=== PATIENT | male | born 1955 | race African-American/Black ===

== ENCOUNTER 2022-08-29 11:00 | Day surgery (SDC) | payer OTHER ==
--- NOTE | 2022-08-26 10:24 | RAD REPORT ---
EXAM DESCRIPTION: Loida Hernandez And Marixa (2 Views)08/26/2022 10:16 am CLINICAL HISTORY: Preop for cardiac catheterization COMPARISON: January 2022 FINDINGS: The lungs appear clear of acute infiltrate. The heart is normal size IMPRESSION: No acute abnormalities displayed
[2022-08-26 10:40] LABS: Absolute Lymphocytes (CBC) 2.3 K/uL (0.7-4.9); Hematocrit 42.5 % (39.6-49.0); Lymphocytes % 34.7 % (15.3-44.8); MCV 98.6 fL (80-100); MPV 8.7 fL (7.6-11.3); RBC Red Blood Cell Count 4.32 M/uL (4.33-5.43)
[2022-08-26 10:51] LABS: Protime INR 0.98
[2022-08-26 10:53] LABS: SARS-CoV-2 Antigen Rapid Res Negative (Negative)
--- NOTE | 2022-08-26 16:07 | EKG ---
Test Date: 2022-08-26 Test Time: 10:02:28 Director Motion Picture: MADAI MEASUREMENT RESULTS: Intervals: Rate: 66 [place]: 220 QRSD: 70 QT: 374 QTc: 392 [place]: P: 38 [place]: 220 QRS: 2 T: 4 INTERPRETIVE STATEMENTS: Sinus rhythm with 1st degree AV block Possible Left atrial enlargement Borderline ECG Compared to ECG 01/31/2022 09:55:15 No significant changes Electronically Signed On 08-26-22 16:06:52 CDT by Tawanda Connor
[2022-08-29] MEDS ORDERED: LIDOCAINE 1% MPF 30 ML VIAL ONE (11:14)
[2022-08-29] MEDS ORDERED: HEPA 1000U/500MLS 2,000 UNIT/1,000 ML BAG IV ONE (11:14)
[2022-08-29] MEDS ORDERED: NA CHLORIDE 0.9% 500 ML ONE (11:20)
[2022-08-29] MEDS ORDERED: HEPARIN 5000 UNIT/ML 1 ML VIAL ONE (12:01)
[2022-08-29] MEDS ORDERED: FENTANYL CITR 100 MCG/2 ML ONE (12:01)
[2022-08-29] MEDS ORDERED: MIDAZOLAM HCL 2 MG/2 ML INJ ONE (12:01)
[2022-08-29] MEDS ORDERED: VERAPAMIL HCL 10 MG/4 ML VIAL IV ONE (12:01)
[2022-08-29] MEDS ORDERED: CLOPIDOGREL 75 MG TABLET ONE (12:01)
[2022-08-29] MEDS ORDERED: ATROPINE SULF 1 MG/10 ML SYR IV ONE (12:02)
[2022-08-29] MEDS ORDERED: NITROGLYCERIN 100 MCG/ML SYR (for cath lab use only) IV ONE (12:02)
[2022-08-29] MEDS ORDERED: NITROGLYCERIN/D5W 25 MG/250 ML BTL IV ONE (12:02)
[2022-08-29] MEDS ORDERED: TICAGRELOR 90 MG TABLET PO ONE (12:02)
[2022-08-29] MEDS ORDERED: ASPIRIN 325 MG TAB ONE (12:02)
[2022-08-29] MEDS ORDERED: HEPARIN 10,000 UNIT/10 ML VIAL IV ONE (12:02)
[2022-08-29 14:31] VITALS: O2SAT 100
--- NOTE | 2022-08-29 16:33 | OP ---
Date of Procedure: 08/29/2022 Surgeon: CALLIE GUTIERREZ Procedures Performed: 1.Selective coronary angiogram. 2.Left heart catheterization. Indication: Unstable angina. Access: Right radial artery 6-[place] closed with TR band. Complications: None. Bleeding: Less than 10 mL. Anesthesia: Total sedation time was 50 minutes. Description Of Procedure: After risks, benefits, alternatives were explained, the patient agreed to procedure and signed informed consent. The patient was brought into the cardiac catheterization [facility], prepped and draped in the usual sterile fashion. Then, I accessed right radial artery using pediatric micropuncture kit and a 6-[place]ran Slender sheath. Then, I took 5-[place]ran [place] 4.0 catheter into the aortic root, engaged the left main and right coronary artery, took standard views, and then advanced the catheter over the wire into the LV, measured LVEDP, and pullback did not record any grad ient. Then, I removed the catheter and the sheath, and placed TR band with good hemostasis. Findings: 1.Left main; mid to distal left main critical stenosis of 90% to 95%. 2.LAD; ostial 90% to 95% and then proximal to mid diffuse 80% stenosis. Then, the LAD after diagona l 1 branch is beautiful large and has no disease. 3.Left circumflex; may be ostial 60%, but then the rest of the artery is totally normal. 4.RCA; large, dominant, and normal. 5.LVEDP elevated at 60 mmHg. Conclusion: 1.Critical left main and LAD stenosis. 2.Elevated LVEDP. Plan: Transfer for CABG. /FRAN Voice ID: [id number] Report ID: [id number]
[2022-08-29 19:33] VITALS: BP 132/74
== END 2022-08-29 15:10 | disposition home or self-care (01) ==
LOC: CCL 11:00
PROVIDERS: ATTEND Internal Medicine
DX: I25.110 Atherosclerotic heart disease of native coronary artery with unstable angina pectoris (principal); I10 Essential (primary) hypertension; E78.5 Hyperlipidemia, unspecified; Z79.899 Other long term (current) drug therapy; Z20.822 Contact with and (suspected) exposure to COVID-19
CPT/HCPCS: 93005; 85025; 80048; 36415; 85610; 85730; 71046; 93458; 76937; 87811; C1893; Q9966; J1644 ×2; J2250; J3010; J7040

== ENCOUNTER 2023-05-23 09:01 | Emergency (ER) | payer OTHER ==
--- NOTE | 2023-05-23 09:36 | RAD REPORT ---
EXAM DESCRIPTION: CT - Head Brain Wo Cont - 05/23/2023 9:16 am CLINICAL HISTORY: Dizziness;Syncope COMPARISON: No comparisons TECHNIQUE: Noncontrast head CT images were obtained without IV contrast. Multiplanar reformats were generated and reviewed. All CT scans are performed using dose optimization technique as appropriate and may include automated exposure control or mA/KV adjustment according to patient size. FINDINGS: No intracranial hemorrhage, mass, or edema. Midline structures are unremarkable. Normal ventricular caliber for age, with mild diffuse parenchymal volume loss. Magallanes-white matter differentiation is preserved, without evidence of acute infarct. No abnormal extra- axial fluid collections. Mild deep white matter and periventricular hypodensities, nonspecific, but s uggestive of chronic small vessel ischemic changes. Mastoid air cells and visualized portions of the paranasal sinuses are clear. No acute bony findings. IMPRESSION: No evidence of an acute intracranial process.
[2023-05-23 09:41] LABS: Hematocrit 39.5 % (39.6-49.0); Lymphocytes % 40.2 % (15.3-44.8); MCV 98.5 fL (80-100); MPV 9.4 fL (7.6-11.3); RBC Red Blood Cell Count 4.01 M/uL (4.33-5.43)
--- OUTSIDE RECORDS SUMMARY | 2023-05-23 09:42 | XMS REPORT | Continuity of Care Document ---
:1955 Author Organization [facility] t Address [address] [place] [address] Care Team Providers Name Role Phone MYESHA PEÑA Primary Care Physician Unavailable Omega Frye Attending Clinician Unavailable Tawanda Connor Attending Clinician Unavailable [facility], [facility] Sleep Lab Attending Clinician Unavailable Noah Dalton MD Attending Clinician NOAH DALTON Attending Clinician Unavailable NOAH DALTON Attending Clinician Unavailable Doctor Unassigned, [place] Attending Clinician Unavailable Omega Frye Admitting Clinician Unavailable Physician, No Primary or Family Admitting Clinician Unavaila [facility] Payers Payer Name Policy Type Policy Number Effective Date Expiration Date S ource Problems This patient has no known problems. Allergies, Adverse Reactions, Alerts Allergy Allergy Status Severity Reaction(s) Onset Inactive Treating Comm ents Source Name Type Date Date Clinician No Known DA Active U 2021-11 [facility] 0-20 Clear s 00:00: Nixon 00 [facility] No Known DA Active U [facility] Allergie 8-22 Clear s 00:00: Nixon 00 [facility] NO KNOWN Drug Active [facility] ALLERGIE Class ity of S [facility] Social History Social Habit Start Date Stop Date Quantity Comments Source Sex Assigned At 1955-09-271954-09-27 [facility] 00:00:00 00:00:00 Medical Branch Smoking Status Start Date Stop Date Source Tobacco smoking consumption [facility] Medical unknown Branch Medications This patient has no known medications. Procedures Procedure Date / Time Performed Performing Clinician [facility] e [id number] 2022-08-30 00:00:00 CHAAB.01 [facility] [id number] 2022-08-30 00:00:00 CHAAB.01 [facility] [id number] 2022-08-30 00:00:00 CHAAB.01 [facility] [id number] 2022-08-30 00:00:00 CHAAB.01 [facility] [id number] 2022-08-30 00:00:00 CHAAB.01 [facility] [id number] 2022-08-30 00:00:00 CHAAB.01 [facility] [id number] 2022-08-30 00:00:00 CHAAB.01 [facility] [id number] 2022-08-30 00:00:00 CHAAB.01 [facility] [id number] 2022-08-30 00:00:00 CHAAB.01 [facility] [id number] 2022-08-30 00:00:00 CHAAB.01 [facility] [id number] 2022-08-30 00:00:00 CHAAB.01 [facility] SLEEP STUDY DATA 2022-06-11 05:01:00 Doctor Unassigned, No [facility] REPORT Name Medical Branch Encounters Start End Encounter Admission Attending Care Care Encounter Source Date/Time Date/Time Type Type Clinicians Facility Department ID 2022-08-29 2022-09-03 Inpatient UR Uday, RUSTYCL INTE [id number] [facility] 18:35:00 14:12:00 Martin 15 [facility] 2022-07-01 2022-07-01 Outpatient EL RUSTY ConnorCL [facility] [id number] [facility] 14:26:00 14:26:00 Tawanda 75 [facility] 2022-06-11 2022-06-11 Spinneret Person Tech, Adc Sleep Lab [facility] [id number] [facility] 14:00:00 14:15:00 Visit Noah Dalton 350.1.13. 10 ity [facility] [id number] [facility] [id number] [facility] 193 Branch 2022-06-11 2022-06-11 Outpatient R NOAH DALTON [facility] [id number] [facility] 14:00:00 14:00:00 NOAH DALTON ity [facility] 2022-06-11 2022-06-11 Orders Doctor MARY BETH [id number] [place] [address] 00:00:00 00:00:00 Only Unassigned, MEGAN 350.1.13.10 ity of [place] [id number] [place] [address] [id number] [facility] 009 Branch 2022-05-22 2022-05-22 Outpatient FAVIAN Connor [facility] [id number] [facility] 16:43:00 16:43:00 Tawanda 83 [facility] 2022-05-21 2022-05-21 Outpatient Nikolas, FAVIAN [facility] [id number] [facility] 13:54:00 13:54:00 Tawanda 10 [facility] Results Test Description Test Time Test Comments Results Result Comments Source SURGICAL 2022-09-03 13:43:00 Test Item Value Reference Range Interpretation Comme nts SURGICAL RUN DATE: (test 09/03/22 [facility] - LAB SHAHRAM GE 1 RUN TIME: 1343 Specimen Inquiry RUN USER: INTERFACE code = PATIENT: JACKELIN DELACRUZ [id number] LOC: HUGH U #: [id number] AGE/SX: 66/M ROOM: [facility] RE08/29/22REG DR: Omega Frye : 53 BED: 1 DIS: S TATUS: ADM IN TLOC: SPEC #: [id number] RECD: 09/02/22958 STATUS: KYLE REHerbert #: [id number] IVANIA: 08/30/22 DR: Omega Frye MD ENTERED: 09/02/22999 SP TYPE: SURGICAL OTHR DR: No Primary or Family Physician Self Referred Darius Silva MD, Molham MD Mouchli, Anas MDORDERED: 98074, ANATOMIC SPEC COPIES TO: No Primary or Family Physician Self Referred Darius Silva MD [address] [place] [address] Bhavya Fish MD [address] [place] [address] Omega Frye MD [address] [place] [address]. [address] [place] [address] Gurvinder Alonso MD [address] [place] [address] PROCEDURES: 52549 (09/02/22) TISSUES: A. ATRIUM - LEFT ATRIAL APPENDAGE CLINICAL HISTORY SAME CONTINUED ON NEXT P AGE RUN DATE: 09/03/22 [facility] - LAB PA GE 2 RUN TIME: 1343 Specimen Inquiry RUN USER: INTERFACE SPEC #: [id number] PATIENT: JACKELIN VASQUEZ #[id number] (Continued) FINAL DIAGNOSIS Heart, left atrial appendage, submitted: Cardiac muscle with degenerative change, featuresconsistent with atri al appendage. GROSS DESCRIPTION Received in formalin labeled left atrial appendage is a 2.5 x 2 x 1 c m portion of cardiactissue with attached adipose submitted in 1 cassette. Technical component performe d at [facility],[address] [place] [address], [place] [address] Unless gross only, the diagnosis is based upon microscopic examination.Immunohistochemi stry: This test was developed and its performance characteristicsdetermined by this laboratory. It has n ot been approved nor does it need approvalby the [place] FDA. Appropriate positive and negative contro ls are reviewed and judgedto be acceptable. This laboratory is certified under the Clinical Laborator y ImprovementAmendments (CLIA-88) as qualified to perform high complexity clinical laboratory testing. CLINICAL INFORMATION CAD Signed SIGNATURE ON Cabrera Caceres 09/03/22 1343 END OF REPORT BASIC METABOLIC [id number] 05:16:00 Test Item Value Reference Range Interpretation Comments SODIUM (test code = NA) 139 mEq/L 134-147 N POTASSIUM (test code = 4.2 mEq/L 3.4-5.0 N K) CHLORIDE (test code = 108 mEq/L 100-108 N CL) CARBON DIOXIDE (test 22 mEq/l 21-33 N code = CO2) ANION GAP (test code = 14 0-20 N GAP) GLUCOSE (test code = 101 mg/dL 70-110 N GLU) BLOOD UREA NITROGEN 12 mg/dL 7-18 N (test code = BUN) GLOMERULAR FILTRATION 80.8 80-90 N Units of measure = RATE (test code = GFR) ml/mi n/1.73 m2 CREATININE (test code = 1.1 mg/dL 0.6-1.3 N CREAT) CALCIUM (test code = 8.8 mg/dL 8.0-10.5 N CA) [id number] 05:16:00 Test Item Value Reference Range Interpretation Comments MAGNESIUM (test code = MAG) 1.83 mg/dL 1.80-2.40 N CBC W/AUTO [id number] 04:44:00 Test Item Value Reference Range Interpretation Comments WHITE BLOOD CELL (test code = 8.6 x10 3/uL 4.5-11.0 N WBC) RED BLOOD CELL (test code = 3.23 x10 6/uL 4.00-5.60 L RBC) HEMOGLOBIN (test code = HGB) 10.7 g/dL 12.5-16.9 L HEMATOCRIT (test code = HCT) 31.4 % 37.5-50.7 L MEAN CELL VOLUME (test code = 97.2 fL 81.0-99.0 N MCV) MEAN CELL HGB (test code = MCH) 33.1 pg 27.0-33.0 H MEAN CELL HGB CONCETRATION 34.1 g/dL 33.0-37.0 N (test code = MCHC) RED CELL DISTRIBUTION WIDTH CV 12.8 % 11.5-14.5 N (test code = RDW) RED CELL DISTRIBUTION WIDTH SD 45.2 fL 37.0-54.0 N (test code = RDW-SD) PLATELET COUNT (test code = 143 x10 3/uL 150-400 L PLT) MEAN PLATELET VOLUME (test code 10.5 fL 7.0-9.0 H = MPV) NEUTROPHIL % (test code = NT%) 60.5 % 56.0-77.0 N IMMATURE GRANULOCYTE % (test 0.7 % 0.0-2.0 N code = IG%) LYMPHOCYTE % (test code = LY%) 23.3 % 14.0-32.0 N MONOCYTE % (test code = MO%) 14.6 % 4.8-9.0 H EOSINOPHIL % (test code = EO%) 0.8 % 0.3-3.7 N BASOPHIL % (test code = BA%) 0.1 % 0.0-2.0 N NUCLEATED RBC % (test code = 0.0 % 0-0 N NRBC%) NEUTROPHIL # (test code = NT#) 5.20 x10 3/uL 2.0-7.6 N IMMATURE GRANULOCYTE # (test 0.06 x10 3/uL 0.00-0.03 H code = IG#) LYMPHOCYTE # (test code = LY#) 2.01 x10 3/uL 1.0-3.8 N MONOCYTE # (test code = MO#) 1.26 x10 3/uL 0.1-0.8 H EOSINOPHIL # (test code = EO#) 0.07 x10 3/uL 0.0-0.2 N BASOPHIL # (test code = BA#) 0.01 x10 3/uL 0.0-0.2 N NUCLEATED RBC # (test code = 0.00 x10 3/uL 0.0-0.1 N NRBC#) MANUAL DIFF REQUIRED (test code NO = MDIFF) - XR CHEST 1 [id number] 00:00:00 [facility] 1955 Sex: M FAX: Omega Montoya [phone] [place]: St: ADM FAX: Lyssa Peterson [phone] ------- Name: JACKELIN VASQUEZ [facility] : 1955 Age/S: 66/M [address] [place] [address] Blvd Unit #: [id number] Loc: G.3355 [place] [address] Phys: Lizbeth [place] ACCOUNT ASSISTANT Acct: [id number] Dis Date: Status: ADM IN PHONE #: Exam Date: 09/03/2022623 FAX #: [phone] Reason: Cardiac Surgery Post Op EXAMS: CPT CODE:[id number] XR CHEST 1 V 70418 PROCEDURE INFORMATION: Exam: XR Chest Exam date and time: 09/03/2022 5:30 AM Age: 66 years old Clinical indication: Other: Cardiac surgery post op TECHNIQUE: Imaging protocol: Radiologic exam of the chest. Views: 1 view. COMPARISON: CR XR CHEST 1V 09/02/2022 4:48 AM FINDINGS: Lungs: Improved right basilar airspace disease. Stable left basilar airspace disease. Pleural spaces: Small left pleural effusion. No pneumothorax. Heart/Mediastinum: Cardiomediastinal silhouette is stable. Bones/joints: Sternotomy wires no pneumothorax. IMPRESSION: 1. Stable left basilar airspacedisease may be due to atelectasis or infiltrate. 2. Small left pleural effusion. at 0824 Reported and signed by: Emily Hernandez M.D. CC: Omega Frye MD; Lizbeth Peterson NP Technologist: RT Teresa(Gianluca) Trnscrd Date/Time/By: 09/03/2022 (823) : By: [email or web address] Orig Print D/T: S: 09/03/2022 (823) PAGE 1 Signed ReportBASIC METABOLIC PANEL 2022-09-02 02:39:00 Test Item Value Reference Range Interpretation Comments SODIUM (test code = NA) 139 mEq/L 134-147 N POTASSIUM (test code = 3.8 mEq/L 3.4-5.0 N K) CHLORIDE (test code = 107 mEq/L 100-108 N CL) CARBON DIOXIDE (test 25 mEq/l 21-33 N code = CO2) ANION GAP (test code = 11 0-20 N GAP) GLUCOSE (test code = 109 mg/dL 70-110 N GLU) BLOOD UREA NITROGEN 12 mg/dL 7-18 N (test code = BUN) GLOMERULAR FILTRATION 80.8 80-90 N Units of measure = RATE (test code = GFR) ml/mi n/1.73 m2 CREATININE (test code = 1.1 mg/dL 0.6-1.3 N CREAT) CALCIUM (test code = 8.9 mg/dL 8.0-10.5 N CA) COMMENTS: POD #1HEPATIC FUNCTION [id number] 02:39:00 Test Item Value Reference Range Interpretation Comments TOTAL PROTEIN (test code = PROT) 6.5 g/dL 6.4-8.2 N ALBUMIN (test code = ALB) 3.50 g/dL 3.4-5.0 N BILIRUBIN TOTAL (test code = BILT) 1.50 mg/dL 0.0-1.0 H BILIRUBIN DIRECT (test code = 0.60 MG/DL 0.0-0.30 H BILD) BILIRUBIN INDIRECT (test code = 0.90 MG/DL BILIND) SGOT/AST (test code = AST) 50 IUnit/L 15-37 H SGPT/ALT (test code = ALT) 37 IUnit/L 30-65 N ALKALINE PHOSPHATASE TOTAL (test 84 IUnit/L 20-125 N code = ALKP) COMMENTS: POD #[id number] 02:39:00 Test Item Value Reference Range Interpretation Comments MAGNESIUM (test code = MAG) 1.95 mg/dL 1.80-2.40 N COMMENTS: POD #1CBC W/AUTO [id number] 02:23:00 Test Item Value Reference Range Interpretation Comments WHITE BLOOD CELL (test code = 13.1 x10 3/uL 4.5-11.0 H WBC) RED BLOOD CELL (test code = 3.45 x10 6/uL 4.00-5.60 L RBC) HEMOGLOBIN (test code = HGB) 11.5 g/dL 12.5-16.9 L HEMATOCRIT (test code = HCT) 33.9 % 37.5-50.7 L MEAN CELL VOLUME (test code = 98.3 fL 81.0-99.0 N MCV) MEAN CELL HGB (test code = MCH) 33.3 pg 27.0-33.0 H MEAN CELL HGB CONCETRATION 33.9 g/dL 33.0-37.0 N (test code = MCHC) RED CELL DISTRIBUTION WIDTH CV 12.5 % 11.5-14.5 N (test code = RDW) RED CELL DISTRIBUTION WIDTH SD 45.2 fL 37.0-54.0 N (test code = RDW-SD) PLATELET COUNT (test code = 122 x10 3/uL 150-400 L PLT) MEAN PLATELET VOLUME (test code 10.6 fL 7.0-9.0 H = MPV) NEUTROPHIL % (test code = NT%) 65.4 % 56.0-77.0 N IMMATURE GRANULOCYTE % (test 0.8 % 0.0-2.0 N code = IG%) LYMPHOCYTE % (test code = LY%) 18.4 % 14.0-32.0 N MONOCYTE % (test code = MO%) 15.0 % 4.8-9.0 H EOSINOPHIL % (test code = EO%) 0.2 % 0.3-3.7 L BASOPHIL % (test code = BA%) 0.2 % 0.0-2.0 N NUCLEATED RBC % (test code = 0.0 % 0-0 N NRBC%) NEUTROPHIL # (test code = NT#) 8.56 x10 3/uL 2.0-7.6 H IMMATURE GRANULOCYTE # (test 0.10 x10 3/uL 0.00-0.03 H code = IG#) LYMPHOCYTE # (test code = LY#) 2.40 x10 3/uL 1.0-3.8 N MONOCYTE # (test code = MO#) 1.96 x10 3/uL 0.1-0.8 H EOSINOPHIL # (test code = EO#) 0.02 x10 3/uL 0.0-0.2 N BASOPHIL # (test code = BA#) 0.02 x10 3/uL 0.0-0.2 N NUCLEATED RBC # (test code = 0.00 x10 3/uL 0.0-0.1 N NRBC#) MANUAL DIFF REQUIRED (test code NO = MDIFF) - [facility] [id number] 00:00:00 [facility] : 1955 Sex: M Name:JACKELIN VASQUEZ [facility] : 1955 Age/S: 66 / M [address] Unit #: [id number] Loc: [place] [address] Phys: Lizbeth Peterson ACCOUNT ASSISTANT Acct: [id number] Dis Date: Status: ADM IN PHONE #: [phone] Exam Date: 09/02/2022 1248 FAX #: [phone] Reason: R/O DVT FOR DISCHARGE Report Has Been Amended EXAMS: CPT CODE: [id number] DUP VEIN STEPHENIE [address] Addendum - 09/02/2022 VQPNRL1609/02/2022 ADDENDUM: [id number] US/DUPVBIL This is an addendum to the previously dictated report to document communication. Findings were discussed with Lizbeth Peterson at 09/02/2022 2:52 PM CDT. at 1452 Reported and signed by: Chano Aguirre Report PROCEDURE INFORMATION: Exam: US Duplex Lower Extremity Veins, Bilateral Exam date and time: 09/02/2022 11:38 AM Age: 66 years old Clinical indication: Screening exam; S/P cabg; Additional info: R/O dvt for discharge TECHNIQUE: Imaging protocol: Real-time Duplex ultrasound of the bilateral extremities with 2-D quevedo scale, color Doppler flow and spectral waveform analysis with image documentation. Complete exam focused on the bilateral lower extremity veins. COMPARISON: US DUP VEIN STEPHENIE 08/29/2022 8:21 PM FINDINGS: Right deep veins: Thrombus in right posterior tibial vein. The common femoral, femoral, proximal profunda femoral and popliteal veins are patent without thrombus. Right superficial veins: Saphenofemoral junction is patent without thrombus. Left deep veins: Unremarkable. The common femoral, femoral, proximal profunda femoral and popliteal veins are patent without thrombus. Normal Doppler waveforms. Normal compressibility and/or augmentation response. Left superficial veins: Saphenofemoral junction is patent without thrombus. Soft tissues: Unremarkable. IMPRESSION:1. Right lower extremity DVT with thrombus in the right posterior tibial vein. PAGE 1 Signed Report (CONTINUED) Name: JACKELIN VASQUEZ [facility] : 1955 Age/S: 66 / M [address] [place] [address] Unit #: [id number] Loc: [place] [address] Phys: Lizbeth Peterson ACCOUNT ASSISTANT Acct: [id number] Dis Date:Status: ADM IN PHONE #: [phone] Exam Date: 09/02/2022 1248 FAX #: [phone] Reason: R/O DVT FOR DISCHARGE Report Has Been Amended EXAMS: CPT CODE: [id number] DUP VEIN STEPHENIE [address]48[address] (Continued)2. No evidence of deep vein thrombosis in the left lower extremity. at 1450 Reported and signed by: Jesu Schaefer M.D. CC: Omega Frye MD; Lizbeth Peterson NP Technologist: Keerthi Mcdaniel RDMS(AB) Trnscb Date/Time: 09/02/2022 (1449) [email or web address] Orig Print D/T: S: 09/02/2022 (1449) Probe: PAGE 2 Signed Report- XR CHEST 1 [id number] 00:00:00 [facility] : 1955 Sex: M FAX: Omega Montoya [phone] [place]: St: [facility] FAX: Lyssa Peterson [phone] -------- Name: JACKELIN VASQUEZ [facility] : 1955 Age/S: 66/M [address] [place] [address] Unit #: [id number] Loc: [place] [address] Phys: Lizbeth Peterson ACCOUNT ASSISTANT Acct: [id number] Dis Date: Status: ADM IN PHONE #: [phone] Exam Date: 09/02/2022 0600 FAX #: [phone] Reason: Cardiac Surgery Post Op EXAMS: CPT CODE:[id number] XR CHEST 1 V 26903 PROCEDURE INFORMATION: Exam: XR Chest Exam date and time: 09/02/2022 4:48 AM Age: 66 years old Clinical indication: Other: Cardiac surgery post op; () TECHNIQUE: Imaging protocol: Radiologic exam of the chest. Views: 1 view. COMPARISON: CR XR CHEST 1V 09/01/2022 6:04 AM FINDINGS: Lungs: Improved aeration left lower lung. Pleural spaces: No appreciable pleural effusion or pneumothorax. Heart/Mediastinum: Cardiomegaly. Coronary artery bypass. Bones/joints: Sternotomy wires. IMPRESSION: Improved aeration left lower lung may reflect resolving subsegmental atelectasis. at 0910 Reported and signed by: Chano Chun C: Omega Fyre MD; Lizbeth Peterson NP Technologist: RT Paddy(R) Trnscrd Date/Time/By: 09/02/2022 (0910) : By: [email or web address] Orig Print D/T: S: 09/02/2022 (0910) PAGE 1 Signed ReportBASIC METABOLIC PANEL 2022-09-01 01:40:00 Test Item Value Reference Range Interpretation Comments SODIUM (test code = NA) 137 mEq/L 134-147 N POTASSIUM (test code = 4.0 mEq/L 3.4-5.0 N K) CHLORIDE (test code = 106 mEq/L 100-108 CL) CARBON DIOXIDE (test 22 mEq/l 21-33 N code = CO2) ANION GAP (test code = 13 0-20 N GAP) GLUCOSE (test code = 130 mg/dL 70-110 H GLU) BLOOD UREA NITROGEN 15 mg/dL 7-18 (test code = BUN) GLOMERULAR FILTRATION 73.1 80-90 L Units of measure = RATE (test code = GFR) ml/mi n/1.73 m2 CREATININE (test code = 1.2 mg/dL 0.6-1.3 N CREAT) CALCIUM (test code = 8.5 mg/dL 8.0-10.5 N CA) COMMENTS: POD #1HEPATIC FUNCTION [id number] 01:40:00 Test Item Value Reference Range Interpretation Comments TOTAL PROTEIN (test code = PROT) 6.2 g/dL 6.4-8.2 L ALBUMIN (test code = ALB) 3.60 g/dL 3.4-5.0 N BILIRUBIN TOTAL (test code = BILT) 0.90 mg/dL 0.0-1.0 BILIRUBIN DIRECT (test code = 0.30 MG/DL 0.0-0.30 BILD) BILIRUBIN INDIRECT (test code = 0.60 MG/DL BILIND) SGOT/AST (test code = AST) 48 IUnit/L 15-37 H SGPT/ALT (test code = ALT) 34 IUnit/L 30-65 N ALKALINE PHOSPHATASE TOTAL (test 73 IUnit/L 20-125 N code = ALKP) COMMENTS: POD #[id number] 01:40:00 Test Item Value Reference Range Interpretation Comments MAGNESIUM (test code = MAG) 1.78 mg/dL 1.80-2.40 L COMMENTS: POD #1CBC W/AUTO [id number] 01:26:00 Test Item Value Reference Range Interpretation Comments WHITE BLOOD CELL (test code = 12.8 x10 3/uL 4.5-11.0 H WBC) RED BLOOD CELL (test code = 3.40 x10 6/uL 4.00-5.60 L RBC) HEMOGLOBIN (test code = HGB) 11.3 g/dL 12.5-16.9 L HEMATOCRIT (test code = HCT) 33.8 % 37.5-50.7 L MEAN CELL VOLUME (test code = 99.4 fL 81.0-99.0 H MCV) MEAN CELL HGB (test code = MCH) 33.2 pg 27.0-33.0 H MEAN CELL HGB CONCETRATION 33.4 g/dL 33.0-37.0 N (test code = MCHC) RED CELL DISTRIBUTION WIDTH CV 12.8 % 11.5-14.5 N (test code = RDW) RED CELL DISTRIBUTION WIDTH SD 46.2 fL 37.0-54.0 N (test code = RDW-SD) PLATELET COUNT (test code = 118 x10 3/uL 150-400 L PLT) MEAN PLATELET VOLUME (test code 11.0 fL 7.0-9.0 H = MPV) NEUTROPHIL % (test code = NT%) 66.0 % 56.0-77.0 N IMMATURE GRANULOCYTE % (test 0.5 % 0.0-2.0 N code = IG%) LYMPHOCYTE % (test code = LY%) 17.0 % 14.0-32.0 N MONOCYTE % (test code = MO%) 16.3 % 4.8-9.0 H EOSINOPHIL % (test code = EO%) 0.0 % 0.3-3.7 L BASOPHIL % (test code = BA%) 0.2 % 0.0-2.0 N NUCLEATED RBC % (test code = 0.0 % 0-0 N NRBC%) NEUTROPHIL # (test code = NT#) 8.43 x10 3/uL 2.0-7.6 H IMMATURE GRANULOCYTE # (test 0.06 x10 3/uL 0.00-0.03 H code = IG#) LYMPHOCYTE # (test code = LY#) 2.17 x10 3/uL 1.0-3.8 N MONOCYTE # (test code = MO#) 2.08 x10 3/uL 0.1-0.8 H EOSINOPHIL # (test code = EO#) 0.00 x10 3/uL 0.0-0.2 N BASOPHIL # (test code = BA#) 0.02 x10 3/uL 0.0-0.2 N NUCLEATED RBC # (test code = 0.00 x10 3/uL 0.0-0.1 N NRBC#) MANUAL DIFF REQUIRED (test code NO = MDIFF) - XR CHEST 1 [id number] 00:00:00 [facility] : 1955 Sex: M FAX: Omega Montoya [phone] [place]: St: ADM FAX: Lyssa Peterson [phone] ------- Name: JACKELIN VASQUEZ [facility] : 1955 Age/S: 66/M [address] [place] [address] Unit #: [id number] Loc: G.[address] [place] [address] Phys: Lizbeth Peterson ACCOUNT ASSISTANT Acct: [id number] Dis Date: Status: ADM IN PHONE #: [phone] Exam Date: 09/01/2022 0604 FAX #: [phone] Reason: Cardiac Surgery Post Op EXAMS: CPT CODE:[id number] XR CHEST 1 V 01025 PROCEDURE INFORMATION: Exam: XR Chest Exam date and time: 09/01/2022 6:04 AM Age: 66 years old Clinical indication: Pain; Chest pressure; Additional info: Cardiac surgery post op TECHNIQUE: Imaging protocol: Radiologic exam of the chest. Views: 1 view. COMPARISON: CR XR CHEST 1V 08/31/2022 5:50 AM FINDINGS: Tubes, catheters and devices: Removal of the right IJ central line. Lungs: Worsening opacities in the lung bases. The other lung opacities are stable. Pleural spaces: Small left pleural effusion could be present. No definite pneumothorax. Heart/Mediastinum: Stable enlarged heart size. Bones/joints: Stable. Median sternotomy wires. IMPRESSION: 1. Worsening opacitiesin the lung bases. 2. Removal of the right IJ central line. at 0816 Reported and signed by: Sandro Landis M.D. CC: Omega Frye MD; Lizbeth Peterson NP Technologist: RT Israel(Gianluca) Trnscrd Date/Time/By: 09/01/2022 (08) : By: [email or web address] Orig Print D/T: S: 09/01/2022 (815) PAGE 1 Signed ReportGLUCOSE [id number] 21:52:00 Test Item Value Reference Range Interpretation Comments GLUCOSE BEDSIDE (test 97 MG/DL 70-110 N Perfor med by certified code = GLUBED) scrubber operator at [facility] GLUCOSE [id number] 06:58:00 Test Item Value Reference Range Interpretation Comments GLUCOSE BEDSIDE (test 136 MG/DL 70-110 H Perfor med by certified code = GLUBED) scrubber operator at [facility] BASIC METABOLIC [id number] 04:23:00 Test Item Value Reference Range Interpretation Comments SODIUM (test code = NA) 142 mEq/L 134-147 N POTASSIUM (test code = 4.3 mEq/L 3.4-5.0 N K) CHLORIDE (test code = 112 mEq/L 100-108 H CL) CARBON DIOXIDE (test 22 mEq/l 21-33 N code = CO2) ANION GAP (test code = 13 0-20 N GAP) GLUCOSE (test code = 117 mg/dL 70-110 H GLU) BLOOD UREA NITROGEN 11 mg/dL 7-18 N (test code = BUN) GLOMERULAR FILTRATION 80.8 80-90 N Units of measure = RATE (test code = GFR) ml/mi n/1.73 m2 CREATININE (test code = 1.1 mg/dL 0.6-1.3 N CREAT) CALCIUM (test code = 8.4 mg/dL 8.0-10.5 N CA) COMMENTS: POD #1HEPATIC FUNCTION [id number] 04:23:00 Test Item Value Reference Range Interpretation Comments TOTAL PROTEIN (test code = PROT) 5.7 g/dL 6.4-8.2 L ALBUMIN (test code = ALB) 3.40 g/dL 3.4-5.0 N BILIRUBIN TOTAL (test code = BILT) 0.70 mg/dL 0.0-1.0 BILIRUBIN DIRECT (test code = 0.20 MG/DL 0.0-0.30 N BILD) BILIRUBIN INDIRECT (test code = 0.50 MG/DL BILIND) SGOT/AST (test code = AST) 45 IUnit/L 15-37 H SGPT/ALT (test code = ALT) 42 IUnit/L 30-65 N ALKALINE PHOSPHATASE TOTAL (test 73 IUnit/L 20-125 N code = ALKP) COMMENTS: POD #[id number] 04:23:00 Test Item Value Reference Range Interpretation Comments MAGNESIUM (test code = MAG) 2.01 mg/dL 1.80-2.40 N COMMENTS: POD #1LACTIC [id number] 04:06:00 Test Item Value Reference Range Interpretation Comments LACTIC ACID (test code = LACT) 0.9 mmol/L 0.4-1.9 N CBC W/AUTO [id number] 03:56:00 Test Item Value Reference Range Interpretation Comments WHITE BLOOD CELL (test code = 11.8 x10 3/uL 4.5-11.0 H WBC) RED BLOOD CELL (test code = 3.53 x10 6/uL 4.00-5.60 L RBC) HEMOGLOBIN (test code = HGB) 11.7 g/dL 12.5-16.9 L HEMATOCRIT (test code = HCT) 34.3 % 37.5-50.7 L MEAN CELL VOLUME (test code = 97.2 fL 81.0-99.0 N MCV) MEAN CELL HGB (test code = MCH) 33.1 pg 27.0-33.0 H MEAN CELL HGB CONCETRATION 34.1 g/dL 33.0-37.0 N (test code = MCHC) RED CELL DISTRIBUTION WIDTH CV 12.7 % 11.5-14.5 N (test code = RDW) RED CELL DISTRIBUTION WIDTH SD 45.2 fL 37.0-54.0 N (test code = RDW-SD) PLATELET COUNT (test code = 128 x10 3/uL 150-400 L PLT) MEAN PLATELET VOLUME (test code 10.4 fL 7.0-9.0 H = MPV) NEUTROPHIL % (test code = NT%) 76.4 % 56.0-77.0 N IMMATURE GRANULOCYTE % (test 0.5 % 0.0-2.0 N code = IG%) LYMPHOCYTE % (test code = LY%) 9.4 % 14.0-32.0 L MONOCYTE % (test code = MO%) 13.6 % 4.8-9.0 H EOSINOPHIL % (test code = EO%) 0.0 % 0.3-3.7 L BASOPHIL % (test code = BA%) 0.1 % 0.0-2.0 N NUCLEATED RBC % (test code = 0.0 % 0-0 N NRBC%) NEUTROPHIL # (test code = NT#) 9.02 x10 3/uL 2.0-7.6 H IMMATURE GRANULOCYTE # (test 0.06 x10 3/uL 0.00-0.03 H code = IG#) LYMPHOCYTE # (test code = LY#) 1.11 x10 3/uL 1.0-3.8 N MONOCYTE # (test code = MO#) 1.61 x10 3/uL 0.1-0.8 H EOSINOPHIL # (test code = EO#) 0.00 x10 3/uL 0.0-0.2 N BASOPHIL # (test code = BA#) 0.01 x10 3/uL 0.0-0.2 N NUCLEATED RBC # (test code = 0.00 x10 3/uL 0.0-0.1 N NRBC#) MANUAL DIFF REQUIRED (test code NO = MDIFF) POC ARTERIAL BLOOD [id number] 03:46:00 Test Item Value Reference Range Interpretation Comments POC ARTERIAL BLOOD GAS PH (test 7.377 7.35-7.45 N code = POCPHA) POC ARTERIAL BLOOD GAS PCO2 (test 38.3 mmHg 35.0-45 N code = FVPEZV6G) POC TCO2 ARTERIAL (test code = 23.4 POCTCO2) POC ARTERIAL BLOOD GAS PO2 (test 89.2 mmHg 80-100.0 N code = FDGTW3W) POC HCO3 ARTERIAL (test code = 22.3 MMOL/L 22.0-26.0 N BACQGZ0H) POC BASE EXCESS (test code = -2.7 MMOL/L -4.0-4.0 N POCBEA) POC O2 SATURATION (test code = 96.3 % 90-100 N POCO2S) ABG DELIVERY (test code = DEBBIE) Cannula ABG TEMPERATURE (test code = 100.2 F TEMPA) ABG SITE (test code = SITEA) Art Line BASIC METABOLIC [id number] 03:46:00 Test Item Value Reference Range Interpretation Comments SODIUM (test code = NA/ABG) 142 MEQ/L 134-147 N POTASSIUM (test code = K/ABG) 4.2 MEQ/L 3.4-5.0 N CHLORIDE (test code = CL/ABG) 109 MEQ/L 100-108 H CREATININE ABG (test code = 1.2 mg/dL 0.8-1.3 CREAABG) POC IONIZED CALCIUM (test code = 1.28 MMOL/L 1.12-1.32 N POCCA) POC GLUCOSE (test code = POCGLU) 113 MG/DL 70-110 H HEMOGLOBIN [id number] 03:46:00 Test Item Value Reference Range Interpretation Comments HEMOGLOBIN ABG (test code = 12.1 G/DL 12.5-16.9 L HGB/ABG) [id number] 03:46:00 Test Item Value Reference Range Interpretation Comments HEMATOCRIT (test code = HCT/ABG) 36 % 37.5-50.7 L POC LACTIC [id number] 03:46:00 Test Item Value Reference Range Interpretation Comments POC LACTIC ACID (test code = 1.1 mmol/l 0.9-1.7 N POCLAC) GLUCOSE [id number] 02:21:00 Test Item Value Reference Range Interpretation Comments GLUCOSE BEDSIDE (test 124 MG/DL 70-110 H Perfor med by certified code = GLUBED) scrubber operator at [facility] GLUCOSE [id number] 00:10:00 Test Item Value Reference Range Interpretation Comments GLUCOSE BEDSIDE (test 118 MG/DL 70-110 H Perfor med by certified code = GLUBED) scrubber operator at [facility] - XR CHEST 1 [id number] 00:00:00 [facility] 1955 Sex: M FAX: Omega Montoya [phone] [place]: St: ADM FAX: Lyssa Peterson [phone] -------- Name: JACKELIN VASQUEZ [facility] : 1955 Age/S: 66/M [address] [place] [address] Unit #: [id number] Loc: G.[id number] [place] [id number] Phys: Lizbeth [place] 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 Views: 1 view. COMPARISON: CR XR CHEST 1V 08/30/2022 3:14 PM FINDINGS: Tubes, catheters and devices: Mediastinal drain and left chest tube in place. Right IJ CVC in unchanged position. Interval removal of endotracheal tube. Lungs: Low lung volumes. Unchanged left basilar airspace disease. Pleural spaces: Unchanged possible small left pleural effusion. No pneumothorax. Heart/Mediastinum: Unchanged appearance of the cardiomediastinal silhouette. Bones/joints: Median sternotomy changes. IMPRESSION: 1. Unchanged left basilar airspace disease. 2. Unchanged possible small left pleural effusion. Electronically Signed by Chano Allen 08/31/2022 at 0847 Reported and signed by: Roddy Villaseñor M.D. CC: Omega Frye MD; Nella [place] Technologist: YOLANDA Charles) Trnscrd Date/Time/By: 08/31/2022 (0847) : By: [email or web address] Orig Print D/T: S: 08/31/2022 (0857) PAGE 1 Signed ReportGLUCOSE [id number] 22:57:00 Test Item Value Reference Range Interpretation Comments GLUCOSE BEDSIDE (test 96 MG/DL 70-110 N Perfor med by certified code = GLUBED) scrubber operator at [facility] GLUCOSE [id number] 20:04:00 Test Item Value Reference Range Interpretation Comments GLUCOSE BEDSIDE (test 103 MG/DL 70-110 N Perfor med by certified code = GLUBED) scrubber operator at [facility] POC ARTERIAL BLOOD [id number] 18:23:00 Test Item Value Reference Range Interpretation Comments POC ARTERIAL BLOOD GAS PH (test 7.311 7.35-7.45 L code = POCPHA) POC ARTERIAL BLOOD GAS PCO2 (test 44.1 mmHg 35.0-45 N code = XLBRRL0V) POC TCO2 ARTERIAL (test code = 23.6 POCTCO2) POC ARTERIAL BLOOD GAS PO2 (test 135.0 mmHg 80-100.0 H code = VUSTL2J) POC HCO3 ARTERIAL (test code = 22.2 MMOL/L 22.0-26.0 N [id number]) POC BASE EXCESS (test code = -4.0 MMOL/L -4.0-4.0 N POCBEA) POC O2 SATURATION (test code = 98.8 % 90-100 N POCO2S) BASIC METABOLIC [id number] 18:23:00 Test Item Value Reference Range Interpretation Comments SODIUM (test code = NA/ABG) 144 MEQ/L 134-147 N POTASSIUM (test code = K/ABG) 3.9 MEQ/L 3.4-5.0 N CHLORIDE (test code = CL/ABG) 113 MEQ/L 100-108 H CREATININE ABG (test code = 0.9 mg/dL 0.8-1.3 N CREAABG) POC IONIZED CALCIUM (test code = 1.26 MMOL/L 1.12-1.32 N POCCA) POC GLUCOSE (test code = POCGLU) 123 MG/DL 70-110 H HEMOGLOBIN [id number] 18:23:00 Test Item Value Reference Range Interpretation Comments HEMOGLOBIN ABG (test code = 13.1 G/DL 12.5-16.9 N HGB/ABG) [id number] 18:23:00 Test Item Value Reference Range Interpretation Comments HEMATOCRIT (test code = HCT/ABG) 39 % 37.5-50.7 N POC LACTIC [id number] 18:23:00 Test Item Value Reference Range Interpretation Comments POC LACTIC ACID (test code = 1.7 mmol/l 0.9-1.7 N POCLAC) LACTIC ACID [id number] 18:21:00 Test Item Value Reference Range Interpretation Comments LACTIC ACID REPEAT (test code = 1.6 mmol/l 0.4-1.9 N LACTR) POC ARTERIAL BLOOD [id number] 16:56:00 Test Item Value Reference Range Interpretation Comments POC ARTERIAL BLOOD GAS PH (test 7.369 7.35-7.45 N code = POCPHA) POC ARTERIAL BLOOD GAS PCO2 (test 39.2 mmHg 35.0-45 N code = WFMPMX0V) POC TCO2 ARTERIAL (test code = 23.8 POCTCO2) POC ARTERIAL BLOOD GAS PO2 (test 131.5 mmHg 80-100.0 H code = FXYHI7K) POC HCO3 ARTERIAL (test code = 22.6 MMOL/L 22.0-26.0 N DGAPRE7W) POC BASE EXCESS (test code = -2.7 MMOL/L -4.0-4.0 N POCBEA) POC O2 SATURATION (test code = 98.9 % 90-100 N POCO2S) BASIC METABOLIC [id number] 16:56:00 Test Item Value Reference Range Interpretation Comments SODIUM (test code = NA/ABG) 143 MEQ/L 134-147 N POTASSIUM (test code = K/ABG) 4.0 MEQ/L 3.4-5.0 N CHLORIDE (test code = CL/ABG) 110 MEQ/L 100-108 H CREATININE ABG (test code = 1.0 mg/dL 0.8-1.3 N CREAABG) POC IONIZED CALCIUM (test code = 1.25 MMOL/L 1.12-1.32 N POCCA) POC GLUCOSE (test code = POCGLU) 113 MG/DL 70-110 H HEMOGLOBIN [id number] 16:56:00 Test Item Value Reference Range Interpretation Comments HEMOGLOBIN ABG (test code = 11.6 G/DL 12.5-16.9 L HGB/ABG) [id number] 16:56:00 Test Item Value Reference Range Interpretation Comments HEMATOCRIT (test code = HCT/ABG) 34 % 37.5-50.7 L POC LACTIC [id number] 16:56:00 Test Item Value Reference Range Interpretation Comments POC LACTIC ACID (test code = 2.0 mmol/l 0.9-1.7 H POCLAC) THROMBOPLASTIN TIME [id number] 16:11:00 Test Item Value Reference Range Interpretation Comments THROMBOPLASTIN TIME 25.4 Seconds 25.0-39.5 N Therape utic Range: PARTIAL (test code = 50.4 - 88.3 Seconds PTT) Effective 02/23/2019 COMMENTS: On arrivalBASIC METABOLIC [id number] 15:57:00 Test Item Value Reference Range Interpretation Comments SODIUM (test code = NA) 144 mEq/L 134-147 N POTASSIUM (test code = 4.2 mEq/L 3.4-5.0 N K) CHLORIDE (test code = 112 mEq/L 100-108 H CL) CARBON DIOXIDE (test 24 mEq/l 21-33 N code = CO2) ANION GAP (test code = 13 0-20 N GAP) GLUCOSE (test code = 144 mg/dL 70-110 H GLU) BLOOD UREA NITROGEN 12 mg/dL 7-18 N (test code = BUN) GLOMERULAR FILTRATION 80.8 80-90 N Units of measure = RATE (test code = GFR) ml/mi n/1.73 m2 CREATININE (test code = 1.1 mg/dL 0.6-1.3 N CREAT) CALCIUM (test code = 8.8 mg/dL 8.0-10.5 N CA) COMMENTS: On [id number] 15:57:00 Test Item Value Reference Range Interpretation Comments MAGNESIUM (test code = MAG) 1.80 mg/dL 1.80-2.40 N COMMENTS: On arrivalLACTIC [id number] 15:56:00 Test Item Value Reference Range Interpretation Comments LACTIC ACID (test code = LACT) 2.5 mmol/L 0.4-1.9 H POC ARTERIAL BLOOD [id number] 15:49:00 Test Item Value Reference Range Interpretation Comments POC ARTERIAL BLOOD GAS PH (test 7.329 7.35-7.45 L code = POCPHA) POC ARTERIAL BLOOD GAS PCO2 42.8 mmHg 35.0-45 N (test code = BAEOXB9R) POC TCO2 ARTERIAL (test code = 23.9 POCTCO2) POC ARTERIAL BLOOD GAS PO2 (test 81.1 mmHg 80-100.0 N code = AGWVG3U) POC HCO3 ARTERIAL (test code = 22.6 MMOL/L 22.0-26.0 N [id number]) POC BASE EXCESS (test code = -3.4 MMOL/L -4.0-4.0 N POCBEA) POC O2 SATURATION (test code = 95.2 % 90-100 N POCO2S) FIO2 (test code = FIO2A) 50 % PaO2/FiO2 (test code = [id number]) 162.20 mm/Hg ABG DELIVERY (test code = DEBBIE) Adult Vent ABG VENT MODE (test code = AC MODEA) ABG VENT RESP RATE (test code = 18 /MIN RRA) ABG TIDAL VOLUME (test code = 500 ml TVA) ABG PEEP (test code = PEEPA) 5 cmH2O ABG TEMPERATURE (test code = 98 F TEMPA) ABG SITE (test code = SITEA) Art Line MIKE'S TEST (test code = N/A ALLENGregory) BASIC METABOLIC [id number] 15:49:00 Test Item Value Reference Range Interpretation Comments SODIUM (test code = NA/ABG) 143 MEQ/L 134-147 N POTASSIUM (test code = K/ABG) 4.1 MEQ/L 3.4-5.0 N CHLORIDE (test code = CL/ABG) 111 MEQ/L 100-108 H CREATININE ABG (test code = 1.0 mg/dL 0.8-1.3 CREAABG) POC IONIZED CALCIUM (test code = 1.34 MMOL/L 1.12-1.32 H POCCA) POC GLUCOSE (test code = POCGLU) 143 MG/DL 70-110 H HEMOGLOBIN [id number] 15:49:00 Test Item Value Reference Range Interpretation Comments HEMOGLOBIN ABG (test code = 11.3 G/DL 12.5-16.9 L HGB/ABG) [id number] 15:49:00 Test Item Value Reference Range Interpretation Comments HEMATOCRIT (test code = HCT/ABG) 33 % 37.5-50.7 L POC LACTIC [id number] 15:49:00 Test Item Value Reference Range Interpretation Comments POC LACTIC ACID (test code = 2.3 mmol/l 0.9-1.7 H POCLAC) CBC W/AUTO [id number] 15:46:00 Test Item Value Reference Range Interpretation Comments WHITE BLOOD CELL (test code = 14.6 x10 3/uL 4.5-11.0 H WBC) RED BLOOD CELL (test code = 3.59 x10 6/uL 4.00-5.60 L RBC) HEMOGLOBIN (test code = HGB) 11.7 g/dL 12.5-16.9 L HEMATOCRIT (test code = HCT) 34.8 % 37.5-50.7 L MEAN CELL VOLUME (test code = 96.9 fL 81.0-99.0 N MCV) MEAN CELL HGB (test code = 32.6 pg 27.0-33.0 N MCH) MEAN CELL HGB CONCETRATION 33.6 g/dL 33.0-37.0 N (test code = MCHC) RED CELL DISTRIBUTION WIDTH CV 12.5 % 11.5-14.5 N (test code = RDW) RED CELL DISTRIBUTION WIDTH SD 44.7 fL 37.0-54.0 N (test code = RDW-SD) PLATELET COUNT (test code = 124 x10 3/uL 150-400 L PLT) MEAN PLATELET VOLUME (test 10.0 fL 7.0-9.0 H code = MPV) NEUTROPHIL % (test code = NT%) 74.5 % 56.0-77.0 N IMMATURE GRANULOCYTE % (test 0.8 % 0.0-2.0 N code = IG%) LYMPHOCYTE % (test code = LY%) 18.5 % 14.0-32.0 N MONOCYTE % (test code = MO%) 5.8 % 4.8-9.0 N EOSINOPHIL % (test code = EO%) 0.3 % 0.3-3.7 N BASOPHIL % (test code = BA%) 0.1 % 0.0-2.0 N NUCLEATED RBC % (test code = 0.0 % 0-0 N NRBC%) NEUTROPHIL # (test code = NT#) 10.85 x10 3/uL 2.0-7.6 H IMMATURE GRANULOCYTE # (test 0.12 x10 3/uL 0.00-0.03 H code = IG#) LYMPHOCYTE # (test code = LY#) 2.69 x10 3/uL 1.0-3.8 N MONOCYTE # (test code = MO#) 0.84 x10 3/uL 0.1-0.8 H EOSINOPHIL # (test code = EO#) 0.04 x10 3/uL 0.0-0.2 N BASOPHIL # (test code = BA#) 0.01 x10 3/uL 0.0-0.2 N NUCLEATED RBC # (test code = 0.00 x10 3/uL 0.0-0.1 N NRBC#) MANUAL DIFF REQUIRED (test NO code = MDIFF) COMMENTS: On [id number] 14:51:00 Test Item Value Reference Range Interpretation Comments ACT-ISJESSYT (test code 103 SEC 74-137 N Perform ed by certified = ACTI) scrubber operator at [facility] BASIC METABOLIC [id number] 14:50:00 Test Item Value Reference Range Interpretation Comments SODIUM (test code = NA/ABG) 145 MEQ/L 134-147 N POTASSIUM (test code = K/ABG) 3.8 MEQ/L 3.4-5.0 N CHLORIDE (test code = CL/ABG) 109 MEQ/L 100-108 H CREATININE ABG (test code = 0.8 mg/dL 0.8-1.3 N CREAABG) POC IONIZED CALCIUM (test code = 1.38 MMOL/L 1.12-1.32 H POCCA) POC GLUCOSE (test code = POCGLU) 144 MG/DL 70-110 H HEMOGLOBIN [id number] 14:50:00 Test Item Value Reference Range Interpretation Comments HEMOGLOBIN ABG (test code = HGB/ABG) 9.7 G/DL 12.5-16.9 L [id number] 14:50:00 Test Item Value Reference Range Interpretation Comments HEMATOCRIT (test code = HCT/ABG) 28 % 37.5-50.7 L POC LACTIC [id number] 14:50:00 Test Item Value Reference Range Interpretation Comments POC LACTIC ACID (test code = 2.2 mmol/l 0.9-1.7 H POCLAC) POC ARTERIAL BLOOD [id number] 14:50:00 Test Item Value Reference Range Interpretation Comments POC ARTERIAL BLOOD GAS PH (test 7.308 7.35-7.45 L code = POCPHA) POC ARTERIAL BLOOD GAS PCO2 (test 49.3 mmHg 35.0-45 H code = XNRPHV1B) POC TCO2 ARTERIAL (test code = 26.2 POCTCO2) POC ARTERIAL BLOOD GAS PO2 (test 125.6 mmHg 80-100.0 H code = LJWGY5P) POC HCO3 ARTERIAL (test code = 24.7 MMOL/L 22.0-26.0 N OPPBUT2T) POC BASE EXCESS (test code = -1.8 MMOL/L -4.0-4.0 N POCBEA) POC O2 SATURATION (test code = 98.4 % 90-100 N POCO2S) [id number] 14:06:00 Test Item Value Reference Range Interpretation Comments ACT-ISTAT (test code 595 SEC 74-137 H Perform ed by certified = ACTI) scrubber operator at [facility] POC ARTERIAL BLOOD [id number] 13:52:00 Test Item Value Reference Range Interpretation Comments POC ARTERIAL BLOOD GAS PH (test 7.429 7.35-7.45 N code = POCPHA) POC ARTERIAL BLOOD GAS PCO2 (test 37.0 mmHg 35.0-45 N code = OXUMDZ5W) POC TCO2 ARTERIAL (test code = 25.6 POCTCO2) POC ARTERIAL BLOOD GAS PO2 (test 363.2 mmHg 80-100.0 HH code = GHMBJ0T) POC HCO3 ARTERIAL (test code = 24.5 MMOL/L 22.0-26.0 N YNPWQU3V) POC BASE EXCESS (test code = 0.2 MMOL/L -4.0-4.0 N POCBEA) POC O2 SATURATION (test code = 100.0 % 90-100 N POCO2S) BASIC METABOLIC [id number] 13:52:00 Test Item Value Reference Range Interpretation Comments SODIUM (test code = NA/ABG) 144 MEQ/L 134-147 N POTASSIUM (test code = K/ABG) 5.0 MEQ/L 3.4-5.0 N CHLORIDE (test code = CL/ABG) 109 MEQ/L 100-108 H CREATININE ABG (test code = 0.9 mg/dL 0.8-1.3 N CREAABG) POC IONIZED CALCIUM (test code = 1.08 MMOL/L 1.12-1.32 L POCCA) POC GLUCOSE (test code = POCGLU) 93 MG/DL 70-110 N HEMOGLOBIN [id number] 13:52:00 Test Item Value Reference Range Interpretation Comments HEMOGLOBIN ABG (test code = HGB/ABG) 9.8 G/DL 12.5-16.9 L [id number] 13:52:00 Test Item Value Reference Range Interpretation Comments HEMATOCRIT (test code = HCT/ABG) 29 % 37.5-50.7 L POC LACTIC [id number] 13:52:00 Test Item Value Reference Range Interpretation Comments POC LACTIC ACID (test code = 0.9 mmol/l 0.9-1.7 N POCLAC) [id number] 13:46:00 Test Item Value Reference Range Interpretation Comments ACT-ISTAT (test code 642 SEC 74-137 H Perform ed by certified = ACTI) scrubber operator at [facility] POC ARTERIAL BLOOD [id number] 13:27:00 Test Item Value Reference Range Interpretation Comments POC ARTERIAL BLOOD GAS PH (test 7.339 7.35-7.45 L code = POCPHA) POC ARTERIAL BLOOD GAS PCO2 (test 51.5 mmHg 35.0-45 HH code = OUBGXM4I) POC TCO2 ARTERIAL (test code = 29.3 POCTCO2) POC ARTERIAL BLOOD GAS PO2 (test 384.2 mmHg 80-100.0 HH code = COHJI4N) POC HCO3 ARTERIAL (test code = 27.8 MMOL/L 22.0-26.0 H XPTBAB1R) POC BASE EXCESS (test code = 1.4 MMOL/L -4.0-4.0 N POCBEA) POC O2 SATURATION (test code = 99.9 % 90-100 N POCO2S) BASIC METABOLIC [id number] 13:27:00 Test Item Value Reference Range Interpretation Comments SODIUM (test code = NA/ABG) 144 MEQ/L 134-147 N POTASSIUM (test code = K/ABG) 5.2 MEQ/L 3.4-5.0 H CHLORIDE (test code = CL/ABG) 108 MEQ/L 100-108 N CREATININE ABG (test code = 0.8 mg/dL 0.8-1.3 N CREAABG) POC IONIZED CALCIUM (test code = 1.09 MMOL/L 1.12-1.32 L POCCA) POC GLUCOSE (test code = POCGLU) 92 MG/DL 70-110 N HEMOGLOBIN [id number] 13:27:00 Test Item Value Reference Range Interpretation Comments HEMOGLOBIN ABG (test code = HGB/ABG) 9.5 G/DL 12.5-16.9 L [id number] 13:27:00 Test Item Value Reference Range Interpretation Comments HEMATOCRIT (test code = HCT/ABG) 28 % 37.5-50.7 L POC LACTIC [id number] 13:27:00 Test Item Value Reference Range Interpretation Comments POC LACTIC ACID (test code = 0.9 mmol/l 0.9-1.7 N POCLAC) [id number] 12:57:00 Test Item Value Reference Range Interpretation Comments ACT-ISTAT (test code 468 SEC 74-137 H Perform ed by certified = ACTI) scrubber operator at [facility] POC ARTERIAL BLOOD [id number] 12:41:00 Test Item Value Reference Range Interpretation Comments POC ARTERIAL BLOOD GAS PH (test 7.331 7.35-7.45 L code = POCPHA) POC ARTERIAL BLOOD GAS PCO2 (test 44.6 mmHg 35.0-45 N code = HFROJT5Z) POC TCO2 ARTERIAL (test code = 24.9 POCTCO2) POC ARTERIAL BLOOD GAS PO2 (test 434.4 mmHg 80-100.0 HH code = XFYAD3F) POC HCO3 ARTERIAL (test code = 23.6 MMOL/L 22.0-26.0 N PTWCRY2I) POC BASE EXCESS (test code = -2.5 MMOL/L -4.0-4.0 N POCBEA) POC O2 SATURATION (test code = 100.0 % 90-100 N POCO2S) BASIC METABOLIC [id number] 12:41:00 Test Item Value Reference Range Interpretation Comments SODIUM (test code = NA/ABG) 145 MEQ/L 134-147 N POTASSIUM (test code = K/ABG) 3.7 MEQ/L 3.4-5.0 N CHLORIDE (test code = CL/ABG) 110 MEQ/L 100-108 H CREATININE ABG (test code = 1.0 mg/dL 0.8-1.3 N CREAABG) POC IONIZED CALCIUM (test code = 1.18 MMOL/L 1.12-1.32 N POCCA) POC GLUCOSE (test code = POCGLU) 96 MG/DL 70-110 N HEMOGLOBIN [id number] 12:41:00 Test Item Value Reference Range Interpretation Comments HEMOGLOBIN ABG (test code = 13.0 G/DL 12.5-16.9 N HGB/ABG) [id number] 12:41:00 Test Item Value Reference Range Interpretation Comments HEMATOCRIT (test code = HCT/ABG) 38 % 37.5-50.7 N POC LACTIC [id number] 12:41:00 Test Item Value Reference Range Interpretation Comments POC LACTIC ACID (test code = 1.0 mmol/l 0.9-1.7 N POCLAC) [id number] 11:57:00 Test Item Value Reference Range Interpretation Comments ACT-ISTAT (test code 121 SEC 74-137 N Perform ed by certified = ACTI) scrubber operator at [facility] POC ARTERIAL BLOOD [id number] 11:49:00 Test Item Value Reference Range Interpretation Comments POC ARTERIAL BLOOD GAS PH (test 7.426 7.35-7.45 N code = POCPHA) POC ARTERIAL BLOOD GAS PCO2 (test 34.9 mmHg 35.0-45 L code = WSYRCX8J) POC TCO2 ARTERIAL (test code = 24.0 POCTCO2) POC ARTERIAL BLOOD GAS PO2 (test 304.0 mmHg 80-100.0 HH code = LVJUW7Q) POC HCO3 ARTERIAL (test code = 22.9 MMOL/L 22.0-26.0 N RZUDEU3D) POC BASE EXCESS (test code = -0.9 MMOL/L -4.0-4.0 N POCBEA) POC O2 SATURATION (test code = 99.9 % 90-100 N POCO2S) BASIC METABOLIC [id number] 11:49:00 Test Item Value Reference Range Interpretation Comments SODIUM (test code = NA/ABG) 147 MEQ/L 134-147 N POTASSIUM (test code = K/ABG) 3.6 MEQ/L 3.4-5.0 N CHLORIDE (test code = CL/ABG) 111 MEQ/L 100-108 H CREATININE ABG (test code = 0.9 mg/dL 0.8-1.3 N CREAABG) POC IONIZED CALCIUM (test code = 1.20 MMOL/L 1.12-1.32 N POCCA) POC GLUCOSE (test code = POCGLU) 78 MG/DL 70-110 N HEMOGLOBIN [id number] 11:49:00 Test Item Value Reference Range Interpretation Comments HEMOGLOBIN ABG (test code = 14.6 G/DL 12.5-16.9 N HGB/ABG) [id number] 11:49:00 Test Item Value Reference Range Interpretation Comments HEMATOCRIT (test code = HCT/ABG) 43 % 37.5-50.7 N POC LACTIC [id number] 11:49:00 Test Item Value Reference Range Interpretation Comments POC LACTIC ACID (test code = 0.6 mmol/l 0.9-1.7 L POCLAC) B-TYPE NATRIURETIC [id number] 10:39:00 Test Item Value Reference Range Interpretation Comments B-TYPE NATRIURETIC PEPTIDE (test 28.0 PG/ML 0-100 N code = BNP) COMPREHENSIVE METABOLIC [id number] 04:11:00 Test Item Value Reference Range Interpretation Comments SODIUM (test code = NA) 142 mEq/L 134-147 N POTASSIUM (test code = 3.8 mEq/L 3.4-5.0 N K) CHLORIDE (test code = 108 mEq/L 100-108 N CL) CARBON DIOXIDE (test 25 mEq/l 21-33 N code = CO2) ANION GAP (test code = 13 0-20 N GAP) GLUCOSE (test code = 92 mg/dL 70-110 N GLU) BLOOD UREA NITROGEN 13 mg/dL 7-18 N (test code = BUN) GLOMERULAR FILTRATION 90.2 80-90 H Units of measure = RATE (test code = GFR) ml/mi n/1.73 m2 CREATININE (test code = 1.0 mg/dL 0.6-1.3 N CREAT) TOTAL PROTEIN (test 7.0 g/dL 6.4-8.2 N code = PROT) ALBUMIN (test code = 3.90 g/dL 3.4-5.0 N ALB) CALCIUM (test code = 9.1 mg/dL 8.0-10.5 N CA) BILIRUBIN TOTAL (test 0.50 mg/dL 0.0-1.0 N code = BILT) SGOT/AST (test code = 35 IUnit/L 15-37 N AST) SGPT/ALT (test code = 66 IUnit/L 30-65 H ALT) ALKALINE PHOSPHATASE 108 IUnit/L 20-125 N TOTAL (test code = ALKP) LIPID PROFILE (CORONARY RISK)2022-08-30 04:11:00 Test Item Value Reference Range Interpretation Comments TRIGLYCERIDES (test 133 mg/dL 40-150 N code = TRIG) CHOLESTEROL (test 164 mg/dL <200 code = CHOL) CHOLESTEROL/HDL 5.34 RATIO 3.43-4.97 H RISK ASSOCIA SHUN WITH RATIO (test code = CHOL/HDL RATIOS: RISK CHOLHDL) MALE FEMALE1/2 AVERAGE 3.43 3.27AVERAG E 4.97 4.442X AVERAGE 9.55 7.053X AVERAGE 23.39 11.04 NOTE THAT THE REFERENCE VALUE IS RELATEDTO RISK LEVELS RECOMMENDED BY THE NATL.HEART, JANET G, AND BLOOD INST. HDL CHOLESTEROL 30.7 mg/dL 32-72 L (test code = HDL) LIPOPROTEIN LDL 122.3 mg/dL 0-100 H <100 OPTIMAL 100-129 (test code = LDL) NEAR OPTIM AL/ABOVE [id number] HIGH>CA=660 MANUELA Y HIGH*Guidelines provided by the National Choles terol [employer] m Adult Treatment Panel III HGBA1C%2022-08-30 04:11:00 Test Item Value Reference Range Interpretation Comments HGBA1C% (test code = HGBA1C%) 5.6 %A1C 4.8-6.0 N PROTHROMBIN [id number] 03:55:00 Test Item Value Reference Range Interpretation Comments PROTHROMBIN TIME 12.6 SECONDS 9.3-12.9 N PATIENT (test code = PTP) INTERNATIONAL NORMAL 1.1 0.8-1.2 N TARGET INR BY RATIO (test code = INDICATIO N Indication INR) INR1. Prophylax is of venous thrombos is 2.0 - 3.0 (orthoped ic surgery), Proph ylaxis of venous throm bosis (other than hig h-risk surgery), Treat ment of Deep Vein Thrombosis/Pulm onary Embolism, Preve ntion of systemic emb olism - Tissue heart va lves, Acute Myocardia l Infarction (to prevent systemic emboli sm), Valvular heart disease, Atrial Fibrillation, Bileaflet mecha nical valve in aortic position.2. Mec hanical prosthetic valv es (high risk), 2. 5 - 3.5 Presence of Lup us Anticoagulant o r Antiphospholipi d Antibodies, Pre vention of systemic emb olism - Acute Myocardia l Infarction (to prevent recurrent infar ct). THROMBOPLASTIN TIME [id number] 03:55:00 Test Item Value Reference Range Interpretation Comments THROMBOPLASTIN TIME 23.7 Seconds 25.0-39.5 L Therape utic Range: PARTIAL (test code = 50.4 - 88.3 Seconds PTT) Effective 02/23/2019 CBC W/AUTO [id number] 03:44:00 Test Item Value Reference Range Interpretation Comments WHITE BLOOD CELL (test code = 6.6 x10 3/uL 4.5-11.0 N WBC) RED BLOOD CELL (test code = 4.08 x10 6/uL 4.00-5.60 N RBC) HEMOGLOBIN (test code = HGB) 13.7 g/dL 12.5-16.9 N HEMATOCRIT (test code = HCT) 39.3 % 37.5-50.7 N MEAN CELL VOLUME (test code = 96.3 fL 81.0-99.0 N MCV) MEAN CELL HGB (test code = MCH) 33.6 pg 27.0-33.0 H MEAN CELL HGB CONCETRATION 34.9 g/dL 33.0-37.0 N (test code = MCHC) RED CELL DISTRIBUTION WIDTH CV 12.5 % 11.5-14.5 N (test code = RDW) RED CELL DISTRIBUTION WIDTH SD 43.8 fL 37.0-54.0 N (test code = RDW-SD) PLATELET COUNT (test code = 183 x10 3/uL 150-400 N PLT) MEAN PLATELET VOLUME (test code 10.3 fL 7.0-9.0 H = MPV) NEUTROPHIL % (test code = NT%) 54.0 % 56.0-77.0 L IMMATURE GRANULOCYTE % (test 0.3 % 0.0-2.0 N code = IG%) LYMPHOCYTE % (test code = LY%) 33.4 % 14.0-32.0 H MONOCYTE % (test code = MO%) 11.2 % 4.8-9.0 H EOSINOPHIL % (test code = EO%) 0.9 % 0.3-3.7 N BASOPHIL % (test code = BA%) 0.2 % 0.0-2.0 N NUCLEATED RBC % (test code = 0.0 % 0-0 N NRBC%) NEUTROPHIL # (test code = NT#) 3.55 x10 3/uL 2.0-7.6 N IMMATURE GRANULOCYTE # (test 0.02 x10 3/uL 0.00-0.03 N code = IG#) LYMPHOCYTE # (test code = LY#) 2.20 x10 3/uL 1.0-3.8 N MONOCYTE # (test code = MO#) 0.74 x10 3/uL 0.1-0.8 N EOSINOPHIL # (test code = EO#) 0.06 x10 3/uL 0.0-0.2 N BASOPHIL # (test code = BA#) 0.01 x10 3/uL 0.0-0.2 N NUCLEATED RBC # (test code = 0.00 x10 3/uL 0.0-0.1 N NRBC#) MANUAL DIFF REQUIRED (test code NO = MDIFF) - XR CHEST 1 [id number] 00:00:00 [facility] 1955 Sex: M FAX: Omega Montoya [phone] [place]: St: ADM FAX: Lyssa Peterson [phone] -------- Name: JACKELIN VASQUEZ [facility] : 1955 Age/S: 66/M [address] [place] [address] Unit #: [id number] Loc: [address] [id number] Phys: 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 Views: 1 view. COMPARISON: CR XR CHEST 1V 08/30/2022 5:23 AM FINDINGS: Tubes, catheters and devices: The endotracheal tube terminates approximately 2.1 cm from the jose armando. There is a right internal jugular central venous catheter in place. There is a left-sided chest tube and a mediastinal tube in place. Lungs: Opacities in the right perihilar region as well as the patchy opacities in the left lung, which could represent atelectasis. Pleural spaces: There is a possible small left pleural effusion. Heart/Mediastinum: The cardiac silhouette is unchanged. Bones/joints: Status post median sternotomy. IMPRESSION: 1. The endotracheal tube terminates approximately 2.1 cm from the jose armando. 2. There is a possible small left pleural effusion. at 1616 Reported and signed by: Heydi Coronado M.D. CC: Omega Frye MD; Lizbeth Peterson NP Technologist: RT Ventura(Gianluca) Trnscrd Date/Time/By: 08/30/2022 (548) : By: [email or web address] Orig Print D/T:S: 08/30/2022 (4645) PAGE 1 Signed Report- XR CHEST 1 [id number] 00:00:00[facility] : 1955 Sex: M FAX: Omega Montoya [phone] [place]: St: [facility] FAX: Kashif Denton MD [phone] Name: JACKELIN VASQUEZ [facility] : 1955 Age/S: 66/M [address] [place] [address] Unit #: [id number] Loc: [place] [address] Phys: Kashif Denton MD Acct: [id number] Dis Date: Status: ADM IN PHONE #: [phone] Exam Date: 08/30/2022529 FAX #: [phone] Reason: PRE-OP CABG EXAMS: CPT CODE: [id number] XR CHEST 1 [id number] PROCEDURE INFORMATION: Exam: XR Chest Exam date and time: 08/30/2022 5:23 AM Age: 66 years oldClinical indication: Pre-operative exam; Cardiovascular screening and respiratory screening exam; Additional info: Pre-op cabg TECHNIQUE: Imaging protocol: Radiologic exam of the chest. Views: 1 view.COMPARISON: CT CHEST W/O CONTRAST 08/29/2022 8:52 PM FINDINGS: Lungs: See "Pleural spaces" finding. Pleural spaces: No gross active pleural, parenchymal, or mediastinal abnormalities noted. Heart/Mediastinum: See "Pleural spaces" finding. Bones/joints: The visualized bones of the thorax are grossly unr emarkable. IMPRESSION: No acute abnormality in the chest. at 0815 Reported and signed by: Navarro Rasmussen M.D. CC: Omega Frye MD; Kashif Denton MD Technologist: RT Clare(R) Trnscrd Date/Time/By: 08/30/2022 (814) : By: [email or web address] Orig Print D/T: S: 08/30/2022 (814) PAGE 1 Signed ReportUA RFLX MICR CULT IF [id number] 21:31:00 Test Item Value Reference Range Interpretation Comments UA COLOR (test code = COLU) STRAW YEL/STRAW UA APPEARANCE (test code = CLEAR CLEAR APPU) UA GLUCOSE DIPSTICK (test NEGATIVE NEGATIVE code = DGLUU) UA BILIRUBIN DIPSTICK (test NEGATIVE NEGATIVE code = BILU) UA KETONE DIPSTICK (test NEGATIVE NEGATIVE code = KETU) UA SPECIFIC GRAVITY (test 1.009 1.005-1.030 N code = SGU) UA BLOOD DIPSTICK (test NEGATIVE NEGATIVE code = LIZZIE) UA PH DIPSTICK (test code = 7.0 5.0-7.0 N ANNE-MARIE) UA PROTEIN DIPSTICK (test NEGATIVE NEGATIVE code = PROU) UA UROBILINIOGEN DIPSTICK 0.2 mg/dL 0.2-1.0 (test code = URO) UA NITRITE DIPSTICK (test NEGATIVE NEGATIVE code = SHELBI) UA LEUKOCYTE ESTERASE NEGATIVE NEGATIVE DIPSTICK (test code = LEUU) UA WBC (test code = WBCU) 0-3 WBC/HPF 0-3 UA RBC (test code = RBCU) NONE SEEN RBC/HPF 0-3 UA WBC NO REFLEX (test code 0-3 WBC/HPF 0-3 = WBCUCL) UA BACTERIA (test code = NONE SEEN /HPF NONE SEEN BACU) UA SQUAMOUS CELLS (test NONE SEEN /HPF NONE SEEN code = SQU) Indication for culture: RiskForSepsis-no oth srcSpecimen Description: CLEAN CATCH- DUP EXTRACRANIAL [id number] 00:00:00 [facility] : 1955 Sex: M Name:JACKELIN VASQUEZ [facility] : 1955 Age/S: 66 / M [address] [place] [address] Unit #: [id number] Loc: [place] [address] Phys: Lizbeth Peterson ACCOUNT ASSISTANT Acct: [id number] Dis Date: Status: ADM INPHONE #: [phone] Exam Date: 08/29/20222042 FAX #: [phone] Reason: PRE CABG EXAMS: CPT CODE: [id number] DUP EXTRACRANIAL STEPHENIE 94581 PROCEDURE INFORMATION: Exam: US Duplex Bilateral Extracranial Arteries, Carotid Arteries Exam date and time: 08/29/2022 7:59 PM Age: 66 years old Clinical indication: Screening exam; Additional info: Pre cabg TECHNIQUE: Imaging protocol: Real-time Duplex ultrasound scan of the bilateral carotid and vertebral arteries combining quevedo scale, color Doppler and spectral waveform analysis. Bilateral exam. Exam focused on the carotid arteries. COMPARISON: No relevant prior studies available. FINDINGS: Right common carotid artery: Unremarkable. No occlusion or stenosis. Waveforms are normal. Peak systolic flow velocity 103.4 cm/s Right internal carotid artery: Unremarkable. No occlusion or stenosis. Waveforms are normal. Peak systolic flow velocity 88.6 cm/s RightICA/CCA ratio: Within normal limits. 0.9 Right external carotid artery: No stenosis in the origin. Right vertebral artery: Unremarkable. Antegrade flow. Peak systolic flow velocity 61.3 cm/s Left common carotid artery: Unremarkable. No occlusion or stenosis. Waveforms are normal. Peak systolic flow velocity 94.1 cm/s Left internal carotid artery: Unremarkable. No occlusion or stenosis. Waveforms are normal. Peak systolic flow velocity 79.5 cm/s Left ICA/CCA ratio: Within normal limits. 0.8 Left external carotid artery: No stenosis in the origin. Left vertebral artery: Unremarkable. Antegrade flow. Peak systolic flow velocity 32.1 cm/s Grayscale images demonstrate minimal plaque in the dixon of the carotid bulbs bilaterally. IMPRESSION: No carotid arterial stenosis. REFERENCES: SRU CRITERIA. The degree of internal carotid artery stenosis is based on criteria defined by the Society of Radiologists in Ultrasound (SRU). Normal is no stenosis. Mild is less than 50% stenosis. Moderate is 50-69% stenosis. Severe is greater than 69% stenosis to near occlusion. Near occlusion is a markedly narrowed lumen. Total occlusion is no detectable patent lumen. PAGE 1 Signed Report (CONTINUED) Name: JACKELIN VASQUEZ [facility] : 1955 Age/S: 66 / M [address] [place] [address] Bl Unit #: [id number] Loc: [place] [address] Phys: Lizbeth Peterson ACCOUNT ASSISTANT Acct: [id number] Dis Date: Status: ADM IN PHONE #: [phone] Exam Date: 08/29/20222042 FAX #: [phone] Reason: PRE CABG EXAMS: CPT CODE: [id number] DUP EXTRACRANIAL STEPHENIE 96725 (Continued) Electronically Signed by Chano Mejia on08/29/2022 at 2130 Reported and signed by: Nancy Mejia M.D. CC: Gurvinder Alonso MD; Lizbeth Peterson NP Technologist: Renetta Zimmerman RDMS(BR)(AB) Trnscb Date/Time: 08/29/2022 (2129) Breonna Orig Print D/T: S: 08/29/2022 (2129) Probe: PAGE 2 Signed Report- DUP VEIN STEPHENIE 2022-08-29 00:00:00 [facility] : 1955 Sex: M Name:JACKELIN VASQUEZ [facility] : 1955 Age/S: 66 / M [address] [place] [address] Bl Unit #: [id number] Loc: [place] [address] Phys: Lizbeth Peterson ACCOUNT ASSISTANT Acct: [id number] Dis Date: Status: ADM IN PHONE #: [phone] Exam Date: 08/29/20222043 FAX #: [phone] Reason: PRE CABG, VEIN MAPPING EXAMS: CPT CODE: [id number] DUP VEIN SETPHENIE 11566 PROCEDURE INFORMATION: Exam: US Duplex Lower Extremity Veins; Vein mapping Exam date and time: 08/29/2022 8:21 PM Age: 66 years old Clinical indication: Screening exam; Pre-op; Additional info: Pre cabg, vein mapping TECHNIQUE: Imaging protocol: Real-time duplex ultrasound of the Lower Extremities with 2-D quevedo scale, color Doppler flow and spectral waveform analysis with image documentation. Complete exam focused on the bilateral lower extremity veins forvein mapping. COMPARISON: No relevant prior studies available. FINDINGS: No evidence for thrombus seen. Right GSV: THIGH: Prox: 45 mm Mid: 26 mm Distal: 32 mm CALF: Prox: 21 mm Mid: 19 mm Distal: 23 mm Left GSV: THIGH: Prox: 52 mm Mid: 25 mm Distal: 29 mm CALF: Prox: 24 mm Mid: 19 mm Distal: 20 mm IMPRESSION: Lower extremity venous mapping as above. at 2144 Reported and signed by: Robinson Jacobsen M.D. CC: Gurvinder Alonso MD; Lizbeth Petesron NP Technologist: Renetta Zimmerman RDMS(BR)(AB) Trnscb Date/Time: 08/29/2022 (2144) [email or web address] Orig Print D/T: S: 08/29/2022 (2145) Probe: PAGE 1 Signed Report- CT CHEST W/O [id number] 00:00:00 [facility] : 1955 Sex: M Name:JACKELIN VASQUEZ [facility] : 1955 Age/S: 66 / M [address] [place] [address] Unit #: [id number] Loc: [place] [address] Phys: Lizbeth Peterson ACCOUNT ASSISTANT Acct: [id number] Dis Date: Status: ADM IN PHONE #: [phone] Exam Date: 08/29/20222058 FAX #: [phone] Reason: PRE CABG EXAMS: CPT CODE:[id number] CT CHEST W/O CONTRAST 99166 PROCEDURE INFORMATION: Exam: CT Chest Without Contrast; Diagnostic Exam date and time: 08/29/2022 8:52 PM Age: 66 years old Clinical indication: Screening exam; Pre-operative exam; Cardiovascular screening; Additional info: Pre cabg TECHNIQUE: Imaging protocol: Diagnostic computed tomography of the chest without contrast. Radiation optimization: All CT scans at this facility use at least one of these dose optimization techniques: automated exposure control; mA and/or kV adjustment per patient size (includes targeted exams where dose is matched to clinical indication); or iterative reconstruction. COMPARISON: US DUP EXTRACRANIAL STEPHENIE 08/29/2022 7:59 PM FINDINGS: Lungs: Respiratory motion artifact limits lung parenchymal evaluation. No consolidation. No masses.Right middle lobe medial segment shows nonspecific thin wall cysts. Pleural spaces: Unremarkable. Nopneumothorax. No pleural effusion. Heart: Coronary arteries contain atherosclerotic calcifications. No cardiomegaly. No pericardial effusion. Lymph nodes: Unremarkable. No enlarged lymph nodes. Vasculature: Ascending thoracic aorta shows dilation up to 3.7 cm anterior-posterior diameter as measured on sagittal image 70. Bones/joints: Unremarkable. No acute fracture. Soft tissues: Coarse right thyroid calcification may be located within thyroid nodule. If clinically desired, ultrasound may better assess thyroid. Stomach shows small hiatal hernia. A few diverticula arise from the colon. Pericolonic fat planes remain preserved. IMPRESSION: No acute findings. Ascending thoracic aorta dilation. Follow-up exam is recommended. at 2225 Reported and signed by: Robert Gonzalez M.D. PAGE 1 Signed Report (CONTINUED) Name: JACKELIN VASQUEZ [facility] : 1955 Age/S: 66 / M [address] [place] [address] Unit #: [id number] Loc: [place] [address] Phys: Lizbeth Peterson ACCOUNT ASSISTANT Acct: [id number] Dis Date: Status: ADM IN PHONE #: [phone] Exam Date: 08/29/20222058 FAX #: [phone] Reason: PRE CABG EXAMS: CPT CODE: [id number] CT CHEST W/O CONTRAST 70811 (Continued) CC: Gurvinder Alonso MD; Lizbeth Peterson NP Technologist:Erica Gabriel RT(R)(CT) CTDI: DLP: Trnscb Date/Time: 08/29/2022 (2224) [email or web address] Orig Print D/T: S: 08/29/2022 (2224) PAGE 2 Signed Report- CTA HEART W CN [id number] 00:00:00[facility] : 1955 Sex: M Name:JACKELIN VASQUEZ [facility] : 1955 Age/S: 66 / M [address] [place] [address] Unit #: [id number] Loc: [place] [address] Phys: Tawanda Connor MD Acct: [id number] Dis Date: Status: DEP CLI PHONE #: [phone] Exam Date: 07/01/20221509 FAX #: [phone] Reason: EXAMS: CPT CODE: [id number] CTA HEART W CN ART/GRAFTS 49018 PROCEDURE INFORMATION: Exam: CTA Heart and Coronary Arteries Without and With Contrast Exam date and time: 07/01/2022 2:54 PM Age: 66 years old Clinical indication: Other: Chest pain TECHNIQUE: Imaging protocol: Computed tomographic angiography of the heart, coronary arteriesand bypass grafts (when present) without and with contrast including 3D image postprocessing (including evaluation of cardiac structure and morphology, assessment of cardiac function, and evaluation ofvenous structures, if performed). 3D rendering (Not supervised by radiologist): MIP and/or 3D reconstructed images were created by the technologist. Radiation optimization: All CT scans at this facility use at least one of these dose optimization techniques: automated exposure control; mA and/or kV adjustment per patient size (includes targeted exams where dose is matched to clinical indication); oriterative reconstruction. Contrast material: ISOVUE 370; Contrast volume: 100 ml; Contrast route: INTRAVENOUS (IV); Other technique: 3D renderinD reconstructed images were created, reviewed and save d. COMPARISON: No relevant prior studies available. FINDINGS: CALCIUM SCORE: Total calcium score (Agatston method): Total calcium score is 427. Total calcium score range: Severe burden of calcified plaques in the coronary tree. CARDIAC: Left main coronary artery (LMCA): There is mixed plaque in the left main coronary artery, which is a short vessel. Limited evaluation of stenosis severity due to motion and calcium blooming artifact. Left anterior descending artery (LAD): There is mixed plaque throughout the proximal segment with limited evaluation of stenosis severity due to a combination of motion and blooming artifact. Left circumflex artery (LCx): The left circumflex artery is a small, non dominant vessel with no evidence of plaque or stenosis. Right coronary artery (RCA): The right coronary artery is patent with no evidence of plaque or stenosis. Cardiac valves: There is no evidence of calcifications noted in the aortic or mitral valve leaflets. Pericardium: The pericardial contour is prese rved with no effusion, thickening or calcifications. PAGE 1 Signed Report (CONTINUED) Name: JACKELIN VASQUEZ [facility] : 1955 Age/S: 66 / M [address] [place] [address] Blvd Unit #: [id number] Loc: [place] [address] Phys: Tawanda Connor MD Acct: [id number] Dis Date: Status: DEP CLI PHONE #: [phone] Exam Date: 07/01/2022 1510 FAX #: [phone] Reason: EXAMS: CPT CODE: [id number] CTA HEART W CN ART/GRAFTS 34922 (Continued) Lungs: Limited views of the lungs are unremarkable. Mediastinal space: Limited views of the mediastinal space is unremarkable. IMPRESSION: 1. Severe burden of calcifiedplaque throughout the coronary tree, with total calcium score 427. 2. Heavy mixed plaque is present throughout the left main coronary artery and the proximal LAD, with limited evaluation of stenosis severity due to technical factors. Further cardiac testing is recommended. at 0519 Reported and signed by: Rangel Yepez M.D. CC: Tawanda Connor MD Technologist:Michael Grace, RT(R)(CT) CTDI: DLP: Trnscb Date/Time: 07/02/2022 (518) [email or web address] Orig Print D/T: S: 07/02/2022 (518) PAGE 2 Signed Report Notes Date/Time Note Provider Source 2022-09-03 12:52:00-00:00 [id number] [place] [address] PATIENT NAME: JACKELIN VASQUEZ ADMIT DATE: 08/29/22 ACCOUNT NO: [id number] [facility] AGE: 66 REPORT TYPE: eECHOCARDIOGRAM REPORT SEX: M ADMITTING PHYSICIAN:Omega Frye MD ATTENDING PHYSICIAN:Omega Frye MD *[place] [address] Limited Transthoracic Echocardiogram Patient: Jackelin Vasquez Study Date: 09/02/2022 BP: 119 / 79 Location: [facility] URN: [id number] : 1955 Age: 66 Height: 71 in / 180.3 cm Gender: M Weight: 249 .5 lb / 113.4 kg BMI/BSA: 34.9 kg/m 2 / 2.32 m 2 *Ordering Physician: * Lizbeth Peterson *Interpreting Physician: * Bhavya Fish MD *Charter Boat Captain: * Miranda Herring Indications: POST CABG. Study data: Transthoracic echocardiogram, limite d study. Procedure: Transthoracic echocardiography was performed. Im age quality was adequate. Limited 2D and limited spectral Dopple r. Location: Bedside. Patient status: Inpatient. Patient room number: 2201. Study status: Routine. Findings Left ventricle: The cavity size is normal. Wall thickness is normal. Systolic function is normal. The estimated eject ion fraction is 55-60%. Wall motion is normal; there are no regional wal l motion abnormalities. Left atrium: The atrium is normal in size. Pericardium: There is no pericardial effusion. PATIENT NAME: JACKELIN VASQUEZ 15 Measurements Left ventricle Value Ref ANATOLY, LAX 4.3 cm 4.2 - 5.8 ESD, LAX 3.0 cm 2.5 - 4.0 ESD/bsa, LAX 1.3 cm/m 2 1.3 - 2.1 FS, LAX 29 % 25 - 43 ESD/bsa major ax, A4C 3.3 cm/m 2 --------- ANATOLY/bsa minor ax, A4C 3.3 cm/m 2 --------- ANATOLY major ax, A2C 8.4 cm --------- ANATOLY/bsa major ax, A2C 3.6 cm/m 2 --------- PW, ED 1.0 cm 0.6 - 1.0 IVS/PW, ED 1.04 --------- EF 57 % 52 - 72 LVOT Value Ref Diam, S 2.14 cm --------- Area 3.6 cm 2 --------- Ventricular septum Value Ref IVS, ED 1.0 cm 0.6 - 1.0 Right ventricle Value Ref ANATOLY, LAX 2.7 cm --------- Left atrium Value Ref Vol/bsa, ES, 1-p A4C 25 ml/m 2 12 - 37 Vol, ES, 2-p 65 ml --------- Vol/bsa, ES, 2-p 28 ml/m 2 16 - 34 Vol/bsa, ES, A/L 28 ml/m 2 16 - 34 AP dim, ES MM 4.3 cm 3.0 - 4.0 LA/Ao root ratio, MM 1.25 --------- Aortic valve Value Ref Leaflet sep, MM 1.90 cm --------- Mitral valve Value Ref E-septal separation 0.5 cm --------- E-F slope 0.12 m/sec --------- Aortic root Value Ref Root diam, ED MM 3.46 cm --------- Conclusions Summary: Left ventricle: The cavity size is norm al. Wall thickness is normal. Systolic function is normal. The estimat ed ejection fraction is 55-60%. Wall motion is normal; there are no dinorah onal wall motion abnormalities. Prepared and electronically sammie d by PATIENT NAME: JACKELIN VASQUEZ 115 Bhavya Fish MD 09/03/2022 12:52 Electronically Signed by Bhavya Fish MD on 1 at 1252 PATIENT NAME: JACKELIN VASQUEZ 15 2022-09-03 08:27:00-00:00 [facility] ([facility]) Discharge Summary REPORT#:[id number] REPORT STATUS: Signed DATE:09/03/22 TIME: 826 PATIENT: JACKELIN VASQUEZ UNIT #: [id number] ROOM[address] : [birth year] AGE: 66 SEX: M ATTEND: Blaine Frye MD ADM AUTHOR: Lizbeth Peterson * ALL edits or amendments must be made on the Equals[employer]/computer document * General Information Discharge date: 09/03/22 Discharge diagnosis: CAD s/p CABG Hospital course: Very pleasant 66-year-old -[place] male with past medical history of hypertension hyperlipidemia, obstructive sleep apnea who has been experiencing exertional chest discomfort. CTA of the coronaries demonstrated severe coronary artery disease and patient was taken to the [facility] for further evaluation. Coronary angiogram showed se vijay coronary artery disease involving the left main (90%) and patient transferred to our facility fo r surgical revascularization. 08/30 1. Coronary artery bypass graft surgery x3 (left internal mammary artery to left anterior descending, sa phenous vein to diagonal, saphenous vein to marginal ). 2. Amputation of left atrial appendage. 3. Endoscopic vein harvesting (right greater sap henous vein). Patient did well postoperatively with no complic ations. Respiratory status stable on room air, hemodynamically stable, norm al sinus rhythm. He will continue aspirin, Plavix, statin and metoprolol. I explained to the patient that he may discontinue Plavix in 6 months He will taper amiodarone off Continue sternal precautions including no drivin g for 6 weeks I removed sternal dressing, incision wit h edges well approximated, no erythema BLE venous Doppler showed below the knee DVT. Co ntinue dual antiplatelet therapy Patient will be discharged h ome in stable condition. I have arranged for follow -up appointment in the clinic next week Consultants: anesthesiology, cardiology, cardiov ascular surgery, critical/ sap hana developer Med Rec PCP PCP: PCP: No Primary or Family Physician Med Rec Discharge meds: Continue taking these medications: ASPIRIN (ASPIRIN) 81 MG TAB.CHEW 81 MILLIGRAM ORAL DAILY. LEVOCETIRIZINE (XYZAL) 5 MG TAB 5 MILLIGRAM ORAL DAILY. SIMVASTATIN (ZOCOR) 20 MG TAB 20 MILLIGRAM ORAL BEDTIME. TADALAFIL (CIALIS) 5 MG TAB 5 MILLIGRAM ORAL DAILY. FLUTICASONE PROPIONATE (FLONASE 50 MCG/ACT NASAL ) 50 MCG/ACTUATION SPRAY 1 SPRAY NASAL DAILY. Start taking the following new medications: CLOPIDOGREL (PLAVIX) 75 MG TAB 75 MILLIGRAM ORAL DAILY. Qty = 30 Refills = 2 FERROUS SULFATE (FEOSOL) 325 MG (65 MG IRON) TAB 325 MILLIGRAM ORAL DAILY. Qty = 30 No Refills AMIODARONE (PACERONE) 200 MG TAB 200 MILLIGRAM ORAL THREE TIMES A DAY. Qty = 21 No Refills Instructions: please take 200mg every 12h for 1 week then 200 mg daily for another week and stop METOPROLOL TARTRATE (LOPRESSOR) 25 MG TAB 25 MILLIGRAM ORAL EVERY 12 HOURS. Qty = 60 Refills = 1 DOCUSATE SODIUM (COLACE) 100 MG CAP 100 MILLIGRAM ORAL TWICE DAILY. Qty = 60 No Refills CYANOCOBALAMIN (VITAMIN B-12) 500 MCG TAB 500 MICROGRAM ORAL DAILY. Qty = 30 Refills = 1 traMADol (ULTRAM) 50 MG TAB 50 MILLIGRAM ORAL EVERY 6 HOURS NEEDED. as n eeded for ACUTE PAIN Qty = 15 No Refills Objective VS/I O Last Documented: Result Date Time Pulse Ox 95 09/03 1232 FiO2 21 09/03 1232 O2 Delivery Room air 09/03 1232 B/P 132/80 09/03 0803 B/P Mean 0.0 09/03 08 Temp 98.4 09/03 08 Pulse 89 09/03 0803 Resp 15 09/03 08 O2 Flow Rate 1 08/31 0808 24 hour I O ending at 0700: 09/03 0700 10/24 1900 Intake Total 550 640 Output Total 300 1585 Balance 250 -945 Intake, Oral 550 640 Number Voids 1 Output, Urine 300 1585 Patient 250 lb Weight Weight Standing scale Measurement Method PATIENT WEIGHT: Weight (lb): 250 Weight (oz): 7.12 Weight (kg): 113.600 General appearance: alert, oriented Head/Eyes: atraumatic, normocephalic Neck: non-tender Cardiovascular: regular rate rhythm, normal hear t sounds Respiratory: clear to auscultation, aerating wel l, symmetric expansion GI: soft, non-tender Extremities: moves all Neuro/CRANE OPERATOR: alert, oriented X 3, normal speech, n o motor deficits Psychiatry: normal affect, normal mood Results Findings/Data: Laboratory Tests: 09/03 0420 Chemistry Sodium (134 - 147 mEq/L) 139 Potassium (3.4 - 5.0 mEq/L) 4.2 Chloride (100 - 108 mEq/L) 108 Carbon Dioxide (21 - 33 mEq/l) 22 Anion Gap (0 - 20) 14 BUN (7 - 18 mg/dL) 12 Creatinine (0.6 - 1.3 mg/dL) 1.1 Glomerular Filtr Rate (80 - 90) 80.8 Glucose (70 - 110 mg/dL) 101 Calcium (8.0 - 10.5 mg/dL) 8.8 Magnesium (1.80 - 2.40 mg/dL) 1.83 Hematology WBC (4.5 - 11.0 x10 3/uL) 8.6 RBC (4.00 - 5.60 x10 6/uL) 3.23 L Hgb (12.5 - 16.9 g/dL) 10.7 L Hct (37.5 - 50.7 %) 31.4 L MCV (81.0 - 99.0 fL) 97.2 MCH (27.0 - 33.0 pg) 33.1 H MCHC (33.0 - 37.0 g/dL) 34.1 RDW (11.5 - 14.5 %) 12.8 Plt Count (150 - 400 x10 3/uL) 143 L MPV (7.0 - 9.0 fL) 10.5 H Neut % (Auto) (56.0 - 77.0 %) 60.5 Lymph % (Auto) (14.0 - 32.0 %) 23.3 Long % (Auto) (4.8 - 9.0 %) 14.6 H Eos % (Auto) (0.3 - 3.7 %) 0.8 Baso % (Auto) (0.0 - 2.0 %) 0.1 Neut # (Auto) (2.0 - 7.6 x10 3/uL) 5.20 Lymph # (Auto) (1.0 - 3.8 x10 3/uL) 2.01 Long # (Auto) (0.1 - 0.8 x10 3/uL) 1.26 H Eos # (Auto) (0.0 - 0.2 x10 3/uL) 0.07 Baso # (Auto) (0.0 - 0.2 x10 3/uL) 0.01 Abs Immat Gran (auto) (0.00 - 0.03 x10 3/uL) 0. 06 H Add Manual Diff NO Immature Gran % (0.0 - 2.0 %) 0.7 Nucleated RBC % (0 - 0 %) 0.0 Nucleated RBCs # (Man) (0.0 - 0.1 x10 3/uL) 0.0 0 Radiology data: Recent Impressions: RADIOLOGY - XR CHEST 1 V 09/03 624 Report Impression - Status: SIGNED Entered: 09/03/2022823 IMPRESSION: 1. Stable left basilar airspace disease may be d ue to atelectasis or infiltrate. 2. Small left pleural effusion. Impression By: [email or web address] - Emily nava M.D. Discharge Instructions PCP PCP: PCP: No Primary or Family Physician )( Discharge to: Home/Self Care Discharge Instructions Additional Discharge Routines: Attending Follow- Up, Manager Visual Follow-Up )( Diet: Cardiac )( Weight monitoring: Daily Follow-up Appointments Attending Physician: Attending Physician: Omega Frye MD Attending physician follow up timeframe: In 1-2 weeks Appt. date: 09/11/22 Appt. time: 1430 Consulting provider 1: Provider 1: Tawanda Connor MD Specialty: CardiologyInterventional Consult follow up timeframe: In 1-2 weeks at 1958 RPT #:[id number] END OF REPORT 2022-09-02 10:58:00-00:00 [facility] ([facility] Cardiology Progress Note REPORT#:[id number] REPORT STATUS: Signed DATE:09/02/22 TIME: 1058 PATIENT: JACKELIN VASQUEZ UNIT #: [id number] ROOM/BED: [place] [id number] : 54 AGE: 66 SEX: M ATTEND: Blaine Frye MD ADM AUTHOR: Elizabeth Reyna PROCESS PUMPER * ALL edits or amendments must be made on the Equals6/Imagistx document * Subjective Patient reports: No: complaints. Objective General VS/I O: 24 hour I O ending at 0700: 09/02 0700 09/01 1900 Intake Total Output Total 1900 1150 Balance -1900 -1150 Number 1 Bowel Movements Number Voids 5 Output, Urine 1900 1150 Patient 113.5 kg Weight Weight Standing scale Measurement Method Vital Signs: Date Time Temp Pulse Resp B/P B/P Pulse O2 O2 F low FiO2 Mean Ox Delivery Rate 09/02 0800 89 23 138/91 109 94 09/02 0757 95 Room air 21 09/02 0730 87 31 120/83 98 93 09/02 0701 86 27 129/87 104 93 09/02 0600 86 26 129/89 104 96 09/02 0500 89 25 116/79 93 94 09/02 0400 86 29 130/85 103 96 09/02 0300 87 28 133/80 99 94 09/02 0200 86 24 129/82 100 93 09/02 0100 85 26 121/79 95 96 09/02 0000 84 129/86 102 96 09/01 2300 80 24 108/77 88 95 09/01 2200 101 113/72 87 94 09/01 2100 95 117/77 93 96 09/01 2000 37.2 101 146/82 108 92 09/01 1918 103 146/84 107 94 09/01 1800 100 35 153/86 114 92 09/01 1730 98 34 143/84 107 91 09/01 1700 97 33 149/74 95 90 09/01 1630 98 36 146/84 108 90 09/01 1600 97 36 141/82 107 09/01 1558 97 39 138/88 107 09/01 1530 96 30 150/85 110 09/01 1500 97 35 155/82 112 09/01 1431 93 32 153/93 117 09/01 1400 91 33 141/83 104 94 09/01 1330 91 33 140/84 105 94 09/01 1300 91 36 140/88 109 09/01 1230 91 37 149/87 112 94 09/01 1200 90 34 134/78 100 94 09/01 1130 87 31 123/77 95 92 09/01 1100 87 33 126/76 96 PATIENT WEIGHT: Weight (lb): 250 Weight (oz): 3.59 Weight (kg): 113.500 Medications: Active Meds + DC'd Last 24 Hrs Ipratropium Hiawatha (ATROVENT) 500 MCG Q2H PRN P RN INH Cyanocobalamin (Vitamin B-12 500 mcg tab) 500 MC G DAILY PO Ferrous Sulfate (FERROUS SULFATE) 325 MG DAILY P O Potassium Chloride (POTASSIUM CHLORIDE 20MEQ TAB .ER) 20 MEQ ONCE PO (CKD ) Metoprolol Tartrate (LOPRESSOR) 25 MG Q12HR PO Bisacodyl (DULCOLAX) 10 MG ONCE PRN RECTAL Magnesium Hydroxide (MILK OF MAGNESIA) 30 ML ONC E PRN PO Atorvastatin Calcium (LIPITOR) 40 MG 2100 PO Clopidogrel Bisulfate (Plavix) 75 MG DAILY PO Polyethylene Glycol (MIRALAX) 17 GM DAILY PO Pantoprazole (PROTONIX) 40 MG DAILY@0600 PO Docusate Sodium (COLACE) 100 MG BID PO Gabapentin (NEURONTIN) 200 MG BID PO Metoprolol Tartrate (LOPRESSOR) 12.5 MG Q12HR PO (DC) Sennosides (Senna Lax 8.6 MG TABLET) 17.2 MG BED TIME PO Aspirin (ASPIRIN) 81 MG DAILY PO Ipratropium Hiawatha (ATROVENT) 500 MCG RTQ4H INH Amiodarone HCl (CORDARONE) 200 MG TID PO Acetaminophen (TYLENOL) 650 MG Q4H PRN PRN PO Acetaminophen (TYLENOL) 650 MG Q4H PRN PRN RECTA L Calcium Chloride (CALCIUM CHLORIDE) 1 GM ASDIR P RN IV Dextrose/Water (DEXTROSE 10% IN WATER) 125 ML DIR PRN IV (CKD) Dextrose/Water (DEXTROSE 10% IN WATER) 250 ML DIR PRN IV (CKD) Epinephrine (ADRENALIN CHLORIDE) 4 MG ASDIR IV Dextrose/Water (DEXTROSE 5% WATER) 246 ML Glucagon (GLUCAGON) 1 MG ASDIR PRN IM Insulin Human Regular (HumuLIN R) 100 UNIT ASDIR IV (CKD) Sodium Chloride (SODIUM CHLORIDE 0.9%) 99 ML Magnesium Sulfate (MAGNESIUM SULFATE 4GM/SWFI 10 0ML) 100 ML ASDIR PRN IV Magnesium Sulfate (MAGNESIUM SULFATE 2GM/SWFI 50 ML) 50 ML ASDIR PRN IV Magnesium Sulfate/Dextrose (MAGNESIUM SULFATE 1G M/D5W 100ML) 100 ML ASDIR PRN IV Morphine Sulfate (morphine SULFATE) 4 MG Q2H PRN PRN IV (DC) Nitroglycerin/Dextrose (NITROGLYCERIN 50,000MCG/ D5W 250ML) 250 ML ASDIR IV Norepinephrine Bitartrate (NOREPINEPHRINE 8 MG/N S 250 ML) 250 ML TITRATE IV Ondansetron HCl (ZOFRAN) 4 MG Q6H PRN PRN IV Oxycodone HCl (ROXICODONE) 5 MG Q4H PRN PRN PO Oxycodone HCl (ROXICODONE) 10 MG Q4H PRN PRN PO Potassium Chloride (KCL 20MEQ/SWFI 100ML) 100 ML ASDIR PRN IV Sodium Bicarbonate (SODIUM BICARBONATE) 50 MEQ A SDIR PRN IV Sodium Chloride (SODIUM CHLORIDE 0.9%) 1,000 ML .Q20H IV Sodium Chloride (SODIUM CHLORIDE 0.9%) 250 ML Q2 4H IV Mupirocin (BACTROBAN 2% 22 GM OINTMENT) 1 APPLIC BID NASAL Physical Exam General appearance: alert, awake Head/Eyes: atraumatic, clear cornea, EOMI, rojelio l conjunctiva/sclera, normocephalic, PERRL, PERRLA Neck: full range of motion, non-tender, normal thyroid, supple/no meningismus, no bruit/NL carotids, no JVD, no lymphadenopathy , no masses or swelling Cardiovascular: CV assessment: regular rate and rhythm, BP puls es = bilaterally, normal heart sounds, pedal pulses present Respiratory: clear to auscultation Abdomen: soft, non-tender, normal bowel sounds, no distention, no guarding Genitourinary: no flank pain, no urinary cathete r Lower extremity: LE assessment: no calf tenderness, no edema Musculoskeletal: normal inspection Neuro/CRANE OPERATOR: alert, oriented X 3, normal speech, n o motor deficits Skin: dry, intact, normal color, normal temperat ure Psychiatry: normal affect, normal judgment/insig ht, normal mood Results Findings/Data: Laboratory Tests 09/02 209 Chemistry Sodium (134 - 147 mEq/L) 139 Potassium (3.4 - 5.0 mEq/L) 3.8 Chloride (100 - 108 mEq/L) 107 Carbon Dioxide (21 - 33 mEq/l) 25 Anion Gap (0 - 20) 11 BUN (7 - 18 mg/dL) 12 Creatinine (0.6 - 1.3 mg/dL) 1.1 Glomerular Filtr Rate (80 - 90) 80.8 Glucose (70 - 110 mg/dL) 109 Calcium (8.0 - 10.5 mg/dL) 8.9 Magnesium (1.80 - 2.40 mg/dL) 1.95 Total Bilirubin (0.0 - 1.0 mg/dL) 1.50 H Direct Bilirubin (0.0 - 0.30 MG/DL) 0.60 H Indirect Bilirubin (MG/DL) 0.90 AST (15 - 37 IUnit/L) 50 H ALT (30 - 65 IUnit/L) 37 Total Alk Phosphatase (20 - 125 IUnit/L) 84 Total Protein (6.4 - 8.2 g/dL) 6.5 Albumin (3.4 - 5.0 g/dL) 3.50 Laboratory Tests 09/02 209 Hematology WBC (4.5 - 11.0 x10 3/uL) 13.1 H RBC (4.00 - 5.60 x10 6/uL) 3.45 L Hgb (12.5 - 16.9 g/dL) 11.5 L Hct (37.5 - 50.7 %) 33.9 L MCV (81.0 - 99.0 fL) 98.3 MCH (27.0 - 33.0 pg) 33.3 H MCHC (33.0 - 37.0 g/dL) 33.9 RDW (11.5 - 14.5 %) 12.5 Plt Count (150 - 400 x10 3/uL) 122 L MPV (7.0 - 9.0 fL) 10.6 H Neut % (Auto) (56.0 - 77.0 %) 65.4 Lymph % (Auto) (14.0 - 32.0 %) 18.4 Long % (Auto) (4.8 - 9.0 %) 15.0 H Eos % (Auto) (0.3 - 3.7 %) 0.2 L Baso % (Auto) (0.0 - 2.0 %) 0.2 Neut # (Auto) (2.0 - 7.6 x10 3/uL) 8.56 H Lymph # (Auto) (1.0 - 3.8 x10 3/uL) 2.40 Long # (Auto) (0.1 - 0.8 x10 3/uL) 1.96 H Eos # (Auto) (0.0 - 0.2 x10 3/uL) 0.02 Baso # (Auto) (0.0 - 0.2 x10 3/uL) 0.02 Abs Immat Gran (auto) (0.00 - 0.03 x10 3/uL) 0. 10 H Add Manual Diff NO Immature Gran % (0.0 - 2.0 %) 0.8 Nucleated RBC % (0 - 0 %) 0.0 Nucleated RBCs # (Man) (0.0 - 0.1 x10 3/uL) 0.0 0 Laboratory Tests 09/02 0209 Chemistry Magnesium (1.80 - 2.40 mg/dL) 1.95 Radiology data: Recent Impressions: RADIOLOGY - XR CHEST 1 V 09/02 0600 Report Impression - Status: SIGNED Entered: 09/02/2022 0910 IMPRESSION: Improved aeration left lower lung may reflect re solving subsegmental atelectasis. Impression By: Anthony Bartholomew M.D. 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 He has been doing fine bu t noticed exertional dyspnea. He had outpatient left heart catheteriza tion and found to have multivessel CAD and is referred here for surgical revascularizat ion. 1. Coronary artery disease: S/p CABG x3, and left atrial appendage amputation. Doing well post-op. For transfer to floor. Gisselle nue DAPT, BB, statin. On amiodaron PO for afib prophylaxis. 2. Hyperlipidemia Continue statin Discharge planning per CTS. at 1358 Electronically Signed by Bhavya Fish MD on at 1459 RPT #:[id number] END OF REPORT 2022-09-02 10:49:00-00:00 [facility] Cardiothoracic Surgery Prog REPORT#:[id number] REPORT STATUS: Signed DATE:09/02/22 TIME: 1049 PATIENT: JACKELIN VASQUEZ UNIT #: [id number] ROOM/BED: [place] [id number] : 54 AGE: 66 SEX: M ATTEND: Blaine Frye MD ADM AUTHOR: Lizbeth Peterson * ALL edits or amendments must be made on the Equals6/computer document * General Post-op: day 3 Status post: 1. Coronary artery bypass graft surgery x3 (left internal mammary artery to left anterior descending, saphenous vein to diag onal, saphenous vein to marginal). 2. Amputation of left atrial appendage. 3. Endoscopic vein harvesting (right greater sap henous vein). Subjective Chief complaint: Follow up CABG Review of Systems Constitutional: Denies: chills, fatigue, fever, malaise. Allergy/Immun: Denies: allergic reaction, anaphylaxis, hives. Respiratory: Denies: pneumonia. GI: Denies: abdominal pain. Heme: Denies: bleeding. All systems rev neg: except as marked Objective General VS/I O Vital Signs Date Temp Pulse Resp B/P B/P Mean Pulse Ox FiO2 09/01-09/02 99.0 80-103 23-39 108-155/72-93 87- 117 90-96 21 Last Documented: Result Date Time Pulse Ox 94 09/02 0800 B/P 138/91 09/02 0800 B/P Mean 109 09/02 0800 Pulse 89 09/02 0800 Resp 23 09/02 0800 FiO2 21 09/02 0757 O2 Delivery Room air 09/02 0757 Temp 99.0 09/01 2000 O2 Flow Rate 1 08/31 0808 24 hour I O ending at 0700: 09/02 0700 09/01 1900 Intake Total Output Total 1900 1150 Balance -1900 -1150 Number 1 Bowel Movements Number Voids 5 Output, Urine 1900 1150 Patient 250 lb Weight Weight Standing scale Measurement Method PATIENT WEIGHT: Weight (lb): 250 Weight (oz): 3.59 Weight (kg): 113.500 Physical Exam General appearance: alert, oriented, pleasant, m ental status normal, no respiratory distress Wound/incision: Location: sternal Site condition: dressing clean dry, dressing in tact HEENT: mucosal membranes moist, pupils reactive to light, sclera clear Neck: full range of motion, non-tender Cardiovascular: normal heart sounds, regular rat e rhythm Respiratory: aerating well, symmetric expansion, no distress Abdomen: soft, non-tender, no distention Extremities: dry, moves all, normal capillary re fill Musculoskeletal: full range of motion Neuro/CRANE OPERATOR: alert, oriented X 3, normal speech, n o motor deficits Skin: dry, intact Psychiatry: normal affect, normal mood Current Medications Medications: Active Meds + DC'd Last 24 Hrs Ipratropium Hiawatha (ATROVENT) 500 MCG Q2H PRN P RN INH Cyanocobalamin (Vitamin B-12 500 mcg tab) 500 MC G DAILY PO Ferrous Sulfate (FERROUS SULFATE) 325 MG DAILY PO Potassium Chloride (POTASSIUM CHLORIDE 20MEQ TAB .ER) 20 MEQ ONCE PO (CKD ) Metoprolol Tartrate (LOPRESSOR) 25 MG Q12HR PO Bisacodyl (DULCOLAX) 10 MG ONCE PRN RECTAL Magnesium Hydroxide (MILK OF MAGNESIA) 30 ML ONC E PRN PO Atorvastatin Calcium (LIPITOR) 40 MG 2100 PO Clopidogrel Bisulfate (Plavix) 75 MG DAILY PO Polyethylene Glycol (MIRALAX) 17 GM DAILY PO Pantoprazole (PROTONIX) 40 MG DAILY@0600 PO Docusate Sodium (COLACE) 100 MG BID PO Gabapentin (NEURONTIN) 200 MG BID PO Metoprolol Tartrate (LOPRESSOR) 12.5 MG Q12HR PO (DC) Sennosides (Senna Lax 8.6 MG TABLET) 17.2 MG BED TIME PO Aspirin (ASPIRIN) 81 MG DAILY PO Ipratropium Hiawatha (ATROVENT) 500 MCG RTQ4H INH Amiodarone HCl (CORDARONE) 200 MG TID PO Acetaminophen (TYLENOL) 650 MG Q4H PRN PRN PO Acetaminophen (TYLENOL) 650 MG Q4H PRN PRN RECTA L Calcium Chloride (CALCIUM CHLORIDE) 1 GM ASDIR P RN IV Dextrose/Water (DEXTROSE 10% IN WATER) 125 ML DIR PRN IV (CKD) Dextrose/Water (DEXTROSE 10% IN WATER) 250 ML DIR PRN IV (CKD) Epinephrine (ADRENALIN CHLORIDE) 4 MG ASDIR IV Dextrose/Water (DEXTROSE 5% WATER) 246 ML Glucagon (GLUCAGON) 1 MG ASDIR PRN IM Insulin Human Regular (HumuLIN R) 100 UNIT ASDIR IV (CKD) Sodium Chloride (SODIUM CHLORIDE 0.9%) 99 ML Magnesium Sulfate (MAGNESIUM SULFATE 4GM/SWFI 10 0ML) 100 ML ASDIR PRN IV Magnesium Sulfate (MAGNESIUM SULFATE 2GM/SWFI 50 ML) 50 ML ASDIR PRN IV Magnesium Sulfate/Dextrose (MAGNESIUM SULFATE 1G M/D5W 100ML) 100 ML ASDIR PRN IV Morphine Sulfate (morphine SULFATE) 4 MG Q2H PRN PRN IV (DC) Nitroglycerin/Dextrose (NITROGLYCERIN 50,000MCG/ D5W 250ML) 250 ML ASDIR IV Norepinephrine Bitartrate (NOREPINEPHRINE 8 MG/N S 250 ML) 250 ML TITRATE IV Ondansetron HCl (ZOFRAN) 4 MG Q6H PRN PRN IV Oxycodone HCl (ROXICODONE) 5 MG Q4H PRN PRN PO Oxycodone HCl (ROXICODONE) 10 MG Q4H PRN PRN PO Potassium Chloride (KCL 20MEQ/SWFI 100ML) 100 ML ASDIR PRN IV Sodium Bicarbonate (SODIUM BICARBONATE) 50 MEQ A SDIR PRN IV Sodium Chloride (SODIUM CHLORIDE 0.9%) 1,000 ML .Q20H IV Sodium Chloride (SODIUM CHLORIDE 0.9%) 250 ML Q2 4H IV Mupirocin (BACTROBAN 2% 22 GM OINTMENT) 1 APPLIC BID NASAL Results Findings/Data: Laboratory Tests 09/02 0209 Chemistry Sodium (134 - 147 mEq/L) 139 Potassium (3.4 - 5.0 mEq/L) 3.8 Chloride (100 - 108 mEq/L) 107 Carbon Dioxide (21 - 33 mEq/l) 25 Anion Gap (0 - 20) 11 BUN (7 - 18 mg/dL) 12 Creatinine (0.6 - 1.3 mg/dL) 1.1 Glomerular Filtr Rate (80 - 90) 80.8 Glucose (70 - 110 mg/dL) 109 Calcium (8.0 - 10.5 mg/dL) 8.9 Magnesium (1.80 - 2.40 mg/dL) 1.95 Total Bilirubin (0.0 - 1.0 mg/dL) 1.50 H Direct Bilirubin (0.0 - 0.30 MG/DL) 0.60 H Indirect Bilirubin (MG/DL) 0.90 AST (15 - 37 IUnit/L) 50 H ALT (30 - 65 IUnit/L) 37 Total Alk Phosphatase (20 - 125 IUnit/L) 84 Total Protein (6.4 - 8.2 g/dL) 6.5 Albumin (3.4 - 5.0 g/dL) 3.50 Laboratory Tests 09/02 0209 Hematology WBC (4.5 - 11.0 x10 3/uL) 13.1 H RBC (4.00 - 5.60 x10 6/uL) 3.45 L Hgb (12.5 - 16.9 g/dL) 11.5 L Hct (37.5 - 50.7 %) 33.9 L MCV (81.0 - 99.0 fL) 98.3 MCH (27.0 - 33.0 pg) 33.3 H MCHC (33.0 - 37.0 g/dL) 33.9 RDW (11.5 - 14.5 %) 12.5 Plt Count (150 - 400 x10 3/uL) 122 L MPV (7.0 - 9.0 fL) 10.6 H Neut % (Auto) (56.0 - 77.0 %) 65.4 Lymph % (Auto) (14.0 - 32.0 %) 18.4 Long % (Auto) (4.8 - 9.0 %) 15.0 H Eos % (Auto) (0.3 - 3.7 %) 0.2 L Baso % (Auto) (0.0 - 2.0 %) 0.2 Neut # (Auto) (2.0 - 7.6 x10 3/uL) 8.56 H Lymph # (Auto) (1.0 - 3.8 x10 3/uL) 2.40 Long # (Auto) (0.1 - 0.8 x10 3/uL) 1.96 H Eos # (Auto) (0.0 - 0.2 x10 3/uL) 0.02 Baso # (Auto) (0.0 - 0.2 x10 3/uL) 0.02 Abs Immat Gran (auto) (0.00 - 0.03 x10 3/uL) 0. 10 H Add Manual Diff NO Immature Gran % (0.0 - 2.0 %) 0.8 Nucleated RBC % (0 - 0 %) 0.0 Nucleated RBCs # (Man) (0.0 - 0.1 x10 3/uL) 0.0 0 Radiology data: Recent Impressions: RADIOLOGY - XR CHEST 1 V 09/02 0600 Report Impression - Status: SIGNED Entered: 09/02/2022 0910 IMPRESSION: Improved aeration left lower lung may reflect re solving subsegmental atelectasis. Impression By: Anthony Bartholomew M.D. Treatment Prophylaxis Treatment Prophylaxis Oxygen: room air, nasal cannula Drain(s)/tube(s): Drain(s)/tube(s): chest, urinary catheter Diagnosis, Assessment Plan Hospital course to date: Free Text A P: 09/02 Remains in stable condition, alert and oriented Chest x-ray reviewed. Respiratory status stable on room air. HD stable, normal sinus rhythm. Pacing wires dis continued Limited echo to rule out pericardial effusion BLE venous Doppler to rule out DVT Encourage I-S and mobilization Transfer to intermediate care Anticipate discharge home tomorrow Patient seen and plan reviewed with Dr. Frye Consultants: anesthesiology, cardiology, cardiov ascular surgery, critical/ sap hana developer at [phone] at 4303 RPT #:[id number] END OF REPORT 2022-09-01 17:11:00-00:00 [facility] Cardiothoracic Surgery Prog REPORT#:[id number] REPORT STATUS: Signed DATE:09/01/22 TIME: 171 PATIENT: JACKELIN VASQUEZ UNIT #: [id number] ROOM/BED: 2201-1 : 54 AGE: 66 SEX: M ATTEND: Blaine Frye MD ADM AUTHOR: Omega Frye * ALL edits or amendments must be made on the el SPAR[employer]ronic/computer document * General Post-op: day 2 Status post: 1. Coronary artery bypass graft surgery x3 (left internal mammary artery to left anterior descending, saphenous vein to diag onal, saphenous vein to marginal). 2. Amputation of left atrial appendage. 3. Endoscopic vein harvesting (right greater sap henous vein). Subjective Chief complaint: Chest pain Severe CAD HPI: Doing well, hemodynamically stable, good pain co ntrol, on room air. Review of Systems Constitutional: Denies: chills, fatigue, fever. Allergy/Immun: Denies: allergic reaction, anaphylaxis, hives. Eyes: Denies: discharge. Respiratory: Denies: pneumonia. GI: Denies: abdominal pain. Heme: Denies: bleeding. All systems rev neg: except as marked Objective General VS/I O Last Documented: Result Date Time Pulse Ox 94 09/01 1400 B/P 141/83 09/01 1400 B/P Mean 104 09/01 1400 Pulse 91 09/01 1400 Resp 33 09/01 1400 FiO2 21 09/01 0745 O2 Delivery Room air 09/01 0745 Temp 37.9 08/31 0900 O2 Flow Rate 1 08/31 0808 24 hour I O ending at 0700: 09/01 0700 08/31 1900 Intake Total Output Total 470 320 Balance -470 -320 Number Voids 3 Output, Chest 50 Tube Drainage Output, Urine 420 320 Patient 114.5 kg 112.037 kg Weight Weight Standing scale Measurement Method PATIENT WEIGHT: Weight (lb): 252 Weight (oz): 6.87 Weight (kg): 114.500 Physical Exam General appearance: alert, awake, oriented Wound/incision: Location: sternal Site condition: dressing clean dry, dressing in tact HEENT: mucosal membranes moist, pupils reactive to light, sclera clear Neck: full range of motion, non-tender Cardiovascular: regular rate rhythm Respiratory: aerating well, symmetric expansion Abdomen: soft, non-tender, no distention Extremities: dry, moves all, normal capillary re fill Musculoskeletal: full range of motion Neuro/CRANE OPERATOR: alert, oriented X 3 Skin: dry, intact Psychiatry: normal affect, normal mood Results Findings/Data: Laboratory Tests 09/01 Chemistry Sodium (134 - 147 mEq/L) 137 Potassium (3.4 - 5.0 mEq/L) 4.0 Chloride (100 - 108 mEq/L) 106 Carbon Dioxide (21 - 33 mEq/l) 22 Anion Gap (0 - 20) 13 BUN (7 - 18 mg/dL) 15 Creatinine (0.6 - 1.3 mg/dL) 1.2 Glomerular Filtr Rate (80 - 90) 73.1 L Glucose (70 - 110 mg/dL) 130 H POC Glucose (70 - 110 MG/DL) 97 Calcium (8.0 - 10.5 mg/dL) 8.5 Magnesium (1.80 - 2.40 mg/dL) 1.78 L Total Bilirubin (0.0 - 1.0 mg/dL) 0.90 Direct Bilirubin (0.0 - 0.30 MG/DL) 0.30 Indirect Bilirubin (MG/DL) 0.60 AST (15 - 37 IUnit/L) 48 H ALT (30 - 65 IUnit/L) 34 Total Alk Phosphatase (20 - 125 IUnit/L) 73 Total Protein (6.4 - 8.2 g/dL) 6.2 L Albumin (3.4 - 5.0 g/dL) 3.60 Laboratory Tests 09/01 102 Hematology WBC (4.5 - 11.0 x10 3/uL) 12.8 H RBC (4.00 - 5.60 x10 6/uL) 3.40 L Hgb (12.5 - 16.9 g/dL) 11.3 L Hct (37.5 - 50.7 %) 33.8 L MCV (81.0 - 99.0 fL) 99.4 H MCH (27.0 - 33.0 pg) 33.2 H MCHC (33.0 - 37.0 g/dL) 33.4 RDW (11.5 - 14.5 %) 12.8 Plt Count (150 - 400 x10 3/uL) 118 L MPV (7.0 - 9.0 fL) 11.0 H Neut % (Auto) (56.0 - 77.0 %) 66.0 Lymph % (Auto) (14.0 - 32.0 %) 17.0 Long % (Auto) (4.8 - 9.0 %) 16.3 H Eos % (Auto) (0.3 - 3.7 %) 0.0 L Baso % (Auto) (0.0 - 2.0 %) 0.2 Neut # (Auto) (2.0 - 7.6 x10 3/uL) 8.43 H Lymph # (Auto) (1.0 - 3.8 x10 3/uL) 2.17 Long # (Auto) (0.1 - 0.8 x10 3/uL) 2.08 H Eos # (Auto) (0.0 - 0.2 x10 3/uL) 0.00 Baso # (Auto) (0.0 - 0.2 x10 3/uL) 0.02 Abs Immat Gran (auto) (0.00 - 0.03 x10 3/uL) 0. 06 H Add Manual Diff NO Immature Gran % (0.0 - 2.0 %) 0.5 Nucleated RBC % (0 - 0 %) 0.0 Nucleated RBCs # (Man) (0.0 - 0.1 x10 3/uL) 0.0 0 Diagnosis, Assessment Plan Free Text A P: Ambulate, encourage incentive spirometry, transf er to cardiac unit, discharge planning, probably home next 24 to 48 hours. at 1716 RPT #:[id number] END OF REPORT 2022-09-01 12:44:00-00:00 [facility] ([facility] Critical Care Progress Note REPORT#:[id number] REPORT STATUS: Signed DATE:09/01/22 TIME: 1244 PATIENT: JACKELIN VASQUEZ UNIT #: [id number] ROOM/BED: [place] [address] : 54 AGE: 66 SEX: M ATTEND: Blaine Frye MD ADM AUTHOR: Darius Silva MD * ALL edits or amendments must be made on the Equals6/computer document * Subjective Chief complaint: Coronary artery disease Status post CABG x3 Elective ventilator dependence for acute pulmon juliana insufficiency following major cardiothoracic surgery Dyspnea Chest pain Dyslipidemia Acute blood loss anemia Leukocytosis HPI: Patient seen and examined in CV[facility] room #2201 and discussed during rounds with CT surgery. One of the chest tubes was discontin ued yesterday. Second chest tube had minimal output of 20 mL overnight and w ill be discontinued. Vital signs are stable with a heart rate of 92 , blood pressure 137/88 mmHg and pulse ox 90% on room air. Patient has been abl e to tolerate oral diet and ambulating with physical therapy. Urine output was adequate at 900 mL overnight. No acute events reported overnight. He is postop day 2 after CABG x3 with HOFFMAN to LA D, vein graft to OM and vein graft to diagonal. Intra-Op course was uneventfu l. Patient received 1 L of crystalloid and 600 mL of Cell Saver. Intra-Op u rine output was 30 and 50 mL. EBL was 100 mL. Patient was not on any vasopress or support. Insulin drip at 3 units/h and the latest blood glucose is 143 mg/d L. He was on Amicar drip. Chest tube output is minimal with left pleural s howing no output at all and mediastinal tubes showing 10 mL. Patient was on assist-control at 18 tidal volume 500 PEEP of 5 and 50% FiO2. Latest blood gas shows a pH of 7.32, pCO2 of 43 mmHg, pO2 of 83 mmHg and bicarbonate of 23 mmol with base excess at -3.4 and oxygen saturation at 95%. Lactic acid is elevate d at 2.3 and patient received 250 mL of albumin infusion as well as 250 mL of normal saline. He is stable from hemodynamic standpoint with a heart rate of 75 in sinus rhythm, blood pressures 111/61 mmHg with a respiratory rate of 18 and temperature of 96.8 F. 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 He has been doing fine but noticed exertional dyspnea. He had outpatient left heart catheterization and found to have multivessel CAD and is referred here for sin rgical revascularization. The patient is currently chest pain-free. He underwe nt elective CABG x3 on pump. Patient is not on any vasopr essor support with stable blood pressure, recovering from the anesthesia, on elective ventila tor support after major cardiothoracic surgery. Patient reports: No: diarrhea, fever, shortness of breath, vomiti ng. Nursing reports: No: abdominal pain, agitated, confusion, diarrhe a, fever, vomiting. Review of Systems Constitutional: Denies: fatigue, fever, generalized weakness. Skin: Denies: diaphoresis, ecchymosis. Allergy/Immun: Denies: anaphylaxis, hives. Eyes: Denies: redness, discharge. ENT: Denies: nose bleeding, throat swelling, tongue s welling. Respiratory: Denies: LOW (dyspnea on exertion), hemoptysis, S OB, wheezing. Cardiovascular: Denies: chest pain, LOW (dyspnea on exertion). GI: Denies: dysphagia, GERD, hematemesis, hematochez ia. : Denies: hematuria, nocturia. Heme: Denies: bleeding, bruising. Endocrine: Denies: polydipsia, polyphagia. Neuro: Denies: confusion, dizziness, seizure, weakness. Psych: Denies: confusion, delusional, insomnia. Objective General VS/I O Last Documented: Result Date Time Pulse Ox 96 09/01 745 FiO2 21 09/01 745 O2 Delivery Room air 09/01 745 B/P 131/84 09/01 730 B/P Mean 101 09/01 730 Pulse 86 09/01 730 Resp 28 09/01 730 Temp 37.9 08/31 0900 O2 Flow Rate 1 08/31 0808 24 hour I O ending at 0700: 09/01 0700 08/31 1900 Intake Total Output Total 470 320 Balance -470 -320 Number Voids 3 Output, Chest 50 Tube Drainage Output, Urine 420 320 Patient 114.5 kg 112.037 kg Weight Weight Standing scale Measurement Method PATIENT WEIGHT: Weight (lb): 252 Weight (oz): 6.87 Weight (kg): 114.500 Medications: Active Meds + DC'd Last 24 Hrs Ipratropium Hiawatha (ATROVENT) 500 MCG Q2H PRN P RN INH Cyanocobalamin (Vitamin B-12 500 mcg tab) 500 MC G DAILY PO Ferrous Sulfate (FERROUS SULFATE) 325 MG DAILY P O Bisacodyl (DULCOLAX) 10 MG ONCE PRN RECTAL Magnesium Hydroxide (MILK OF MAGNESIA) 30 ML ONC E PRN PO Atorvastatin Calcium (LIPITOR) 40 MG 2100 PO Clopidogrel Bisulfate (Plavix) 75 MG DAILY PO Polyethylene Glycol (MIRALAX) 17 GM DAILY PO Pantoprazole (PROTONIX) 40 MG DAILY@0600 PO Docusate Sodium (COLACE) 100 MG BID PO Gabapentin (NEURONTIN) 200 MG BID PO Metoprolol Tartrate (LOPRESSOR) 12.5 MG Q12HR PO Sennosides (Senna Lax 8.6 MG TABLET) 17.2 MG BED TIME PO Aspirin (ASPIRIN) 81 MG DAILY PO Ipratropium Hiawatha (ATROVENT) 500 MCG RTQ4H INH Amiodarone HCl (CORDARONE) 200 MG TID PO Acetaminophen (TYLENOL) 650 MG Q4H PRN PRN PO Acetaminophen (TYLENOL) 650 MG Q4H PRN PRN RECTA L Albumin Human (ALBUMINAR 25%) 25 GM ASDIR PRN IV (DC) Calcium Chloride (CALCIUM CHLORIDE) 1 GM ASDIR P RN IV Dextrose/Water (DEXTROSE 10% IN WATER) 125 ML DIR PRN IV (CKD) Dextrose/Water (DEXTROSE 10% IN WATER) 250 ML DIR PRN IV (CKD) Epinephrine (ADRENALIN CHLORIDE) 4 MG ASDIR IV Dextrose/Water (DEXTROSE 5% WATER) 246 ML Glucagon (GLUCAGON) 1 MG ASDIR PRN IM Insulin Human Regular (HumuLIN R) 100 UNIT ASDIR IV (CKD) Sodium Chloride (SODIUM CHLORIDE 0.9%) 99 ML Magnesium Sulfate (MAGNESIUM SULFATE 4GM/SWFI 10 0ML) 100 ML ASDIR PRN IV Magnesium Sulfate (MAGNESIUM SULFATE 2GM/SWFI 50 ML) 50 ML ASDIR PRN IV Magnesium Sulfate/Dextrose (MAGNESIUM SULFATE 1G M/D5W 100ML) 100 ML ASDIR PRN IV Morphine Sulfate (morphine SULFATE) 4 MG Q2H PRN PRN IV Nitroglycerin/Dextrose (NITROGLYCERIN 50,000MCG/ D5W 250ML) 250 ML ASDIR IV Norepinephrine Bitartrate (NOREPINEPHRINE 8 MG/N S 250 ML) 250 ML TITRATE IV Ondansetron HCl (ZOFRAN) 4 MG Q6H PRN PRN IV Oxycodone HCl (ROXICODONE) 5 MG Q4H PRN PRN PO Oxycodone HCl (ROXICODONE) 10 MG Q4H PRN PRN PO Potassium Chloride (KCL 20MEQ/SWFI 100ML) 100 ML ASDIR PRN IV Sodium Bicarbonate (SODIUM BICARBONATE) 50 MEQ A SDIR PRN IV Sodium Chloride (SODIUM CHLORIDE 0.9%) 1,000 ML .Q20H IV Sodium Chloride (SODIUM CHLORIDE 0.9%) 250 ML Q2 4H IV Mupirocin (BACTROBAN 2% 22 GM OINTMENT) 1 APPLIC BID NASAL Post-op: day 2 Status post: CABG times 3 Physical Exam General appearance: alert, awake, oriented, no a cute distress, pleasant, conversational, mental status normal, no respira tory distress Head/eyes: atraumatic, clear cornea, normocephal ic, PERRL ENT: moist mucosal membranes, normal nose, rojelio l sinus Neck: non-tender, normal thyroid, no JVD, no mas ses or swelling Cardiovascular: normal capillary refill, normal heart sounds, regular rate and rhythm, normal S1/S2 Respiratory: aerating well, clear to auscultatio n, symmetric expansion, no distress Abdomen: soft, non-tender, normal bowel sounds, no distention, no guarding, no mass/organomegaly, no rebound Genitourinary: urinary catheter, no bladder dist ention, no flank pain Extremities: no clubbing, no cyanosis, no edema Neuro/CRANE OPERATOR: alert, oriented X 3, CNII-XII intact, normal speech, reflexes equal bilat, no motor deficits, no sensory deficits Skin: dry, normal color, normal temperature, no rash Psychiatry: normal affect, n ormal judgment/insight, normal mood, not homicidal, not suicidal, no hallucinations Results Findings/data: Laboratory Tests 09/01 08/31 0102 2139 Chemistry Sodium (134 - 147 mEq/L) 137 Potassium (3.4 - 5.0 mEq/L) 4.0 Chloride (100 - 108 mEq/L) 106 Carbon Dioxide (21 - 33 mEq/l) 22 Anion Gap (0 - 20) 13 BUN (7 - 18 mg/dL) 15 Creatinine (0.6 - 1.3 mg/dL) 1.2 Glomerular Filtr Rate (80 - 90) 73.1 L Glucose (70 - 110 mg/dL) 130 H POC Glucose (70 - 110 MG/DL) 97 Calcium (8.0 - 10.5 mg/dL) 8.5 Magnesium (1.80 - 2.40 mg/dL) 1.78 L Total Bilirubin (0.0 - 1.0 mg/dL) 0.90 Direct Bilirubin (0.0 - 0.30 MG/DL) 0.30 Indirect Bilirubin (MG/DL) 0.60 AST (15 - 37 IUnit/L) 48 H ALT (30 - 65 IUnit/L) 34 Total Alk Phosphatase (20 - 125 IUnit/L) 73 Total Protein (6.4 - 8.2 g/dL) 6.2 L Albumin (3.4 - 5.0 g/dL) 3.60 Laboratory Tests 09/01 0102 Hematology WBC (4.5 - 11.0 x10 3/uL) 12.8 H RBC (4.00 - 5.60 x10 6/uL) 3.40 L Hgb (12.5 - 16.9 g/dL) 11.3 L Hct (37.5 - 50.7 %) 33.8 L MCV (81.0 - 99.0 fL) 99.4 H MCH (27.0 - 33.0 pg) 33.2 H MCHC (33.0 - 37.0 g/dL) 33.4 RDW (11.5 - 14.5 %) 12.8 Plt Count (150 - 400 x10 3/uL) 118 L MPV (7.0 - 9.0 fL) 11.0 H Neut % (Auto) (56.0 - 77.0 %) 66.0 Lymph % (Auto) (14.0 - 32.0 %) 17.0 Long % (Auto) (4.8 - 9.0 %) 16.3 H Eos % (Auto) (0.3 - 3.7 %) 0.0 L Baso % (Auto) (0.0 - 2.0 %) 0.2 Neut # (Auto) (2.0 - 7.6 x10 3/uL) 8.43 H Lymph # (Auto) (1.0 - 3.8 x10 3/uL) 2.17 Long # (Auto) (0.1 - 0.8 x10 3/uL) 2.08 H Eos # (Auto) (0.0 - 0.2 x10 3/uL) 0.00 Baso # (Auto) (0.0 - 0.2 x10 3/uL) 0.02 Abs Immat Gran (auto) (0.00 - 0.03 x10 3/uL) 0. 06 H Add Manual Diff NO Immature Gran % (0.0 - 2.0 %) 0.5 Nucleated RBC % (0 - 0 %) 0.0 Nucleated RBCs # (Man) (0.0 - 0.1 x10 3/uL) 0.0 0 Laboratory Tests 09/01/22 0102: [Embedded Image Not Available] Microbiology: 08/29 2123 NASAL: MSSA Surveillance Screen - ORD 08/29 2123 NASAL: MRSA DNA Surveillance Screen - ORD 08/29 2040 NASAL: MSSA Surveillance Screen - COM P 08/29 2040 NASAL: MRSA DNA Surveillance Screen - COMP Radiology data Recent Impressions: RADIOLOGY - XR CHEST 1 V 09/01 0604 Report Impression - Status: SIGNED Entered: 09/01/2022 0816 IMPRESSION: 1. Worsening opacities in the lung bases. 2. Removal of the right IJ central line. Impression By: [email or web address] - Sandro Landis M.D. Results: labs reviewed, vital signs reviewed, rh ythm personally rev'd, x-ray personally reviewed, current med profile rev'd Treatment Prophylaxis Treatment Prophylaxis Drain(s)/tube(s): Drain(s)/tube(s): chest, urinary catheter Diagnosis, Assessment Plan Free text A P: Problem List: Coronary artery disease Status post CABG x3 on 5 Acute pulmonary insufficiency following major ca rdiothoracic surgery Elective ventilator dependence Lactic acidosis Hyperglycemia Hypomagnesemia Leukocytosis Assessment and Plan: Patient seen and examined in CVICU room #2201. H e is status post CABG x3 with HOFFMAN to LAD, vein graft to OM and vein graft to diagonal. Intra-Op course was uneventful. Patient received 1 L of crystalloid and 600 mL of Cell Saver. Intra-Op urine output was 30 and 50 mL. EBL was 100 mL. Patient is not on any vasopressor support. Insulin drip at 3 u nits/h and the latest blood glucose is 143 mg/dL. He is on Amicar drip. Chest tube outp ut is minimal with left pleural showing no output at all and mediastinal tubes showing 10 mL. Patient is on assist-control at 18 tidal volume 500 PEEP of 5 and 50% FiO2. Latest blood gas shows a pH of 7.32 , pCO2 of 43 mmHg, pO2 of 83 mmHg and bicarbonate of 23 mmol with base excess at -3.4 and oxygen satu ration at 95%. Lactic acid is elevated at 2.3 and patient received 250 mL of albumin infusion as well as 250 mL of normal saline. He is s table from hemodynamic standpoint with a heart rate of 75 in sinus rhythm, blood pressures 111/61 mmHg with a respiratory rate of 18 and temperature of 96.8 F. 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 He has been doing fine but noticed exertional dyspnea. He had outpatient left heart catheterization and found to have multivessel CAD and is referred here for sin rgical revascularization. The patient is currently chest pain-free. He underwe nt elective CABG x3 on pump. Patient is not on any vasopr essor support with stable blood pressure, recovering from the anesthesia, on elective ventila tor support after major cardiothoracic surgery. Patient will be fast-track for extubati on. Patient is postop day 0 after CABG x3 Underwent 3 grafts with HOFFMAN to LAD, vein graft to OM and diagonal Uncomplicated intraoperative course Received 1 L of crystalloid and 600 mL of Cell S aver Urine output 1350 mL EBL was 100 mL Not on vasopressor support On Amicar and insulin drips only Blood glucose 143 mg/dL and insulin drip at 3 un its/h Minimal chest tube output with mediastinal at 10 mL and left pleural none On elective ventilator support currently on assi st-control at 18 tidal volume 500 PEEP of 5 and 50% FiO2 Latest blood gas shows a pH of 7.32, PCO2 of 43 mmHg, PO2 of 83 mmHg and bicarbonate of 23 mmol with base excess of -3.4 and 95% oxygen saturation Lactic acid is mildly elevated 2.5 Give 250 mL of normal saline and 250 mL of 5% al bumin infusion Follow urine output and lactic acid level Patient is waking up from anesthesia Patient will be fast-track for extubation Upon spontaneous eye opening patient will undergo weaning parameters assessment including Negative inspiratory force, Vital capacity and R SBI Check ABGs and plan extubation Leukocytosis most probably reactive Trend CBC Has low magnesium Replete with 2 g of magnesium sulfate and follow magnesium level SCDs for DVT prophylaxis Darius Silva MD [facility] 08/30/2022 4.19 PM 08/31/2022 Patient seen and examined in CVICU room #2201 and discussed during rounds with CT surgery. No acute events reported overnight h owever, patient became dizzy and had drop in blood pressure while getting out of the bed to chair. Chest tube output has been 35 mL and 20 mL in the left pleural and mediastinal respectively. Overnight he h ad about 30 mL in the left pleural and about 270 mL in the mediastinal chest tubes. No bowel movemen t yet. Glycemic control is adequate at 112 mg/dL while patient is on insuli n drip at 2 units/h. Blood pressure soft at 74/48 mmHg and responde d well to IV fluids and albumin. Blood gas this morning showed a pH of 7.37, PCO2 of 38 mmHg, PO2 of 89 mmHg and bicarbonate of 22 mmol. Urine output was adequat e at around 855 mL over the past 12-hour shift. Latest vital signs are stabl e with a heart rate of 83, blood pressure of 119/61 mmHg and pulse ox 97% o n room air. Plan is to discontinue the left pleural chest tube, as well as Luna catheter. Neck line to be discontinued in the evening. Insulin drip sena l be discontinued and patient will be started on insulin sliding scale low intensity coverage every 6 hours. Mediastinal chest tube is going to be retained. Patient was extubated in a timely fashion postoperatively. He is postop day 1 after CABG x3 with HOFFMAN to LA D, vein graft to OM and vein graft to diagonal. Intra-Op course was uneventfu l. Patient received 1 L of crystalloid and 600 mL of Cell Saver. Intra-Op u rine output was 30 and 50 mL. EBL was 100 mL. Patient was not on any vasopress or support. Insulin drip at 3 units/h and the latest blood glucose is 143 mg/d L. He was on Amicar drip. Chest tube output is minimal with left pleural s howing no output at all and mediastinal tubes showing 10 mL. Patient was on assist-control at 18 tidal volume 500 PEEP of 5 and 50% FiO2. Latest blood gas shows a pH of 7.32, pCO2 of 43 mmHg, pO2 of 83 mmHg and bicarbonate of 23 mmol with base excess at -3.4 and oxygen saturation at 95%. Lactic acid is elevate d at 2.3 and patient received 250 mL of albumin infusion as well as 250 mL of normal saline. He is stable from hemodynamic standpoint with a heart rate of 75 in sinus rhythm, blood pressures 111/61 mmHg with a respiratory rate of 18 and temperature of 96.8 F. 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 He has been doing fine but noticed exertional dyspnea. He had outpatient left heart catheterization and found to have multivessel CAD and is referred here for sin rgical revascularization. The patient is currently chest pain-free. He underwe nt elective CABG x3 on pump. Patient is not on any vasopr essor support with stable blood pressure, recovering from the anesthesia, on elective ventila tor support after major cardiothoracic surgery. Patient is postop day # 1 after CABG x3 Postop course was uncomplicated Patient was extubated in a timely fashion within the 4-hour window Did not require any vasopressor support postoper atively Minimal chest tube output with left pleu ral showing 30 mL in the past 12 hours and mediastinal tube showing 270ml collection Left pleural chest tube to be discontinued Luna catheter to be discontinued Neck line to be discontinued later in the evenin g And had brief episode of hyp otension upon ambulation that responded to IV fluids and albumin Blood pressures improved Follow urine output Placement control is adequate with blood glucose at 112 mg/dL Currently on insulin drip at 2 units/h DC insulin drip and start on insulin sliding scale low intensity coverage every 6 hours Patient is performing incentive spirometry Creatinine is normal at 1.1 mg/dL Patient had minimal blood lo ss intraoperatively and hemoglobin stable at 11.7 g/ dL LFTs are within normal limits Patient had reversal of lactate anemia Leukocytosis is improving Ambulating with physical therapy Tolerating oral diet without any nausea vomiting No focal neurological deficit Patient is on electrolyte replacement protocol SCDs for DVT prophylaxis Darius Silva MD [facility] 08/31/2022 11.52 AM 09/01/2022 Patient seen and examined in CVICU room #2201 and discussed during rounds with CT surgery. One of the chest tubes was discontin ued yesterday. Second chest tube had minimal output of 20 mL overnight and w ill be discontinued. Vital signs are stable with a heart rate of 92 , blood pressure 137/88 mmHg and pulse ox 90% on room air. Patient has been abl e to tolerate oral diet and ambulating with physical therapy. Urine output was adequate at 900 mL overnight. No acute events reported overnight. He is postop day 2 after CABG x3 with HOFFMAN to LA D, vein graft to OM and vein graft to diagonal. Intra-Op course was uneventfu l. Patient received 1 L of crystalloid and 600 mL of Cell Saver. Intra-Op u rine output was 30 and 50 mL. EBL was 100 mL. Patient was not on any vasopress or support. Insulin drip at 3 units/h and the latest blood glucose is 143 mg/d L. He was on Amicar drip. Chest tube output is minimal with left pleural s howing no output at all and mediastinal tubes showing 10 mL. Patient was on assist-control at 18 tidal volume 500 PEEP of 5 and 50% FiO2. Latest blood gas shows a pH of 7.32, pCO2 of 43 mmHg, pO2 of 83 mmHg and bicarbonate of 23 mmol with base excess at -3.4 and oxygen saturation at 95%. Lactic acid is elevate d at 2.3 and patient received 250 mL of albumin infusion as well as 250 mL of normal saline. He is stable from hemodynamic standpoint with a heart rate of 75 in sinus rhythm, blood pressures 111/61 mmHg with a respiratory rate of 18 and temperature of 96.8 F. 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 He has been doing fine but noticed exertional dyspnea. He had outpatient left heart catheterization and found to have multivessel CAD and is referred here for sin rgical revascularization. The patient is currently chest pain-free. He underwe nt elective CABG x3 on pump. Patient is not on any vasopr essor support with stable blood pressure, recovering from the anesthesia, on elective ventila tor support after major cardiothoracic surgery. Patient is postop day after CABG x3 No acute events reported overnight Patient had brief episode of hypotension that re sponded to fluid challenge yesterday morning Blood pressures improved at 137/88 mmHg this mor magno patient is perfectly asymptomatic and ambulating with physical therap y and tolerating oral diet Neck line was removed yesterday long with left p leural chest tube Mediastinal chest tube is go ing to be removed today as there was minimal output of 20 mL overnight Urine output adequate at 900 mL overnight Patient is awake, interactive, following commands and moving all 4 extremities We will transfer out of CVICU in a.m. Acute blood loss anemia but not meeting threshold at this time for transfusion Performing incentive spirometry SCDs for DVT prophylaxis Darius Silva MD [facility] 09/01/2022 12.50 PM Consultants: anesthesiology, cardiology, cardiov ascular surgery, critical/ sap hana developer Code status: full code Plan discussed with: patient, consultants, nurse , interdisc care team Critical care time: Minutes: 40 Electronically Signed by Darius Silva MD on 08/11 01/29 at 1253 RPT #:[id number] END OF REPORT 2022-09-01 10:37:00-00:[address] [facility]) Cardiology Progress Note REPORT#:[id number] REPORT STATUS: Signed DATE:09/01/22 TIME: 1037 PATIENT: JACKELIN VASQUEZ UNIT #: [id number] ROOM/BED: [place] [id number] : 54 AGE: 66 SEX: M ATTEND: Blaine Frye MD ADM AUTHOR: Bhavya Fish MD * ALL edits or amendments must be made on the el ectronic/computer document * Subjective Free Text Subj Notes Free Text Subj Notes: Doing okay, at the bedside, no complaint, n o major issues overnight. Objective General VS/I O: 24 hour I O ending at 0700: 09/01 0700 08/31 1900 Intake Total Output Total 470 320 Balance -470 -320 Number Voids 3 Output, Chest 50 Tube Drainage Output, Urine 420 320 Patient 114.5 kg 112.037 kg Weight Weight Standing scale Measurement Method Vital Signs: Date Time Temp Pulse Resp B/P B/P Pulse O2 O2 F low FiO2 Mean Ox Delivery Rate 09/01 0745 96 Room air 21 09/01 0730 86 28 131/84 101 93 09/01 0700 87 27 137/80 103 92 09/01 0630 23 09/01 0600 85 25 141/82 104 94 09/01 0530 27 09/01 0500 92 135/82 104 94 09/01 0400 96 130/73 94 91 09/01 0300 92 124/68 90 94 09/01 0200 93 29 139/84 107 97 09/01 0100 92 131/73 95 95 09/01 0000 91 29 140/83 106 97 08/31 2300 93 29 140/81 104 97 08/31 2200 93 133/75 98 94 08/31 2100 95 143/81 104 94 08/31 2000 93 129/80 100 95 08/31 1944 97 Room air 21 08/31 1900 97 134/77 99 93 08/31 1738 93 32 69 08/31 1730 93 34 124/82 100 92 08/31 1700 144/74 91 08/31 1700 93 36 139/82 103 92 08/31 1630 156/73 91 08/31 1600 144/68 85 08/31 1600 87 32 134/77 99 94 08/31 1530 137/62 78 08/31 1530 87 33 123/73 92 92 08/31 1500 129/64 79 08/31 1500 85 30 115/73 87 93 08/31 1430 132/65 81 08/31 1430 83 21 117/75 91 96 08/31 1400 126/60 76 08/31 1400 83 26 112/73 86 96 08/31 1330 121/61 76 08/31 1330 85 27 112/69 86 91 08/31 1300 84 25 112/74 89 95 08/31 1230 123/64 78 08/31 1230 85 33 107/72 84 97 08/31 1130 111/69 79 08/31 1130 82 29 111/74 85 99 PATIENT WEIGHT: Weight (lb): 252 Weight (oz): 6.87 Weight (kg): 114.500 Medications: Active Meds + DC'd Last 24 Hrs Ipratropium Hiawatha (ATROVENT) 500 MCG Q2H PRN P RN INH Cyanocobalamin (Vitamin B-12 500 mcg tab) 500 MC G DAILY PO Ferrous Sulfate (FERROUS SULFATE) 325 MG DAILY P O Bisacodyl (DULCOLAX) 10 MG ONCE PRN RECTAL Magnesium Hydroxide (MILK OF MAGNESIA) 30 ML ONC E PRN PO Atorvastatin Calcium (LIPITOR) 40 MG 2100 PO Clopidogrel Bisulfate (Plavix) 75 MG DAILY PO Polyethylene Glycol (MIRALAX) 17 GM DAILY PO Pantoprazole (PROTONIX) 40 MG DAILY@0600 PO Docusate Sodium (COLACE) 100 MG BID PO Gabapentin (NEURONTIN) 200 MG BID PO Metoprolol Tartrate (LOPRESSOR) 12.5 MG Q12HR PO Sennosides (Senna Lax 8.6 MG TABLET) 17.2 MG BED TIME PO Aspirin (ASPIRIN) 81 MG DAILY PO Ipratropium Hiawatha (ATROVENT) 500 MCG RTQ4H INH Amiodarone HCl (CORDARONE) 200 MG TID PO Acetaminophen (TYLENOL) 650 MG Q4H PRN PRN PO Acetaminophen (TYLENOL) 650 MG Q4H PRN PRN RECTA L Albumin Human (ALBUMINAR 25%) 25 GM ASDIR PRN IV (DC) Calcium Chloride (CALCIUM CHLORIDE) 1 GM ASDIR P RN IV Dextrose/Water (DEXTROSE 10% IN WATER) 125 ML DIR PRN IV (CKD) Dextrose/Water (DEXTROSE 10% IN WATER) 250 ML DIR PRN IV (CKD) Epinephrine (ADRENALIN CHLORIDE) 4 MG ASDIR IV Dextrose/Water (DEXTROSE 5% WATER) 246 ML Glucagon (GLUCAGON) 1 MG ASDIR PRN IM Insulin Human Regular (HumuLIN R) 100 UNIT ASDIR IV (CKD) Sodium Chloride (SODIUM CHLORIDE 0.9%) 99 ML Magnesium Sulfate (MAGNESIUM SULFATE 4GM/SWFI 10 0ML) 100 ML ASDIR PRN IV Magnesium Sulfate (MAGNESIUM SULFATE 2GM/SWFI 50 ML) 50 ML ASDIR PRN IV Magnesium Sulfate/Dextrose (MAGNESIUM SULFATE 1G M/D5W 100ML) 100 ML ASDIR PRN IV Morphine Sulfate (morphine SULFATE) 4 MG Q2H PRN PRN IV Nitroglycerin/Dextrose (NITROGLYCERIN 50,000MCG/ D5W 250ML) 250 ML ASDIR IV Norepinephrine Bitartrate (NOREPINEPHRINE 8 MG/N S 250 ML) 250 ML TITRATE IV Ondansetron HCl (ZOFRAN) 4 MG Q6H PRN PRN IV Oxycodone HCl (ROXICODONE) 5 MG Q4H PRN PRN PO Oxycodone HCl (ROXICODONE) 10 MG Q4H PRN PRN PO Potassium Chloride (KCL 20MEQ/SWFI 100ML) 100 ML ASDIR PRN IV Sodium Bicarbonate (SODIUM BICARBONATE) 50 MEQ A SDIR PRN IV Sodium Chloride (SODIUM CHLORIDE 0.9%) 1,000 ML .Q20H IV Sodium Chloride (SODIUM CHLORIDE 0.9%) 250 ML Q2 4H IV Mupirocin (BACTROBAN 2% 22 GM OINTMENT) 1 APPLIC BID NASAL Physical Exam General appearance: alert, awake, oriented Head/Eyes: atraumatic, clear cornea, EOMI, rojelio l conjunctiva/sclera, normocephalic, PERRL, PERRLA Neck: full range of motion, non-tender, normal thyroid, supple/no meningismus, no bruit/NL carotids, no JVD, no lymphadenopathy , no masses or swelling Cardiovascular: CV assessment: regular rate and rhythm, BP puls es = bilaterally, normal heart sounds, pedal pulses present Respiratory: clear to auscultation Abdomen: soft, non-tender, normal bowel sounds, no distention, no guarding Genitourinary: no flank pain, no urinary cathete r Lower extremity: LE assessment: no calf tenderness, no edema Musculoskeletal: normal inspection Neuro/CRANE OPERATOR: alert, oriented X 3, normal speech, n o motor deficits Skin: dry, intact, normal color, normal temperat ure Psychiatry: normal affect, normal judgment/insig ht, normal mood Results Findings/Data: Laboratory Tests 09/01 08/31 0102 2139 Chemistry Sodium (134 - 147 mEq/L) 137 Potassium (3.4 - 5.0 mEq/L) 4.0 Chloride (100 - 108 mEq/L) 106 Carbon Dioxide (21 - 33 mEq/l) 22 Anion Gap (0 - 20) 13 BUN (7 - 18 mg/dL) 15 Creatinine (0.6 - 1.3 mg/dL) 1.2 Glomerular Filtr Rate (80 - 90) 73.1 L Glucose (70 - 110 mg/dL) 130 H POC Glucose (70 - 110 MG/DL) 97 Calcium (8.0 - 10.5 mg/dL) 8.5 Magnesium (1.80 - 2.40 mg/dL) 1.78 L Total Bilirubin (0.0 - 1.0 mg/dL) 0.90 Direct Bilirubin (0.0 - 0.30 MG/DL) 0.30 Indirect Bilirubin (MG/DL) 0.60 AST (15 - 37 IUnit/L) 48 H ALT (30 - 65 IUnit/L) 34 Total Alk Phosphatase (20 - 125 IUnit/L) 73 Total Protein (6.4 - 8.2 g/dL) 6.2 L Albumin (3.4 - 5.0 g/dL) 3.60 Laboratory Tests 09/01 0102 Hematology WBC (4.5 - 11.0 x10 3/uL) 12.8 H RBC (4.00 - 5.60 x10 6/uL) 3.40 L Hgb (12.5 - 16.9 g/dL) 11.3 L Hct (37.5 - 50.7 %) 33.8 L MCV (81.0 - 99.0 fL) 99.4 H MCH (27.0 - 33.0 pg) 33.2 H MCHC (33.0 - 37.0 g/dL) 33.4 RDW (11.5 - 14.5 %) 12.8 Plt Count (150 - 400 x10 3/uL) 118 L MPV (7.0 - 9.0 fL) 11.0 H Neut % (Auto) (56.0 - 77.0 %) 66.0 Lymph % (Auto) (14.0 - 32.0 %) 17.0 Long % (Auto) (4.8 - 9.0 %) 16.3 H Eos % (Auto) (0.3 - 3.7 %) 0.0 L Baso % (Auto) (0.0 - 2.0 %) 0.2 Neut # (Auto) (2.0 - 7.6 x10 3/uL) 8.43 H Lymph # (Auto) (1.0 - 3.8 x10 3/uL) 2.17 Long # (Auto) (0.1 - 0.8 x10 3/uL) 2.08 H Eos # (Auto) (0.0 - 0.2 x10 3/uL) 0.00 Baso # (Auto) (0.0 - 0.2 x10 3/uL) 0.02 Abs Immat Gran (auto) (0.00 - 0.03 x10 3/uL) 0. 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 He has been doing fine bu t noticed exertional dyspnea. He had outpatient left heart catheteriza tion and found to have multivessel CAD and is referred here for surgical revascularizat ion. The patient is currently chest pain-free. 1. Coronary artery disease: S/p CABG x3, and left atrial appendage amputation. Postop management per CT surgery 2. Hyperlipidemia Continue statin Electronically Signed by Bhavya Fish MD on at 1300 RPT #:[id number] END OF REPORT 2022-09-01 04:12:00-00:00 [id number] [place] [address] PATIENT NAME: JACKELIN VASQUEZ ADMIT DATE: 08/29/22 ACCOUNT NO: [id number] ROOM NO: [id number] AGE: 66 REPORT TYPE: eELECTROCARDIOGRAM REPORT SEX: M ADMITTING PHYSICIAN:Omega Frye MD ATTENDING PHYSICIAN:Omgea Frye MD Order: [id number] Test Reason : POD 2 Test Date/Time Stamp: FriSep 01 2022 04:12:07 Blood Pressure : / mmHG Vent. Rate : 094 BPM Atrial Rate : 094 BPM P-R Int : 200 ms QRS Dur : 068 ms QT Int : 308 ms P-R-T Axes : 044 016 017 degree s QTc Int : 385 ms Sinus rhythm with occasional premature ventricul ar complexes Possible Left atrial enlargement ST elevation, consider early repolarization, per icarditis, or injury Abnormal ECG When compared with ECG of 31-AUG-2022 03:51, Significant changes have occurred Confirmed by MD MARRERO GERARD ([id number]) on 022 8:57:07 PM Referred By: Self Referred Confirmed by:ROSALINDA PORTILLO MD Electronically Signed by Rosalinda Marrero MD on at 2057 PATIENT NAME: JACKELIN VASQUEZ 15 2022-08-31 13:41:00-00:00 [facility] Cardiothoracic Surgery Prog REPORT#:[id number] REPORT STATUS: Signed DATE:08/31/22 TIME: 1341 PATIENT: JACKELIN VASQUEZ UNIT #: [id number] ROOM/BED: [place] [address] : 54 AGE: 66 SEX: M ATTEND: Blaine Frye MD ADM AUTHOR: Omega Frye MD * ALL edits or amendments must be made on the [employer]/computer document * General Post-op: day 1 Status post: 1. Coronary artery bypass graft surgery x3 (left internal mammary artery to left anterior descending, saphenous vein to diag onal, saphenous vein to marginal). 2. Amputation of left atrial appendage. 3. Endoscopic vein harvesting (right greater sap henous vein). Subjective Chief complaint: Chest pain Severe CAD Review of Systems Constitutional: Denies: chills, fatigue, fever. Allergy/Immun: Denies: allergic reaction, anaphylaxis, hives. Eyes: Denies: discharge. Respiratory: Denies: pneumonia. GI: Denies: abdominal pain. Heme: Denies: bleeding. All systems rev neg: except as marked Objective General VS/I O Last Documented: Result Date Time Pulse Ox 98 08/31 808 O2 Delivery Nasal cannula 08/31 808 O2 Flow Rate 1 08/31 808 FiO2 40 08/30 171 Pulse 80 08/30 1715 B/P 143/84 08/30 171 Resp 15 08/30 171 Temp 36.5 08/30 1603 B/P Mean 98 08/30 0900 24 hour I O ending at 0700: 08/31 0700 08/30 1900 Intake Total 1738.00 1908.20 Output Total 865 1725 Balance 873.00 183.20 Intake, IV 1498.00 908.20 Intake, Oral 240 Intake, Other 1000 Output, Chest 210 50 Tube Drainage Output, Other 1300 Output, Urine 655 375 Patient 112.1 kg Weight Weight Bed scale Measurement Method PATIENT WEIGHT: Weight (lb): 247 Weight (oz): 2.21 Weight (kg): 112.100 Dietitian Nutrition assessment The data set between the solid lines has been im ported from the dietitian's assessment. BMI Calculated: 34.6 Nutrition related diagnosis: Nutrition diagnosis details: Nutrition problem: Nutrition etiology: Nutrition signs and symptoms: Nutrition prescription: Dietitian name: Assessment completed: Physical Exam General appearance: alert, awake, oriented Wound/incision: Location: sternal Site condition: dressing clean dry, dressing in tact HEENT: mucosal membranes moist, pupils reactive to light, sclera clear Neck: full range of motion, non-tender Cardiovascular: regular rate rhythm Respiratory: aerating well, symmetric expansion Abdomen: soft, non-tender, no distention Extremities: dry, moves all, normal capillary re fill Musculoskeletal: full range of motion Neuro/CRANE OPERATOR: alert, oriented X 3 Skin: dry, intact Psychiatry: normal affect, normal mood Current Medications Medications: Active Meds + DC'd Last 24 Hrs Ipratropium Hiawatha (ATROVENT) 500 MCG Q2H PRN P RN INH Cyanocobalamin (Vitamin B-12 500 mcg tab) 500 MC G DAILY PO Ferrous Sulfate (FERROUS SULFATE) 325 MG DAILY P O Bisacodyl (DULCOLAX) 10 MG ONCE PRN RECTAL Magnesium Hydroxide (MILK OF MAGNESIA) 30 ML ONC E PRN PO Atorvastatin Calcium (LIPITOR) 40 MG 2100 PO Clopidogrel Bisulfate (Plavix) 75 MG DAILY PO Polyethylene Glycol (MIRALAX) 17 GM DAILY PO Pantoprazole (PROTONIX) 40 MG DAILY@0600 PO Docusate Sodium (COLACE) 100 MG BID PO Gabapentin (NEURONTIN) 200 MG BID PO Metoprolol Tartrate (LOPRESSOR) 12.5 MG Q12HR PO Sennosides (Senna Lax 8.6 MG TABLET) 17.2 MG BED TIME PO Aspirin (ASPIRIN) 81 MG DAILY PO Albumin Human (ALBUMINAR 5% 12.5GM/250ML) 250 ML ONCE ONE IV (DC) Ipratropium Hiawatha (ATROVENT) 500 MCG RTQ4H INH Amiodarone HCl (CORDARONE) 200 MG TID PO Hydromorphone HCl (DILAUDID) 0 .STK-MED ONE .ROU TE (DC) Acetaminophen (TYLENOL) 650 MG Q4H PRN PRN PO Acetaminophen (TYLENOL) 650 MG Q4H PRN PRN RECTA L Albumin Human (ALBUMINAR 25%) 25 GM ASDIR PRN IV Calcium Chloride (CALCIUM CHLORIDE) 1 GM ASDIR P RN IV Cefazolin Sodium (KEFZOL OR ANCEF) 6 GM ONCE ONE IV (DC) Sodium Chloride (SODIUM CHLORIDE 0.9%) 500 ML Chlorhexidine Gluconate (PERIDEX) 15 ML Q2H MM ( DC) Dextrose/Water (DEXTROSE 10% IN WATER) 125 ML DIR PRN IV (CKD) Dextrose/Water (DEXTROSE 10% IN WATER) 250 ML DIR PRN IV (CKD) Epinephrine (ADRENALIN CHLORIDE) 4 MG ASDIR IV Dextrose/Water (DEXTROSE 5% WATER) 246 ML Glucagon (GLUCAGON) 1 MG ASDIR PRN IM Insulin Human Regular (HumuLIN R) 100 UNIT ASDIR IV (CKD) Sodium Chloride (SODIUM CHLORIDE 0.9%) 99 ML Magnesium Sulfate (MAGNESIUM SULFATE 4GM/SWFI 10 0ML) 100 ML ASDIR PRN IV Magnesium Sulfate (MAGNESIUM SULFATE 2GM/SWFI 50 ML) 50 ML ASDIR PRN IV Magnesium Sulfate/Dextrose (MAGNESIUM SULFATE 1G M/D5W 100ML) 100 ML ASDIR PRN IV Morphine Sulfate (morphine SULFATE) 4 MG Q2H PRN PRN IV Nitroglycerin/Dextrose (NITROGLYCERIN 50,000MCG/ D5W 250ML) 250 ML ASDIR IV Norepinephrine Bitartrate (NOREPINEPHRINE 8 MG/N S 250 ML) 250 ML TITRATE IV Ondansetron HCl (ZOFRAN) 4 MG Q6H PRN PRN IV Oxycodone HCl (ROXICODONE) 5 MG Q4H PRN PRN PO Oxycodone HCl (ROXICODONE) 10 MG Q4H PRN PRN PO Potassium Chloride (KCL 20MEQ/SWFI 100ML) 100 ML ASDIR PRN IV Sodium Bicarbonate (SODIUM BICARBONATE) 50 MEQ A SDIR PRN IV Sodium Chloride (SODIUM CHLORIDE 0.9%) 1,000 ML .Q20H IV Sodium Chloride (SODIUM CHLORIDE 0.9%) 250 ML Q2 4H IV Vancomycin HCl (VANCOMYCIN HCL) 1,750 MG PREOP O NCALL IV (DC) Sodium Chloride (NS 0.9%) 500 ML Verapamil HCl (ISOPTIN) 16.6 MG .Q24H ONE IV (DC ) Heparin Sodium (Porcine) (HEPARIN SODIUM) 1,660 UNIT Sodium Bicarbonate (SODIUM BICARBONATE) 0.7 ML Nitroglycerin/Dextrose (NITROGLYCERIN 50MG/D5W 250ML) 8.3 MG Lactated Ringer's (LACTATED RINGERS) 949.5 ML Mupirocin (BACTROBAN 2% 22 GM OINTMENT) 1 APPLIC BID NASAL Results Findings/Data: Laboratory Tests 08/31 08/30 08/30 08/30 3302 1819 9870 1528 Blood Gas Puncture Site Art Line Art Line O2 Saturation (90 - 100 %) 96.3 98.8 98.9 95.2 ABG pH (7.35 - 7.45) 7.377 7.311 L 7.369 7.329 L ABG pCO2 (35.0 - 45 mmHg) 38.3 44.1 39.2 42.8 ABG pO2 (80 - 100.0 mmHg) 89.2 135.0 H 131.5 H 81.1 ABG PO2/FiO2 Ratio (mm/Hg) 162.20 ABG HCO3 (22.0 - 26.0 MMOL/L) 22.3 22.2 22.6 22 .6 ABG Total CO2 23.4 23.6 23.8 23.9 ABG Base Excess (-4.0 - 4.0 MMOL/L) -2.7 -4.0 - 2.7 -3.4 ABG Hematocrit (37.5 - 50.7 %) 36 L 39 34 L 33 L ABG Hemoglobin (12.5 - 16.9 G/DL) 12.1 L 13.1 1 1.6 L 11.3 L Mike Test N/A Sodium (134 - 147 MEQ/L) 142 144 143 143 Potassium (3.4 - 5.0 MEQ/L) 4.2 3.9 4.0 4.1 Chloride (100 - 108 MEQ/L) 109 H 113 H 110 H 11 1 H Ionized Calcium (1.12 - 1.32 MMOL/L) 1.28 1.26 1.25 1.34 H Lactic Acid (0.9 - 1.7 mmol/l) 1.1 1.7 2.0 H 2. 3 H Temperature (F) 100.2 98 O2 Delivery Device Cannula Adult Vent Vent Mode AC Vent Rate (/MIN) 18 FiO2 (%) 50 Tidal Volume (ml) 500 PEEP (cmH2O) 5 08/30 08/30 1447 1349 Blood Gas O2 Saturation (90 - 100 %) 98.4 100.0 ABG pH (7.35 - 7.45) 7.308 L 7.429 ABG pCO2 (35.0 - 45 mmHg) 49.3 H 37.0 ABG pO2 (80 - 100.0 mmHg) 125.6 H 363.2 *H ABG HCO3 (22.0 - 26.0 MMOL/L) 24.7 24.5 ABG Total CO2 26.2 25.6 ABG Base Excess (-4.0 - 4.0 MMOL/L) -1.8 0.2 ABG Hematocrit (37.5 - 50.7 %) 28 L 29 L ABG Hemoglobin (12.5 - 16.9 G/DL) 9.7 L 9.8 L Sodium (134 - 147 MEQ/L) 145 144 Potassium (3.4 - 5.0 MEQ/L) 3.8 5.0 Chloride (100 - 108 MEQ/L) 109 H 109 H Ionized Calcium (1.12 - 1.32 MMOL/L) 1.38 H 1.0 8 L Lactic Acid (0.9 - 1.7 mmol/l) 2.2 H 0.9 Laboratory Tests 08/31 08/31 08/31 08/31 08/31 0647 0342 0340 0340 0210 Chemistry Sodium (134 - 147 mEq/L) 142 Potassium (3.4 - 5.0 mEq/L) 4.3 Chloride (100 - 108 mEq/L) 112 H Carbon Dioxide (21 - 33 mEq/l) 22 Anion Gap (0 - 20) 13 BUN (7 - 18 mg/dL) 11 Creatinine (0.6 - 1.3 mg/dL) 1.1 POC Creatinine (0.8 - 1.3 mg/dL) 1.2 Glomerular Filtr Rate (80 - 90) 80.8 Glucose (70 - 110 mg/dL) 117 H POC Glucose (70 - 110 MG/DL) 136 H 124 H POC Glucose (mg/dL) (70 - 110 MG/DL) 113 H Lactic Acid (0.4 - 1.9 mmol/L) 0.9 Calcium (8.0 - 10.5 mg/dL) 8.4 Magnesium (1.80 - 2.40 mg/dL) 2.01 Total Bilirubin (0.0 - 1.0 mg/dL) 0.70 Direct Bilirubin (0.0 - 0.30 MG/DL) 0.20 Indirect Bilirubin (MG/DL) 0.50 AST (15 - 37 IUnit/L) 45 H ALT (30 - 65 IUnit/L) 42 Total Alk Phosphatase (20 - 125 IUnit/L) 73 Total Protein (6.4 - 8.2 g/dL) 5.7 L Albumin (3.4 - 5.0 g/dL) 3.40 08/30 08/30 08/30 08/30 08/30 2359 2246 1952 1819 1735 Chemistry POC Creatinine (0.8 - 1.3 mg/dL) 0.9 POC Glucose (70 - 110 MG/DL) 118 H 96 103 POC Glucose (mg/dL) (70 - 110 MG/DL) 123 H Lactic Acid (0.4 - 1.9 mmol/l) 1.6 08/30 08/30 08/30 08/30 08/30 1650 1529 1529 1528 1447 Chemistry Sodium (134 - 147 mEq/L) 144 Potassium (3.4 - 5.0 mEq/L) 4.2 Chloride (100 - 108 mEq/L) 112 H Carbon Dioxide (21 - 33 mEq/l) 24 Anion Gap (0 - 20) 13 BUN (7 - 18 mg/dL) 12 Creatinine (0.6 - 1.3 mg/dL) 1.1 POC Creatinine (0.8 - 1.3 mg/dL) 1.0 1.0 0.8 Glomerular Filtr Rate (80 - 90) 80.8 Glucose (70 - 110 mg/dL) 144 H POC Glucose (mg/dL) (70 - 110 MG/DL) 113 H 143 H 144 H Lactic Acid (0.4 - 1.9 mmol/L) 2.5 H Calcium (8.0 - 10.5 mg/dL) 8.8 Magnesium (1.80 - 2.40 mg/dL) 1.80 08/30 1349 Chemistry POC Creatinine (0.8 - 1.3 mg/dL) 0.9 POC Glucose (mg/dL) (70 - 110 MG/DL) 93 Laboratory Tests 08/30 08/30 08/30 1529 1446 1352 Coagulation PTT (Charley) (25.0 - 39.5 Seconds) 25.4 Activated Coag Time (74 - 137 SEC) 103 595 H Laboratory Tests 08/31 08/30 0340 1529 Hematology WBC (4.5 - 11.0 x10 3/uL) 11.8 H 14.6 H RBC (4.00 - 5.60 x10 6/uL) 3.53 L 3.59 L Hgb (12.5 - 16.9 g/dL) 11.7 L 11.7 L Hct (37.5 - 50.7 %) 34.3 L 34.8 L MCV (81.0 - 99.0 fL) 97.2 96.9 MCH (27.0 - 33.0 pg) 33.1 H 32.6 MCHC (33.0 - 37.0 g/dL) 34.1 33.6 RDW (11.5 - 14.5 %) 12.7 12.5 Plt Count (150 - 400 x10 3/uL) 128 L 124 L MPV (7.0 - 9.0 fL) 10.4 H 10.0 H Neut % (Auto) (56.0 - 77.0 %) 76.4 74.5 Lymph % (Auto) (14.0 - 32.0 %) 9.4 L 18.5 Long % (Auto) (4.8 - 9.0 %) 13.6 H 5.8 Eos % (Auto) (0.3 - 3.7 %) 0.0 L 0.3 Baso % (Auto) (0.0 - 2.0 %) 0.1 0.1 Neut # (Auto) (2.0 - 7.6 x10 3/uL) 9.02 H 10.85 H Lymph # (Auto) (1.0 - 3.8 x10 3/uL) 1.11 2.69 Long # (Auto) (0.1 - 0.8 x10 3/uL) 1.61 H 0.84 H Eos # (Auto) (0.0 - 0.2 x10 3/uL) 0.00 0.04 Baso # (Auto) (0.0 - 0.2 x10 3/uL) 0.01 0.01 Abs Immat Gran (auto) (0.00 - 0.03 x10 3/uL) 0. 06 H 0.12 H Add Manual Diff NO NO Immature Gran % (0.0 - 2.0 %) 0.5 0.8 Nucleated RBC % (0 - 0 %) 0.0 0.0 Nucleated RBCs # (Man) (0.0 - 0.1 x10 3/uL) 0.0 0 0.00 Radiology data: Recent Impressions: RADIOLOGY - XR CHEST 1 V 08/30 1555 Report Impression - Status: SIGNED Entered: 08/30/2022 1617 IMPRESSION: 1. The endotracheal tube terminates approximatel y 2.1 cm from the jose armando. 2. There is a possible small left pleural effusi on. Impression By: [email or web address] - Cielo Heaotn RADIOLOGY - XR CHEST 1 V 08/31 0550 Report Impression - Status: SIGNED Entered: 08/31/2022 0847 IMPRESSION: 1. Unchanged left basilar airspace disease. 2. Unchanged possible small left pleural effusio n. Impression By: [email or web address] - Roddy Villaseñor M.D. Results: labs reviewed, vital signs stable Treatment Prophylaxis Treatment Prophylaxis Oxygen: room air, nasal cannula Lines: arterial, CVC, peripheral CVC/PICC documentation: The data below has been imported from nursing do cumentation. Any exceptions have been noted below under Provider comments. CVC/PICC insertion date/time: CVC multi lumen tr iple Internal jugular Right Inserted 08/30/22 1136 Provider comments on imported nursing data: [] Drain(s)/tube(s): Drain(s)/tube(s): chest, urinary catheter Diagnosis, Assessment Plan Hospital course to date: Very pleasant 66-year-old -[place] male with past medical history of hypertension hyperlipidemia, obstructive sleep apnea who has been experiencing exertional chest discomfort. CTA of the coronaries demonstrated severe coronary artery disease and patient was taken to the [facility] for further evaluation. Coronary angiogram showed se vijay coronary artery disease involving the left main (90%) and patient transferred to our facility fo r surgical revascularization. Dr Frye explained to the patient the angiogra m findings and recommended urgent surgical revascularization. He discussed the surgery, risks involved, STS score, benefits, complications and alternati ves. Patient acknowledged understanding and is willing to proceed. Preop w ork-up completed and patient will be taken to the OR today for CABG x3. Plan discussed with the family 08/31 Patient doing well post operatively, no acute di stress labs and cxr reviewed Decreased oxygen requirements from 2l n/c, now o n room air Encourage incentive spirometer use- able to pull 1500 Glycemic control- change to sliding scale insuli n Increase PO intake Discontinue LP chest tube, IJ, a-line, and luna Ambulate with PT/OT Ok to transfer patient to [facility] Discharge planning home with family Consultants: cardiology, cardiovascular surgery, critical/sap hana developer at 1749 RPT #:[id number] END OF REPORT 2022-08-31 11:44:00-00:00 [facility] ([facility] Critical Care Progress Note REPORT#:[id number] REPORT STATUS: Signed DATE:08/31/22 TIME: 1144 PATIENT: JACKELIN VASQUEZ UNIT #: [id number] ROOM/BED: [place] [address] : 54 AGE: 66 SEX: M ATTEND: Blaine Frye MD ADM AUTHOR: Darius Silva MD * ALL edits or amendments must be made on the el [employer]/computer document * Subjective Chief complaint: Coronary artery disease Status post CABG x3 Elective ventilator dependen ce for acute pulmonary insufficiency following major cardiothoracic surgery Dyspnea Chest pain Dyslipidemia Acute blood loss anemia Leukocytosis HPI: Patient seen and examined in CVICU room #2201 and discussed during rounds with CT surgery. No acute events reported overnight h owever, patient became dizzy and had drop in blood pressure while getting out of the bed to chair. Chest tube output has been 35 mL and 20 mL in the left pleural and mediastinal respectively. Overnight he h ad about 30 mL in the left pleural and about 270 mL in the mediastinal chest tubes. No bowel movemen t yet. Glycemic control is adequate at 112 mg/dL while patient is on insuli n drip at 2 units/h. Blood pressure soft at 74/48 mmHg and responde d well to IV fluids and albumin. Blood gas this morning showed a pH of 7.37, PCO2 of 38 mmHg, PO2 of 89 mmHg and bicarbonate of 22 mmol. Urine output was adequat e at around 855 mL over the past 12-hour shift. Latest vital signs are stabl e with a heart rate of 83, blood pressure of 119/61 mmHg and pulse ox 97% o n room air. Plan is to discontinue the left pleural chest tube, as well as Luna catheter. Neck line to be discontinued in the evening. Insulin drip sena l be discontinued and patient will be started on insulin sliding scale low intensity coverage every 6 hours. Mediastinal chest tube is going to be retained. Patient was extubated in a timely fashion postoperatively. He is postop day 1 after CABG x3 with HOFFMAN to LA D, vein graft to OM and vein graft to diagonal. Intra-Op course was uneventfu l. Patient received 1 L of crystalloid and 600 mL of Cell Saver. Intra-Op u rine output was 30 and 50 mL. EBL was 100 mL. Patient was not on any vasopress or support. Insulin drip at 3 units/h and the latest blood glucose is 143 mg/d L. He was on Amicar drip. Chest tube output is minimal with left pleural s howing no output at all and mediastinal tubes showing 10 mL. Patient was on assist-control at 18 tidal volume 500 PEEP of 5 and 50% FiO2. Latest blood gas shows a pH of 7.32, pCO2 of 43 mmHg, pO2 of 83 mmHg and bicarbonate of 23 mmol with base excess at -3.4 and oxygen saturation at 95%. Lactic acid is elevate d at 2.3 and patient received 250 mL of albumin infusion as well as 250 mL of normal saline. He is stable from hemodynamic standpoint with a heart rate of 75 in sinus rhythm, blood pressures 111/61 mmHg with a respiratory rate of 18 and temperature of 96.8 F. 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 He has been doing fine but noticed exertional dyspnea. He had outpatient left heart catheterization and found to have multivessel CAD and is referred here for sin rgical revascularization. The patient is currently chest pain-free. He underwe nt elective CABG x3 on pump. Patient is not on any vasopr essor support with stable blood pressure, recovering from the anesthesia, on elective ventila tor support after major cardiothoracic surgery. Patient reports: No: abdominal pain, diarrhea, fever, shortness o f breath, vomiting. Nursing reports: No: agitated, confusion, diarrhea, fever, shortn ess of breath, vomiting. Review of Systems Constitutional: Denies: fatigue, fever, generalized weakness. Skin: Denies: diaphoresis, ecchymosis, rash. Allergy/Immun: Denies: allergic reaction, anaphylaxis. Eyes: Denies: redness, discharge, itching. ENT: Denies: nose bleeding, throat swelling, tongue s welling. Respiratory: Denies: LOW (dyspnea on exertion), hemoptysis, S OB, wheezing. Cardiovascular: Denies: LOW (dyspnea on exertion), edema. GI: Denies: hematemesis, hematochezia, melena, nause a, vomiting. : Denies: hematuria, nocturia. Heme: Denies: bleeding, bruising. Endocrine: Denies: polydipsia, polyphagia. Neuro: Denies: confusion, dizziness. Psych: Denies: confusion, delusional, insomnia. Objective General VS/I O Last Documented: Result Date Time Pulse Ox 98 08/31 808 O2 Delivery Nasal cannula 10/22 0808 O2 Flow Rate 1 08/31 0808 FiO2 40 08/30 1715 Pulse 80 08/30 1715 B/P 143/84 08/30 1715 Resp 15 08/30 1715 Temp 36.5 08/30 1603 B/P Mean 98 08/30 0900 24 hour I O ending at 0700: 08/31 0700 08/30 1900 Intake Total 1738.00 1908.20 Output Total 865 1725 Balance 873.00 183.20 Intake, IV 1498.00 908.20 Intake, Oral 240 Intake, Other 1000 Output, Chest 210 50 Tube Drainage Output, Other 1300 Output, Urine 655 375 Patient 112.1 kg Weight Weight Bed scale Measurement Method PATIENT WEIGHT: Weight (lb): 247 Weight (oz): 2.21 Weight (kg): 112.100 Medications: Active Meds + DC'd Last 24 Hrs Ipratropium Hiawatha (ATROVENT) 500 MCG Q2H PRN P RN INH Cyanocobalamin (Vitamin B-12 500 mcg tab) 500 MC G DAILY PO Ferrous Sulfate (FERROUS SULFATE) 325 MG DAILY P O Bisacodyl (DULCOLAX) 10 MG ONCE PRN RECTAL Magnesium Hydroxide (MILK OF MAGNESIA) 30 ML ONC E PRN PO Atorvastatin Calcium (LIPITOR) 40 MG 2100 PO Clopidogrel Bisulfate (Plavix) 75 MG DAILY PO Polyethylene Glycol (MIRALAX) 17 GM DAILY PO Pantoprazole (PROTONIX) 40 MG DAILY@0600 PO Docusate Sodium (COLACE) 100 MG BID PO Gabapentin (NEURONTIN) 200 MG BID PO Metoprolol Tartrate (LOPRESSOR) 12.5 MG Q12HR PO Sennosides (Senna Lax 8.6 MG TABLET) 17.2 MG BED TIME PO Aspirin (ASPIRIN) 81 MG DAILY PO Albumin Human (ALBUMINAR 5% 12.5GM/250ML) 250 ML ONCE ONE IV (DC) Ipratropium [place] (ATROVENT) 500 MCG RTQ4H INH Amiodarone HCl (CORDARONE) 200 MG TID PO Hydromorphone HCl (DILAUDID) 0 .STK-MED ONE .ROU TE (DC) Acetaminophen (TYLENOL) 650 MG Q4H PRN PRN PO Acetaminophen (TYLENOL) 650 MG Q4H PRN PRN RECTA L Albumin Human (ALBUMINAR 25%) 25 GM ASDIR PRN IV Calcium Chloride (CALCIUM CHLORIDE) 1 GM ASDIR P RN IV Cefazolin Sodium (KEFZOL OR ANCEF) 6 GM ONCE ONE IV (DC) Sodium Chloride (SODIUM CHLORIDE 0.9%) 500 ML Chlorhexidine Gluconate (PERIDEX) 15 ML Q2H MM ( DC) Dextrose/Water (DEXTROSE 10% IN WATER) 125 ML DIR PRN IV (CKD) Dextrose/Water (DEXTROSE 10% IN WATER) 250 ML DIR PRN IV (CKD) Epinephrine (ADRENALIN CHLORIDE) 4 MG ASDIR IV Dextrose/Water (DEXTROSE 5% WATER) 246 ML Glucagon (GLUCAGON) 1 MG ASDIR PRN IM Insulin Human Regular (HumuLIN R) 100 UNIT ASDIR IV (CKD) Sodium Chloride (SODIUM CHLORIDE 0.9%) 99 ML Magnesium Sulfate (MAGNESIUM SULFATE 4GM/SWFI 10 0ML) 100 ML ASDIR PRN IV Magnesium Sulfate (MAGNESIUM SULFATE 2GM/SWFI 50 ML) 50 ML ASDIR PRN IV Magnesium Sulfate/Dextrose (MAGNESIUM SULFATE 1G M/D5W 100ML) 100 ML ASDIR PRN IV Morphine Sulfate (morphine SULFATE) 4 MG Q2H PRN PRN IV Nitroglycerin/Dextrose (NITROGLYCERIN 50,000MCG/ D5W 250ML) 250 ML ASDIR IV Norepinephrine Bitartrate (NOREPINEPHRINE 8 MG/N S 250 ML) 250 ML TITRATE IV Ondansetron HCl (ZOFRAN) 4 MG Q6H PRN PRN IV Oxycodone HCl (ROXICODONE) 5 MG Q4H PRN PRN PO Oxycodone HCl (ROXICODONE) 10 MG Q4H PRN PRN PO Potassium Chloride (KCL 20MEQ/SWFI 100ML) 100 ML ASDIR PRN IV Sodium Bicarbonate (SODIUM BICARBONATE) 50 MEQ A SDIR PRN IV Sodium Chloride (SODIUM CHLORIDE 0.9%) 1,000 ML .Q20H IV Sodium Chloride (SODIUM CHLORIDE 0.9%) 250 ML Q2 4H IV Rocuronium [place] (ZEMURON) 0 .STK-MED ONE IV ( DC) Heparin Sodium (HEPARIN SODIUM) 0 .STK-MED ONE . ROUTE (DC) Mineral Oil/White Petrolatum (SYSTANE OPTH OINTM ENT) 0 .STK-MED ONE .ROUTE (DC) Cefazolin Sodium (KEFZOL OR ANCEF) 2 GM PREOP BINDERY MACHINE SETTER IV (DC) Vancomycin HCl (VANCOMYCIN HCL) 1,750 MG PREOP O NCALL IV (DC) Sodium Chloride (NS 0.9%) 500 ML Verapamil HCl (ISOPTIN) 16.6 MG .Q24H ONE IV (DC ) Heparin Sodium (Porcine) (HEPARIN SODIUM) 1,660 UNIT Sodium Bicarbonate (SODIUM BICARBONATE) 0.7 ML Nitroglycerin/Dextrose (NITROGLYCERIN 50MG/D5W 250ML) 8.3 MG Lactated Ringer's (LACTATED RINGERS) 949.5 ML Acetaminophen (TYLENOL EXTRA STRENGTH) 1,000 MG PREOP ONCALL PO (DC) Gabapentin (NEURONTIN) 200 MG PREOP ONCALL PO (D C) Sodium Chloride (SODIUM CHLORIDE) 20 ML ASDIR IV (DC) Mupirocin (BACTROBAN 2% 22 GM OINTMENT) 1 APPLIC BID NASAL Post-op: day 1 Status post: CABG times 3 Physical Exam General appearance: alert, awake, oriented, no a cute distress, pleasant, conversational, mental status normal, no respira tory distress Head/eyes: atraumatic, clear cornea, normocephal ic, PERRL ENT: moist mucosal membranes, normal nose, rojelio l sinus Neck: non-tender, normal thyroid, no JVD, no mas ses or swelling Cardiovascular: normal capillary refill, normal heart sounds, regular rate and rhythm, normal S1/S2 Respiratory: aerating well, clear to auscultatio n, symmetric expansion, no distress Abdomen: soft, non-tender, normal bowel sounds, no distention, no guarding, no mass/organomegaly, no rebound Genitourinary: urinary catheter, no bladder dist ention, no flank pain Extremities: no clubbing, no cyanosis, no edema Neuro/CRANE OPERATOR: alert, oriented X 3, CNII-XII intact, normal speech, reflexes equal bilat, no motor deficits, no sensory deficits Skin: dry, normal color, normal temperature, no rash Psychiatry: normal affect, n ormal judgment/insight, normal mood, not homicidal, not suicidal, no hallucinations Results Findings/data: Laboratory Tests 08/31 08/30 08/30 08/30 0342 1819 1650 1528 Blood Gas Puncture Site Art Line Art Line O2 Saturation (90 - 100 %) 96.3 98.8 98.9 95.2 ABG pH (7.35 - 7.45) 7.377 7.311 L 7.369 7.329 L ABG pCO2 (35.0 - 45 mmHg) 38.3 44.1 39.2 42.8 ABG pO2 (80 - 100.0 mmHg) 89.2 135.0 H 131.5 H 81.1 ABG PO2/FiO2 Ratio (mm/Hg) 162.20 ABG HCO3 (22.0 - 26.0 MMOL/L) 22.3 22.2 22.6 22 .6 ABG Total CO2 23.4 23.6 23.8 23.9 ABG Base Excess (-4.0 - 4.0 MMOL/L) -2.7 -4.0 - 2.7 -3.4 ABG Hematocrit (37.5 - 50.7 %) 36 L 39 34 L 33 L ABG Hemoglobin (12.5 - 16.9 G/DL) 12.1 L 13.1 1 1.6 L 11.3 L Mike Test N/A Sodium (134 - 147 MEQ/L) 142 144 143 143 Potassium (3.4 - 5.0 MEQ/L) 4.2 3.9 4.0 4.1 Chloride (100 - 108 MEQ/L) 109 H 113 H 110 H 11 1 H Ionized Calcium (1.12 - 1.32 MMOL/L) 1.28 1.26 1.25 1.34 H Lactic Acid (0.9 - 1.7 mmol/l) 1.1 1.7 2.0 H 2 .3 H Temperature (F) 100.2 98 O2 Delivery Device Cannula Adult Vent Vent Mode AC Vent Rate (/MIN) 18 FiO2 (%) 50 Tidal Volume (ml) 500 PEEP (cmH2O) 5 08/30 08/30 08/30 08/30 1447 1349 1325 1237 Blood Gas O2 Saturation (90 - 100 %) 98.4 100.0 99.9 100 .0 ABG pH (7.35 - 7.45) 7.308 L 7.429 7.339 L 7.33 1 L ABG pCO2 (35.0 - 45 mmHg) 49.3 H 37.0 51.5 *H 44.6 ABG pO2 (80 - 100.0 mmHg) 125.6 H 363.2 *H 384. 2 *H 434.4 *H ABG HCO3 (22.0 - 26.0 MMOL/L) 24.7 24.5 27.8 H 23.6 ABG Total CO2 26.2 25.6 29.3 24.9 ABG Base Excess (-4.0 - 4.0 MMOL/L) -1.8 0.2 1. 4 -2.5 ABG Hematocrit (37.5 - 50.7 %) 28 L 29 L 28 L 3 8 ABG Hemoglobin (12.5 - 16.9 G/DL) 9.7 L 9.8 L 9 .5 L 13.0 Sodium (134 - 147 MEQ/L) 145 144 144 145 Potassium (3.4 - 5.0 MEQ/L) 3.8 5.0 5.2 H 3.7 Chloride (100 - 108 MEQ/L) 109 H 109 H 108 110 H Ionized Calcium (1.12 - 1.32 MMOL/L) 1.38 H 1.0 8 L 1.09 L 1.18 Lactic Acid (0.9 - 1.7 mmol/l) 2.2 H 0.9 0.9 1. 0 Laboratory Tests 08/31 08/31 08/31 08/31 08/31 0647 0342 0340 0340 0210 Chemistry Sodium (134 - 147 mEq/L) 142 Potassium (3.4 - 5.0 mEq/L) 4.3 Chloride (100 - 108 mEq/L) 112 H Carbon Dioxide (21 - 33 mEq/l) 22 Anion Gap (0 - 20) 13 BUN (7 - 18 mg/dL) 11 Creatinine (0.6 - 1.3 mg/dL) 1.1 POC Creatinine (0.8 - 1.3 mg/dL) 1.2 Glomerular Filtr Rate (80 - 90) 80.8 Glucose (70 - 110 mg/dL) 117 H POC Glucose (70 - 110 MG/DL) 136 H 124 H POC Glucose (mg/dL) (70 - 110 MG/DL) 113 H Lactic Acid (0.4 - 1.9 mmol/L) 0.9 Calcium (8.0 - 10.5 mg/dL) 8.4 Magnesium (1.80 - 2.40 mg/dL) 2.01 Total Bilirubin (0.0 - 1.0 mg/dL) 0.70 Direct Bilirubin (0.0 - 0.30 MG/DL) 0.20 Indirect Bilirubin (MG/DL) 0.50 AST (15 - 37 IUnit/L) 45 H ALT (30 - 65 IUnit/L) 42 Total Alk Phosphatase (20 - 125 IUnit/L) 73 Total Protein (6.4 - 8.2 g/dL) 5.7 L Albumin (3.4 - 5.0 g/dL) 3.40 08/30 08/30 08/30 08/30 08/30 2359 2246 1952 1819 1735 Chemistry POC Creatinine (0.8 - 1.3 mg/dL) 0.9 POC Glucose (70 - 110 MG/DL) 118 H 96 103 POC Glucose (mg/dL) (70 - 110 MG/DL) 123 H Lactic Acid (0.4 - 1.9 mmol/l) 1.6 08/30 08/30 08/30 08/30 08/30 1650 1529 1529 1528 1447 Chemistry Sodium (134 - 147 mEq/L) 144 Potassium (3.4 - 5.0 mEq/L) 4.2 Chloride (100 - 108 mEq/L) 112 H Carbon Dioxide (21 - 33 mEq/l) 24 Anion Gap (0 - 20) 13 BUN (7 - 18 mg/dL) 12 Creatinine (0.6 - 1.3 mg/dL) 1.1 POC Creatinine (0.8 - 1.3 mg/dL) 1.0 1.0 0.8 Glomerular Filtr Rate (80 - 90) 80.8 Glucose (70 - 110 mg/dL) 144 H POC Glucose (mg/dL) (70 - 110 MG/DL) 113 H 143 H 144 H Lactic Acid (0.4 - 1.9 mmol/L) 2.5 H Calcium (8.0 - 10.5 mg/dL) 8.8 Magnesium (1.80 - 2.40 mg/dL) 1.80 08/30 08/30 08/30 1349 1325 1237 Chemistry POC Creatinine (0.8 - 1.3 mg/dL) 0.9 0.8 1.0 POC Glucose (mg/dL) (70 - 110 MG/DL) 93 92 96 Laboratory Tests 08/30 08/30 08/30 08/30 08/30 1529 1446 1352 1327 1239 Coagulation PTT (Charley) (25.0 - 39.5 Seconds) 25.4 Activated Coag Time (74 - 137 SEC) 103 595 H 64 2 H 468 H Laboratory Tests 08/31 08/30 0340 1529 Hematology WBC (4.5 - 11.0 x10 3/uL) 11.8 H 14.6 H RBC (4.00 - 5.60 x10 6/uL) 3.53 L 3.59 L Hgb (12.5 - 16.9 g/dL) 11.7 L 11.7 L Hct (37.5 - 50.7 %) 34.3 L 34.8 L MCV (81.0 - 99.0 fL) 97.2 96.9 MCH (27.0 - 33.0 pg) 33.1 H 32.6 MCHC (33.0 - 37.0 g/dL) 34.1 33.6 RDW (11.5 - 14.5 %) 12.7 12.5 Plt Count (150 - 400 x10 3/uL) 128 L 124 L MPV (7.0 - 9.0 fL) 10.4 H 10.0 H Neut % (Auto) (56.0 - 77.0 %) 76.4 74.5 Lymph % (Auto) (14.0 - 32.0 %) 9.4 L 18.5 Long % (Auto) (4.8 - 9.0 %) 13.6 H 5.8 Eos % (Auto) (0.3 - 3.7 %) 0.0 L 0.3 Baso % (Auto) (0.0 - 2.0 %) 0.1 0.1 Neut # (Auto) (2.0 - 7.6 x10 3/uL) 9.02 H 10.85 H Lymph # (Auto) (1.0 - 3.8 x10 3/uL) 1.11 2.69 Long # (Auto) (0.1 - 0.8 x10 3/uL) 1.61 H 0.84 H Eos # (Auto) (0.0 - 0.2 x10 3/uL) 0.00 0.04 Baso # (Auto) (0.0 - 0.2 x10 3/uL) 0.01 0.01 Abs Immat Gran (auto) (0.00 - 0.03 x10 3/uL) 0. 06 H 0.12 H Add Manual Diff NO NO Immature Gran % (0.0 - 2.0 %) 0.5 0.8 Nucleated RBC % (0 - 0 %) 0.0 0.0 Nucleated RBCs # (Man) (0.0 - 0.1 x10 3/uL) 0.0 0 0.00 Laboratory Tests 08/31/22 0340: [Embedded Image Not Available] 08/30/22 1529: [Embedded Image Not Available] Microbiology: 08/29 2123 NASAL: MSSA Surveillance Screen - ORD 08/29 2123 NASAL: MRSA DNA Surveillance Screen - ORD 08/29 2040 NASAL: MSSA Surveillance Screen - COM P 08/29 2040 NASAL: MRSA DNA Surveillance Screen - COMP Radiology data Recent Impressions: RADIOLOGY - XR CHEST 1 V 08/30 1555 Report Impression - Status: SIGNED Entered: 08/30/2022 1617 IMPRESSION: 1. The endotracheal tube terminates approximatel y 2.1 cm from the jose armando. 2. There is a possible small left pleural effusi on. Impression By: [email or web address] - Cielo Heaton RADIOLOGY - XR CHEST 1 V 08/31 0550 Report Impression - Status: SIGNED Entered: 08/31/2022 0847 IMPRESSION: 1. Unchanged left basilar airspace disease. 2. Unchanged possible small left pleural effusio n. Impression By: [email or web address] - Roddy Villaseñor M.D. Results: labs reviewed, vital signs reviewed, rh ythm personally rev'd, x-ray personally reviewed, current med profile rev'd Diagnosis, Assessment Plan Free text A P: Problem List: Coronary artery disease Status post CABG x3 on 5 Acute pulmonary insufficiency following major ca rdiothoracic surgery Elective ventilator dependence Lactic acidosis Hyperglycemia Hypomagnesemia Leukocytosis Assessment and Plan: Patient seen and examined in CVICU room #2201. H e is status post CABG x3 with HOFFMAN to LAD, vein graft to OM and vein graft to diagonal. Intra-Op course was uneventful. Patient received 1 L of crystalloid and 600 mL of Cell Saver. Intra-Op urine output was 30 and 50 mL. EBL was 100 mL. Patient is not on any vasopressor support. Insulin drip at 3 u nits/h and the latest blood glucose is 143 mg/dL. He is on Amicar drip. Chest tube outp ut is minimal with left pleural showing no output at all and mediastinal tubes showing 10 mL. Patient is on assist-control at 18 tidal volume 500 PEEP of 5 and 50% FiO2. Latest blood gas shows a pH of 7.32 , pCO2 of 43 mmHg, pO2 of 83 mmHg and bicarbonate of 23 mmol with base excess at -3.4 and oxygen satu ration at 95%. Lactic acid is elevated at 2.3 and patient received 250 mL of albumin infusion as well as 250 mL of normal saline. He is s table from hemodynamic standpoint with a heart rate of 75 in sinus rhythm, blood pressures 111/61 mmHg with a respiratory rate of 18 and temperature of 96.8 F. 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 He has been doing fine but noticed exertional dyspnea. He had outpatient left heart catheterization and found to have multivessel CAD and is referred here for sin rgical revascularization. The patient is currently chest pain-free. He underwe nt elective CABG x3 on pump. Patient is not on any vasopr essor support with stable blood pressure, recovering from the anesthesia, on elective ventila tor support after major cardiothoracic surgery. Patient will be fast-track for extubati on. Patient is postop day 0 after CABG x3 Underwent 3 grafts with HOFFMAN to LAD, vein graft to OM and diagonal Uncomplicated intraoperative course Received 1 L of crystalloid and 600 mL of Cell S aver Urine output 1350 mL EBL was 100 mL Not on vasopressor support On Amicar and insulin drips only Blood glucose 143 mg/dL and insulin drip at 3 un its/h Minimal chest tube output with mediastinal at 10 mL and left pleural none On elective ventilator support currently on assi st-control at 18 tidal volume 500 PEEP of 5 and 50% FiO2 Latest blood gas shows a pH of 7.32, PCO2 of 43 mmHg, PO2 of 83 mmHg and bicarbonate of 23 mmol with base excess of -3.4 and 95% oxygen saturation Lactic acid is mildly elevated 2.5 Give 250 mL of normal saline and 250 mL of 5% al bumin infusion Follow urine output and lactic acid level Patient is waking up from anesthesia Patient will be fast-track for extubation Upon spontaneous eye opening patient will undergo weaning parameters assessment including Negative inspiratory force, Vital capacity and R SBI Check ABGs and plan extubation Leukocytosis most probably reactive Trend CBC Has low magnesium Replete with 2 g of magnesium sulfate and follow magnesium level SCDs for DVT prophylaxis Darius Silva MD [facility] 08/30/2022 4.19 PM 08/31/2022 Patient seen and examined in CVICU room #2201 and discussed during rounds with CT surgery. No acute events reported overnight h owever, patient became dizzy and had drop in blood pressure while getting out of the bed to chair. Chest tube output has been 35 mL and 20 mL in the left pleural and mediastinal respectively. Overnight he h ad about 30 mL in the left pleural and about 270 mL in the mediastinal chest tubes. No bowel movemen t yet. Glycemic control is adequate at 112 mg/dL while patient is on insuli n drip at 2 units/h. Blood pressure soft at 74/48 mmHg and responde d well to IV fluids and albumin. Blood gas this morning showed a pH of 7.37, PCO2 of 38 mmHg, PO2 of 89 mmHg and bicarbonate of 22 mmol. Urine output was adequat e at around 855 mL over the past 12-hour shift. Latest vital signs are stabl e with a heart rate of 83, blood pressure of 119/61 mmHg and pulse ox 97% o n room air. Plan is to discontinue the left pleural chest tube, as well as Luna catheter. Neck line to be discontinued in the evening. Insulin drip sena l be discontinued and patient will be started on insulin sliding scale low intensity coverage every 6 hours. Mediastinal chest tube is going to be retained. Patient was extubated in a timely fashion postoperatively. He is postop day 1 after CABG x3 with HOFFMAN to LA D, vein graft to OM and vein graft to diagonal. Intra-Op course was uneventfu l. Patient received 1 L of crystalloid and 600 mL of Cell Saver. Intra-Op u rine output was 30 and 50 mL. EBL was 100 mL. Patient was not on any vasopress or support. Insulin drip at 3 units/h and the latest blood glucose is 143 mg/d L. He was on Amicar drip. Chest tube output is minimal with left pleural s howing no output at all and mediastinal tubes showing 10 mL. Patient was on assist-control at 18 tidal volume 500 PEEP of 5 and 50% FiO2. Latest blood gas shows a pH of 7.32, pCO2 of 43 mmHg, pO2 of 83 mmHg and bicarbonate of 23 mmol with base excess at -3.4 and oxygen saturation at 95%. Lactic acid is elevate d at 2.3 and patient received 250 mL of albumin infusion as well as 250 mL of normal saline. He is stable from hemodynamic standpoint with a heart rate of 75 in sinus rhythm, blood pressures 111/61 mmHg with a respiratory rate of 18 and temperature of 96.8 F. 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 He has been doing fine but noticed exertional dyspnea. He had outpatient left heart catheterization and found to have multivessel CAD and is referred here for sin rgical revascularization. The patient is currently chest pain-free. He underwe nt elective CABG x3 on pump. Patient is not on any vasopr essor support with stable blood pressure, recovering from the anesthesia, on elective ventila tor support after major cardiothoracic surgery. Patient is postop day # 1 after CABG x3 Postop course was uncomplicated Patient was extubated in a timely fashion within the 4-hour window Did not require any vasopressor support postoper atively Minimal chest tube output with left pleu ral showing 30 mL in the past 12 hours and mediastinal tube showing 270ml collection Left pleural chest tube to be discontinued Luna catheter to be discontinued Neck line to be discontinued later in the evenin g And had brief episode of hyp otension upon ambulation that responded to IV fluids and albumin Blood pressures improved Follow urine output Placement control is adequate with blood glucose at 112 mg/dL Currently on insulin drip at 2 units/h DC insulin drip and start on insulin sliding scale low intensity coverage every 6 hours Patient is performing incentive spirometry Creatinine is normal at 1.1 mg/dL Patient had minimal blood lo ss intraoperatively and hemoglobin stable at 11.7 g/ dL LFTs are within normal limits Patient had reversal of lactate anemia Leukocytosis is improving Ambulating with physical therapy Tolerating oral diet without any nausea vomiting No focal neurological deficit Patient is on electrolyte replacement protocol SCDs for DVT prophylaxis Darius Silva MD [facility] 08/31/2022 11.52 AM Consultants: cardiology, cardiovascular surgery, critical/sap hana developer Code status: full code Plan discussed with: patient, consultants, nurse Critical care time: Minutes: 40 Electronically Signed by Darius Silva MD on 08/11 01/01 at 1158 RPT #:[id number] END OF REPORT 2022-08-31 08:28:00-00:00 [facility] ([facility]) Cardiology Progress Note REPORT#:[id number] REPORT STATUS: Signed DATE:08/31/22 TIME: 827 PATIENT: JACKELIN VASQUEZ UNIT #: [id number] ROOM/BED: [place] [id number] : 54 AGE: 66 SEX: M ATTEND: Blaine Frye MD ADM AUTHOR: Bhavya Fish MD * ALL edits or amendments must be made on the Equ[employer]/computer document * Subjective Free Text Subj Notes Free Text Subj Notes: Doing okay, s/p CABG x 3 (LI MA-LAD, SVG-Alice, SVG-OM), and left atrial appendage amputation Objective General VS/I O: 24 hour I O ending at 0700: 08/31 0700 08/30 1900 Intake Total 1738.00 1908.20 Output Total 865 1725 Balance 873.00 183.20 Intake, IV 1498.00 908.20 Intake, Oral 240 Intake, Other 1000 Output, Chest 210 50 Tube Drainage Output, Other 1300 Output, Urine 655 375 Patient 112.1 kg Weight Weight Bed scale Measurement Method Vital Signs: Date Time Temp Pulse Resp B/P B/P Pulse O2 O2 F low FiO2 Mean Ox Delivery Rate 08/30 2000 Nasal 3 cannula 08/30 1952 100 Nasal 2 cannula 08/30 1840 100 Nasal 3 cannula 08/30 1715 80 100 40 08/30 1715 80 15 143/84 100 08/30 1603 97.7 50 08/30 1559 Ventilator 40 08/30 1520 98 Ventilator 50 08/30 1520 80 98 50 08/30 1119 98 Room air 08/30 0912 62 26 100 08/30 0900 61 19 130/82 98 99 PATIENT WEIGHT: Weight (lb): 247 Weight (oz): 2.21 Weight (kg): 112.100 Medications: Active Meds + DC'd Last 24 Hrs Ipratropium Hiawatha (ATROVENT) 500 MCG Q2H PRN P RN INH Cyanocobalamin (Vitamin B-12 500 mcg tab) 500 MC G DAILY PO Ferrous Sulfate (FERROUS SULFATE) 325 MG DAILY P O Bisacodyl (DULCOLAX) 10 MG ONCE PRN RECTAL Magnesium Hydroxide (MILK OF MAGNESIA) 30 ML ONC E PRN PO Atorvastatin Calcium (LIPITOR) 40 MG 2100 PO Clopidogrel Bisulfate (Plavix) 75 MG DAILY PO Polyethylene Glycol (MIRALAX) 17 GM DAILY PO Pantoprazole (PROTONIX) 40 MG DAILY@0600 PO Docusate Sodium (COLACE) 100 MG BID PO Gabapentin (NEURONTIN) 200 MG BID PO Metoprolol Tartrate (LOPRESSOR) 12.5 MG Q12HR PO Sennosides (Senna Lax 8.6 MG TABLET) 17.2 MG BED TIME PO Aspirin (ASPIRIN) 81 MG DAILY PO Albumin Human (ALBUMINAR 5% 12.5GM/250ML) 250 ML ONCE ONE IV (DC) Ipratropium Hiawatha (ATROVENT) 500 MCG RTQ4H INH Amiodarone HCl (CORDARONE) 200 MG TID PO Hydromorphone HCl (DILAUDID) 0 .STK-MED ONE .ROU TE (DC) Acetaminophen (TYLENOL) 650 MG Q4H PRN PRN PO Acetaminophen (TYLENOL) 650 MG Q4H PRN PRN RECTA L Albumin Human (ALBUMINAR 25%) 25 GM ASDIR PRN IV Calcium Chloride (CALCIUM CHLORIDE) 1 GM ASDIR P RN IV Cefazolin Sodium (KEFZOL OR ANCEF) 6 GM ONCE ONE IV (CKD) Sodium Chloride (SODIUM CHLORIDE 0.9%) 500 ML Chlorhexidine Gluconate (PERIDEX) 15 ML Q2H MM ( DC) Dextrose/Water (DEXTROSE 10% IN WATER) 125 ML DIR PRN IV (CKD) Dextrose/Water (DEXTROSE 10% IN WATER) 250 ML DIR PRN IV (CKD) Epinephrine (ADRENALIN CHLORIDE) 4 MG ASDIR IV Dextrose/Water (DEXTROSE 5% WATER) 246 ML Glucagon (GLUCAGON) 1 MG ASDIR PRN IM Insulin Human Regular (HumuLIN R) 100 UNIT ASDIR IV (CKD) Sodium Chloride (SODIUM CHLORIDE 0.9%) 99 ML Magnesium Sulfate (MAGNESIUM SULFATE 4GM/SWFI 10 0ML) 100 ML ASDIR PRN IV Magnesium Sulfate (MAGNESIUM SULFATE 2GM/SWFI 50 ML) 50 ML ASDIR PRN IV Magnesium Sulfate/Dextrose (MAGNESIUM SULFATE 1G M/D5W 100ML) 100 ML ASDIR PRN IV Morphine Sulfate (morphine SULFATE) 4 MG Q2H PRN PRN IV Nitroglycerin/Dextrose (NITROGLYCERIN 50,000MCG/ D5W 250ML) 250 ML ASDIR IV Norepinephrine Bitartrate (NOREPINEPHRINE 8 MG/N S 250 ML) 250 ML TITRATE IV Ondansetron HCl (ZOFRAN) 4 MG Q6H PRN PRN IV Oxycodone HCl (ROXICODONE) 5 MG Q4H PRN PRN PO Oxycodone HCl (ROXICODONE) 10 MG Q4H PRN PRN PO Potassium Chloride (KCL 20MEQ/SWFI 100ML) 100 ML ASDIR PRN IV Sodium Bicarbonate (SODIUM BICARBONATE) 50 MEQ A SDIR PRN IV Sodium Chloride (SODIUM CHLORIDE 0.9%) 1,000 ML .Q20H IV Sodium Chloride (SODIUM CHLORIDE 0.9%) 250 ML Q2 4H IV Rocuronium H[place]watha (ZEMURON) 0 .STK-MED ONE IV ( DC) Heparin Sodium (HEPARIN SODIUM) 0 .STK-MED ONE . ROUTE (DC) Mineral Oil/White Petrolatum (SYSTANE OPTH OINTM ENT) 0 .STK-MED ONE .ROUTE (DC) Fentanyl Citrate (SUBLIMAZE) 0 .STK-MED ONE IV ( DC) Sodium Chloride (SODIUM CHLORIDE 0.9%) 50 ML .ST K-MED ONE IV (DC) Dexamethasone Sodium Phosphate (DECADRON) 0 .STK -MED ONE .ROUTE (DC) Fentanyl Citrate (SUBLIMAZE) 0 .STK-MED ONE IV ( DC) Fentanyl Citrate (SUBLIMAZE) 0 .STK-MED ONE IV ( DC) Lidocaine HCl (XYLOCAINE) 0 .STK-MED ONE .ROUTE (DC) Ondansetron HCl (ZOFRAN) 0 .STK-MED ONE .ROUTE ( DC) Propofol (DIPRIVAN 200MG/20ML INJECTION) 20 ML . STK-MED ONE IV (DC) Rocuronium [place]watha (ZEMURON) 0 .STK-MED ONE IV (DC) Papaverine HCl (PAPAVERINE HCL) 0 .STK-MED ONE I V (DC) Epinephrine (ADRENALIN CHLORIDE) 0 .STK-MED ONE .ROUTE (DC) Sodium Chloride (SODIUM CHLORIDE 0.9%) 250 ML .S TK-MED ONE IV (DC) Insulin Human Regular (HumuLIN R 100 UNITS/NS 10 0ML) 100 ML .STK-MED ONE IV (DC) Norepinephrine Bitartrate (NOREPINEPHRINE 8 MG/N S 250 ML) 250 ML .STK-MED ONE IV (DC) Aminocaproic Acid (AMICAR) 0 .STK-MED ONE IV (DC ) Calcium Chloride (CALCIUM CHLORIDE) 0 .STK-MED O NE IV (DC) Cefazolin Sodium (KEFZOL OR ANCEF) 0 .STK-MED ON E .ROUTE (DC) Famotidine (PEPCID) 0 .STK-MED ONE IV (DC) Heparin Sodium (HEPARIN SODIUM) 0 .STK-MED ONE . ROUTE (DC) Nitroglycerin/Dextrose (NITROGLYCERIN 50,000MCG/ D5W 250ML) 250 ML .STK-MED ONE IV (DC) Protamine Sulfate (PROTAMINE SULFATE) 0 .STK-MED ONE IV (DC) Magnesium Sulfate (MAGNESIUM SULFATE) 0 .STK-MED ONE .ROUTE (DC) Ropivacaine (NAROPIN 0.5% 150 MG/30mL) 0 .STK-ME D ONE .ROUTE (DC) Cefazolin Sodium (KEFZOL OR ANCEF) 0 .STK-MED ON E .ROUTE (DC) Cefazolin Sodium (KEFZOL OR ANCEF) 2 GM PREOP BINDERY MACHINE SETTER IV (DC) Vancomycin HCl (VANCOMYCIN HCL) 1,750 MG PREOP O NCALL IV (DC) Sodium Chloride (NS 0.9%) 500 ML Verapamil HCl (ISOPTIN) 16.6 MG .Q24H ONE IV (DC ) Heparin Sodium (Porcine) (HEPARIN SODIUM) 1,660 UNIT Sodium Bicarbonate (SODIUM BICARBONATE) 0.7 ML Nitroglycerin/Dextrose (NITROGLYCERIN 50MG/D5W 250ML) 8.3 MG Lactated Ringer's (LACTATED RINGERS) 949.5 ML Acetaminophen (TYLENOL EXTRA STRENGTH) 1,000 MG PREOP ONCALL PO (DC) Gabapentin (NEURONTIN) 200 MG PREOP ONCALL PO (D C) Sodium Chloride (SODIUM CHLORIDE) 20 ML ASDIR IV (DC) Mupirocin (BACTROBAN 2% 22 GM OINTMENT) 1 APPLIC BID NASAL Physical Exam General appearance: alert, awake Head/Eyes: atraumatic, clear cornea, EOMI, rojelio l conjunctiva/sclera, normocephalic, PERRL, PERRLA Neck: full range of motion, non-tender, normal thyroid, supple/no meningismus, no bruit/NL carotids, no JVD, no lymphadenopathy , no masses or swelling Cardiovascular: CV assessment: regular rate and rhythm, BP puls es = bilaterally, normal heart sounds, pedal pulses present Respiratory: clear to auscultation Abdomen: soft, non-tender, normal bowel sounds, no distention, no guarding Genitourinary: no flank pain, no urinary cathete r Lower extremity: LE assessment: no calf tenderness, no edema Musculoskeletal: normal inspection Neuro/CRANE OPERATOR: alert, oriented X 3, normal speech, n o motor deficits Skin: dry, intact, normal color, normal temperat ure Psychiatry: normal affect, normal judgment/insig ht, normal mood Results Findings/Data: Laboratory Tests 08/31 08/30 08/30 08/30 0342 1819 1650 1528 Blood Gas Puncture Site Art Line Art Line O2 Saturation (90 - 100 %) 96.3 98.8 98.9 95.2 ABG pH (7.35 - 7.45) 7.377 7.311 L 7.369 7.329 L ABG pCO2 (35.0 - 45 mmHg) 38.3 44.1 39.2 42.8 ABG pO2 (80 - 100.0 mmHg) 89.2 135.0 H 131.5 H 81.1 ABG PO2/FiO2 Ratio (mm/Hg) 162.20 ABG HCO3 (22.0 - 26.0 MMOL/L) 22.3 22.2 22.6 22 .6 ABG Total CO2 23.4 23.6 23.8 23.9 ABG Base Excess (-4.0 - 4.0 MMOL/L) -2.7 -4.0 - 2.7 -3.4 ABG Hematocrit (37.5 - 50.7 %) 36 L 39 34 L 33 L ABG Hemoglobin (12.5 - 16.9 G/DL) 12.1 L 13.1 1 1.6 L 11.3 L Mike Test N/A Sodium (134 - 147 MEQ/L) 142 144 143 143 Potassium (3.4 - 5.0 MEQ/L) 4.2 3.9 4.0 4.1 Chloride (100 - 108 MEQ/L) 109 H 113 H 110 H 11 1 H Ionized Calcium (1.12 - 1.32 MMOL/L) 1.28 1.26 1.25 1.34 H Lactic Acid (0.9 - 1.7 mmol/l) 1.1 1.7 2.0 H 2. 3 H Temperature (F) 100.2 98 O2 Delivery Device Cannula Adult Vent Vent Mode AC Vent Rate (/MIN) 18 FiO2 (%) 50 Tidal Volume (ml) 500 PEEP (cmH2O) 5 08/30 08/30 08/30 08/30 1447 1349 1325 1237 Blood Gas O2 Saturation (90 - 100 %) 98.4 100.0 99.9 100. 0 ABG pH (7.35 - 7.45) 7.308 L 7.429 7.339 L 7.33 1 L ABG pCO2 (35.0 - 45 mmHg) 49.3 H 37.0 51.5 *H 4 4.6 ABG pO2 (80 - 100.0 mmHg) 125.6 H 363.2 *H 384. 2 *H 434.4 *H ABG HCO3 (22.0 - 26.0 MMOL/L) 24.7 24.5 27.8 H 23.6 ABG Total CO2 26.2 25.6 29.3 24.9 ABG Base Excess (-4.0 - 4.0 MMOL/L) -1.8 0.2 1. 4 -2.5 ABG Hematocrit (37.5 - 50.7 %) 28 L 29 L 28 L 3 8 ABG Hemoglobin (12.5 - 16.9 G/DL) 9.7 L 9.8 L 9 .5 L 13.0 Sodium (134 - 147 MEQ/L) 145 144 144 145 Potassium (3.4 - 5.0 MEQ/L) 3.8 5.0 5.2 H 3.7 Chloride (100 - 108 MEQ/L) 109 H 109 H 108 110 H Ionized Calcium (1.12 - 1.32 MMOL/L) 1.38 H 1.0 8 L 1.09 L 1.18 Lactic Acid (0.9 - 1.7 mmol/l) 2.2 H 0.9 0.9 1. 0 08/30 1145 Blood Gas O2 Saturation (90 - 100 %) 99.9 ABG pH (7.35 - 7.45) 7.426 ABG pCO2 (35.0 - 45 mmHg) 34.9 L ABG pO2 (80 - 100.0 mmHg) 304.0 *H ABG HCO3 (22.0 - 26.0 MMOL/L) 22.9 ABG Total CO2 24.0 ABG Base Excess (-4.0 - 4.0 MMOL/L) -0.9 ABG Hematocrit (37.5 - 50.7 %) 43 ABG Hemoglobin (12.5 - 16.9 G/DL) 14.6 Sodium (134 - 147 MEQ/L) 147 Potassium (3.4 - 5.0 MEQ/L) 3.6 Chloride (100 - 108 MEQ/L) 111 H Ionized Calcium (1.12 - 1.32 MMOL/L) 1.20 Lactic Acid (0.9 - 1.7 mmol/l) 0.6 L Laboratory Tests 08/31 08/31 08/31 08/31 08/31 0647 [id number] 0340 0340 0210 Chemistry Sodium (134 - 147 mEq/L) 142 Potassium (3.4 - 5.0 mEq/L) 4.3 Chloride (100 - 108 mEq/L) 112 H Carbon Dioxide (21 - 33 mEq/l) 22 Anion Gap (0 - 20) 13 BUN (7 - 18 mg/dL) 11 Creatinine (0.6 - 1.3 mg/dL) 1.1 POC Creatinine (0.8 - 1.3 mg/dL) 1.2 Glomerular Filtr Rate (80 - 90) 80.8 Glucose (70 - 110 mg/dL) 117 H POC Glucose (70 - 110 MG/DL) 136 H 124 H POC Glucose (mg/dL) (70 - 110 MG/DL) 113 H Lactic Acid (0.4 - 1.9 mmol/L) 0.9 Calcium (8.0 - 10.5 mg/dL) 8.4 Magnesium (1.80 - 2.40 mg/dL) 2.01 Total Bilirubin (0.0 - 1.0 mg/dL) 0.70 Direct Bilirubin (0.0 - 0.30 MG/DL) 0.20 Indirect Bilirubin (MG/DL) 0.50 AST (15 - 37 IUnit/L) 45 H ALT (30 - 65 IUnit/L) 42 Total Alk Phosphatase (20 - 125 73 IUnit/L) Total Protein (6.4 - 8.2 g/dL) 5.7 L Albumin (3.4 - 5.0 g/dL) 3.40 08/30 08/30 08/30 08/30 08/30 2359 2246 1952 1819 1735 Chemistry POC Creatinine (0.8 - 1.3 mg/dL) 0.9 POC Glucose (70 - 110 MG/DL) 118 H 96 103 POC Glucose (mg/dL) (70 - 110 MG/DL) 123 H Lactic Acid (0.4 - 1.9 mmol/l) 1.6 08/30 08/30 08/30 08/30 08/30 1650 1529 1529 1528 1447 Chemistry Sodium (134 - 147 mEq/L) 144 Potassium (3.4 - 5.0 mEq/L) 4.2 Chloride (100 - 108 mEq/L) 112 H Carbon Dioxide (21 - 33 mEq/l) 24 Anion Gap (0 - 20) 13 BUN (7 - 18 mg/dL) 12 Creatinine (0.6 - 1.3 mg/dL) 1.1 POC Creatinine (0.8 - 1.3 mg/dL) 1.0 1.0 0.8 Glomerular Filtr Rate (80 - 90) 80.8 Glucose (70 - 110 mg/dL) 144 H POC Glucose (mg/dL) (70 - 110 MG/DL) 113 H 143 H 144 H Lactic Acid (0.4 - 1.9 mmol/L) 2.5 H Calcium (8.0 - 10.5 mg/dL) 8.8 Magnesium (1.80 - 2.40 mg/dL) 1.80 08/30 08/30 08/30 08/30 1349 1325 1237 1145 Chemistry POC Creatinine (0.8 - 1.3 mg/dL) 0.9 0.8 1.0 0 .9 POC Glucose (mg/dL) (70 - 110 MG/DL) 93 92 96 7 8 Laboratory Tests 08/30 08/30 08/30 08/30 08/30 1529 1446 1352 1327 1239 Coagulation PTT ([place]) (25.0 - 39.5 Seconds) 25.4 Activated Coag Time (74 - 137 SEC) 103 595 H 64 2 H 468 H 08/30 1147 Coagulation Activated Coag Time (74 - 137 SEC) 121 Laboratory Tests 08/31 08/30 0340 1529 Hematology WBC (4.5 - 11.0 x10 3/uL) 11.8 H 14.6 H RBC (4.00 - 5.60 x10 6/uL) 3.53 L 3.59 L Hgb (12.5 - 16.9 g/dL) 11.7 L 11.7 L Hct (37.5 - 50.7 %) 34.3 L 34.8 L MCV (81.0 - 99.0 fL) 97.2 96.9 MCH (27.0 - 33.0 pg) 33.1 H 32.6 MCHC (33.0 - 37.0 g/dL) 34.1 33.6 RDW (11.5 - 14.5 %) 12.7 12.5 Plt Count (150 - 400 x10 3/uL) 128 L 124 L MPV (7.0 - 9.0 fL) 10.4 H 10.0 H Neut % (Auto) (56.0 - 77.0 %) 76.4 74.5 Lymph % (Auto) (14.0 - 32.0 %) 9.4 L 18.5 Long % (Auto) (4.8 - 9.0 %) 13.6 H 5.8 Eos % (Auto) (0.3 - 3.7 %) 0.0 L 0.3 Baso % (Auto) (0.0 - 2.0 %) 0.1 0.1 Neut # (Auto) (2.0 - 7.6 x10 3/uL) 9.02 H 10.85 H Lymph # (Auto) (1.0 - 3.8 x10 3/uL) 1.11 2.69 Long # (Auto) (0.1 - 0.8 x10 3/uL) 1.61 H 0.84 H Eos # (Auto) (0.0 - 0.2 x10 3/uL) 0.00 0.04 Baso # (Auto) (0.0 - 0.2 x10 3/uL) 0.01 0.01 Abs Immat Gran (auto) (0.00 - 0.03 x10 3/uL) 0. 06 H 0.12 H Add Manual Diff NO NO Immature Gran % (0.0 - 2.0 %) 0.5 0.8 Nucleated RBC % (0 - 0 %) 0.0 0.0 Nucleated RBCs # (Man) (0.0 - 0.1 x10 3/uL) 0.0 0 0.00 Laboratory Tests 08/31 08/30 0340 1529 Chemistry Magnesium (1.80 - 2.40 mg/dL) 2.01 1.80 Radiology data: Recent Impressions: RADIOLOGY - XR CHEST 1 V 08/30 1555 Report Impression - Status: SIGNED Entered: 08/30/2022 1617 IMPRESSION: 1. The endotracheal tube terminates approximatel y 2.1 cm from the jose armando. 2. There is a possible small left pleural effusi on. 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 He has been doing fine bu t noticed exertional dyspnea. He had outpatient left heart catheteriza tion and found to have multivessel CAD and is referred here for surgical revascularizat ion. The patient is currently chest pain-free. 1. Coronary artery disease: S/p CABG x3, and left atrial appendage amputation. Postop management per CT surgery 2. Hyperlipidemia Continue statin Electronically Signed by Bhavya Fish MD on at 0943 RPT #:[id number] END OF REPORT 2022-08-31 03:51:00-00:00 [id number] [address] PATIENT NAME: JACKELIN VASQUEZ ADMIT DATE: 08/29/22 ACCOUNT NO: [id number] ROOM NO: [id number] AGE: 66 REPORT TYPE: eELECTROCARDIOGRAM REPORT SEX: M ADMITTING PHYSICIAN:Omega Frye MD ATTENDING PHYSICIAN:Omega Frye MD Order: [id number] Test Reason : P/S CABG Test Date/Time Stamp: FriAug 31 2022 03:51:33 Blood Pressure : / mmHG Vent. Rate : 081 BPM Atrial Rate : 081 BPM P-R Int : 212 ms QRS Dur : 066 ms QT Int : 340 ms P-R-T Axes : 036 007 010 degree s QTc Int : 394 ms Sinus rhythm with 1st degree AV block Possible Left atrial enlargement Inferior infarct , age undetermined Abnormal ECG When compared with ECG of 30-AUG-2022 15:53, Significant changes have occurred Confirmed by MD PIERCE, ROSALINDA ([id number]) on 022 8:56:43 PM Referred By: Self Referred Confirmed by:ROSALINDA PORTILLO MD Electronically Signed by Rosalinda Marrero MD on at 2056 PATIENT NAME: JACKELIN VASQUEZ 2022-08-30 18:29:00-00:00 [id number] [place] [address] PATIENT NAME: JACKELIN VASQUEZ ADMIT DATE: 08/29/22 ACCOUNT NO: [id number] ROOM NO: G.[id number] AGE: 66 REPORT TYPE: OPERATIVE REPORT SEX: M ADMITTING PHYSICIAN:Omega Frye MD ATTENDING PHYSICIAN:Omega Frye MD OPERATION DATE: 08/30/2022 PREOPERATIVE DIAGNOSIS: Coronary artery disease. POSTOPERATIVE DIAGNOSIS: Coronary artery disease . PROCEDURES PERFORMED: 1. Coronary artery bypass graft surgery x3 (left internal mammary artery to left anterior descending, saphenous vein to diag onal, saphenous vein to marginal). 2. Amputation of left atrial appendage. 3. Endoscopic vein harvesting (right greater sap henous vein). SURGEON: Omega Frye MD. BOBBIN PRESSER: Samaria Dang MD. ANESTHESIOLOGIST: Dr. Mcfarland. ANESTHESIA: General endotracheal anesthesia. ESTIMATED BLOOD LOSS: 100 mL. INDICATIONS: Mr. Vasquez is a 66-year-old gentleman with tight distal left main and proximal LAD disease. After due preop suze bonner, he was brought to the operating room for surgical revascularization. FINDINGS: 1. Vein was harvested from the right leg using e ndoscopic vein harvest technique and from right leg using open surgical technique. The endoscopic vein was of poor quality, aneurysmal and thick walled , and hence we harvested the lower leg using open surgical technique. This wa s satisfactory quality vein measuring about 4 mm in size. 2. Normal sternum. 3. Good quality HOFFMAN measuring 2 mm in size with excellent flow. 4. Normal pericardium without any intrapericardi al adhesions and minimal intrapericardial fluid. 5. LAD 2 mm, good quality artery. 6. Diagonal 1.75 mm, good quality artery. 7. Marginal 2 mm, good quality artery. 8. Amputation of left appendage was perf ormed half a centimeter from the base. This was then repaired with 2 layers of running pledgeted 4-0 Prolene suture. PATIENT NAME: JACKELIN VASQUEZ 15 DESCRIPTION OF PROCEDURE: Mr Adriana Vasquez was identified in the preoperative holding area and brought to the oper ating room and placed supine on the operating table. After induction of general endotracheal anesthe maribel, Luna catheter, radial arterial line, and antibiotics were placed. The patient's lower extremities were prepped and draped in standard surgical fas hion. The vein was harvested from the right leg using end oscopic vein harvest technique and form right lower leg using open surgical technique. Following raghu vesting of the vein, subcutaneous tissue was closed with 2-0 Vicryl a nd skin with 4-0 Vicryl. Simultaneously, median sternotomy was performed. The left internal mammary artery was harvested. The pericardium was opened and pericardial well was created. The patient was heparinized. Cardiopulm onary bypass was instituted using ascending aorta and 3-stage cannul a in the right atrium. The patient was cooled 34 degrees centigrade. Cross-clamp was ap plied and the heart was arrested with 1.5 liters of antegrade cold blood cardioplegia. Cardioplegia was repeated at an interval of 10 minutes all throug hout the duration of cross-clamp. We began by exploring the m arginal. This was good quality artery, measuring about 2 mm in size. An arterio kristy was performed with a [place] blade and extended with Barton scissors. A segment of p reviously harvested reverse saphenous vein was anastomosed in end-to -side manner using 7-0 Prolene suture. The vein graft to the margin al was brought along the left side of the heart and sized. Aortotomy was performed on left aspect of the aorta using 4-mm punch. Proximal anastomosis of the marginal graft was then performed using running 6-0 Prolene suture. Amputation of the left atrial ap pendage was performed half a centimeter from the base. This was then repaired using 2 layers of running pledgeted 4-0 Prolene suture. Rewarming was commenced at this stage. Next, the diagonal was explored. This was a good quality a rtery measuring about 1.75 mm in size. Arteriotomy was performed with a [place] blade and extended with Barton scissors. A segment of previously harvested reve rse saphenous vein was anastomosed in end-to-side manner using 7-0 Prol cruz suture. The vein graft to the diagonal was brought along the left side of the heart and sized. Aortotomy was performed on left aspect of the aorta using 4-mm punch. Proximal anastomosis of the diagonal graft was th en performed using running 6-0 Prolene suture. Finally, LAD was explored. There was goo d quality, measuring 2 mm in size. Arteriotomy was performed with a [place] bl wilda and extended with Barton scissors. HOFFMAN was anastomosed in end-to -side manner using running 8-0 Prolene suture. HOFFMAN pedicle was tacked to epicardium us ing 2 interrupted 6-0 Prolene suture. A slit was made in the pericardium on th e left aspect, so as to accommodate the HOFFMAN. Careful de-aeration was pe rformed. The cross-clamp was released. One ventricular wire was placed. A 28- Nepalese chest tube was placed in the mediastinum and a 28-angled chest tube wa s placed in the left pleural space. Once the patient was at temperature, he w as weaned off cardiopulmonary bypass with minimal inotropic support. Heparin w as reversed with protamine. Decannulation was uneventful. After confirming h emostasis, the chest was closed in layers using stainless steel wires for the sternum, #1 Vicryl for the fascia, 2-0 Vicryl for the subcutaneous tiss ue, 4-0 Vicryl for the skin. The patient was transferred to the intensive car e unit, intubated in stable condition. Dictated By: Omega Frye MD Date Dictated: 08/30/2022 18:29:15 Date Transcribed: 08/31/2022 00:40:31 AC/HUIZAR PATIENT NAME: JACKELIN VASQUEZ 15 Receipt ID: [id number] Authenticated and Edited by Luis E Fyre MD On 08/31/22 11:44:54 AM at 1147 PATIENT NAME: JACKELIN VASQUEZ 15 2022-08-30 18:21:00-00:00 [facility] ([facility]) Brief Op Note REPORT#:[id number] REPORT STATUS: Signed DATE:08/30/22 TIME: 1820 PATIENT: JACKELIN VASQUEZ UNIT #: [id number] ROOM/BED: [place] [address] : 54 AGE: 66 SEX: M ATTEND: Blaine Frye MD ADM AUTHOR: Omega Frye MD * ALL edits or amendments must be made on the el SPAR[employer]ronic/computer document * Op/Inv Proc Note - Brief Pre-procedure diagnosis: CAD Post-procedure diagnosis: same as pre procedure dx Procedures performed: CABG x 3 (HOFFMAN-LAD, SVG-Alice, SVG-OM) ALAA EVH (RGSV) Primary Surgeon: Uday Top Closer(s): Esdras Dominguez Findings: LAD-2mm Complications: none Estimated blood loss in ml's: 100 cc Specimens removed/altered: MARY at 1823 RPT #:[id number] END OF REPORT 2022-08-30 16:41:00-00:00 [facility] ([facility]) Clinical Note REPORT#:[id number] REPORT STATUS: Signed DATE:08/30/22 TIME: 1640 PATIENT: JACKELIN VASQUEZ UNIT #: [id number] [place] [facility] [place] [place] AGE: 66 SEX: M ATTEND: Blaine Frye MD ADM AUTHOR: Mary Beth Barton MD * ALL edits or amendments must be made on the el ectronic/computer document * Clinical Note Note: STS RISK SCORES Procedure: Isolated CAB MORTALITY RISK 0.706% CALCULATE Risk of Mortality: 0.706% Renal Failure: 1.052% Permanent Stroke: 0.913% Prolonged Ventilation: 4.849% DSW Infection: 0.152% Reoperation: 1.372% Morbidity or Mortality: 7.447% Short Length of Stay: 53.918% Long Length of Stay: 2.220% Electronically Signed by Mary Beth Braton MD on 08/11 12/01 at 1642 RPT #:[id number] END OF REPORT 2022-08-30 16:29:00-00:00 [id number] [place] [address] PATIENT NAME: JACKELIN VASQUEZ ADMIT DATE: 08/29/22 ACCOUNT NO: [id number] ROOM NO: [facility] AGE: 66 REPORT TYPE: OPERATIVE REPORT SEX: M ADMITTING PHYSICIAN:Omega Frye MD ATTENDING PHYSICIAN:Omega Frye MD OPERATION DATE: 08/30/2022 PREOPERATIVE DIAGNOSIS: Coronary artery disease. POSTOPERATIVE DIAGNOSIS: Coronary artery disease . PROCEDURE: Coronary artery bypass grafting. SURGEON: Omega Frye MD BOBBIN PRESSER: Samaria Dang MD ANESTHESIA: PROCEDURE IN DETAIL: Please refer to the detaile d operative note by Dr. Frye. I assisted Dr. Frye during all the c ritical portions of surgery including conduits, cardiopulmonary bypass, harry nary anastomosis. Dictated By: Samaria Dang MD for Julia Frye MD Date Dictated: 08/30/2022 16:29:27 Date Transcribed: 08/30/2022 17:18:06 /NAMRATA/Farrah Receipt ID: [id number] Authenticated by Luis E Frye MD On 022 11:44:26 AM Authenticated by Samaria Dang MD, FACS On 10:30:38 AM at 1144 at 1030 PATIENT NAME: JACKELIN VASQUEZ 2022-08-30 16:05:00-00:00 [facility] ([facility]) Critical Care Consult Note REPORT#:[id number] REPORT STATUS: Signed DATE:08/30/22 TIME: 1605 PATIENT: JACKELIN VASQUEZ UNIT #: [id number] ROOM/BED: [place] [address] : 54 AGE: 66 SEX: M ATTEND: Blaine Frye MD ADM AUTHOR: Darius Silva MD * ALL edits or amendments must be made on the Equals6/computer document * History of Present Illness HPI Requesting clinician: Dr Frye Reason for consult: Coronary artery disease Status post CABG x3 on 5 Acute pulmonary insufficiency following major ca rdiothoracic surgery Elective ventilator dependence Lactic acidosis Hyperglycemia Leukocytosis Chief complaint: Dyspnea Chest pain Dyslipidemia HPI: Patient seen and examined in CVICU room #2201. H e is status post CABG x3 with HOFFMAN to LAD, vein graft to OM and vein graft to diagonal. Intra-Op course was uneventful. Patient received 1 L of crystalloid and 600 mL of Cell Saver. Intra-Op urine output was 30 and 50 mL. EBL was 100 mL. Patient is not on any vasopressor support. Insulin drip at 3 u nits/h and the latest blood glucose is 143 mg/dL. He is on Amicar drip. Chest tube outp ut is minimal with left pleural showing no output at all and mediastinal tubes showing 10 mL. Patient is on assist-control at 18 tidal volume 500 PEEP of 5 and 50% FiO2. Latest blood gas shows a pH of 7.32 , pCO2 of 43 mmHg, pO2 of 83 mmHg and bicarbonate of 23 mmol with base excess at -3.4 and oxygen satu ration at 95%. Lactic acid is elevated at 2.3 and patient received 250 mL of albumin infusion as well as 250 mL of normal saline. He is s table from hemodynamic standpoint with a heart rate of 75 in sinus rhythm, blood pressures 111/61 mmHg with a respiratory rate of 18 and temperature of 96.8 F. 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 He has been doing fine but noticed exertional dyspnea. He had outpatient left heart catheterization and found to have multivessel CAD and is referred here for sin rgical revascularization. The patient is currently chest pain-free. He underwe nt elective CABG x3 on pump. Patient is not on any vasopr essor support with stable blood pressure, recovering from the anesthesia, on elective ventila tor support after major cardiothoracic surgery. Patient will be fast-track for extubati on. History - Adult longitudinal Past medical history: Reports: Gallbladder dis/stones. Denies: Congest scott heart failure, Diabetes mellitus, Hypertension. Additional medical history: Hypertension Hyperlipidemia Obstructive sleep apnea Additional surgical history: Tonsillectomy Appendectomy Right knee surgery Family history: Denies: CAD < 40 yrs old. 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 His status post CABG x3 on pump. Patient was brought to the CVICU room #2 201 on elective mechanical ventilation for acute pulmonary insufficiency following anson r cardiothoracic surgery. Objective Physical Exam VS/I O: Last Documented: Result Date Time FiO2 40 08/30 1559 O2 Delivery Ventilator 08/30 1559 Pulse Ox 98 08/30 1119 Pulse 62 08/30 0912 Resp 26 08/30 912 B/P 130/82 08/30 0900 B/P Mean 98 08/30 09 Temp 36.4 08/30 0800 24 hour I O ending at 0700: 08/30 0700 10/20 1900 Intake Total 400 Output Total Balance 400 Intake, Oral 400 Patient 108.5 kg Weight Weight Standing scale Measurement Method Patient Weight and BMI Weight (kg): 108.500 BMI: 33.5 Medications: Active Meds + DC'd Last 24 Hrs Ipratropium Hia[place]atha (ATROVENT) 500 MCG Q2H PRN P RN INH Cyanocobalamin (Vitamin B-12 500 mcg tab) 500 MC G DAILY PO Ferrous Sulfate (FERROUS SULFATE) 325 MG DAILY P O Bisacodyl (DULCOLAX) 10 MG ONCE PRN RECTAL Magnesium Hydroxide (MILK OF MAGNESIA) 30 ML ONC E PRN PO Atorvastatin Calcium (LIPITOR) 40 MG 2100 PO Clopidogrel Bisulfate (Plavix) 75 MG DAILY PO Polyethylene Glycol (MIRALAX) 17 GM DAILY PO Pantoprazole (PROTONIX) 40 MG DAILY@0600 PO Docusate Sodium (COLACE) 100 MG BID PO Gabapentin (NEURONTIN) 200 MG BID PO Metoprolol Tartrate (LOPRESSOR) 12.5 MG Q12HR PO Sennosides (Senna Lax 8.6 MG TABLET) 17.2 MG BED TIME PO Aspirin (ASPIRIN) 81 MG DAILY PO Albumin Human (ALBUMINAR 5% 12.5GM/250ML) 250 ML ONCE ONE IV (UNV) Ipratropium [place] (ATROVENT) 500 MCG RTQ4H INH Amiodarone HCl (CORDARONE) 200 MG TID PO Hydromorphone HCl (DILAUDID) 0 .STK-MED ONE .ROU TE (DC) Acetaminophen (TYLENOL) 650 MG Q4H PRN PRN PO Acetaminophen (TYLENOL) 650 MG Q4H PRN PRN RECTA L Albumin Human (ALBUMINAR 25%) 25 GM ASDIR PRN IV Calcium Chloride (CALCIUM CHLORIDE) 1 GM ASDIR P RN IV Cefazolin Sodium (KEFZOL OR ANCEF) 6 GM ONCE ONE IV (CKD) Sodium Chloride (SODIUM CHLORIDE 0.9%) 500 ML Chlorhexidine Gluconate (PERIDEX) 15 ML Q2H MM ( CKD) Dextrose/Water (DEXTROSE 10% IN WATER) 125 ML DIR PRN IV (CKD) Dextrose/Water (DEXTROSE 10% IN WATER) 250 ML DIR PRN IV (CKD) Epinephrine (ADRENALIN CHLORIDE) 4 MG ASDIR IV Dextrose/Water (DEXTROSE 5% WATER) 246 ML Glucagon (GLUCAGON) 1 MG ASDIR PRN IM Insulin Human Regular (HumuLIN R) 100 UNIT ASDIR IV (CKD) Sodium Chloride (SODIUM CHLORIDE 0.9%) 99 ML Magnesium Sulfate (MAGNESIUM SULFATE 4GM/SWFI 10 0ML) 100 ML ASDIR PRN IV Magnesium Sulfate (MAGNESIUM SULFATE 2GM/SWFI 50 ML) 50 ML ASDIR PRN IV Magnesium Sulfate/Dextrose (MAGNESIUM SULFATE 1G M/D5W 100ML) 100 ML ASDIR PRN IV Morphine Sulfate (morphine SULFATE) 4 MG Q2H PRN PRN IV Nitroglycerin/Dextrose (NITROGLYCERIN 50,000MCG/ D5W 250ML) 250 ML ASDIR IV Norepinephrine Bitartrate (NOREPINEPHRINE 8 MG/N S 250 ML) 250 ML TITRATE IV Ondansetron HCl (ZOFRAN) 4 MG Q6H PRN PRN IV Oxycodone HCl (ROXICODONE) 5 MG Q4H PRN PRN PO Oxycodone HCl (ROXICODONE) 10 MG Q4H PRN PRN PO Potassium Chloride (KCL 20MEQ/SWFI 100ML) 100 ML ASDIR PRN IV Sodium Bicarbonate (SODIUM BICARBONATE) 50 MEQ A SDIR PRN IV Sodium Chloride (SODIUM CHLORIDE 0.9%) 1,000 ML .Q20H IV Sodium Chloride (SODIUM CHLORIDE 0.9%) 250 ML Q2 4H IV Rocuronium [place] (ZEMURON) 0 .STK-MED ONE IV ( DC) Heparin Sodium (HEPARIN SODIUM) 0 .STK-MED ONE . ROUTE (DC) Mineral Oil/White Petrolatum (SYSTANE OPTH OINTM ENT) 0 .STK-MED ONE .ROUTE (DC) Fentanyl Citrate (SUBLIMAZE) 0 .STK-MED ONE IV ( DC) Sodium Chloride (SODIUM CHLORIDE 0.9%) 50 ML .ST K-MED ONE IV (DC) Dexamethasone Sodium Phosphate (DECADRON) 0 .STK -MED ONE .ROUTE (DC) Fentanyl Citrate (SUBLIMAZE) 0 .STK-MED ONE IV ( DC) Fentanyl Citrate (SUBLIMAZE) 0 .STK-MED ONE IV ( DC) Lidocaine HCl (XYLOCAINE) 0 .STK-MED ONE .ROUTE (DC) Ondansetron HCl (ZOFRAN) 0 .STK-MED ONE .ROUTE ( DC) Propofol (DIPRIVAN 200MG/20ML INJECTION) 20 ML . STK-MED ONE IV (DC) Rocuronium [place] (ZEMURON) 0 .STK-MED ONE IV ( DC) Papaverine HCl (PAPAVERINE HCL) 0 .STK-MED ONE I V (DC) Epinephrine (ADRENALIN CHLORIDE) 0 .STK-MED ONE .ROUTE (DC) Sodium Chloride (SODIUM CHLORIDE 0.9%) 250 ML .S TK-MED ONE IV (DC) Insulin Human Regular (HumuLIN R 100 UNITS/NS 10 0ML) 100 ML .STK-MED ONE IV (DC) Norepinephrine Bitartrate (NOREPINEPHRINE 8 MG/N S 250 ML) 250 ML .STK-MED ONE IV (DC) Aminocaproic Acid (AMICAR) 0 .STK-MED ONE IV (DC ) Calcium Chloride (CALCIUM CHLORIDE) 0 .STK-MED O NE IV (DC) Cefazolin Sodium (KEFZOL OR ANCEF) 0 .STK-MED ON E .ROUTE (DC) Famotidine (PEPCID) 0 .STK-MED ONE IV (DC) Heparin Sodium (HEPARIN SODIUM) 0 .STK-MED ONE . ROUTE (DC) Nitroglycerin/Dextrose (NITROGLYCERIN 50,000MCG/ D5W 250ML) 250 ML .STK-MED ONE IV (DC) Protamine Sulfate (PROTAMINE SULFATE) 0 .STK-MED ONE IV (DC) Magnesium Sulfate (MAGNESIUM SULFATE) 0 .STK-MED ONE .ROUTE (DC) Ropivacaine (NAROPIN 0.5% 150 MG/30mL) 0 .STK-ME D ONE .ROUTE (DC) Cefazolin Sodium (KEFZOL OR ANCEF) 0 .STK-MED ON E .ROUTE (DC) Cefazolin Sodium (KEFZOL OR ANCEF) 2 GM PREOP BINDERY MACHINE SETTER IV (DC) Metoprolol Tartrate (LOPRESSOR) 6.25 MG ONCE ONE PO (DC) Vancomycin HCl (VANCOMYCIN HCL) 1,750 MG PREOP O NCALL IV (CKD) Sodium Chloride (NS 0.9%) 500 ML Verapamil HCl (ISOPTIN) 16.6 MG .Q24H ONE IV (CK D) Heparin Sodium (Porcine) (HEPARIN SODIUM) 1,660 UNIT Sodium Bicarbonate (SODIUM BICARBONATE) 0.7 ML Nitroglycerin/Dextrose (NITROGLYCERIN 50MG/D5W 250ML) 8.3 MG Lactated Ringer's (LACTATED RINGERS) 949.5 ML Acetaminophen (TYLENOL EXTRA STRENGTH) 1,000 MG PREOP ONCALL PO (DC) Gabapentin (NEURONTIN) 200 MG PREOP ONCALL PO (D C) Sodium Chloride (SODIUM CHLORIDE) 20 ML ASDIR IV (DC) Mupirocin (BACTROBAN 2% 22 GM OINTMENT) 1 APPLIC BID NASAL General appearance: respiratory support, no acut e distress, no respiratory distress Head/Eyes: atraumatic, clear cornea, normocephal ic, PERRL ENT: intubated, normal nose, normal sinus Neck: non-tender, normal thyroid, no JVD, no mas ses or swelling Cardiovascular: normal capillary refill, normal heart sounds, regular rate and rhythm, normal S1/S2 Respiratory: aerating well, clear to auscultatio n, symmetric expansion, no distress Abdomen: soft, non-tender, normal bowel sounds, no distention, no guarding, no mass/organomegaly, no rebound Genitourinary: urinary catheter, no bladder dist ention, no flank pain Extremities: no clubbing, no cyanosis, no edema Skin: abnormal temperature, dry, normal color, n o rash Psychiatry: unable to evaluate Results Findings/Data: Laboratory Tests 08/30/22 1529: [Embedded Image Not Available] 08/30/22 0330: [Embedded Image Not Available] Laboratory Tests 08/30 08/30 08/30 08/30 1528 1447 1349 1325 Blood Gas Puncture Site Art Line O2 Saturation (90 - 100 %) 95.2 98.4 100.0 99.9 ABG pH (7.35 - 7.45) 7.329 L 7.308 L 7.429 7.33 9 L ABG pCO2 (35.0 - 45 mmHg) 42.8 49.3 H 37.0 51.5 *H ABG pO2 (80 - 100.0 mmHg) 81.1 125.6 H 363.2 *H 384.2 *H ABG PO2/FiO2 Ratio (mm/Hg) 162.20 ABG HCO3 (22.0 - 26.0 MMOL/L) 22.6 24.7 24.5 27 .8 H ABG Total CO2 23.9 26.2 25.6 29.3 ABG Base Excess (-4.0 - 4.0 MMOL/L) -3.4 -1.8 0 .2 1.4 ABG Hematocrit (37.5 - 50.7 %) 33 L 28 L 29 L 2 8 L ABG Hemoglobin (12.5 - 16.9 G/DL) 11.3 L 9.7 L 9.8 L 9.5 L Mike Test N/A Sodium (134 - 147 MEQ/L) 143 145 144 144 Potassium (3.4 - 5.0 MEQ/L) 4.1 3.8 5.0 5.2 H Chloride (100 - 108 MEQ/L) 111 H 109 H 109 H 10 8 Ionized Calcium (1.12 - 1.32 MMOL/L) 1.34 H 1. 38 H 1.08 L 1.09 L Lactic Acid (0.9 - 1.7 mmol/l) 2.3 H 2.2 H 0.9 0.9 Temperature (F) 98 O2 Delivery Device Adult Vent Vent Mode AC Vent Rate (/MIN) 18 FiO2 (%) 50 Tidal Volume (ml) 500 PEEP (cmH2O) 5 08/30 08/30 1237 1145 Blood Gas O2 Saturation (90 - 100 %) 100.0 99.9 ABG pH (7.35 - 7.45) 7.331 L 7.426 ABG pCO2 (35.0 - 45 mmHg) 44.6 34.9 L ABG pO2 (80 - 100.0 mmHg) 434.4 *H 304.0 *H ABG HCO3 (22.0 - 26.0 MMOL/L) 23.6 22.9 ABG Total CO2 24.9 24.0 ABG Base Excess (-4.0 - 4.0 MMOL/L) -2.5 -0.9 ABG Hematocrit (37.5 - 50.7 %) 38 43 ABG Hemoglobin (12.5 - 16.9 G/DL) 13.0 14.6 Sodium (134 - 147 MEQ/L) 145 147 Potassium (3.4 - 5.0 MEQ/L) 3.7 3.6 Chloride (100 - 108 MEQ/L) 110 H 111 H Ionized Calcium (1.12 - 1.32 MMOL/L) 1.18 1.20 Lactic Acid (0.9 - 1.7 mmol/l) 1.0 0.6 L Laboratory Tests 08/30 08/30 08/30 08/30 08/30 1529 1529 1528 1447 1349 Chemistry Sodium (134 - 147 mEq/L) 144 Potassium (3.4 - 5.0 mEq/L) 4.2 Chloride (100 - 108 mEq/L) 112 H Carbon Dioxide (21 - 33 mEq/l) 24 Anion Gap (0 - 20) 13 BUN (7 - 18 mg/dL) 12 Creatinine (0.6 - 1.3 mg/dL) 1.1 POC Creatinine (0.8 - 1.3 mg/dL) 1.0 0.8 0.9 Glomerular Filtr Rate (80 - 90) 80.8 Glucose (70 - 110 mg/dL) 144 H POC Glucose (mg/dL) (70 - 110 MG/DL) 143 H 144 H 93 Lactic Acid (0.4 - 1.9 mmol/L) 2.5 H Calcium (8.0 - 10.5 mg/dL) 8.8 Magnesium (1.80 - 2.40 mg/dL) 1.80 08/30 08/30 08/30 08/30 08/30 1325 1237 1145 0330 0330 Chemistry POC Creatinine (0.8 - 1.3 mg/dL) 0.8 1.0 0.9 POC Glucose (mg/dL) (70 - 110 MG/DL) 92 96 78 Hemoglobin A1c (4.8 - 6.0 %A1C) 5.6 B-Natriuretic Peptide (0 - 100 PG/ML) 28.0 08/30 0330 Chemistry Sodium (134 - 147 mEq/L) 142 Potassium (3.4 - 5.0 mEq/L) 3.8 Chloride (100 - 108 mEq/L) 108 Carbon Dioxide (21 - 33 mEq/l) 25 Anion Gap (0 - 20) 13 BUN (7 - 18 mg/dL) 13 Creatinine (0.6 - 1.3 mg/dL) 1.0 Glomerular Filtr Rate (80 - 90) 90.2 H Glucose (70 - 110 mg/dL) 92 Calcium (8.0 - 10.5 mg/dL) 9.1 Total Bilirubin (0.0 - 1.0 mg/dL) 0.50 AST (15 - 37 IUnit/L) 35 ALT (30 - 65 IUnit/L) 66 H Total Alk Phosphatase (20 - 125 IUnit/L) 108 Total Protein (6.4 - 8.2 g/dL) 7.0 Albumin (3.4 - 5.0 g/dL) 3.90 Triglycerides (40 - 150 mg/dL) 133 Cholesterol (<200 mg/dL) 164 LDL Cholesterol Measurd (0 - 100 mg/dL) 122.3 H HDL Cholesterol (32 - 72 mg/dL) 30.7 L Cholesterol/HDL Ratio (3.43 - 4.97 RATIO) 5.34 H Laboratory Tests 08/30 08/30 08/30 08/30 08/30 1446 1352 1327 1239 1147 Coagulation Activated Coag Time (74 - 137 SEC) 103 595 H 64 2 H 468 H 121 08/30 0330 Coagulation INR (0.8 - 1.2) 1.1 PTT ([place]) (25.0 - 39.5 Seconds) 23.7 L PT Patient/Control Mix (9.3 - 12.9 SECONDS) 12. 6 Laboratory Tests 08/30 08/30 1529 0330 Hematology WBC (4.5 - 11.0 x10 3/uL) 14.6 H 6.6 RBC (4.00 - 5.60 x10 6/uL) 3.59 L 4.08 Hgb (12.5 - 16.9 g/dL) 11.7 L 13.7 Hct (37.5 - 50.7 %) 34.8 L 39.3 MCV (81.0 - 99.0 fL) 96.9 96.3 MCH (27.0 - 33.0 pg) 32.6 33.6 H MCHC (33.0 - 37.0 g/dL) 33.6 34.9 RDW (11.5 - 14.5 %) 12.5 12.5 Plt Count (150 - 400 x10 3/uL) 124 L 183 MPV (7.0 - 9.0 fL) 10.0 H 10.3 H Neut % (Auto) (56.0 - 77.0 %) 74.5 54.0 L Lymph % (Auto) (14.0 - 32.0 %) 18.5 33.4 H Long % (Auto) (4.8 - 9.0 %) 5.8 11.2 H Eos % (Auto) (0.3 - 3.7 %) 0.3 0.9 Baso % (Auto) (0.0 - 2.0 %) 0.1 0.2 Neut # (Auto) (2.0 - 7.6 x10 3/uL) 10.85 H 3.55 Lymph # (Auto) (1.0 - 3.8 x10 3/uL) 2.69 2.20 Long # (Auto) (0.1 - 0.8 x10 3/uL) 0.84 H 0.74 Eos # (Auto) (0.0 - 0.2 x10 3/uL) 0.04 0.06 Baso # (Auto) (0.0 - 0.2 x10 3/uL) 0.01 0.01 Abs Immat Gran (auto) (0.00 - 0.03 x10 3/uL) 0. 12 H 0.02 Add Manual Diff NO NO Immature Gran % (0.0 - 2.0 %) 0.8 0.3 Nucleated RBC % (0 - 0 %) 0.0 0.0 Nucleated RBCs # (Man) (0.0 - 0.1 x10 3/uL) 0.0 0 0.00 Laboratory Tests 08/29 2100 Urines Urine Color (YEL/STRAW) STRAW Urine Appearance (CLEAR) CLEAR Urine pH (5.0 - 7.0) 7.0 Ur Specific [place] (1.005 - 1.030) 1.009 Urine Protein (NEGATIVE) NEGATIVE Urine Glucose (UA) (NEGATIVE) NEGATIVE Urine Ketones (NEGATIVE) NEGATIVE Urine Blood (NEGATIVE) NEGATIVE Urine Nitrite (NEGATIVE) NEGATIVE Urine Bilirubin (NEGATIVE) NEGATIVE Urine Urobilinogen (0.2 - 1.0 mg/dL) 0.2 Ur Leukocyte Esterase (NEGATIVE) NEGATIVE Urine RBC (0 - 3 RBC/HPF) NONE SEEN Urine WBC (0 - 3 WBC/HPF) 0-3 Ur Squamous Epith Cells (NONE SEEN /HPF) NONE S EEN Urine Bacteria (NONE SEEN /HPF) NONE SEEN Microbiology: 08/29 2123 NASAL: MSSA Surveillance Screen - ORD 08/29 2123 NASAL: MRSA DNA Surveillance Screen - ORD 08/29 2040 NASAL: MSSA Surveillance Screen - COM P 08/29 2040 NASAL: MRSA DNA Surveillance Screen - COMP Radiology data: Recent Impressions: ULTRASOUND - DUP EXTRACRANIAL STEPHENIE 08/29 2043 Report Impression - Status: SIGNED Entered: 08/29/20222129 IMPRESSION: No carotid arterial stenosis. REFERENCES: SRU CRITERIA. The degree of internal carotid art rei stenosis is based on criteria defined by the Society of Radi ologists in Ultrasound (SRU). Normal is no stenosis. Mild is less than 50% stenosis. Moderate is 50-69% stenosis. Severe is greater than 69% stenosis to near occlusion. Near occlusion is a markedly narrowed lumen. Total occlusion is no detectable patent l umen. Impression By: Gonsalo Rodgers ULTRASOUND - DUP VEIN STEPHENIE 08/29 2044 Report Impression - Status: SIGNED Entered: 08/29/20222145 IMPRESSION: Lower extremity venous mapping as above. Impression By: [email or web address] Diogo Jacobsen M.D. CAT SCAN - CT CHEST W/O CONTRAST 08/29 2059 Report Impression - Status: SIGNED Entered: 08/29/20222224 IMPRESSION: No acute findings. Ascending thoracic aorta dilation. Follow-up exa m is recommended. Impression By: [email or web address] - Robert Gonzalez M.D. RADIOLOGY - XR CHEST 1 V 08/30 0530 Report Impression - Status: SIGNED Entered: 08/30/2022 0815 IMPRESSION: No acute abnormality in the chest. Impression By: [email or web address] - Cielo Smyth Results: labs reviewed, vital signs revi ewed, rhythm personally rev'd, current med profile rev'd Diagnosis, Assessment Plan Diagnosis, Assessment Plan Consultants: cardiology, cardiovascular surgery, critical/sap hana developer Plan discussed with: consultants, nurse Critical care time: Minutes: 50 Code Status/Resusc. Discussion Resuscitation discussion: Discussed with: patient, family Code status: full code Free text DxA P: Problem List: Coronary artery disease Status post CABG x3 on 5 Acute pulmonary insufficiency following major ca rdiothoracic surgery Elective ventilator dependence Lactic acidosis Hyperglycemia Hypomagnesemia Leukocytosis Assessment and Plan: Patient seen and examined in CVICU room #2201. H e is status post CABG x3 with HOFFMAN to LAD, vein graft to OM and vein graft to diagonal. Intra-Op course was uneventful. Patient received 1 L of crystalloid and 600 mL of Cell Saver. Intra-Op urine output was 30 and 50 mL. EBL was 100 mL. Patient is not on any vasopressor support. Insulin drip at 3 u nits/h and the latest blood glucose is 143 mg/dL. He is on Amicar drip. Chest tube outp ut is minimal with left pleural showing no output at all and mediastinal tubes showing 10 mL. Patient is on assist-control at 18 tidal volume 500 PEEP of 5 and 50% FiO2. Latest blood gas shows a pH of 7.32 , pCO2 of 43 mmHg, pO2 of 83 mmHg and bicarbonate of 23 mmol with base excess at -3.4 and oxygen satu ration at 95%. Lactic acid is elevated at 2.3 and patient received 250 mL of albumin infusion as well as 250 mL of normal saline. He is s table from hemodynamic standpoint with a heart rate of 75 in sinus rhythm, blood pressures 111/61 mmHg with a respiratory rate of 18 and temperature of 96.8 F. 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 He has been doing fine but noticed exertional dyspnea. He had outpatient left heart catheterization and found to have multivessel CAD and is referred here for sin rgical revascularization. The patient is currently chest pain-free. He underwe nt elective CABG x3 on pump. Patient is not on any vasopr essor support with stable blood pressure, recovering from the anesthesia, on elective ventila tor support after major cardiothoracic surgery. Patient will be fast-track for extubati on. Patient is postop day 0 after CABG x3 Underwent 3 grafts with HOFFMAN to LAD, vein graft to OM and diagonal Uncomplicated intraoperative course Received 1 L of crystalloid and 600 mL of Cell S aver Urine output 1350 mL EBL was 100 mL Not on vasopressor support On Amicar and insulin drips only Blood glucose 143 mg/dL and insulin drip at 3 un its/h Minimal chest tube output with mediastinal at 10 mL and left pleural none On elective ventilator support currently on assi st-control at 18 tidal volume 500 PEEP of 5 and 50% FiO2 Latest blood gas shows a pH of 7.32, PCO2 of 43 mmHg, PO2 of 83 mmHg and bicarbonate of 23 mmol with base excess of -3.4 and 95% oxygen saturation Lactic acid is mildly elevated 2.5 Give 250 mL of normal saline and 250 mL of 5% al bumin infusion Follow urine output and lactic acid level Patient is waking up from anesthesia Patient will be fast-track for extubation Upon spontaneous eye opening patient will undergo weaning parameters assessment including Negative inspiratory force, Vital capacity and R SBI Check ABGs and plan extubation Leukocytosis most probably reactive Trend CBC Has low magnesium Replete with 2 g of magnesium sulfate and follow magnesium level SCDs for DVT prophylaxis Darius Silva MD [facility] 08/30/2022 4.19 PM Electronically Signed by Darius Silva MD on 08/11 12/01 at 1625 RPT #:[id number] END OF REPORT 2022-08-30 15:53:00-00:00 [id number] [place] [address] PATIENT NAME: JACKELIN VASQUEZ ADMIT DATE: 08/29/22 ACCOUNT NO: [id number] ROOM NO: [facility] AGE: 66 REPORT TYPE: eELECTROCARDIOGRAM REPORT SEX: M ADMITTING PHYSICIAN:Omega Frye MD ATTENDING PHYSICIAN:Omega Frye MD Order: [id number] Test Reason : S/P CABG Test Date/Time Stamp: FriAug 30 2022 15:53:38 Blood Pressure : / mmHG Vent. Rate : 076 BPM Atrial Rate : 076 BPM P-R Int : 330 ms QRS Dur : 080 ms QT Int : 384 ms P-R-T Axes : 049 018 008 degree s QTc Int : 432 ms Sinus rhythm with 1st degree AV block Nonspecific T wave abnormality Abnormal ECG No previous ECGs available Confirmed by MD PIERCE, ROSALINDA ([id number]) on 022 5:58:46 PM Referred By: Martin Frye Confirmed by:ROSALINDA PORTILLO MD Electronically Signed by Rosalinda Marrero MD on at 1755 PATIENT NAME: JACKELIN VASQUEZ 15 2022-08-30 09:32:00-00:00 [facility] ([facility]) Cardiology Consultation REPORT#:[id number] REPORT STATUS: Signed DATE:08/30/22 TIME: 931 PATIENT: JACKELIN VASQUEZ UNIT #: [id number] ROOM/BED: 220-1 : 54 AGE: 66 SEX: M ATTEND: Ab fili Frye MD ADM AUTHOR: Elizabeth Reyna PROCESS PUMPER * ALL edits or amendments must be made on the Equals6/computer document * History of Present Illness HPI Requesting Clinician: Dr. 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 He has been doing fine bu t noticed exertional dyspnea. He had outpatient left heart catheteriza tion and found to have multivessel CAD and is referred here for surgical revascularizat ion. The patient is currently chest pain-free. History - Adult longitudinal Past medical history: Reports: Gallbladder dis/stones. Denies: Congest scott heart failure, Diabetes mellitus, Hypertension. Family history: Denies: CAD < 40 yrs old. 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 Ambulatory status: Independent Review of Systems Additional notes: As stated in HPI Objective General VS/I O: Vital Signs: Date Time Temp Pulse Resp B/P B/P Pulse O2 O2 F low FiO2 Mean Ox Delivery Rate 08/30 0912 62 26 100 08/30 09 61 19 130/82 98 99 08/30 0800 36.4 08/30 08 62 16 96 08/30 0700 66 35 135/79 101 98 08/30 0600 71 19 98 08/30 0501 65 13 136/87 107 98 08/30 0500 69 15 97 08/30 0400 70 17 133/90 107 96 08/30 0400 98 Room air 08/30 0300 64 16 134/87 108 98 08/30 0200 65 15 132/90 106 99 08/30 0100 66 15 141/88 108 100 08/30 0000 69 16 133/90 107 97 08/29 2359 71 95 30 08/29 2359 95 Room air 08/29 2301 85 33 134 95 08/29 2200 79 25 132 99 08/29 2102 77 25 137 93 08/29 2043 68 17 97 08/29 2000 36.8 08/29 1943 69 28 99 08/29 1900 72 16 152/91 117 08/29 1843 69 21 24 hour I O ending at 0700: 08/30 0700 08/29 1900 Intake Total 400 Output Total Balance 400 Intake, Oral 400 Patient 108.5 kg Weight Weight Standing scale Measurement Method PATIENT WEIGHT: Weight (lb): 239 Weight (oz): 3.22 Weight (kg): 108.500 Medications: Active Meds + DC'd Last 24 Hrs Cefazolin Sodium (KEFZOL OR ANCEF) 2 GM PREOP BINDERY MACHINE SETTER IV (CKD) Metoprolol Tartrate (LOPRESSOR) 6.25 MG ONCE ONE PO (DC) Vancomycin HCl (VANCOMYCIN HCL) 1,750 MG PREOP O NCALL IV (CKD) Sodium Chloride (NS 0.9%) 500 ML Verapamil HCl (ISOPTIN) 16.6 MG .Q24H ONE IV (CK D) Heparin Sodium (Porcine) (HEPARIN SODIUM) 1,660 UNIT Sodium Bicarbonate (SODIUM BICARBONATE) 0.7 ML Nitroglycerin/Dextrose (NITROGLYCERIN 50MG/D5W 250ML) 8.3 MG Lactated Ringer's (LACTATED RINGERS) 949.5 ML Acetaminophen (TYLENOL EXTRA STRENGTH) 1,000 MG PREOP ONCALL PO (CKD) Gabapentin (NEURONTIN) 200 MG PREOP ONCALL PO (C KD) Sodium Chloride (SODIUM CHLORIDE) 20 ML ASDIR IV Mupirocin (BACTROBAN 2% 22 GM OINTMENT) 1 APPLIC BID NASAL Physical Exam General appearance: alert, awake Head/Eyes: atraumatic, clear cornea, EOMI, rojelio l conjunctiva/sclera, normocephalic, PERRL, PERRLA Neck: full range of motion, non-tender, normal thyroid, supple/no meningismus, no bruit/NL carotids, no JVD, no lymphadenopathy , no masses or swelling Cardiovascular: CV assessment: regular rate and rhythm, BP puls es = bilaterally, normal heart sounds, pedal pulses present Respiratory: clear to auscultation Abdomen: soft, non-tender, normal bowel sounds, no distention, no guarding Genitourinary: no flank pain, no urinary cathete r Lower extremity: LE assessment: no calf tenderness, no edema Musculoskeletal: normal inspection Neuro/CRANE OPERATOR: alert, oriented X 3, normal speech, n o motor deficits Skin: dry, intact, normal color, normal temperat ure Psychiatry: normal affect, normal judgment/insig ht, normal mood Results Findings/Data: Laboratory Tests 08/30 0330 Chemistry Sodium (134 - 147 mEq/L) 142 Potassium (3.4 - 5.0 mEq/L) 3.8 Chloride (100 - 108 mEq/L) 108 Carbon Dioxide (21 - 33 mEq/l) 25 Anion Gap (0 - 20) 13 BUN (7 - 18 mg/dL) 13 Creatinine (0.6 - 1.3 mg/dL) 1.0 Glomerular Filtr Rate (80 - 90) 90.2 H Glucose (70 - 110 mg/dL) 92 Hemoglobin A1c (4.8 - 6.0 %A1C) 5.6 Calcium (8.0 - 10.5 mg/dL) 9.1 Total Bilirubin (0.0 - 1.0 mg/dL) 0.50 AST (15 - 37 IUnit/L) 35 ALT (30 - 65 IUnit/L) 66 H Total Alk Phosphatase (20 - 125 IUnit/L) 108 Total Protein (6.4 - 8.2 g/dL) 7.0 Albumin (3.4 - 5.0 g/dL) 3.90 Triglycerides (40 - 150 mg/dL) 133 Cholesterol (<200 mg/dL) 164 LDL Cholesterol Measurd (0 - 100 mg/dL) 122.3 H HDL Cholesterol (32 - 72 mg/dL) 30.7 L Cholesterol/HDL Ratio (3.43 - 4.97 RATIO) 5.34 H Laboratory Tests 08/30 0330 Coagulation INR (0.8 - 1.2) 1.1 PTT ([place]) (25.0 - 39.5 Seconds) 23.7 L PT Patient/Control Mix (9.3 - 12.9 SECONDS) 12. 6 Laboratory Tests 08/30 0330 Hematology WBC (4.5 - 11.0 x10 3/uL) 6.6 RBC (4.00 - 5.60 x10 6/uL) 4.08 Hgb (12.5 - 16.9 g/dL) 13.7 Hct (37.5 - 50.7 %) 39.3 MCV (81.0 - 99.0 fL) 96.3 MCH (27.0 - 33.0 pg) 33.6 H MCHC (33.0 - 37.0 g/dL) 34.9 RDW (11.5 - 14.5 %) 12.5 Plt Count (150 - 400 x10 3/uL) 183 MPV (7.0 - 9.0 fL) 10.3 H Neut % (Auto) (56.0 - 77.0 %) 54.0 L Lymph % (Auto) (14.0 - 32.0 %) 33.4 H Long % (Auto) (4.8 - 9.0 %) 11.2 H Eos % (Auto) (0.3 - 3.7 %) 0.9 Baso % (Auto) (0.0 - 2.0 %) 0.2 Neut # (Auto) (2.0 - 7.6 x10 3/uL) 3.55 Lymph # (Auto) (1.0 - 3.8 x10 3/uL) 2.20 Long # (Auto) (0.1 - 0.8 x10 3/uL) 0.74 Eos # (Auto) (0.0 - 0.2 x10 3/uL) 0.06 Baso # (Auto) (0.0 - 0.2 x10 3/uL) 0.01 Abs Immat Gran (auto) (0.00 - 0.03 x10 3/uL) 0 .02 Add Manual Diff NO Immature Gran % (0.0 - 2.0 %) 0.3 Nucleated RBC % (0 - 0 %) 0.0 Nucleated RBCs # (Man) (0.0 - 0.1 x10 3/uL) 0.0 0 Laboratory Tests 08/29 2100 Urines Urine Color (YEL/STRAW) STRAW Urine Appearance (CLEAR) CLEAR Urine pH (5.0 - 7.0) 7.0 Ur Specific [place] (1.005 - 1.030) 1.009 Urine Protein (NEGATIVE) NEGATIVE Urine Glucose (UA) (NEGATIVE) NEGATIVE Urine Ketones (NEGATIVE) NEGATIVE Urine Blood (NEGATIVE) NEGATIVE Urine Nitrite (NEGATIVE) NEGATIVE Urine Bilirubin (NEGATIVE) NEGATIVE Urine Urobilinogen (0.2 - 1.0 mg/dL) 0.2 Ur Leukocyte Esterase (NEGATIVE) NEGATIVE Urine RBC (0 - 3 RBC/HPF) NONE SEEN Urine WBC (0 - 3 WBC/HPF) 0-3 Ur Squamous Epith Cells (NONE SEEN /HPF) NONE S EEN Urine Bacteria (NONE SEEN /HPF) NONE SEEN Microbiology Date/Time Procedure - Status Source Growth 08/29 2040 MSSA Surveillance Screen - COMP NASAL 08/29 2040 MRSA DNA Surveillance Screen - COMP NASAL Radiology Data: Recent Impressions: ULTRASOUND - DUP EXTRACRANIAL STEPHENIE 08/29 2043 Report Impression - Status: SIGNED Entered: 08/29/20222129 IMPRESSION: No carotid arterial stenosis. REFERENCES: SRU CRITERIA. The degree of internal carotid art rei stenosis is based on criteria defined by the Society of Radi ologists in Ultrasound (SRU). Normal is no stenosis. Mild is less than 50% stenosis. Moderate is 50-69% stenosis. Severe is greater than 69% stenosis to near occlusion. Near occlusion is a markedly narrowed lumen. Total occlusion is no detectable patent l umen. Impression By: Gonsalo Rodgers ULTRASOUND - DUP VEIN STEPHENIE 08/29 2044 Report Impression - Status: SIGNED Entered: 08/29/20222145 IMPRESSION: Lower extremity venous mapping as above. Impression By: [email or web address] Diogo Jacobsen M.D. CAT SCAN - CT CHEST W/O CONTRAST 08/29 2059 Report Impression - Status: SIGNED Entered: 08/29/20222224 IMPRESSION: No acute findings. Ascending thoracic aorta dilation. Follow-up exa m is recommended. Impression By: [email or web address] Diogo Gonzalez M.D. RADIOLOGY - XR CHEST 1 V 08/30 0530 Report Impression - Status: SIGNED Entered: 08/30/2022 0815 IMPRESSION: No acute abnormality in the chest. 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 He has been doing fine bu t noticed exertional dyspnea. He had outpatient left heart catheteriza tion and found to have multivessel CAD and is referred here for surgical revascularizat ion. The patient is currently chest pain-free. 1. Coronary artery disease Waiting for CABG 2. Hyperlipidemia Continue statin Appreciate the referral. at 1235 Electronically Signed by Bhavya Fish MD on at 1788 RPT #:[id number] END OF REPORT 2022-08-30 07:22:00-00:00 [facility] Cardiothoracic Surgery Consult REPORT#:[id number] REPORT STATUS: Signed DATE:08/30/22 TIME: 721 PATIENT: JACKELIN VASQUEZ UNIT #: [id number] ROOM/BED: [place] [id number] : 54 AGE: 66 SEX: M ATTEND: Blaine Frye MD ADM AUTHOR: Lizbeth Peterson P * ALL edits or amendments must be made on the el Epic!/computer document * Lyssa Shearer 08/30/22 0722: History of Present Illness HPI Chief complaint: Chest pain Severe CAD PCP: PCP: No Primary or Family Physician Requesting Clinician Dr Connor HPI: Very pleasant 66-year-old -[place] male with past medical history of hypertension hyperlipidemia, obstructive sleep apnea who has been experiencing exertional chest discomfort. CTA of the coronaries demonstrated severe coronary artery disease and patient was taken to the [facility] for further evaluation. Coronary angiogram showed se vijay coronary artery disease involving the left main (90%) and patient transferred to our facility fo r surgical revascularization. History Additional Medical History: Hypertension Hyperlipidemia Obstructive sleep apnea Additional Surgical History: Tonsillectomy Appendectomy Right knee surgery Alcohol Use Denies EtOH use Drug Use Denies recreational drugs Smoking status for patients 13 years old or olde r: Never Smoker Medications: Home Medications: Medication Dose/Rte/Freq Days Qty Entered Last Max Daily Dose Reviewed ASPIRIN 81 MG PO DAILY 08/29/22 08/29/22 Strength: 81 MG TAB.CHEW 1928 1931 LEVOCETIRIZINE (XYZAL) 5 MG PO DAILY 08/29/22 08/29/22 Strength: 5 MG TAB 1929 1931 SIMVASTATIN (ZOCOR) 20 MG PO BEDTIME 08/29/22 08/29/22 Strength: 20 MG TAB 1929 1931 TADALAFIL (CIALIS) 5 MG PO DAILY 08/29/2208/29 Strength: 5 MG TAB 1930 1931 FLUTICASONE PROPIONATE 1 SPRAY NASAL DAILY 08/1108/29/22 (FLONASE 50 MCG/ACT 1930 1931 NASAL) Strength: 50 MCG/ACTUATION SPRAY Current Hospital Medications: Anti-Infective Agents Sig/Sherrill Start time Last Medication Dose Route Stop Time Status Admin Cefazolin Sodium 6 GM ONCE ONE 08/30 1430 UNV (KEFZOL OR ANCEF) IV 08/31 1029 Sodium Chloride 500 ML (SODIUM CHLORIDE 0.9%) Cefazolin Sodium 0 .STK-MED ONE 08/30 0958 DC (KEFZOL OR ANCEF) .ROUTE Cefazolin Sodium 0 .STK-MED ONE 08/30 0952 DC (KEFZOL OR ANCEF) .ROUTE Cefazolin Sodium 2 GM PREOP ONCALL 08/30 0500 D C (KEFZOL OR ANCEF) IV 08/30 235 Vancomycin HCl 1,750 MG PREOP ONCALL 08/30 0500 CKD (VANCOMYCIN HCL) IV 08/30 235 Sodium Chloride 500 ML (NS 0.9%) Autonomic Drugs Sig/Sherrill Start time Last Medication Dose Route Stop Time Status Admin Ipratropium [place] 500 MCG Q2H PRN PRN 09/02 1 419 UNV (ATROVENT) INH 10/02 1418 Epinephrine 4 MG ASDIR 08/30 1430 AC (ADRENALIN CHLORIDE) IV 09/29 1429 Dextrose/Water 246 ML (DEXTROSE 5% WATER) Ipratropium [place] 500 MCG Q4H 08/30 1430 UNV (ATROVENT) INH 09/02 1419 Norepinephrine 250 ML TITRATE 08/30 1430 AC Bitartrate IV 09/29 1429 (NOREPINEPHRINE 8 MG/ NS 250 ML) Rocuronium [place] 0 .STK-MED ONE 08/30 1307 DC (ZEMURON) IV Rocuronium [place] 0 .STK-MED ONE 08/30 1035 DC (ZEMURON) IV Epinephrine 0 .STK-MED ONE 08/30 1005 DC (ADRENALIN CHLORIDE) .ROUTE Norepinephrine 250 ML .STK-MED ONE 08/30 0959 D C Bitartrate IV (NOREPINEPHRINE 8 MG/ NS 250 ML) Blood Derivatives Sig/Sherrill Start time Last Medication Dose Route Stop Time Status Admin Albumin Human 25 GM ASDIR PRN 08/30 1430 AC (ALBUMINAR 25%) IV 08/31 1419 Blood Formation,Coagulation Sig/Sherrill Start time Last Medication Dose Route Stop Time Status Admin Ferrous Sulfate 325 MG DAILY 09/02 0900 AC (FERROUS SULFATE) PO 10/02 0859 Clopidogrel Bisulfate 75 MG DAILY 08/31 0900 AC (Plavix) PO 09/30 0859 Heparin Sodium 0 .STK-MED ONE 08/30 1232 DC (HEPARIN SODIUM) .ROUTE Aminocaproic Acid 0 .STK-MED ONE 08/30 0958 DC (AMICAR) IV Heparin Sodium 0 .STK-MED ONE 08/30 0958 DC (HEPARIN SODIUM) .ROUTE Protamine Sulfate 0 .STK-MED ONE 08/30 0958 DC (PROTAMINE SULFATE) IV Cardiovascular Drugs Sig/Sherrill Start time Last Medication Dose Route Stop Time Status Admin Atorvastatin Calcium 40 MG 2100 08/31 2100 AC (LIPITOR) PO 09/30 2059 Metoprolol Tartrate 12.5 MG Q12HR 08/30 2100 AC (LOPRESSOR) PO 09/29 2059 Amiodarone HCl 200 MG TID 08/30 1500 AC (CORDARONE) PO 09/29 1459 Nitroglycerin/ 250 ML ASDIR 08/30 1430 AC Dextrose IV 09/29 1429 (NITROGLYCERIN 50,000MCG/D5W 250ML) Lidocaine HCl 0 .STK-MED ONE 08/30 1035 DC (XYLOCAINE) .ROUTE Papaverine HCl 0 .STK-MED ONE 08/30 1019 DC (PAPAVERINE HCL) IV Nitroglycerin/ 250 ML .STK-MED ONE 08/30 0958 D C Dextrose IV (NITROGLYCERIN 50,000MCG/D5W 250ML) Metoprolol Tartrate 6.25 MG ONCE ONE 08/30 0500 DC 08/30 (LOPRESSOR) PO 08/30 0501 0517 Verapamil HCl 16.6 MG .Q24H ONE 08/30 0500 CKD (ISOPTIN) IV 08/31 0459 Heparin Sodium 1,660 UNIT (Porcine) (HEPARIN SODIUM) Sodium Bicarbonate 0.7 ML (SODIUM BICARBONATE) Nitroglycerin/ 8.3 MG Dextrose (NITROGLYCERIN 50MG/ D5W 250ML) Lactated Ringer's 949.5 ML (LACTATED RINGERS) Central Nervous System Agents Sig/Sherrill Start time Last Medication Dose Route Stop Time Status Admin Gabapentin 200 MG BID 08/30 2100 AC (NEURONTIN) PO 09/04 09 Aspirin 81 MG DAILY 08/30 2019 AC (ASPIRIN) PO 09/29 2018 Acetaminophen 650 MG Q4H PRN PRN 08/30 1430 UNV (TYLENOL) PO 09/29 1429 Acetaminophen 650 MG Q4H PRN PRN 08/30 1430 UN V (TYLENOL) RECTAL 09/29 1429 Magnesium Sulfate 100 ML ASDIR PRN 08/30 1430 A C (MAGNESIUM SULFATE IV 09/29 1429 4GM/SWFI 100ML) Magnesium Sulfate 50 ML ASDIR PRN 08/30 1430 AC (MAGNESIUM SULFATE IV 09/29 1429 2GM/SWFI 50ML) Magnesium Sulfate/ 100 ML ASDIR PRN 08/30 1430 AC Dextrose IV 09/29 1429 (MAGNESIUM SULFATE 1GM/D5W 100ML) Morphine Sulfate 4 MG Q2H PRN PRN 08/30 1430 AC (morphine SULFATE) IV 09/04 1429 Oxycodone HCl 5 MG Q4H PRN PRN 08/30 1430 AC (ROXICODONE) PO 09/04 1429 Oxycodone HCl 10 MG Q4H PRN PRN 08/30 1430 AC (ROXICODONE) PO 09/04 1429 Fentanyl Citrate 0 .STK-MED ONE 08/30 1142 DC (SUBLIMAZE) IV Fentanyl Citrate 0 .STK-MED ONE 08/30 1035 DC (SUBLIMAZE) IV Fentanyl Citrate 0 .STK-MED ONE 08/30 1035 DC (SUBLIMAZE) IV Propofol 20 ML .STK-MED ONE 08/30 1035 DC (DIPRIVAN 200MG/20ML IV INJECTION) Magnesium Sulfate 0 .STK-MED ONE 08/30 0957 DC (MAGNESIUM SULFATE) .ROUTE Acetaminophen 1,000 MG PREOP ONCALL 08/290 DC 08/30 (TYLENOL EXTRA PO 09/28 2129 0518 STRENGTH) Gabapentin 200 MG PREOP ONCALL 08/29 2130 DC (NEURONTIN) PO 09/28 2359 0517 Electrolytic, Caloric, And Aniceto Sig/Sherrill Start time Last Medication Dose Route Stop Time Status Admin Calcium Chloride 1 GM ASDIR PRN 08/30 1430 AC (CALCIUM CHLORIDE) IV 09/29 1429 Dextrose/Water 125 ML ASDIR PRN 08/30 1430 CKD (DEXTROSE 10% IN IV 09/29 1429 WATER) Dextrose/Water 250 ML ASDIR PRN 08/30 1430 CKD (DEXTROSE 10% IN IV 09/29 142 WATER) Potassium Chloride 100 ML ASDIR PRN 08/30 1430 UNV (KCL 20MEQ/SWFI IV 09/29 1429 100ML) Sodium Bicarbonate 50 MEQ ASDIR PRN 08/30 1430 UNV (SODIUM BICARBONATE) IV 09/29 1429 Sodium Chloride 1,000 ML .Q20H 08/30 1430 AC (SODIUM CHLORIDE IV 09/29 1429 0.9%) Sodium Chloride 250 ML Q24H 08/30 1430 AC (SODIUM CHLORIDE IV 09/29 1429 0.9%) Sodium Chloride 50 ML .STK-MED ONE 08/30 1036 D C (SODIUM CHLORIDE IV 0.9%) Sodium Chloride 250 ML .STK-MED ONE 08/30 1004 DC (SODIUM CHLORIDE IV 0.9%) Calcium Chloride 0 .STK-MED ONE 08/30 0958 DC (CALCIUM CHLORIDE) IV Sodium Chloride 20 ML ASDIR 08/29 2130 DC (SODIUM CHLORIDE) IV 09/28 2129 Eye, Ear, Nose And Throat (Een Sig/Sherrill Start time Last Medication Dose Route Stop Time Status Admin Chlorhexidine 15 ML Q2H 08/30 1430 CKD Gluconate MM 09/29 1429 (PERIDEX) Mineral Oil/White 0 .STK-MED ONE 08/30 1202 DC Petrolatum .ROUTE (SYSTANE OPTH OINTMENT) Dexamethasone Sodium 0 .STK-MED ONE 08/30 1035 DC Phosphate .ROUTE (DECADRON) Gastrointestinal Drugs Sig/Sherrill Start time Last Medication Dose Route Stop Time Status Admin Bisacodyl 10 MG ONCE PRN 09/01 1200 AC (DULCOLAX) RECTAL 10/01 1159 Magnesium Hydroxide 30 ML ONCE PRN 09/01 1200 A C (MILK OF MAGNESIA) PO Polyethylene Glycol 17 GM DAILY 08/31 0900 AC (MIRALAX) PO 09/30 0859 Pantoprazole 40 MG DAILY@0600 08/31 0600 AC (PROTONIX) PO 09/30 0559 Docusate Sodium 100 MG BID 08/30 2100 AC (COLACE) PO 09/29 2059 Sennosides 17.2 MG BEDTIME 08/30 2100 UNV (Senna Lax 8.6 MG PO 09/29 2059 TABLET) Ondansetron HCl 4 MG Q6H PRN PRN 08/30 1430 UN V (ZOFRAN) IV 09/29 1429 Ondansetron HCl 0 .STK-MED ONE 08/30 1035 DC (ZOFRAN) .ROUTE Famotidine 0 .STK-MED ONE 08/30 0958 DC (PEPCID) IV Hormones And Synthetic Substit Sig/Sherrill Start time Last Medication Dose Route Stop Time Status Admin Glucagon 1 MG ASDIR PRN 08/30 1430 AC (GLUCAGON) IM 09/29 1429 Insulin Human Regular 100 UNIT ASDIR 08/30 1430 CKD (HumuLIN R) IV 09/29 1429 Sodium Chloride 99 ML (SODIUM CHLORIDE 0.9%) Insulin Human Regular 100 ML .STK-MED ONE 08/30 0959 DC (HumuLIN R 100 UNITS/ IV NS 100ML) Local Anesthetics (Parenteral) Sig/Sherrill Start time Last Medication Dose Route Stop Time Status Admin Ropivacaine 0 .STK-MED ONE 08/30 0957 DC (NAROPIN 0.5% 150 MG/ .ROUTE 30mL) Skin And Mucous Membrane Agent Sig/Sherrill Start time Last Medication Dose Route Stop Time Status Admin Mupirocin 1 APPLIC BID 08/29 2100 AC 08/30 (BACTROBAN 2% 22 GM NASAL 09/03 0901 0746 OINTMENT) Vitamins Sig/Sherrill Start time Last Medication Dose Route Stop Time Status Admin Cyanocobalamin 500 MCG DAILY 09/02 09 UNV (Vitamin B-12 500 PO 10/02 0859 mcg tab) Allergies: Coded Allergies: No Known Allergies (08/29/22) Ambulatory Status Independent Review of Systems Review of Systems Constitutional: Denies: fever, malaise. Allergy/Immun: Denies: allergic reaction. Respiratory: Denies: SOB. Cardiovascular: Denies: chest pain, palpitations. Heme: Denies: bleeding. Neuro: Denies: dizziness, headache. Objective Physical Exam VS/I O: Last Documented: Result Date Time Pulse Ox 98 08/30 1119 O2 Delivery Room air 08/30 111 Pulse 62 08/30 09 Resp 26 08/30 09 B/P 130/82 08/30 09 B/P Mean 98 08/30 09 Temp 97.5 08/30 0800 FiO2 30 08/29 2359 24 hour I O ending at 0700: 08/30 0700 08/29 1900 Intake Total 400 Output Total Balance 400 Intake, Oral 400 Patient 239 lb Weight Weight Standing scale Measurement Method PATIENT WEIGHT: Weight (lb): 239 Weight (oz): 3.22 Weight (kg): 108.500 General appearance: alert, oriented, mental stat us normal, no respiratory distress HEENT: anicteric Cardiovascular: normal heart sounds, regular rat e rhythm Respiratory: aerating well, clear to auscultatio n, symmetric expansion, no distress Abdomen: soft, non-tender, no distention Extremities: moves all Neuro/CRANE OPERATOR: alert, oriented X 3, normal speech, n o motor deficits Psychiatry: normal affect, normal mood Results Findings/Data: Laboratory Tests 08/30 08/30 08/30 08/30 1349 1325 1237 1145 Blood Gas O2 Saturation (90 - 100 %) 100.0 99.9 100.0 99. 9 ABG pH (7.35 - 7.45) 7.429 7.339 L 7.331 L 7.42 6 ABG pCO2 (35.0 - 45 mmHg) 37.0 51.5 *H 44.6 34. 9 L ABG pO2 (80 - 100.0 mmHg) 363.2 *H 384.2 *H 434 .4 *H 304.0 *H ABG HCO3 (22.0 - 26.0 MMOL/L) 24.5 27.8 H 23.6 22.9 ABG Total CO2 25.6 29.3 24.9 24.0 ABG Base Excess (-4.0 - 4.0 MMOL/L) 0.2 1.4 -2. 5 -0.9 ABG Hematocrit (37.5 - 50.7 %) 29 L 28 L 38 43 ABG Hemoglobin (12.5 - 16.9 G/DL) 9.8 L 9.5 L 1 3.0 14.6 Sodium (134 - 147 MEQ/L) 144 144 145 147 Potassium (3.4 - 5.0 MEQ/L) 5.0 5.2 H 3.7 3.6 Chloride (100 - 108 MEQ/L) 109 H 108 110 H 111 H Ionized Calcium (1.12 - 1.32 MMOL/L) 1.08 L 1.0 9 L 1.18 1.20 Lactic Acid (0.9 - 1.7 mmol/l) 0.9 0.9 1.0 0.6 L Laboratory Tests 08/30 08/30 08/30 08/30 08/30 1349 1325 1237 1145 0330 Chemistry POC Creatinine (0.8 - 1.3 mg/dL) 0.9 0.8 1.0 0. 9 POC Glucose (mg/dL) (70 - 110 MG/DL) 93 92 96 7 8 Hemoglobin A1c (4.8 - 6.0 %A1C) 5.6 08/30 08/30 0330 0330 Chemistry Sodium (134 - 147 mEq/L) 142 Potassium (3.4 - 5.0 mEq/L) 3.8 Chloride (100 - 108 mEq/L) 108 Carbon Dioxide (21 - 33 mEq/l) 25 Anion Gap (0 - 20) 13 BUN (7 - 18 mg/dL) 13 Creatinine (0.6 - 1.3 mg/dL) 1.0 Glomerular Filtr Rate (80 - 90) 90.2 H Glucose (70 - 110 mg/dL) 92 Calcium (8.0 - 10.5 mg/dL) 9.1 Total Bilirubin (0.0 - 1.0 mg/dL) 0.50 AST (15 - 37 IUnit/L) 35 ALT (30 - 65 IUnit/L) 66 H Total Alk Phosphatase (20 - 125 IUnit/L) 108 B-Natriuretic Peptide (0 - 100 PG/ML) 28.0 Total Protein (6.4 - 8.2 g/dL) 7.0 Albumin (3.4 - 5.0 g/dL) 3.90 Triglycerides (40 - 150 mg/dL) 133 Cholesterol (<200 mg/dL) 164 LDL Cholesterol Measurd (0 - 100 mg/dL) 122.3 H HDL Cholesterol (32 - 72 mg/dL) 30.7 L Cholesterol/HDL Ratio (3.43 - 4.97 RATIO) 5.34 H Laboratory Tests 08/30 08/30 08/30 08/30 1352 1327 1239 1147 Coagulation Activated Coag Time (74 - 137 SEC) 595 H 642 H 468 H 121 08/30 0330 Coagulation INR (0.8 - 1.2) 1.1 PTT (Charley) (25.0 - 39.5 Seconds) 23.7 L PT Patient/Control Mix (9.3 - 12.9 SECONDS) 12. 6 Laboratory Tests 08/30 0330 Hematology WBC (4.5 - 11.0 x10 3/uL) 6.6 RBC (4.00 - 5.60 x10 6/uL) 4.08 Hgb (12.5 - 16.9 g/dL) 13.7 Hct (37.5 - 50.7 %) 39.3 MCV (81.0 - 99.0 fL) 96.3 MCH (27.0 - 33.0 pg) 33.6 H MCHC (33.0 - 37.0 g/dL) 34.9 RDW (11.5 - 14.5 %) 12.5 Plt Count (150 - 400 x10 3/uL) 183 MPV (7.0 - 9.0 fL) 10.3 H Neut % (Auto) (56.0 - 77.0 %) 54.0 L Lymph % (Auto) (14.0 - 32.0 %) 33.4 H Long % (Auto) (4.8 - 9.0 %) 11.2 H Eos % (Auto) (0.3 - 3.7 %) 0.9 Baso % (Auto) (0.0 - 2.0 %) 0.2 Neut # (Auto) (2.0 - 7.6 x10 3/uL) 3.55 Lymph # (Auto) (1.0 - 3.8 x10 3/uL) 2.20 Long # (Auto) (0.1 - 0.8 x10 3/uL) 0.74 Eos # (Auto) (0.0 - 0.2 x10 3/uL) 0.06 Baso # (Auto) (0.0 - 0.2 x10 3/uL) 0.01 Abs Immat Gran (auto) (0.00 - 0.03 x10 3/uL) 0. 02 Add Manual Diff NO Immature Gran % (0.0 - 2.0 %) 0.3 Nucleated RBC % (0 - 0 %) 0.0 Nucleated RBCs # (Man) (0.0 - 0.1 x10 3/uL) 0.0 0 Laboratory Tests 08/29 2100 Urines Urine Color (YEL/STRAW) STRAW Urine Appearance (CLEAR) CLEAR Urine pH (5.0 - 7.0) 7.0 Ur Specific [place] (1.005 - 1.030) 1.009 Urine Protein (NEGATIVE) NEGATIVE Urine Glucose (UA) (NEGATIVE) NEGATIVE Urine Ketones (NEGATIVE) NEGATIVE Urine Blood (NEGATIVE) NEGATIVE Urine Nitrite (NEGATIVE) NEGATIVE Urine Bilirubin (NEGATIVE) NEGATIVE Urine Urobilinogen (0.2 - 1.0 mg/dL) 0.2 Ur Leukocyte Esterase (NEGATIVE) NEGATIVE Urine RBC (0 - 3 RBC/HPF) NONE SEEN Urine WBC (0 - 3 WBC/HPF) 0-3 Ur Squamous Epith Cells (NONE SEEN /HPF) NONE S EEN Urine Bacteria (NONE SEEN /HPF) NONE SEEN Microbiology Date/Time Procedure - Status Source Growth 08/29 2040 MSSA Surveillance Screen - COMP NASAL 08/29 2040 MRSA DNA Surveillance Screen - COMP NASAL Radiology data: Recent Impressions: ULTRASOUND - DUP EXTRACRANIAL STEPHENIE 08/29 2043 Report Impression - Status: SIGNED Entered: 08/29/20222129 IMPRESSION: No carotid arterial stenosis. REFERENCES: SRU CRITERIA. The degree of internal carotid art rei stenosis is based on criteria defined by the Society of Radi ologists in Ultrasound (SRU). Normal is no stenosis. Mild is less than 50% stenosis. Moderate is 50-69% stenosis. Severe is greater than 69% stenosis to near occlusion. Near occlusion is a markedly narrowed lumen. Total occlusion is no detectable patent l umen. Impression By: Gonsalo Rodgers ULTRASOUND - DUP VEIN STEPHENIE 08/29 2044 Report Impression - Status: SIGNED Entered: 08/29/20222145 IMPRESSION: Lower extremity venous mapping as above. Impression By: [email or web address] Diogo Jacobsen M.D. CAT SCAN - CT CHEST W/O CONTRAST 08/29 2059 Report Impression - Status: SIGNED Entered: 08/29/20222224 IMPRESSION: No acute findings. Ascending thoracic aorta dilation. Follow-up exa m is recommended. Impression By: [email or web address] Diogo Gonzalez M.D. RADIOLOGY - XR CHEST 1 V 08/30 0530 Report Impression - Status: SIGNED Entered: 08/30/2022 0815 IMPRESSION: No acute abnormality in the chest. Impression By: [email or web address] Cielo Worley Diagnosis, Assessment Plan Free Text A P: Very pleasant 66-year-old -[place] male with past medical history of hypertension hyperlipidemia, obstructive sleep apnea who has been experiencing exertional chest discomfort. CTA of the coronaries demonstrated severe coronary artery disease and patient was taken to the [facility] for further evaluation. Coronary angiogram showed se vijay coronary artery disease involving the left main (90%) and patient transferred to our facility fo r surgical revascularization. Dr Frye explained to the patient the angiogra m findings and recommended urgent surgical revascularization. He discussed the surgery, risks involved, STS score, benefits, complications and alternati ves. Patient acknowledged understanding and is willing to proceed. Preop w ork-up completed and patient will be taken to the OR today for CABG x3. Plan discussed with the family Thank you for the consultati on. The patient was seen and plan reviewed with Omega Arnett 09/25/22 1127: Attestations Physician Attestation Agree w/findings plan: I have seen and examined Mr. Fung. I agree wit h the findings and plan as documented by ESTEFANIA Macias. Briefly, 66-year-old gentleman transferred from outside facility with severe coronary artery disease involving left main. Pat ient been from surgical revascularization. Had a long discussion with shahram urbina, explained to him the angiogram findings and need for surgical revascularization. Discussed with him the procedure, risk involved, benefit, alternati ve, STS risk score, and complications. Patient has agreed for sin rgrei. I am making arrangement for Mr. Fung to have surgical revascularization in the near future. at 1441 at 1141 RPT #:[id number] END OF REPORT
[2023-05-23 09:45] LABS: Protime INR 1.1
[2023-05-23 09:54] LABS: Specific Gravity 1.018 (1.005-1.030); Urine Bacteria None Seen /HPF (<20); Urine Bilirubin NEGATIVE (Negative); Urine Blood Negative (Negative); Urine Color Yellow (Yellow); Urine Glucose NEGATIVE (Negative); Urine Mucus Slight /HPF (None Seen); Urine Protein TRACE (Negative); Urine RBC <5 /HPF (None Seen); Urine Urobilinogen Normal (Normal)
[2023-05-23 09:55] LABS: Urine Clarity Clear (Clear)
[2023-05-23 09:57] LABS: Albumin 3.8 g/dL (3.4-5.0); Bilirubin Direct 0.2 mg/dL (0-0.2); Bilirubin Indirect, Calculated 0.5 mg/dL (0.2-0.8); Bilirubin Total 0.7 mg/dL (0.2-1.0); Protein, Total 7.7 g/dL (6.4-8.2); Troponin High Sensitivity 5.6 pg/mL (<58.9)
--- NOTE | 2023-05-23 10:15 | RAD REPORT ---
EXAM DESCRIPTION: RADChest Single View05/23/2023 9:24 am CLINICAL HISTORY: COUGH COMPARISON: Chest Pa And Lat (2 Views) dated 08/26/2022; Chest Pa And Lat (2 Views) dated 01/31/2022; CHEST PA AND LAT 2 VIEW dated 11/05/2011; CHEST SINGLE VIEW dated 07/05/2011 TECHNIQUE: Portable AP view of the chest. FINDINGS: The lungs are clear. No pneumothorax or effusion. The cardiomediastinal contours are unre markable, with sequelae of CABG. IMPRESSION: No acute cardiopulmonary process.
[2023-05-23] MEDS ORDERED: NA CHLORIDE 0.9% 1,000 ML ONE (10:30)
--- NOTE | 2023-05-23 11:17 | ER ---
Nurse's Notes [facility] Name: Devan Poole Age: 67 yrs Sex: Male : 1955 Arrival Date: 05/23/2023 Time: 09:01 Bed 8 Private MD: Diagnosis: Syncope Near;Dehydration;Heat exhaustion, unspecified;Unspecified kidney failure-acute on chronic Presentation: 05/23 09:06 Chief complaint: EMS states: Toned out for syncopal episode, pt reports after taking jl7 morning walk felt himself get clammy then passed out. EMS reports pt in garage and diaphoretic on scene, 20 G to left AC, 300 mL NS given in route. Coronavirus screen: At this time, the client does not indicate any symptoms associated with coronavirus-19. Ebola Screen: No symptoms or risks identified at this time. Initial Sepsis Screen: Does the patient meet any 2 criteria? No. Patient's initial sepsis screen is negative. Does the patient have a suspected source of infection? No. Patient's initial sepsis screen is negative. Risk Assessment: Do you want to hurt yourself or someone else? Patient reports no desire to harm self or others. Onset of symptoms was May 23, 2023. Care prior to arrival: Medication(s) given: Normal saline infusion, 300 mL IV initiated. 20 GA, in the left antecubital area. 09:06 Method Of Arrival: EMS: [facility] 7 09:06 Acuity: MARIA DEL CARMEN 3 jl7 Triage Assessment: 09:09 General: Appears in no apparent distress. uncomfortable, Behavior is calm, cooperative, jl7 appropriate for age. Pain: Denies pain. Neuro: Level of Consciousness is awake, alert, obeys commands, Oriented to person, place, time, situation, Reports a syncopal episode. Historical: - Allergies: : No Known Allergies; jl7 - Home Meds: : Lipitor 10 mg Oral tab 1 tab once daily [Active]; clopidogrel oral [Active]; Metoprolol jl7 Tartrate Oral [Active]; - PMHx: 09: Hyperlipidemia; jl7 - PSHx: : Coronary artery bypass graft; 2021; - Immunization history:: Adult Immunizations up to date. - Social history:: Smoking status: Patient denies any tobacco usage or history of. Screenin:28 [facility] ED Fall Risk Assessment (Adult) History of falling in the last 3 months, ss including since admission No falls in past 3 months (0 pts). Abuse screen: Denies threats or abuse. Denies injuries from another. Nutritional screening: No deficits noted. Tuberculosis screening: Never had TB. Assessment: 09:11 Reassessment: Pt to CT now VIA stretcher with COLBY Marshall. 09:30 General: Appears in no apparent distress. comfortable, Behavior is calm, cooperative. ss General: Denies fever, feeling ill. Pain: Denies pain. Cardiovascular: Pulses are palpable in right radial artery and left radial artery. Respiratory: Airway is patent Respiratory effort is even, unlabored, Respiratory pattern is regular, symmetrical. GI: Patient currently denies diarrhea, nausea, tolerance of food. Derm: Skin is intact, is healthy with good turgor, Skin is pink, warm \T\ dry. normal. 10:29 Reassessment: Patient appears in no apparent distress at this time. Patient and/or ss family updated on plan of care and expected duration. Pain level reassessed. Patient denies pain at this time. Patient states feeling better. Patient states symptoms have improved. Reassessment: awaiting US to be obtained. Pt drinking gatorade at this time. Neuro: Level of Consciousness is awake, alert, obeys commands. 11:03 Reassessment: Pt back from US. Awaiting results. Appears comfortable. Is laying with ss friend and at bedside. 11:33 Reassessment: Patient appears in no apparent distress at this time. Patient and/or ss family updated on plan of care and expected duration. Pain level reassessed. Patient states feeling better. Patient states symptoms have improved. Vital Signs: 09:06 BP 122 / 86; Pulse 89; Resp 14; Temp 97.2; Pulse Ox 97% ; Weight 111.13 kg; Height 5 jl7 ft. 11 in. ; Pain 0/10; 10:28 BP 124 / 95; Pulse 60; Resp 16; Pulse Ox 99% on R/A; Pain 0/10; ss 09:06 Body Mass Index 34.17 (111.13 kg, 180.34 cm) jl7 09:06 Pain Scale: Adult jl7 10:28 Pain Scale: Adult ED Course: 09:02 Patient arrived in ED. ravin 09:02 Lamin Dempsey MD is Attending Physician. ravin 09:06 Johnny Zimmerman, PHILLIP is Primary Nurse. jl7 09:09 Triage completed. jl7 09:09 Arm band placed on right wrist. jl7 09:17 CT Head Brain wo Cont In Process Unspecified. EDMS 09:26 XRAY Chest (1 view) In Process Unspecified. EDMS 09:40 Patient has correct armband on for positive identification. Placed in gown. Bed in low mm9 position. Call light in reach. Side rails up X2. Adult w/ patient. Warm blanket given. Client placed on continuous cardiac and pulse oximetry monitoring. NIBP monitoring applied. groundwater monitoring technician on. Pulse ox on. NIBP on. 09:41 Initial lab(s) drawn, by ED staff, sent to lab. EKG done, by ED staff, reviewed by omid Dempsey MD. Maintain EMS IV. Dressing intact. Good blood return noted. Site clean \T\ dry. 10:27 CPK Sent. ss 10:29 No provider procedures requiring assistance completed. ss 11:14 US Rp Exam Complete In Process Unspecified. EDMS 11:16 Tawanda Connor MD is Referral Physician. ravin 11:16 Wendy Shaw MD is Referral Physician. ravin 11:33 IV discontinued, intact, bleeding controlled, No redness/swelling at site. Pressure ss dressing applied. Administered Medications: 09:14 Drug: NS 0.9% IV 1000 ml {Note: fluids continued from EMS, 700 mL left.} Route: IV; ss Rate: 1 bolus; Site: left antecubital; 10:30 Follow up: IV Intake: 1000ml ss 10:27 Drug: NS 0.9% IV 1000 ml Route: IV; Rate: 1 bolus; Site: left antecubital; ss 11:35 Follow up: IV Status: Completed infusion; IV Intake: 1000ml ss Medication: 10:28 VIS not applicable for this client. ss Intake: 10:30 IV: 1000ml; Total: 1000ml. ss 11:35 IV: 1000ml; Total: 2000ml. ss Outcome: 11:16 Discharge ordered by . ravin 11:33 Discharged to home ambulatory, with family. ss 11:33 Condition: good 11:33 Discharge instructions given to patient, Instructed on discharge instructions, follow up and referral plans. Demonstrated understanding of instructions, follow-up care. 11:35 Patient left the ED. ss Signatures: Dispatcher [employer] Lamin Thomson MD MD cha Blanchard, Shelby, RN RN Johnny Powers RN RN Martha Sanchez mm9
--- NOTE | 2023-05-23 11:17 | EDPHYS ---
Physician Documentation [facility] Name: Devan Poole Age: 67 yrs Sex: Male : 1955 Arrival Date: 05/23/2023 Time: 09:01 Bed 8 Private MD: ED Physician Lamin Dempsye HPI: 05/23 09:43 This 67 yrs old Black Male presents to ER via EMS with complaints of Syncope. ravin 09:43 The patient has experienced near-syncope, almost passed out, felt dizzy, felt faint. ravin Onset: The symptoms/episode began/occurred just prior to arrival. Duration: This was a single episode, that lasted 45 second(s). Context: the episode(s) was witnessed, by a significant other, . Associated injury: The patient did not suffer any apparent associated injury. Associated signs and symptoms: Pertinent positives: diaphoresis, lightheadedness. Current symptoms: Currently, the patient is not experiencing any symptoms. The patient has experienced similar episodes in the past, a few times. Historical: - Allergies: : No Known Allergies; jl7 - Home Meds: : Lipitor 10 mg Oral tab 1 tab once daily [Active]; clopidogrel oral [Active]; Metoprolol jl7 Tartrate Oral [Active]; - PMHx: : Hyperlipidemia; jl7 - PSHx: : Coronary artery bypass graft; 2021; jl7 - Immunization history:: Adult Immunizations up to date. - Social history:: Smoking status: Patient denies any tobacco usage or history of. ROS: 09:44 Constitutional: Negative for fever, chills, and weight loss, Eyes: Negative for injury, ravin pain, redness, and discharge, ENT: Negative for injury, pain, and discharge, Neck: Negative for injury, pain, and swelling, Cardiovascular: Negative for chest pain, palpitations, and edema, Respiratory: Negative for shortness of breath, cough, wheezing, and pleuritic chest pain, Abdomen/GI: Negative for abdominal pain, nausea, vomiting, diarrhea, and constipation, Back: Negative for injury and pain, : Negative for injury, bleeding, discharge, and swelling, MS/Extremity: Negative for injury and deformity, Skin: Negative for injury, rash, and discoloration, Psych: Negative for depression, anxiety, suicide ideation, homicidal ideation, and hallucinations, Allergy/Immunology: Negative for hives, rash, and allergies, Endocrine: Negative for neck swelling, polydipsia, polyuria, polyphagia, and marked weight changes, Hematologic/Lymphatic: Negative for swollen nodes, abnormal bleeding, and unusual bruising. 09:44 Neuro: Positive for near syncope, weakness. Exam: :44 Constitutional: This is a well developed, well nourished patient who is awake, alert, ravin and in no acute distress. Head/Face: Normocephalic, atraumatic. Eyes: Pupils equal round and reactive to light, extra-ocular motions intact. Lids and lashes normal. Conjunctiva and sclera are non-icteric and not injected. Cornea within normal limits. Periorbital areas with no swelling, redness, or edema. ENT: Nares patent. No nasal discharge, no septal abnormalities noted. Tympanic membranes are normal and external auditory canals are clear. Oropharynx with no redness, swelling, or masses, exudates, or evidence of obstruction, uvula midline. Mucous membranes moist. Neck: Trachea midline, no thyromegaly or masses palpated, and no cervical lymphadenopathy. Supple, full range of motion without nuchal rigidity, or vertebral point tenderness. No Meningismus. Chest/axilla: Normal chest wall appearance and motion. Nontender with no deformity. No lesions are appreciated. Cardiovascular: Regular rate and rhythm with a normal S1 and S2. No gallops, murmurs, or rubs. Normal PMI, no JVD. No pulse deficits. Respiratory: Lungs have equal breath sounds bilaterally, clear to auscultation and percussion. No rales, rhonchi or wheezes noted. No increased work of breathing, no retractions or nasal flaring. Abdomen/GI: Soft, non-tender, with normal bowel sounds. No distension or tympany. No guarding or rebound. No evidence of tenderness throughout. Back: No spinal tenderness. No costovertebral tenderness. Full range of motion. Skin: Warm, dry with normal turgor. Normal color with no rashes, no lesions, and no evidence of cellulitis. MS/ Extremity: Pulses equal, no cyanosis. Neurovascular intact. Full, normal range of motion. Neuro: Awake and alert, GCS 15, oriented to person, place, time, and situation. Cranial nerves II-XII grossly intact. Motor strength 5/5 in all extremities. Sensory grossly intact. Cerebellar exam normal. Normal gait. Psych: Awake, alert, with orientation to person, place and time. Behavior, mood, and affect are within normal limits. 09:44 ECG was reviewed by the Attending Physician. Vital Signs: 09:06 BP 122 / 86; Pulse 89; Resp 14; Temp 97.2; Pulse Ox 97% ; Weight 111.13 kg; Height 5 jl7 ft. 11 in. ; Pain 0/10; 10:28 BP 124 / 95; Pulse 60; Resp 16; Pulse Ox 99% on R/A; Pain 0/10; ss 09:06 Body Mass Index 34.17 (111.13 kg, 180.34 cm) jl7 09:06 Pain Scale: Adult jl7 10:28 Pain Scale: Adult ss MDM: 09:02 Patient medically screened. ravin 09:46 Differential Diagnosis: aortic aneurysm, cardiac arrhythmia, cerebrovascular accident, ravin idiopathic syncope, seizure, vasovagal episode. Data reviewed: vital signs, nurses notes, EMS record, lab test result(s), EKG, radiologic studies, CT scan, plain films. Consideration of Admission/Observation Escalation of care including admission/observation considered. I considered the following discharge prescriptions or medication management in the emergency department Medications were administered in the Emergency Department. See MAR. Test considered but Not performed: MRI: no mri , no echo. Historians other than the Patient: Spouse/Significant Other: , well informed. Care significantly affected by the following chronic conditions: hyperlipidemia. 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 05/23 09:04 Order name: Basic Metabolic Panel; Complete Time: 10:10 05/23 09:04 Order name: CBC with Diff; Complete Time: 10:10 05/23 09:04 Order name: LFT's; Complete Time: 10:10 05/23 09:04 Order name: Magnesium; Complete Time: 10:10 05/23 09:04 Order name: NT PRO-BNP; Complete Time: 10:10 05/23 09:04 Order name: PT-INR; Complete Time: 10:10 05/23 09:04 Order name: Troponin HS; Complete Time: 10:10 05/23 09:04 Order name: Lipase; Complete Time: 10:10 05/23 09:04 Order name: Urinalysis w/ reflexes; Complete Time: 10:10 05/23 10:16 Order name: CPK; Complete Time: 10:54 05/23 09:04 Order name: XRAY Chest (1 view); Complete Time: 10:54 05/23 09:04 Order name: CT Head Brain wo Cont; Complete Time: 10:10 05/23 10:16 Order name: US Rp Exam Complete 05/23 09:04 Order name: EKG; Complete Time: 09:06 05/23 09:04 Order name: Cardiac monitoring; Complete Time: 09:40 05/23 09:04 Order name: EKG - Nurse/Tech; Complete Time: 09:40 05/23 09:04 Order name: IV Saline Lock; Complete Time: 09:15 05/23 09:04 Order name: Labs collected and sent; Complete Time: 09:40 05/23 09:04 Order name: O2 Per Protocol; Complete Time: 09:15 05/23 09:04 Order name: O2 Sat Monitoring; Complete Time: 09:15 05/23 10:12 Order name: Misc. Order: gatorade; Complete Time: 10:18 ravin EC:44 Rate is 84 beats/min. Rhythm is regular. QRS [place] is Normal. [place] interval is prolonged ravin at 246 msec. QT interval is normal. No Q waves. T waves are Normal. No ST changes noted. Clinical impression: NSR w/ Non-specific ST/T Changes, 1st degree heart block, and No evidence of ischemia. Interpreted by me. Reviewed by me. Administered Medications: 09:14 Drug: NS 0.9% IV 1000 ml {Note: fluids continued from EMS, 700 mL left.} Route: IV; ss Rate: 1 bolus; Site: left antecubital; 10:30 Follow up: IV Intake: 1000ml ss 10:27 Drug: NS 0.9% IV 1000 ml Route: IV; Rate: 1 bolus; Site: left antecubital; ss 11:35 Follow up: IV Status: Completed infusion; IV Intake: 1000ml ss Disposition Summary: 05/23/23 11:16 Discharge Ordered Location: Home ravin Problem: new ravin Symptoms: have improved ravin Condition: Stable ravin Diagnosis - Syncope Near ravin - Dehydration ravin - Heat exhaustion, unspecified ravin - Unspecified kidney failure - acute on chronic ravin Followup: ravin - With: Private Physician - When: 2 - 3 days - Reason: Recheck today's complaints, Continuance of care, Re-evaluation by your physician Followup: ravin - With: - When: 2 - 3 days - Reason: Recheck today's complaints, Continuance of care, Re-evaluation by your physician Followup: ravin - With: - When: 2 - 3 days - Reason: Recheck today's complaints, Re-evaluation by your physician Discharge Instructions: - Discharge Summary Sheet ravin - Dehydration, Adult ravin - Near-Syncope ravin - Syncope ravin - Weakness ravin - Near-Syncope, [id number] ravin - Syncope, [id number] ravin - Acute Kidney Injury, Adult ravin - Weakness, [id number] ravin - Dehydration, Adult, [id number] ravin - Chronic Kidney Disease, Adult, [id number]-mz-Lyzl ravin - Rehydration, Adult ravin Forms: - Medication Reconciliation Form ravin - Thank You Letter ravin - Antibiotic Education ravin - Prescription Opioid Use ravin - Patient Portal Instructions ravin Signatures: Dispatcher [employer] Lamin Thomson MD MD cha Blanchard, Shelby, RN RN Johnny Powers RN RN jl7
--- NOTE | 2023-05-23 11:33 | RAD REPORT ---
EXAM DESCRIPTION: US - Renal Ultrasound-Complete - 05/23/2023 11:12 am CLINICAL HISTORY: arf COMPARISON: Abdomen Pelvis Wo Contrast dated 11/26/2018 TECHNIQUE: Sonographic grayscale and color flow images of the kidneys and bladder were obtained. FINDINGS: Both kidneys are normal in size, shape and echotexture. The right kidney measures 10.6 cm in length. No hydronephrosis, focal mass or perinephric fluid. The left kidney measures 10.8 cm in length. No hydronephrosis, focal mass or perinephric fluid. The urinary bladder is incompletely distended without gross abnormality seen. IMPRESSION: Unremarkable renal sonogram.
[2023-05-23 11:38] VITALS: TEMP 97.2
[2023-05-23 11:41] VITALS: BP 124/95; O2SAT 99
--- NOTE | 2023-05-26 11:53 | EKG ---
Test Date: 2023-05-23 Test Time: 09:25:47 Rip Saw Operator: WILBERT MEASUREMENT RESULTS: Intervals: Rate: 84 NH: 246 QRSD: 70 QT: 352 QTc: 415 [place]: P: 41 NH: 246 QRS: 12 T: 52 INTERPRETIVE STATEMENTS: Sinus rhythm with 1st degree AV block Otherwise normal ECG Compared to ECG 08/26/2022 10:02:28 No significant changes Electronically Signed On 05-26-23 11:47:15 CDT by Tawanda Connor
== END 2023-05-23 11:35 | disposition home or self-care (01) ==
LOC: ER 09:01
DX: E86.0 Dehydration (principal); T67.5XXA Heat exhaustion, unspecified, initial encounter; N17.9 Acute kidney failure, unspecified; N18.9 Chronic kidney disease, unspecified; E78.5 Hyperlipidemia, unspecified; Z95.1 Presence of aortocoronary bypass graft
CPT/HCPCS: 93005; 85025; 81001; 80048; 36415; 83735; 82550; 85610; 80076; 84484; 83690; 83880; 70450; 71045; 76770; 96360; 99285; J7030

== ENCOUNTER → 2024-01-30 | Emergency (ER) | payer OTHER ==
[~2024-01-30] MED LIST: ASPIRIN 81 MG CHEWABLE TABLET ONE; CLOPIDOGREL 75 MG TABLET ONE; ENOXAPARIN 100 MG/ML SYR SQ ONE; ENOXAPARIN 30 MG/0.3 ML SQ ONE; FAMOTIDINE 20 MG/2 ML VIAL IV ONE; HEPARIN 5000 UNIT/ML 1 ML VIAL ONE; NA CHLORIDE 0.9% 1,000 ML ONE
--- OUTSIDE RECORDS SUMMARY | 2024-01-30 10:24 | XMS REPORT | Continuity of Care Document ---
Author Name Unknown Address [address] [facility] [address] [place] [address] [facility] thconnect Address [address] [facility]. [address] [place] [address] Care Team Providers Care Assistant Chief Engineer Name Role Phone Douglas Conklin Primary Care Physician , [facility] Sleep Lab Bed Attending Clinician Unavail Noah Richter MD Attending Clinician NOAH DALTON Attending Clinician UnavailNOAH Noe Attending Clinician Unavailолег mcclellan Doctor Unassigned, [place] Attending Clinician U lul Brito Attending Clinician Unavailable Jessenia Mina Attending Clinician Unavailable Omega Frye Attending Clinician Tawanda Salcido Attending Clinician Unavailable [facility] Sleep Lab Attending Clinician Unavailолег Trujillo_Олег Admitting Clinician Unavailable Physician, No Primary or Family Admitting Clinic arpit Unavailable Omega Frye Admitting Clinician Andrae diaz Payers Payer Name Policy Type Policy Number Effective Date Expirati on Date Source [employer] CHOICE [id number] 2021 00:00:00 FOR LIFE [id number] 2023 00:00:00 [employer] (MEDICARE REPLACEMENT/ADVAN TAGE - PPO) [id number] WPS - FOR LIFE (MEDICARE SUPPLEMENT) [id number] Problems Condition Name Condition Details Condition Category Status Onset Date Resolution Date Last Treatment Date Treating Clinician Comments Source Hyperlipid emia Hyperlipid emia Problem Active 2022-11 00:00: 00 [facility] Coronary arterioscl erosis Coronary Arterioscl erosis Problem Active 2022-11 00:00: 00 [facility] Urgent desire to urinate Urgent Desire to Urinate Problem Active 02-17 00:00: 00 [facility] Arteriopat hic impotence Arteriopat hic Impotence Problem Active 05-07 00:00: 00 [facility] Allergies, Adverse Reactions, Alerts Allergy Name Allergy Type Status Severity Reaction(s) Onset Date Inactive Date Treating Clinician Comments Source No Known Allergie s DA Active U 2021-11 0-20 00:00: 00 [facility] No Known Allergie s DA Active U 8 00:00: 00 [facility] NO KNOWN ALLERGIE S Drug Class Active [facility] Social History Social Habit Start Date Stop Date Quantity Comments Source Sexual orientation U [facility] Sex Assigned At 1955 00:00:00 1955 00:00:00 [facility] Smoking Status Start Date Stop Date Source Never Smoker [facility] Tobacco smoking consumption unknown [facility] Medications Ordered Medication Name Filled Medication Name Start Date Stop Date Current Medication? Ordering Clinician Indication Dosage Frequency Signature (SIG) Comments Components Source omeprazole 40 mg capsule,del ayed release TAKE 1 CAPSULE BY MOUTH EVERY DAY omeprazole 40 mg capsule,del ayed release TAKE 1 CAPSULE BY MOUTH EVERY DAY No omeprazole 40 mg capsule,de layed release TAKE 1 CAPSULE BY MOUTH EVERY DAY [facility] pantoprazol e 40 mg tablet,dixon yed release TAKE 1 TABLET BY MOUTH TWICE DAILY 30 MINUTES BEFORE MEALS. pantoprazol e 40 mg tablet,dixon yed release TAKE 1 TABLET BY MOUTH TWICE DAILY 30 MINUTES BEFORE MEALS. No pantoprazo le 40 mg tablet,del ayed release TAKE 1 TABLET BY MOUTH TWICE DAILY 30 MINUTES BEFORE MEALS. [facility] simvastatin 20 mg tablet simvastatin 20 mg tablet No simvastati n 20 mg tablet [facility] tamsulosin 0.4 mg capsule Take 1 capsule every day by oral route in the evening for 90 days. tamsulosin 0.4 mg capsule Take 1 capsule every day by oral route in the evening for 90 days. No 1capsul e(s) Q1D tamsulosin 0.4 mg capsule Take 1 capsule every day by oral route in the evening for 90 days. [facility] bromphenira mine-pseudo ephedrine-D M 2 mg-30 mg-10 mg/5 mL oral syrup TAKE 5 ML BY MOUTH EVERY 6 HOURS FOR 7 DAYS NEEDED bromphenira mine-pseudo ephedrine-D M 2 mg-30 mg-10 mg/5 mL oral syrup TAKE 5 ML BY MOUTH EVERY 6 HOURS FOR 7 DAYS NEEDED No bromphenir amine-pseu doephedrin e-DM 2 mg-30 mg-10 mg/5 mL oral syrup TAKE 5 ML BY MOUTH EVERY 6 HOURS FOR 7 DAYS NEEDED [facility] Clomid 50 mg tablet Clomid 50 mg tablet No Clomid 50 mg tablet [facility] clopidogrel 75 mg tablet TAKE 1 TABLET BY MOUTH EVERY DAY clopidogrel 75 mg tablet TAKE 1 TABLET BY MOUTH EVERY DAY No clopidogre l 75 mg tablet TAKE 1 TABLET BY MOUTH EVERY DAY [facility] fluticasone propionate 50 mcg/actuati on nasal spray,suspe nsion fluticasone propionate 50 mcg/actuati on nasal spray,suspe nsion No fluticason e propionate 50 mcg/actuat ion nasal spray,susp ension [facility] levocetiriz ine 5 mg tablet TAKE 1 TABLET BY MOUTH EVERY DAY IN THE EVENING levocetiriz ine 5 mg tablet TAKE 1 TABLET BY MOUTH EVERY DAY IN THE EVENING No levocetiri zine 5 mg tablet TAKE 1 TABLET BY MOUTH EVERY DAY IN THE EVENING [facility] metoprolol succinate ER 50 mg tablet,exte nded release 24 hr TAKE 1 TABLET BY MOUTH EVERY DAY metoprolol succinate ER 50 mg tablet,exte nded release 24 hr TAKE 1 TABLET BY MOUTH EVERY DAY No metoprolol succinate ER 50 mg tablet,ext ended release 24 hr TAKE 1 TABLET BY MOUTH EVERY DAY [facility] omeprazole 40 mg capsule,del ayed release TAKE 1 CAPSULE BY MOUTH EVERY DAY omeprazole 40 mg capsule,del ayed release TAKE 1 CAPSULE BY MOUTH EVERY DAY No omeprazole 40 mg capsule,de layed release TAKE 1 CAPSULE BY MOUTH EVERY DAY [facility] pantoprazol e 40 mg tablet,dixon yed release TAKE 1 TABLET BY MOUTH TWICE DAILY 30 MINUTES BEFORE MEALS. pantoprazol e 40 mg tablet,dixon yed release TAKE 1 TABLET BY MOUTH TWICE DAILY 30 MINUTES BEFORE MEALS. No pantoprazo le 40 mg tablet,del ayed release TAKE 1 TABLET BY MOUTH TWICE DAILY 30 MINUTES BEFORE MEALS. [facility] simvastatin 20 mg tablet simvastatin 20 mg tablet No simvastati n 20 mg tablet [facility] tamsulosin 0.4 mg capsule Take 1 capsule every day by oral route in the evening for 90 days. tamsulosin 0.4 mg capsule Take 1 capsule every day by oral route in the evening for 90 days. No 1capsul e(s) Q1D tamsulosin 0.4 mg capsule Take 1 capsule every day by oral route in the evening for 90 days. [facility] Clomid 50 mg tablet Clomid 50 mg tablet No Clomid 50 mg tablet [facility] clopidogrel 75 mg tablet TAKE 1 TABLET BY MOUTH EVERY DAY clopidogrel 75 mg tablet TAKE 1 TABLET BY MOUTH EVERY DAY No clopidogre l 75 mg tablet TAKE 1 TABLET BY MOUTH EVERY DAY [facility] levocetiriz ine 5 mg tablet TAKE 1 TABLET BY MOUTH EVERY DAY IN THE EVENING levocetiriz ine 5 mg tablet TAKE 1 TABLET BY MOUTH EVERY DAY IN THE EVENING No levocetiri zine 5 mg tablet TAKE 1 TABLET BY MOUTH EVERY DAY IN THE EVENING [facility] metoprolol succinate ER 50 mg tablet,exte nded release 24 hr TAKE 1 TABLET BY MOUTH EVERY DAY metoprolol succinate ER 50 mg tablet,exte nded release 24 hr TAKE 1 TABLET BY MOUTH EVERY DAY No metoprolol succinate ER 50 mg tablet,ext ended release 24 hr TAKE 1 TABLET BY MOUTH EVERY DAY [facility] simvastatin 20 mg tablet simvastatin 20 mg tablet No simvastati n 20 mg tablet [facility] tamsulosin 0.4 mg capsule Take 1 capsule every day by oral route in the evening for 60 days. tamsulosin 0.4 mg capsule Take 1 capsule every day by oral route in the evening for 60 days. No 1capsul e(s) Q1D tamsulosin 0.4 mg capsule Take 1 capsule every day by oral route in the evening for 60 days. [facility] bromphenira mine-pseudo ephedrine-D M 2 mg-30 mg-10 mg/5 mL oral syrup TAKE 5 ML BY MOUTH EVERY 6 HOURS FOR 7 DAYS NEEDED bromphenira mine-pseudo ephedrine-D M 2 mg-30 mg-10 mg/5 mL oral syrup TAKE 5 ML BY MOUTH EVERY 6 HOURS FOR 7 DAYS NEEDED No bromphenir amine-pseu doephedrin e-DM 2 mg-30 mg-10 mg/5 mL oral syrup TAKE 5 ML BY MOUTH EVERY 6 HOURS FOR 7 DAYS NEEDED [facility] Clomid 50 mg tablet Clomid 50 mg tablet No Clomid 50 mg tablet [facility] clopidogrel 75 mg tablet TAKE 1 TABLET BY MOUTH EVERY DAY clopidogrel 75 mg tablet TAKE 1 TABLET BY MOUTH EVERY DAY No clopidogre l 75 mg tablet TAKE 1 TABLET BY MOUTH EVERY DAY [facility] fluticasone propionate 50 mcg/actuati on nasal spray,suspe nsion fluticasone propionate 50 mcg/actuati on nasal spray,suspe nsion No fluticason e propionate 50 mcg/actuat ion nasal spray,susp ension [facility] levocetiriz ine 5 mg tablet TAKE 1 TABLET BY MOUTH EVERY DAY IN THE EVENING levocetiriz ine 5 mg tablet TAKE 1 TABLET BY MOUTH EVERY DAY IN THE EVENING No levocetiri zine 5 mg tablet TAKE 1 TABLET BY MOUTH EVERY DAY IN THE EVENING [facility] metoprolol succinate ER 50 mg tablet,exte nded release 24 hr TAKE 1 TABLET BY MOUTH EVERY DAY metoprolol succinate ER 50 mg tablet,exte nded release 24 hr TAKE 1 TABLET BY MOUTH EVERY DAY No metoprolol succinate ER 50 mg tablet,ext ended release 24 hr TAKE 1 TABLET BY MOUTH EVERY DAY [facility] Immunizations Ordered Immunization Name Filled Immunization Name Date Status Comments Source COVID-19 (SARS-COV-2) vaccine, unspecified COVID-19 (SARS-COV-2) vaccine, unspecified Unknown Completed [facility] COVID-19 (SARS-COV-2) vaccine, unspecified COVID-19 (SARS-COV-2) vaccine, unspecified Unknown Completed [facility] COVID-19 (SARS-COV-2) vaccine, unspecified COVID-19 (SARS-COV-2) vaccine, unspecified Unknown Completed [facility] Vital Signs Vital Name Observation Time Observation Value Comments S aminata Body Weight 2023-12-09 00:00:00 250 [lb_av] [facility] BMI (Body Mass Index) 2023-12-09 00:00:00 34.9 kg/m2 [facility] BP Diastolic 2023-12-09 00:00:00 72 mm[Hg] [facility] Height 2023-12-09 00:00:00 71 [in_i] [place] [facility] BP Systolic 2023-12-09 00:00:00 138 mm[Hg] [place] [facility] BP Diastolic 2023-10-07 00:00:00 92 mm[Hg] [facility] Height 2023-10-07 00:00:00 71 [in_i] [place] [facility] BP Systolic 2023-10-07 00:00:00 156 mm[Hg] [place] [facility] BMI (Body Mass Index) 2023-10-07 00:00:00 36.5 kg/m2 [facility] Body Weight 2023-10-07 00:00:00 262 [lb_av] [facility] Procedures Procedure Date / Time Performed Performing Clinician Source SLEEP STUDY DATA REPORT 2024-01-08 06:01:00 Doct or Unassigned, [place] [facility] REFERRAL- REQUEST/RESPONSE 2023-12-24 06:01:00 Doctor Unassigned, [place] [facility] REFERRAL- REQUEST/RESPONSE 2023-09-25 06:01:00 Doctor Unassigned, [place] [facility] Cardio- Cabg 2022-08-30 00:00:00 [facility] [id number] 2022-08-30 00:00:00 CHAAB.01 [facility] [id number] 2022-08-30 00:00:00 CHAAB.01 [facility] [id number] 2022-08-30 00:00:00 CHAAB.01 [facility] [id number] 2022-08-30 00:00:00 CHAAB.01 [facility] [id number] 2022-08-30 00:00:00 CHAAB.01 [facility] [id number] 2022-08-30 00:00:00 CHAAB.01 [facility] [id number] 2022-08-30 00:00:00 CHAA[facility].01 [facility] [id number] 2022-08-30 00:00:00 CHAAB.01 [facility] [id number] 2022-08-30 00:00:00 CHAAB.01 [facility] [id number] 2022-08-30 00:00:00 CHAAB.01 [facility] [id number] 2022-08-30 00:00:00 CHAAB.01 [facility] SLEEP STUDY DATA REPORT 2022-06-11 05:01:00 Doct or Unassigned, [place] [facility] Colonoscopy 2016-11-10 00:00:00 [facility] GI- Appendectomy 2005-08-20 00:00:00 [facility] Plan of Care Planned Activity Planned Date Details Comments Source Diagnostic Test Pending 2023-12-09 00:00:00 urinalysis, dipstick [code = urinalysis, dipstick] [facility] Diagnostic Test Pending 2023-12-09 00:00:00 PSA, serum or plasma [code = PSA, serum or plasma] [facility] Instructions [facility] Encounters Start Date/Time End Date/Time Encounter Type Admission Type Attending Clinicians Care Facility Care Department Encounter ID Source 2024-03-17 20:00:00 2024-03-17 20:00:00 Outpatient R [facility] [id number] [facility] 2024-01-08 20:00:00 2024-01-08 22:30:00 Animal Taxonomist Visit 1, [facility] Sleep Lab Bed Sha Noah Ashraf [facility] [id number] 350.1.13.10 4.2.7.2.686 [id number] [facility] 2024-01-08 20:00:00 2024-01-08 20:00:00 Outpatient NOAH LIM STRAPRYvette [facility] [id number] [facility] 2024-01-08 00:00:00 2024-01-08 00:00:00 Orders Only Doctor Unassigned, [place] [address]114 350.1.13.10 4.2.7.2.686 [id number] [facility] 2024-01-01 20:00:00 2024-01-01 20:00:00 Outpatient NOAH LIM STRAPRYvette [facility] [id number] [facility] 2023-12-30 00:00:00 2023-12-30 00:00:00 Outpatient [facility] [place] [id number] [facility] 2023-12-24 00:00:00 2023-12-24 00:00:00 Orders Only Doctor Unassigned, [place] [address] [id number] 350.1.13.10 4.2.7.2.686 [id number] [facility] 2023-12-09 00:00:00 2023-12-09 00:00:00 [facility] [id number] [facility] 2023-12-09 00:00:00 2023-12-09 00:00:00 Ross Trujillo MD: [id number] [address], [place] [address] , Ph. [facility] [id number] [facility] 2023-10-28 08:19:00 2023-10-28 08:19:00 Outpatient YANIRA MinaJessenia [facility] [id number] 59 [facility] 2023-10-18 00:00:00 2023-10-18 00:00:00 Outpatient Hananel_A [facility] [id number] [facility] 2023-10-08 00:00:00 2023-10-08 00:00:00 Outpatient Hananel_A [facility] [id number] [facility] 2023-10-08 00:00:00 2023-10-08 00:00:00 Outpatient Hananel_A [facility] [id number] [facility] 2023-10-07 00:00:00 2023-10-07 00:00:00 Outpatient Hananel_A [facility] [id number] [facility] 2023-10-07 00:00:00 2023-10-07 00:00:00 Ross Trujillo MD: [id number] [address], [place] [address] , Ph. [facility] [id number] [facility] 2023-09-25 00:00:00 2023-09-25 00:00:00 Orders Only Doctor Unassigned, [place] [facility] [id number] 350.1.13.10 4.2.7.2.686 [id number] [facility] 2023-09-24 00:00:00 2023-09-24 00:00:00 Outpatient Hananel_A [facility] [id number] [facility] 2023-09-24 00:00:00 2023-09-24 00:00:00 Outpatient Hananel_A [facility] [id number] [facility] 2022-08-29 18:35:00 2022-09-03 14:12:00 Inpatient Martin Christensen [facility] [id number] [facility] 2022-07-01 14:26:00 2022-07-01 14:26:00 Outpatient Tawanda Burk [facility] [id number] [facility] 2022-06-11 14:00:00 2022-06-11 14:15:00 Animal Taxonomist Visit [facility], [facility] Lab Noah Dalton T [facility] 1..840.114 350.1.13.10 4.2.7.2.686 [id number] [facility] 2022-06-11 14:00:00 2022-06-11 14:00:00 Outpatient NOAH LIM STRAHIL [facility] [id number] [facility] 2022-06-11 00:00:00 2022-06-11 00:00:00 Orders Only Doctor Unassigned, [place] [facility] 1..840.114 350.1.13.10 4.2.7.2.686 [id number] [facility] 2022-05-22 16:43:00 2022-05-22 16:43:00 Outpatient Tawanda Connor [facility] [id number] [facility] 2022-05-21 13:54:00 2022-05-21 13:54:00 Outpatient Tawanda Connor [facility] [id number] [facility] Results Test Description Test Time Test Comments Results Result Co mments Source [facility] [id number] 14:37:00* Test Item Value Reference Range Interpretation Comme nts SURGICAL (test code = SR) R UN DATE: 10/31/23 [facility] PAGE 1 RUN TIME: 1833 Specimen Inquiry RUN USER: INTERFACE P ATIENT: CHRISTINAJACKELIN LOC: JOHNNY U #: [id number] AGE/SX: 68/M ROOM: RE10/28/23[facility] DR: Jessenia Mina MD : 53 BED: DIS: STATUS: [facility] TLOC: SPEC #: [id number] RECD: 10/28/23 STATUS: KYLE REHerbert #: [id number] IVANIA: 10/28/[address] [facility] [address]: Jessenia Mina MD ENTERED: 10/28/23 SP TYPE: SURGICAL OTHR DR: Walter Gonzales md ORDERED: 88078/2, 50246, ANATOMIC SPEC, SPECIMEN TRACK COPIES TO: Walter Gonzales md [address] [place] [address] [address] [place], [place] [address] Jessenia Mina MD [address] [place] [address] PROCEDURES: [id number] (10/28/23-1242) [id number] (10/30/23-1252) SPECIMEN TRACK (10/28/23) TISSUES: A. STOMACH BIOPSY/POLYP - GASTRIC BX B. ESOPHAGUS BIOPSY ADDENDUM FINDINGS Addendum #1 Entered: 10/31/23 Specimen A Immunohistochemistry stain, adequate control:- Negative for Helicobacter pylori- No change in original diagnosis Addendum Signed SIGNATURE ON FILE Arnol Pendleton 10/31/231833 FINAL DIAGNOSIS A. Stomach, endoscopic biopsy:- Minimal to focally mild superficial chronic inflammation, nonspecific- Negative for intestinal metaplasia- Negative for Helicobacter pylori (H E stain; pending immunostain for confirmation;addendum report to follow) CONTINUED ON NEXT PAGE R UN DATE: 10/31/23 [facility] PAGE 2 RUN TIME: 1833 Specimen Inquiry RUN USER: INTERFACE S PEC #: [id number]:[id number] PATIENT: JACKELIN VASQUEZ #[id number] (Continued) FINAL DIAGNOSIS (Continued) B. Esophagus, GE junction, endoscopic biopsy:- Reflux esophagitis changes, mild- Borderline eosinophilic esophagitis with up to 15 intraepithelial eosinophils per highpower field- Negative for intestinal metaplasia/dysplasia Comment: Suggest clinical correlation. GROSS DESCRIPTION A. Gastric biopsy. It consists of a single tissue fragment measuring less than 3 mm. Allas A1. B. Esophagus biopsy. It consists of 3 tissue fragments measuring 2 mm each. All as B1. Technical tissue processing and slide preparation performed at [facility],[id number] , [place] [address] Unless gross only, the diagnosis is based upon microscopic examination.Immunohistochemistr y: This test was developed and its performance characteristicsdetermined by this laboratory. It has not been approved nor does it need approval by the USFDA. Appropriate positive and negative controls are reviewed and judged to be acceptable.This laboratory is certified under the Clinical Laboratory Improvement Amendments (CLIA-88)as qualified to perform high complexity clinical laboratory testing. MICROSCOPIC DESCRIPTION Microscopic examination is performed on all specimens and the findings areincorporated into the final diagnosis. Please see diagnosis for findings. CLINICAL INFORMATION Gastritis. Hiatal Hernia ----- Signed SIGNATURE ON FILE Arnol Pendleton 10/30/23 1437 END OF REPORT PROTHROMBIN [id number] 13:12:00* Test Item Value Reference Range Interpretation Comme [facility] PT PATIENT (test code = PTP) 12.8 SECONDS 9.3-12.9 N INTERNATIONAL NORMAL RATIO (test code = INR) 1.16 INR Unit 0.8-1.2 N TARGET INR BY INDICATION Indication INR1. Prophylaxis of venous thrombosis 2.0 - 3.0 (orthopedic surgery), Prophylaxis of venous thrombosis (other than high-risk surgery), Treatment of Deep Vein Thrombosis/Pulmonary Embolism, Prevention of systemic embolism - Tissue heart valves, Acute Myocardial Infarction (to prevent systemic embolism), Valvular heart disease, Acute Myocardial Infarction (to prevent systemic embolism), Valvular heart disease, Atrial Fibrillation, Bileaflet mechanical valve in aortic position.2. Mechanical prosthetic valves (high risk), 2.5 - 3.5 Presence of Lupus Anticoagulant or Antiphospholipid Antibodies, Prevention of systemic embolism - Acute Myocardial Infarction (to prevent recurrent infarct). THROMBOPLASTIN TIME [id number] 13:12:00* Test Item Value Reference Range Interpretation Comme [facility] THROMBOPLASTIN TIME PARTIAL (test code = PTT) 29.3 SECONDS 26-35 N - XR CHEST 1 [id number] 12:29:00 [facility] 1955 Sex: M Name:JACKELIN VASQUEZ [facility] : 1955 Age/S: 68 / M [address] Unit #: [id number] Loc: [place] [address] Phys: Gabbi Gabriel MD Acct: [id number] Dis Date: Status: PRE [facility] PHONE#: [phone] Exam Date: 10/23/2023 1222 FAX #: Reason: PRESURGERY EXAMS: CPT: [id number] XR CHEST 1 V 10105 Fluoro Time: DAP (Gy m2): Air Kerma (mGy): S 17 TIME OF STUDY: 10/23/2023 9:38 AM REASONFOR EXAM: PRESURGERY COMPARISON: September 03, 2022. FINDINGS: AP view of the chest was obtained. Lungs: Normal lung volume. No mass, or consolidation. Normal pulmonary vascularity. Pleura: No pleural effusion or pneumothorax. Heart and Mediastinum: Normal cardiomediastinal silhouette and great vessels. 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 The median sternotomy wires are in the expected configuration. IMPRESSION: 1. No acute cardiopulmonary process. Electronically Signed by Chano Singh on10/23/2023 at 1229 Reported and signed by: Liam Singh M.D. CC: Walter Gonzales; Gabbi olguin MD; Jessenia Mina MD PAGE 1 Signed [facility] 1955 Age/S: 68 / M [id number] Unit #: [id number] Loc: [place] [address] Phys: Gabbi Gabriel MD Acct: [id number] Dis Date: Status: PRE SDC PHONE #: [phone] Exam Date: 10/23/20231221 FAX #: Reason: PRESURGERY EXAMS: CPT: [id number] XR CHEST 1 V 47559 Fluoro Time: DAP (Gy m2): Air Kerma (mGy): (Continued) Technologist: Kenn Hortab Date/Time: 10/23/2023 (1229) [email or web address] Orig PrintD/T: S: 10/23/2023 (9039) PAGE 2 Signed ReportBASIC METABOLIC [id number] 12:09:00* Test Item Value Reference Range Interpretation Comme nts SODIUM (test code = NA) 145 mmol/L 134-147 N POTASSIUM (test code = K) 3.8 mmol/L 3.4-5.0 N CHLORIDE (test code = CL) 112 mmol/L 100-108 H CARBON DIOXIDE (test code = CO2) 27 mmol/L 21-32 N ANION GAP (test code = GAP) 6.0 GAP calc 4.0-15.0 N GLUCOSE (test code = GLU) 111 MG/DL 70-110 H BLOOD UREA NITROGEN (test code = BUN) 18 MG/DL 7-18 N GLOMERULAR FILTRATION RATE (test code = GFR) 59 estGFR >60 L The Glomerular Filtration Rate is a calculated parameterbased on serum Creatinine, patient age and sex. GFR valuesless than 60 mL/min/1.73 square meters are indicative ofChronic Kidney Disease. Values less than 15 mL/min/1.73square meters indicate Kidney failure. The calculation forGFR is based on the CKD-EPI (2020) calculation. This formulais race indifferent and is the recommended formula for GFRby the National Kidney Foundation for Adults.The GFR will not calculate if the sex is unknown or if thepatient's age is <18 years. CREATININE (test code = CREAT) 1.3 MG/DL 0.8-1.3 N CALCIUM (test code = CA) 9.0 MG/DL 8.5-10.1 N CBC W/AUTO [id number] 11:51:00* Test Item Value Reference Range Interpretation Comme nts WHITE BLOOD CELL (test code = WBC) 5.1 K/mm3 3.5-11.0 N RED BLOOD CELL (test code = RBC) 4.27 M/mm3 4.70-6.10 L HEMOGLOBIN (test code = HGB) 13.7 G/DL 12.3-15.9 N HEMATOCRIT (test code = HCT) 41.3 % 35.8-46.7 N MEAN CELL VOLUME (test code = MCV) 96.7 Fl 86.3-98.9 N MEAN CELL HGB (test code = MCH) 32.1 pg 28.9-34.4 N MEAN CELL HGB CONCETRATION (test code = MCHC) 33.2 G/DL 32.1-34.5 N RED CELL DISTRIBUTION WIDTH (test code = RDW) 12.5 SD 11.5-14.5 N PLATELET COUNT (test code = PLT) 164 K/mm3 150-450 N MEAN PLATELET VOLUME (test c ode = MPV) 11.50 fL 7.0-9.6 H NEUTROPHIL % (test code = NT%) 48.0 % 40-76 N IMMATURE GRANULOCYTE % (test code = IG%) 0.4 % 0.0-5.0 N LYMPHOCYTE % (test code = LY%) 38.1 % 20.5-51.1 N MONOCYTE % (test code = MO%) 11.5 % 1.7-9.3 H EOSINOPHIL % (test code = EO%) 1.8 % 0.0-6.0 N BASOPHIL % (test code = BA%) 0.2 % 0.0-2.0 N NUCLEATED RBC % (test code = NRBC%) 0.0 /100WBC% 0.0-1.0 N NEUTROPHIL # (test code = NT#) 2.5 K/mm3 1.8-7.6 N IMMATURE GRANULOCYTE # (test code = IG#) 0.02 x10 3/uL 0.00-0.03 N LYMPHOCYTE # (test code = LY#) 2.0 K/mm3 0.6-3.0 N MONOCYTE # (test code = MO#) 0.6 K/mm3 0.2-1.5 N EOSINOPHIL # (test code = EO#) 0.1 K/mm3 0.0-0.4 N BASOPHIL # (test code = BA#) 0.0 K/mm3 0.0-0.2 N NUCLEATED RBC # (test code = NRBC#) 0.0 K/mm3 0.00-0.01 N COVID 19 INHOUSE [id number] 11:48:00* Test Item Value Reference Range Interpretation Comme nts COVID 19 INHOUSE AG (test code = [id number]) NEGATIVE Negative Per natural gas basis trader , negative results should be treated aspresumptive and, if inconsistent with clinical signs andsymptoms or necessary for patient management, should betested with an alternative molecular assay. Negative resultsdo not preclude SARS-CoV-2 infection and should not be usedas the sole basis for patient management decisions. Negative results should be considered in the context of apatient's recent exposures, history, presence of clinicalsigns and symptoms consistent with COVID-19. Urinalysis macro (dipstick) panel - [id number] 16:21:00* Test Item Value Reference Range Interpretation Comme nts leukocytes (test code = leukocytes) negative neg urobilinogen (test code = urobilinogen) 0.2 E.U./dL sm amt (.5-1mg/dL) protein (test code = protein) negative See_Comment [[employer]] The system which generated this result transmitted reference range: <=150 mg/d. The reference range was not used to interpret this result as normal/abnormal. pH (test code = pH) 6.0 4.5-8 blood (test code = blood) negative See_Comment [[employer]] The system which generated this result transmitted reference range: <=3 RBC. The reference range was not used to interpret this result as normal/abnormal. specific gravity (test code = specific gravity) 1.020 1.005-1.025 ketone (test code = ketone) negative none bilirubin (test code = bilirubin) negative neg glucose (test code = glucose) negative See_Comment [[employer]] The system which generated this result transmitted reference range: <=130 mg/d. The reference range was not used to interpret this result as normal/abnormal. color (test code = color) yellow yellow clarity (test code = clarity) clear clear or cloudy nitrite (test code = nitrite) negative neg [facility] [id number] 13:43:00* Test Item Value Reference Range Interpretation Comme nts SURGICAL (test code = SR) R UN DATE: 09/03/22 [place] - LAB PAGE 1 RUN TIME: 1343 Specimen Inquiry RUN USER: INTERFACE Soraida ATIENT: JACKELIN VASQUEZ LOC: [facility] U #: [id number] AGE/SX: 66/M ROOM: [facility] [place] RE08/29/22REG DR: Omega Frye : 54 BED: 1 DIS: STATUS: ADM IN TLOC: SPEC #: [id number] RECD: 09/02/22 STATUS: KYLE REQ #: [id number] IVANIA: 08/30/22 DR: Omega Frye MD ENTERED: 09/02/22 SP TYPE: SURGICAL OTHR DR: No Primary or Family Physician Self Referred Darius Silva MD, Molham MD Mouchli, Anas MDORDERED: [id number], ANATOMIC SPEC COPIES TO: No Primary or Family Physician Self Referred Darius Silva MD [address] [place] [address] Bhavya Fish MD [address] [place] [address] Omega Frye MD [address] [place] [address]. [address] [place] [address] Gurvinder Alonso MD [address] [place] [address] PROCEDURES: 47131 (09/02/22) TISSUES: A. ATRIUM - LEFT ATRIAL APPENDAGE CLINICAL HISTORY SAME CONTINUED ON NEXT PAGE R UN DATE: 09/03/22 [place] - LAB PAGE 2 RUN TIME: 1343 Specimen Inquiry RUN USER: INTERFACE S PEC #: [id number] PATIENT: JACKELIN VASQUEZ #[id number] (Continued) FINAL DIAGNOSIS Heart, left atrial appendage, submitted: Cardiac muscle with degenerative change, featuresconsistent with atrial appendage. GROSS DESCRIPTION Received in formalin labeled left atrial appendage is a 2.5 x 2 x 1 cm portion of cardiactissue with attached adipose submitted in 1 cassette. Technical component performed at [facility],[address] [place] [id number] Unless gross only, the diagnosis is based upon microscopic examination.Immunohistochemistr y: This test was developed and its performance characteristicsdetermined by this laboratory. It has not been approved nor does it need approvalby the [place] FDA. Appropriate positive and negative controls are reviewed and judgedto be acceptable. This laboratory is certified under the Clinical Laboratory ImprovementAmendments (CLIA-88) as qualified to perform high complexity clinical laboratory testing. CLINICAL INFORMATION CAD -- Signed SIGNATURE ON FILE Cabrera Lopez 09/03/22 1343 END OF REPORT BASIC METABOLIC [id number] 05:16:00* Test Item Value Reference Range Interpretation Comme nts SODIUM (test code = NA) 139 mEq/L 134-147 N POTASSIUM (test code = K) 4.2 mEq/L 3.4-5.0 N CHLORIDE (test code = CL) 108 mEq/L 100-108 N CARBON DIOXIDE (test code = CO2) 22 mEq/l 21-33 N ANION GAP (test code = GAP) 14 0-20 N GLUCOSE (test code = GLU) 101 mg/dL 70-110 N BLOOD UREA NITROGEN (test code = BUN) 12 mg/dL 7-18 N GLOMERULAR FILTRATION RATE (test code = GFR) 80.8 80-90 N Units of measure = ml/min/1.73 m2 CREATININE (test code = CREAT) 1.1 mg/dL 0.6-1.3 N CALCIUM (test code = CA) 8.8 mg/dL 8.0-10.5 N [id number] 05:16:00* Test Item Value Reference Range Interpretation Comme nts MAGNESIUM (test code = MAG) 1.83 mg/dL 1.80-2.40 N CBC W/AUTO [id number] 04:44:00* Test Item Value Reference Range Interpretation Comme nts WHITE BLOOD CELL (test code = WBC) 8.6 x10 3/uL 4.5-11.0 N RED BLOOD CELL (test code = RBC) 3.23 x10 6/uL 4.00-5.60 L HEMOGLOBIN (test code = HGB) 10.7 g/dL 12.5-16.9 L HEMATOCRIT (test code = HCT) 31.4 % 37.5-50.7 L MEAN CELL VOLUME (test code = MCV) 97.2 fL 81.0-99.0 N MEAN CELL HGB (test code = MCH) 33.1 pg 27.0-33.0 H MEAN CELL HGB CONCETRATION (test code = MCHC) 34.1 g/dL 33.0-37.0 N RED CELL DISTRIBUTION WIDTH CV (test code = RDW) 12.8 % 11.5-14.5 N RED CELL DISTRIBUTION WIDTH SD (test code = RDW-SD) 45.2 fL 37.0-54.0 N PLATELET COUNT (test code = PLT) 143 x10 3/uL 150-400 L MEAN PLATELET VOLUME (test c ode = MPV) 10.5 fL 7.0-9.0 H NEUTROPHIL % (test code = NT%) 60.5 % 56.0-77.0 N IMMATURE GRANULOCYTE % (test code = IG%) 0.7 % 0.0-2.0 N LYMPHOCYTE % (test code = LY%) 23.3 % 14.0-32.0 N MONOCYTE % (test code = MO%) 14.6 % 4.8-9.0 H EOSINOPHIL % (test code = EO%) 0.8 % 0.3-3.7 N BASOPHIL % (test code = BA%) 0.1 % 0.0-2.0 N NUCLEATED RBC % (test code = NRBC%) 0.0 % 0-0 N NEUTROPHIL # (test code = NT#) 5.20 x10 3/uL 2.0-7.6 N IMMATURE GRANULOCYTE # (test code = IG#) 0.06 x10 3/uL 0.00-0.03 H LYMPHOCYTE # (test code = LY#) 2.01 x10 3/uL 1.0-3.8 N MONOCYTE # (test code = MO#) 1.26 x10 3/uL 0.1-0.8 H EOSINOPHIL # (test code = EO#) 0.07 x10 3/uL 0.0-0.2 N BASOPHIL # (test code = BA#) 0.01 x10 3/uL 0.0-0.2 N NUCLEATED RBC # (test code = NRBC#) 0.00 x10 3/uL 0.0-0.1 N MANUAL DIFF REQUIRED (test c ode = MDIFF) NO - XR CHEST 1 [id number] 00:00:00 [facility] 1955 Sex: M FAX: Omega Montoya [phone] [place]: St: [facility] FAX: Lyssa Peterson [phone] ----- Name: JACKELIN VASQUEZ [facility] : 1955 Age/S: 66/M [address] [place] [address] Unit #: [id number] Loc: G.3355 [place] [address] Phys: Lizbeth Peterson [employer] Acct: [id number] Dis Date: Status: ADM IN PHONE #: [phone] Exam Date: 09/03/2022623 FAX #: [phone] Reason: Cardiac Surgery Post Op EXAMS: CPT CODE: [id number] XR CHEST 1 V 00029 PROCEDURE INFORMATION: Exam: XR Chest Exam date and time: 09/03/2022 5:30 AM Age: 66 years old Clinical indication: Other: Cardiac surgery post op TECHNIQUE: Imaging protocol: Radiologic exam of the chest. Views: 1 view. COMPARISON: CR XR CHEST 1V 09/02/2022 4:48AM FINDINGS: Lungs: Improved right basilar airspace disease. Stable left basilar airspace disease. Pleural spaces: Small left pleural effusion. No pneumothorax. Heart/Mediastinum: Cardiomediastinal silhouette is stable. Bones/joints: Sternotomy wires no pneumothorax. IMPRESSION: 1. Stable left basilar airspace disease may be due to atelectasis or infiltrate. 2. Small left pleural effusion. at 0824 Reported and signedby: Emily Hernandez M.D. CC: Omega Frye MD; Lizbeth Peterson NP Technologist: RT Teresa(R) Trnscrd Date/Time/By: 09/03/2022 (823) : By: [email or web address] Orig Print D/T: S: 09/03/2022 (823) PAGE 1 Signed ReportBASIC METABOLIC [id number] 02:39:00* Test Item Value Reference Range Interpretation Comme nts SODIUM (test code = NA) 139 mEq/L 134-147 N POTASSIUM (test code = K) 3.8 mEq/L 3.4-5.0 N CHLORIDE (test code = CL) 107 mEq/L 100-108 N CARBON DIOXIDE (test code = CO2) 25 mEq/l 21-33 N ANION GAP (test code = GAP) 11 0-20 N GLUCOSE (test code = GLU) 109 mg/dL 70-110 N BLOOD UREA NITROGEN (test code = BUN) 12 mg/dL 7-18 N GLOMERULAR FILTRATION RATE (test code = GFR) 80.8 80-90 N Units of measure = ml/min/1.73 m2 CREATININE (test code = CREAT) 1.1 mg/dL 0.6-1.3 N CALCIUM (test code = CA) 8.9 mg/dL 8.0-10.5 N COMMENTS: POD #1HEPATIC FUNCTION [id number] 02:39:00* Test Item Value Reference Range Interpretation Comme nts TOTAL PROTEIN (test code = PROT) 6.5 g/dL 6.4-8.2 N ALBUMIN (test code = ALB) 3.50 g/dL 3.4-5.0 N BILIRUBIN TOTAL (test code = BILT) 1.50 mg/dL 0.0-1.0 H BILIRUBIN DIRECT (test code = BILD) 0.60 MG/DL 0.0-0.30 H BILIRUBIN INDIRECT (test cod e = BILIND) 0.90 MG/DL SGOT/AST (test code = AST) 50 IUnit/L 15-37 H SGPT/ALT (test code = ALT) 37 IUnit/L 30-65 N ALKALINE PHOSPHATASE TOTAL ( test code = ALKP) 84 IUnit/L 20-125 N COMMENTS: POD #[id number] 02:39:00* Test Item Value Reference Range Interpretation Comme nts MAGNESIUM (test code = MAG) 1.95 mg/dL 1.80-2.40 N COMMENTS: POD #1CBC W/AUTO [id number] 02:23:00* Test Item Value Reference Range Interpretation Comme nts WHITE BLOOD CELL (test code = WBC) 13.1 x10 3/uL 4.5-11.0 H RED BLOOD CELL (test code = RBC) 3.45 x10 6/uL 4.00-5.60 L HEMOGLOBIN (test code = HGB) 11.5 g/dL 12.5-16.9 L HEMATOCRIT (test code = HCT) 33.9 % 37.5-50.7 L MEAN CELL VOLUME (test code = MCV) 98.3 fL 81.0-99.0 N MEAN CELL HGB (test code = MCH) 33.3 pg 27.0-33.0 H MEAN CELL HGB CONCETRATION (test code = MCHC) 33.9 g/dL 33.0-37.0 N RED CELL DISTRIBUTION WIDTH CV (test code = RDW) 12.5 % 11.5-14.5 N RED CELL DISTRIBUTION WIDTH SD (test code = RDW-SD) 45.2 fL 37.0-54.0 N PLATELET COUNT (test code = PLT) 122 x10 3/uL 150-400 L MEAN PLATELET VOLUME (test c ode = MPV) 10.6 fL 7.0-9.0 H NEUTROPHIL % (test code = NT%) 65.4 % 56.0-77.0 N IMMATURE GRANULOCYTE % (test code = IG%) 0.8 % 0.0-2.0 N LYMPHOCYTE % (test code = LY%) 18.4 % 14.0-32.0 N MONOCYTE % (test code = MO%) 15.0 % 4.8-9.0 H EOSINOPHIL % (test code = EO%) 0.2 % 0.3-3.7 L BASOPHIL % (test code = BA%) 0.2 % 0.0-2.0 N NUCLEATED RBC % (test code = NRBC%) 0.0 % 0-0 N NEUTROPHIL # (test code = NT#) 8.56 x10 3/uL 2.0-7.6 H IMMATURE GRANULOCYTE # (test code = IG#) 0.10 x10 3/uL 0.00-0.03 H LYMPHOCYTE # (test code = LY#) 2.40 x10 3/uL 1.0-3.8 N MONOCYTE # (test code = MO#) 1.96 x10 3/uL 0.1-0.8 H EOSINOPHIL # (test code = EO#) 0.02 x10 3/uL 0.0-0.2 N BASOPHIL # (test code = BA#) 0.02 x10 3/uL 0.0-0.2 N NUCLEATED RBC # (test code = NRBC#) 0.00 x10 3/uL 0.0-0.1 N MANUAL DIFF REQUIRED (test c ode = MDIFF) NO - DUP VEIN [id number] 00:00:00 [facility] : 1955 Sex: M Name: JACKELIN VASQUEZ [facility] : 1955 Age/S: 66 / M [address] [place] [address] Unit #: [id number] Loc: [place], [place] [address] Phys: Lizbeth Peterson [employer] Acct: [id number] Dis Date: Status: ADMIN PHONE #: [phone] Exam Date: 09/02/2022 1248 FAX #: [phone] Reason: R/O DVT FOR DISCHARGE Report Has Been Amended EXAMS: CPT CODE: [id number] DUP VEIN STEPHENIE 96737 Addendum - 09/02/2022 SIGNED 09/02/2022 ADDENDUM: [id number] US/DUPVBIL This is an addendum to the previously dictated report to document communication. Findings were discussed with Lizbeth Peterson at 09/02/2022 2:52 PM CDT. at 1452 Reported and signed by: eJsu Schaefer M.D. Report PROCEDURE INFORMATION: Exam: US Duplex Lower [...] profunda femoral and popliteal veins are patent with out thrombus. Right superficial veins: Saphenofemoral junction is patent without thrombus. Left deep veins: Unremarkable. The common femoral, femoral, proximal profunda femoral and popliteal veins are patent without thrombus. Normal Doppler waveforms. Normal compressibility and/or augmentation response. Left superficial veins: Saphenofemoral junction is patent without thrombus. Soft tissues: Unrem arkable. IMPRESSION: 1. Right lower extremity DVT with thrombus in the right posterior tibial vein.PAGE 1 Signed Report (CONTINUED) Name: JACKELIN VASQUEZ [facility] : 1955 Age/S: 66 / M [address] [place] [address] Unit #: [id number] Loc: [place] [address] Phys: Lizbeth Peterson [employer] Acct: [id number] Dis Date: Status: ADM IN PHONE #: [phone] Exam Date: 09/02/2022 1248 FAX #: [phone] Reason: R/O DVT FOR DISCHARGE Report Has Been Amended EXAMS: CPT CODE: [id number] DUP VEIN STEPHENIE 37363 (Continued) 2. No evidence of deep vein thrombosis in the left lower extremity. at 1450 Reported and signed by: Jesu Schaefer M.D. CC: Omega Frye MD; Lizbeth Peterson NP Technologist: Keerthi Mcdaniel RDMS(AB) Trnscb Date/Time: 09/02/2022 (1449) t.AB53 Orig Print D/T: S: 09/02/2022 (1449) Probe: PAGE 2 Signed Report- XR CHEST 1 [id number] 00:00:00 [facility] 1955 Sex: M FAX: Omega Montoya [phone] [place]: St: ADM FAX: Lyssa Peterson [phone] ----- Name: JACKELIN VASQUEZ [facility] : 1955 Age/S: 66/M [address] [place] [address] Bl Unit #: [id number] Loc: [place] [address] Phys: Lizbeth Peterson [employer] Acct: [id number] Dis Date: Status: ADM IN PHONE #: [phone] Exam Date: 09/02/2022 0600 FAX #: [phone] Reason: Cardiac Surgery Post Op EXAMS: CPT CODE: [id number] XR CHEST 1 V 08429 PROCEDURE INFORMATION: Exam: XR Chest Exam date [...] atelectasis. at 0910 Reported and signed by: Dwight Bartholomew M.D. CC: Omega Frye MD; Lizbeth Peterson NP Technologist: Antonina Franz RT(R) Trnscrd Date/Time/By: 09/02/2022 (2810) : By: GilbertoTTV Orig Print D/T: S: 09/02/2022 (0410) PAGE 1 Signed ReportBASIC METABOLIC PANEL 2022-09-01 01:40:00* Test Item Value Reference Range Interpretation Comme nts SODIUM (test code = NA) 137 mEq/L 134-147 N POTASSIUM (test code = K) 4.0 mEq/L 3.4-5.0 N CHLORIDE (test code = CL) 106 mEq/L 100-108 CARBON DIOXIDE (test code = CO2) 22 mEq/l 21-33 N ANION GAP (test code = GAP) 13 0-20 N GLUCOSE (test code = GLU) 130 mg/dL 70-110 H BLOOD UREA NITROGEN (test code = BUN) 15 mg/dL 7-18 GLOMERULAR FILTRATION RATE (test code = GFR) 73.1 80-90 L Units of measure = ml/min/1.73 m2 CREATININE (test code = CREAT) 1.2 mg/dL 0.6-1.3 N CALCIUM (test code = CA) 8.5 mg/dL 8.0-10.5 N COMMENTS: POD #1HEPATIC FUNCTION [id number] 01:40:00* Test Item Value Reference Range Interpretation Comme nts TOTAL PROTEIN (test code = PROT) 6.2 g/dL 6.4-8.2 L ALBUMIN (test code = ALB) 3.60 g/dL 3.4-5.0 N BILIRUBIN TOTAL (test code = BILT) 0.90 mg/dL 0.0-1.0 BILIRUBIN DIRECT (test code = BILD) 0.30 MG/DL 0.0-0.30 BILIRUBIN INDIRECT (test cod e = BILIND) 0.60 MG/DL SGOT/AST (test code = AST) 48 IUnit/L 15-37 H SGPT/ALT (test code = ALT) 34 IUnit/L 30-65 N ALKALINE PHOSPHATASE TOTAL ( test code = ALKP) 73 IUnit/L 20-125 N COMMENTS: POD #[id number] 01:40:00* Test Item Value Reference Range Interpretation Comme nts MAGNESIUM (test code = MAG) 1.78 mg/dL 1.80-2.40 L COMMENTS: POD #1CBC W/AUTO [id number] 01:26:00* Test Item Value Reference Range Interpretation Comme nts WHITE BLOOD CELL (test code = WBC) 12.8 x10 3/uL 4.5-11.0 H RED BLOOD CELL (test code = RBC) 3.40 x10 6/uL 4.00-5.60 L HEMOGLOBIN (test code = HGB) 11.3 g/dL 12.5-16.9 L HEMATOCRIT (test code = HCT) 33.8 % 37.5-50.7 L MEAN CELL VOLUME (test code = MCV) 99.4 fL 81.0-99.0 H MEAN CELL HGB (test code = MCH) 33.2 pg 27.0-33.0 H MEAN CELL HGB CONCETRATION (test code = MCHC) 33.4 g/dL 33.0-37.0 N RED CELL DISTRIBUTION WIDTH CV (test code = RDW) 12.8 % 11.5-14.5 N RED CELL DISTRIBUTION WIDTH SD (test code = RDW-SD) 46.2 fL 37.0-54.0 N PLATELET COUNT (test code = PLT) 118 x10 3/uL 150-400 L MEAN PLATELET VOLUME (test c ode = MPV) 11.0 fL 7.0-9.0 H NEUTROPHIL % (test code = NT%) 66.0 % 56.0-77.0 N IMMATURE GRANULOCYTE % (test code = IG%) 0.5 % 0.0-2.0 N LYMPHOCYTE % (test code = LY%) 17.0 % 14.0-32.0 N MONOCYTE % (test code = MO%) 16.3 % 4.8-9.0 H EOSINOPHIL % (test code = EO%) 0.0 % 0.3-3.7 L BASOPHIL % (test code = BA%) 0.2 % 0.0-2.0 N NUCLEATED RBC % (test code = NRBC%) 0.0 % 0-0 N NEUTROPHIL # (test code = NT#) 8.43 x10 3/uL 2.0-7.6 H IMMATURE GRANULOCYTE # (test code = IG#) 0.06 x10 3/uL 0.00-0.03 H LYMPHOCYTE # (test code = LY#) 2.17 x10 3/uL 1.0-3.8 N MONOCYTE # (test code = MO#) 2.08 x10 3/uL 0.1-0.8 H EOSINOPHIL # (test code = EO#) 0.00 x10 3/uL 0.0-0.2 N BASOPHIL # (test code = BA#) 0.02 x10 3/uL 0.0-0.2 N NUCLEATED RBC # (test code = NRBC#) 0.00 x10 3/uL 0.0-0.1 N MANUAL DIFF REQUIRED (test c ode = MDIFF) NO - XR CHEST 1 [id number] 00:00:00 [facility] : 1955 Sex: M FAX: Omega Montoya [phone] [place]: St: ADM FAX: Lyssa Peterson [phone] ----- Name: JACKELIN VASQUEZ [facility] : 1955 Age/S: 66/M [address] [place] [address] Unit #: [id number] Loc: G.[address] [place] [address] Phys: Lizbeth Peterson [employer] Acct: [id number] Dis Date: Status: ADM IN PHONE #: [phone] Exam Date: 09/01/202204 FAX #: [phone] Reason: Cardiac Surgery Post Op EXAMS: CPT C ODE: [id number] XR CHEST 1 V 33347 PROCEDURE INFORMATION: Exam: XR Chest Exam date and time: 09/01/2022 6:04 AM Age: 66 years old Clinical indication: Pain; Chest pressure; Additional info: Cardiac surgery post op TECHNIQUE: Imaging protocol: Radiologic exam of the chest. Views: 1 view. COMPARISON:CR XR CHEST 1V 08/31/2022 5:50 AM FINDINGS: Tubes, catheters and devices: Removal of the right IJ central line. Lungs: Worsening opacities in the lung bases. The other lung opacities are stable. Pleural spaces: Small left pleural effusion could be present. No definite pneumothorax. Heart/Mediastinum: Stable enlarged heart size. Bones/joints: Stable. Median sternotomy wires. IMPRESSION: 1. Worsening opacities in the lung bases. 2. Removal of the right IJ central line. at 0816 Reported and signed by: Sandro Landis M.D. CC: Omega Frye MD; Lizbeth Peterson NP Technologist: RT Israel(R) Trnscrd Date/Time/By:09/01/2022 (815) : By: GilbertoSW20 Orig Print D/T: S: 09/01/2022 (16) PAGE 1 Signed ReportGLUCOSE [id number] 21:52:00* Test Item Value Reference Range Interpretation Comme nts GLUCOSE BEDSIDE (test code = GLUBED) 97 MG/DL 70-110 N Performed by [facility] tified phone circuit operator at [facility] GLUCOSE [id number] 06:58:00* Test Item Value Reference Range Interpretation Comme nts GLUCOSE BEDSIDE (test code = GLUBED) 136 MG/DL 70-110 H Performed by cer tified phone circuit operator at [facility] BASIC METABOLIC [id number] 04:23:00* Test Item Value Reference Range Interpretation Comme nts SODIUM (test code = NA) 142 mEq/L 134-147 N POTASSIUM (test code = K) 4.3 mEq/L 3.4-5.0 N CHLORIDE (test code = CL) 112 mEq/L 100-108 H CARBON DIOXIDE (test code = CO2) 22 mEq/l 21-33 N ANION GAP (test code = GAP) 13 0-20 N GLUCOSE (test code = GLU) 117 mg/dL 70-110 H BLOOD UREA NITROGEN (test code = BUN) 11 mg/dL 7-18 N GLOMERULAR FILTRATION RATE (test code = GFR) 80.8 80-90 N Units of measure = ml/min/1.73 m2 CREATININE (test code = CREAT) 1.1 mg/dL 0.6-1.3 N CALCIUM (test code = CA) 8.4 mg/dL 8.0-10.5 N COMMENTS: POD #1HEPATIC FUNCTION [id number] 04:23:00* Test Item Value Reference Range Interpretation Comme nts TOTAL PROTEIN (test code = PROT) 5.7 g/dL 6.4-8.2 L ALBUMIN (test code = ALB) 3.40 g/dL 3.4-5.0 N BILIRUBIN TOTAL (test code = BILT) 0.70 mg/dL 0.0-1.0 BILIRUBIN DIRECT (test code = BILD) 0.20 MG/DL 0.0-0.30 N BILIRUBIN INDIRECT (test cod e = BILIND) 0.50 MG/DL SGOT/AST (test code = AST) 45 IUnit/L 15-37 H SGPT/ALT (test code = ALT) 42 IUnit/L 30-65 N ALKALINE PHOSPHATASE TOTAL ( test code = ALKP) 73 IUnit/L 20-125 N COMMENTS: POD #[id number] 04:23:00* Test Item Value Reference Range Interpretation Comme nts MAGNESIUM (test code = MAG) 2.01 mg/dL 1.80-2.40 N COMMENTS: POD #1LACTIC [id number] 04:06:00* Test Item Value Reference Range Interpretation Comme nts LACTIC ACID (test code = LACT) 0.9 mmol/L 0.4-1.9 N CBC W/AUTO [id number] 03:56:00* Test Item Value Reference Range Interpretation Comme nts WHITE BLOOD CELL (test code = WBC) 11.8 x10 3/uL 4.5-11.0 H RED BLOOD CELL (test code = RBC) 3.53 x10 6/uL 4.00-5.60 L HEMOGLOBIN (test code = HGB) 11.7 g/dL 12.5-16.9 L HEMATOCRIT (test code = HCT) 34.3 % 37.5-50.7 L MEAN CELL VOLUME (test code = MCV) 97.2 fL 81.0-99.0 N MEAN CELL HGB (test code = MCH) 33.1 pg 27.0-33.0 H MEAN CELL HGB CONCETRATION (test code = MCHC) 34.1 g/dL 33.0-37.0 N RED CELL DISTRIBUTION WIDTH CV (test code = RDW) 12.7 % 11.5-14.5 N RED CELL DISTRIBUTION WIDTH SD (test code = RDW-SD) 45.2 fL 37.0-54.0 N PLATELET COUNT (test code = PLT) 128 x10 3/uL 150-400 L MEAN PLATELET VOLUME (test c ode = MPV) 10.4 fL 7.0-9.0 H NEUTROPHIL % (test code = NT%) 76.4 % 56.0-77.0 N IMMATURE GRANULOCYTE % (test code = IG%) 0.5 % 0.0-2.0 N LYMPHOCYTE % (test code = LY%) 9.4 % 14.0-32.0 L MONOCYTE % (test code = MO%) 13.6 % 4.8-9.0 H EOSINOPHIL % (test code = EO%) 0.0 % 0.3-3.7 L BASOPHIL % (test code = BA%) 0.1 % 0.0-2.0 N NUCLEATED RBC % (test code = NRBC%) 0.0 % 0-0 N NEUTROPHIL # (test code = NT#) 9.02 x10 3/uL 2.0-7.6 H IMMATURE GRANULOCYTE # (test code = IG#) 0.06 x10 3/uL 0.00-0.03 H LYMPHOCYTE # (test code = LY#) 1.11 x10 3/uL 1.0-3.8 N MONOCYTE # (test code = MO#) 1.61 x10 3/uL 0.1-0.8 H EOSINOPHIL # (test code = EO#) 0.00 x10 3/uL 0.0-0.2 N BASOPHIL # (test code = BA#) 0.01 x10 3/uL 0.0-0.2 N NUCLEATED RBC # (test code = NRBC#) 0.00 x10 3/uL 0.0-0.1 N MANUAL DIFF REQUIRED (test c ode = MDIFF) NO POC ARTERIAL BLOOD [id number] 03:46:00* Test Item Value Reference Range Interpretation Comme nts POC ARTERIAL BLOOD GAS PH (t est code = POCPHA) 7.377 7.35-7.45 N POC ARTERIAL BLOOD GAS PCO2 (test code = OPQHRD6A) 38.3 mmHg 35.0-45 N POC TCO2 ARTERIAL (test code = POCTCO2) 23.4 POC ARTERIAL BLOOD GAS PO2 ( test code = WSUYR1H) 89.2 mmHg 80-100.0 N POC HCO3 ARTERIAL (test code = HPNQEA2L) 22.3 MMOL/L 22.0-26.0 N POC BASE EXCESS (test code = POCBEA) -2.7 MMOL/L -4.0-4.0 N POC O2 SATURATION (test code = POCO2S) 96.3 % 90-100 N ABG DELIVERY (test code = DIXON) Cannula ABG TEMPERATURE (test code = TEMPA) 100.2 F ABG SITE (test code = SITEA) Art Line BASIC METABOLIC [id number] 03:46:00* Test Item Value Reference Range Interpretation Comme nts SODIUM (test code = NA/ABG) 142 MEQ/L 134-147 N POTASSIUM (test code = K/ABG) 4.2 MEQ/L 3.4-5.0 N CHLORIDE (test code = CL/ABG) 109 MEQ/L 100-108 H CREATININE ABG (test code = CREAABG) 1.2 mg/dL 0.8-1.3 POC IONIZED CALCIUM (test co de = POCCA) 1.28 MMOL/L 1.12-1.32 N POC GLUCOSE (test code = POCGLU) 113 MG/DL 70-110 H HEMOGLOBIN [id number] 03:46:00* Test Item Value Reference Range Interpretation Comme nts HEMOGLOBIN ABG (test code = HGB/ABG) 12.1 G/DL 12.5-16.9 L [id number] 03:46:00* Test Item Value Reference Range Interpretation Comme nts HEMATOCRIT (test code = HCT/ABG) 36 % 37.5-50.7 L POC LACTIC [id number] 03:46:00* Test Item Value Reference Range Interpretation Comme nts POC LACTIC ACID (test code = POCLAC) 1.1 mmol/l 0.9-1.7 N GLUCOSE [id number] 02:21:00* Test Item Value Reference Range Interpretation Comme nts GLUCOSE BEDSIDE (test code = GLUBED) 124 MG/DL 70-110 H Performed by cer tified phone circuit operator at [facility] GLUCOSE [id number] 00:10:00* Test Item Value Reference Range Interpretation Comme nts GLUCOSE BEDSIDE (test code = GLUBED) 118 MG/DL 70-110 H Performed by cer tified phone circuit operator at [facility] - XR CHEST 1 [id number] 00:00:00 [facility] ZHANNA TUOLUMNEName: JACKELIN VASQUEZ : 1955 Sex: M FAX: Omega Montoya [phone] [place]: St: ADM FAX: Lyssa Peterson [phone] ----- Name: JACKELIN VASQUEZ [facility] [place] : 1955 Age/S: 66/M [address] [place] [address] Unit #: [id number] Loc: [id number] [place] [id number] Phys: Lizbeth Peterson [employer] Acct: [id number] Dis Date: Status: ADM IN PHONE #: [phone] Exam Date: 08/31/2022 0550 FAX #: [phone] Reason: Cardiac Surgery Post Op EXAMS: CPT CODE: [id number] XR CHEST 1 V [id number] PROCEDURE INFORMATION: Exam: XR Chest Exam date and time: 08/31/2022 5:50 AM Age: 66 years old Clinical indication: Pain; Chest pressure; Additional info: Cardiac surgery post op TECHNIQUE: Imaging protocol: Radiologic exam of the chest. Views: 1 view. COMPARISON:CR XR CHEST 1V 08/30/2022 3:14 PM FINDINGS: [...] 2. Unchanged possible small left pleural effusion. at 08 Reported and signed by: Roddy Villaseñor M.D. CC: Omega Frye MD; Lizbeth Peterson NP Technologist: YOLANDA Charles) Trnscrd Date/Time/By:08/31/2022 () : By: [email or web address] Orig Print D/T: S: 08/31/2022 ([facility]) PAGE 1 Signed ReportGLUCOSE [id number] 22:57:00* Test Item Value Reference Range Interpretation Comme [facility] GLUCOSE BEDSIDE (test code = GLUBED) 96 MG/DL 70-110 N Performed by cer tified phone circuit operator at [facility] GLUCOSE [id number] 20:04:00* Test Item Value Reference Range Interpretation Comme [facility] GLUCOSE BEDSIDE (test code = GLUBED) 103 MG/DL 70-110 N Performed by [employer] phone circuit operator at [facility] POC ARTERIAL BLOOD [id number] 18:23:00* Test Item Value Reference Range Interpretation Comme [facility] POC ARTERIAL BLOOD GAS PH (t est code = POCPHA) 7.311 7.35-7.45 L POC ARTERIAL BLOOD GAS PCO2 (test code = PUNKRT1Z) 44.1 mmHg 35.0-45 N POC TCO2 ARTERIAL (test code = POCTCO2) 23.6 POC ARTERIAL BLOOD GAS PO2 ( test code = VRMWR1E) 135.0 mmHg 80-100.0 H POC HCO3 ARTERIAL (test code = MKWTRC5Z) 22.2 MMOL/L 22.0-26.0 N POC BASE EXCESS (test code = POCBEA) -4.0 MMOL/L -4.0-4.0 N POC O2 SATURATION (test code = POCO2S) 98.8 % 90-100 N BASIC METABOLIC [id number] 18:23:00* Test Item Value Reference Range Interpretation Comme nts SODIUM (test code = NA/ABG) 144 MEQ/L 134-147 N POTASSIUM (test code = K/ABG) 3.9 MEQ/L 3.4-5.0 N CHLORIDE (test code = CL/ABG) 113 MEQ/L 100-108 H CREATININE ABG (test code = CREAABG) 0.9 mg/dL 0.8-1.3 N POC IONIZED CALCIUM (test co de = POCCA) 1.26 MMOL/L 1.12-1.32 N POC GLUCOSE (test code = POCGLU) 123 MG/DL 70-110 H HEMOGLOBIN [id number] 18:23:00* Test Item Value Reference Range Interpretation Comme nts HEMOGLOBIN ABG (test code = HGB/ABG) 13.1 G/DL 12.5-16.9 N [id number] 18:23:00* Test Item Value Reference Range Interpretation Comme nts HEMATOCRIT (test code = HCT/ABG) 39 % 37.5-50.7 N POC LACTIC [id number] 18:23:00* Test Item Value Reference Range Interpretation Comme nts POC LACTIC ACID (test code = POCLAC) 1.7 mmol/l 0.9-1.7 N LACTIC ACID [id number] 18:21:00* Test Item Value Reference Range Interpretation Comme nts LACTIC ACID REPEAT (test cod e = LACTR) 1.6 mmol/l 0.4-1.9 N POC ARTERIAL BLOOD [id number] 16:56:00* Test Item Value Reference Range Interpretation Comme nts POC ARTERIAL BLOOD GAS PH (t est code = POCPHA) 7.369 7.35-7.45 N POC ARTERIAL BLOOD GAS PCO2 (test code = SUGGDD4T) 39.2 mmHg 35.0-45 N POC TCO2 ARTERIAL (test code = POCTCO2) 23.8 POC ARTERIAL BLOOD GAS PO2 ( test code = XWFUR2V) 131.5 mmHg 80-100.0 H POC HCO3 ARTERIAL (test code = JCPMMS9J) 22.6 MMOL/L 22.0-26.0 N POC BASE EXCESS (test code = POCBEA) -2.7 MMOL/L -4.0-4.0 N POC O2 SATURATION (test code = POCO2S) 98.9 % 90-100 N BASIC METABOLIC [id number] 16:56:00* Test Item Value Reference Range Interpretation Comme nts SODIUM (test code = NA/ABG) 143 MEQ/L 134-147 N POTASSIUM (test code = K/ABG) 4.0 MEQ/L 3.4-5.0 N CHLORIDE (test code = CL/ABG) 110 MEQ/L 100-108 H CREATININE ABG (test code = CREAABG) 1.0 mg/dL 0.8-1.3 N POC IONIZED CALCIUM (test co de = POCCA) 1.25 MMOL/L 1.12-1.32 N POC GLUCOSE (test code = POCGLU) 113 MG/DL 70-110 H HEMOGLOBIN [id number] 16:56:00* Test Item Value Reference Range Interpretation Comme nts HEMOGLOBIN ABG (test code = HGB/ABG) 11.6 G/DL 12.5-16.9 L [id number] 16:56:00* Test Item Value Reference Range Interpretation Comme nts HEMATOCRIT (test code = HCT/ABG) 34 % 37.5-50.7 L POC LACTIC [id number] 16:56:00* Test Item Value Reference Range Interpretation Comme nts POC LACTIC ACID (test code = POCLAC) 2.0 mmol/l 0.9-1.7 H THROMBOPLASTIN TIME [id number] 16:11:00* Test Item Value Reference Range Interpretation Comme nts THROMBOPLASTIN TIME PARTIAL (test code = PTT) 25.4 Seconds 25.0-39.5 N Therapeutic Rang e: 50.4 - 88.3 Seconds Effective 02/23/2019 COMMENTS: On arrivalBASIC METABOLIC [id number] 15:57:00* Test Item Value Reference Range Interpretation Comme nts SODIUM (test code = NA) 144 mEq/L 134-147 N POTASSIUM (test code = K) 4.2 mEq/L 3.4-5.0 N CHLORIDE (test code = CL) 112 mEq/L 100-108 H CARBON DIOXIDE (test code = CO2) 24 mEq/l 21-33 N ANION GAP (test code = GAP) 13 0-20 N GLUCOSE (test code = GLU) 144 mg/dL 70-110 H BLOOD UREA NITROGEN (test code = BUN) 12 mg/dL 7-18 N GLOMERULAR FILTRATION RATE (test code = GFR) 80.8 80-90 N Units of measure = ml/min/1.73 m2 CREATININE (test code = CREAT) 1.1 mg/dL 0.6-1.3 N CALCIUM (test code = CA) 8.8 mg/dL 8.0-10.5 N COMMENTS: On [id number] 15:57:00* Test Item Value Reference Range Interpretation Comme nts MAGNESIUM (test code = MAG) 1.80 mg/dL 1.80-2.40 N COMMENTS: On arrivalLACTIC [id number] 15:56:00* Test Item Value Reference Range Interpretation Comme nts LACTIC ACID (test code = LACT) 2.5 mmol/L 0.4-1.9 H POC ARTERIAL BLOOD [id number] 15:49:00* Test Item Value Reference Range Interpretation Comme nts POC ARTERIAL BLOOD GAS PH (t est code = POCPHA) 7.329 7.35-7.45 L POC ARTERIAL BLOOD GAS PCO2 (test code = VPCLKM1Y) 42.8 mmHg 35.0-45 N POC TCO2 ARTERIAL (test code = POCTCO2) 23.9 POC ARTERIAL BLOOD GAS PO2 ( test code = JNSEJ9G) 81.1 mmHg 80-100.0 N POC HCO3 ARTERIAL (test code = IUQSRK4D) 22.6 MMOL/L 22.0-26.0 N POC BASE EXCESS (test code = POCBEA) -3.4 MMOL/L -4.0-4.0 N POC O2 SATURATION (test code = POCO2S) 95.2 % 90-100 N FIO2 (test code = FIO2A) 50 % PaO2/FiO2 (test code = ELT7FZJ6) 162.20 mm/Hg ABG DELIVERY (test code = DIXON) Adult Vent ABG VENT MODE (test code = MODEA) AC ABG VENT RESP RATE (test cod e = RRA) 18 /MIN ABG TIDAL VOLUME (test code = TVA) 500 ml ABG PEEP (test code = PEEPA) 5 cmH2O ABG TEMPERATURE (test code = TEMPA) 98 F ABG SITE (test code = SITEA) Art Line MIKE'S TEST (test code = ALLENS) N/A BASIC METABOLIC [id number] 15:49:00* Test Item Value Reference Range Interpretation Comme nts SODIUM (test code = NA/ABG) 143 MEQ/L 134-147 N POTASSIUM (test code = K/ABG) 4.1 MEQ/L 3.4-5.0 N CHLORIDE (test code = CL/ABG) 111 MEQ/L 100-108 H CREATININE ABG (test code = CREAABG) 1.0 mg/dL 0.8-1.3 POC IONIZED CALCIUM (test co de = POCCA) 1.34 MMOL/L 1.12-1.32 H POC GLUCOSE (test code = POCGLU) 143 MG/DL 70-110 H HEMOGLOBIN [id number] 15:49:00* Test Item Value Reference Range Interpretation Comme nts HEMOGLOBIN ABG (test code = HGB/ABG) 11.3 G/DL 12.5-16.9 L [id number] 15:49:00* Test Item Value Reference Range Interpretation Comme nts HEMATOCRIT (test code = HCT/ABG) 33 % 37.5-50.7 L POC LACTIC [id number] 15:49:00* Test Item Value Reference Range Interpretation Comme nts POC LACTIC ACID (test code = POCLAC) 2.3 mmol/l 0.9-1.7 H CBC W/AUTO [id number] 15:46:00* Test Item Value Reference Range Interpretation Comme nts WHITE BLOOD CELL (test code = WBC) 14.6 x10 3/uL 4.5-11.0 H RED BLOOD CELL (test code = RBC) 3.59 x10 6/uL 4.00-5.60 L HEMOGLOBIN (test code = HGB) 11.7 g/dL 12.5-16.9 L HEMATOCRIT (test code = HCT) 34.8 % 37.5-50.7 L MEAN CELL VOLUME (test code = MCV) 96.9 fL 81.0-99.0 N MEAN CELL HGB (test code = MCH) 32.6 pg 27.0-33.0 N MEAN CELL HGB CONCETRATION (test code = MCHC) 33.6 g/dL 33.0-37.0 N RED CELL DISTRIBUTION WIDTH CV (test code = RDW) 12.5 % 11.5-14.5 N RED CELL DISTRIBUTION WIDTH SD (test code = RDW-SD) 44.7 fL 37.0-54.0 N PLATELET COUNT (test code = PLT) 124 x10 3/uL 150-400 L MEAN PLATELET VOLUME (test code = MPV) 10.0 fL 7.0-9.0 H NEUTROPHIL % (test code = NT%) 74.5 % 56.0-77.0 N IMMATURE GRANULOCYTE % (test code = IG%) 0.8 % 0.0-2.0 N LYMPHOCYTE % (test code = LY%) 18.5 % 14.0-32.0 N MONOCYTE % (test code = MO%) 5.8 % 4.8-9.0 N EOSINOPHIL % (test code = EO%) 0.3 % 0.3-3.7 N BASOPHIL % (test code = BA%) 0.1 % 0.0-2.0 N NUCLEATED RBC % (test code = NRBC%) 0.0 % 0-0 N NEUTROPHIL # (test code = NT#) 10.85 x10 3/uL 2.0-7.6 H IMMATURE GRANULOCYTE # (test code = IG#) 0.12 x10 3/uL 0.00-0.03 H LYMPHOCYTE # (test code = LY#) 2.69 x10 3/uL 1.0-3.8 N MONOCYTE # (test code = MO#) 0.84 x10 3/uL 0.1-0.8 H EOSINOPHIL # (test code = EO#) 0.04 x10 3/uL 0.0-0.2 N BASOPHIL # (test code = BA#) 0.01 x10 3/uL 0.0-0.2 N NUCLEATED RBC # (test code = NRBC#) 0.00 x10 3/uL 0.0-0.1 N MANUAL DIFF REQUIRED (test code = MDIFF) NO COMMENTS: On [id number] 14:51:00* Test Item Value Reference Range Interpretation Comme nts ACT-ISTAT (test code = ACTI) 103 SEC 74-137 N Performed by cer tified phone circuit operator at [facility] POC ARTERIAL BLOOD [id number] 14:50:00* Test Item Value Reference Range Interpretation Comme [facility] POC ARTERIAL BLOOD GAS PH (t est code = POCPHA) 7.308 7.35-7.45 L POC ARTERIAL BLOOD GAS PCO2 (test code = MLXMEH7G) 49.3 mmHg 35.0-45 H POC TCO2 ARTERIAL (test code = POCTCO2) 26.2 POC ARTERIAL BLOOD GAS PO2 ( test code = UYIIB1L) 125.6 mmHg 80-100.0 H POC HCO3 ARTERIAL (test code = SCJZUF1G) 24.7 MMOL/L 22.0-26.0 N POC BASE EXCESS (test code = POCBEA) -1.8 MMOL/L -4.0-4.0 N POC O2 SATURATION (test code = POCO2S) 98.4 % 90-100 N BASIC METABOLIC [id number] 14:50:00* Test Item Value Reference Range Interpretation Comme nts SODIUM (test code = NA/ABG) 145 MEQ/L 134-147 N POTASSIUM (test code = K/ABG) 3.8 MEQ/L 3.4-5.0 N CHLORIDE (test code = CL/ABG) 109 MEQ/L 100-108 H CREATININE ABG (test code = CREAABG) 0.8 mg/dL 0.8-1.3 N POC IONIZED CALCIUM (test co de = POCCA) 1.38 MMOL/L 1.12-1.32 H POC GLUCOSE (test code = POCGLU) 144 MG/DL 70-110 H HEMOGLOBIN [id number] 14:50:00* Test Item Value Reference Range Interpretation Comme nts HEMOGLOBIN ABG (test code = HGB/ABG) 9.7 G/DL 12.5-16.9 L [id number] 14:50:00* Test Item Value Reference Range Interpretation Comme nts HEMATOCRIT (test code = HCT/ABG) 28 % 37.5-50.7 L POC LACTIC [id number] 14:50:00* Test Item Value Reference Range Interpretation Comme nts POC LACTIC ACID (test code = POCLAC) 2.2 mmol/l 0.9-1.7 H [id number] 14:06:00* Test Item Value Reference Range Interpretation Comme nts ACT-ISTAT (test code = ACTI) 595 SEC 74-137 H Performed by cer tified phone circuit operator at [facility] POC ARTERIAL BLOOD [id number] 13:52:00* Test Item Value Reference Range Interpretation Comme nts POC ARTERIAL BLOOD GAS PH (t est code = POCPHA) 7.429 7.35-7.45 N POC ARTERIAL BLOOD GAS PCO2 (test code = ULCTZX0G) 37.0 mmHg 35.0-45 N POC TCO2 ARTERIAL (test code = POCTCO2) 25.6 POC ARTERIAL BLOOD GAS PO2 ( test code = XKJUD9O) 363.2 mmHg 80-100.0 HH POC HCO3 ARTERIAL (test code = BZKJNB1C) 24.5 MMOL/L 22.0-26.0 N POC BASE EXCESS (test code = POCBEA) 0.2 MMOL/L -4.0-4.0 N POC O2 SATURATION (test code = POCO2S) 100.0 % 90-100 N BASIC METABOLIC [id number] 13:52:00* Test Item Value Reference Range Interpretation Comme nts SODIUM (test code = NA/ABG) 144 MEQ/L 134-147 N POTASSIUM (test code = K/ABG) 5.0 MEQ/L 3.4-5.0 N CHLORIDE (test code = CL/ABG) 109 MEQ/L 100-108 H CREATININE ABG (test code = CREAABG) 0.9 mg/dL 0.8-1.3 N POC IONIZED CALCIUM (test co de = POCCA) 1.08 MMOL/L 1.12-1.32 L POC GLUCOSE (test code = POCGLU) 93 MG/DL 70-110 N HEMOGLOBIN [id number] 13:52:00* Test Item Value Reference Range Interpretation Comme nts HEMOGLOBIN ABG (test code = HGB/ABG) 9.8 G/DL 12.5-16.9 L [id number] 13:52:00* Test Item Value Reference Range Interpretation Comme nts HEMATOCRIT (test code = HCT/ABG) 29 % 37.5-50.7 L POC LACTIC [id number] 13:52:00* Test Item Value Reference Range Interpretation Comme nts POC LACTIC ACID (test code = POCLAC) 0.9 mmol/l 0.9-1.7 N [id number] 13:46:00* Test Item Value Reference Range Interpretation Comme nts ACT-ISTAT (test code = ACTI) 642 SEC 74-137 H Performed by cer tified phone circuit operator at [facility] POC ARTERIAL BLOOD [id number] 13:27:00* Test Item Value Reference Range Interpretation Comme nts POC ARTERIAL BLOOD GAS PH (t est code = POCPHA) 7.339 7.35-7.45 L POC ARTERIAL BLOOD GAS PCO2 (test code = IGAHUU5T) 51.5 mmHg 35.0-45 HH POC TCO2 ARTERIAL (test code = POCTCO2) 29.3 POC ARTERIAL BLOOD GAS PO2 ( test code = UMVMF5V) 384.2 mmHg 80-100.0 HH POC HCO3 ARTERIAL (test code = FHBTKY0O) 27.8 MMOL/L 22.0-26.0 H POC BASE EXCESS (test code = POCBEA) 1.4 MMOL/L -4.0-4.0 N POC O2 SATURATION (test code = POCO2S) 99.9 % 90-100 N BASIC METABOLIC [id number] 13:27:00* Test Item Value Reference Range Interpretation Comme nts SODIUM (test code = NA/ABG) 144 MEQ/L 134-147 N POTASSIUM (test code = K/ABG) 5.2 MEQ/L 3.4-5.0 H CHLORIDE (test code = CL/ABG) 108 MEQ/L 100-108 N CREATININE ABG (test code = CREAABG) 0.8 mg/dL 0.8-1.3 N POC IONIZED CALCIUM (test co de = POCCA) 1.09 MMOL/L 1.12-1.32 L POC GLUCOSE (test code = POCGLU) 92 MG/DL 70-110 N HEMOGLOBIN [id number] 13:27:00* Test Item Value Reference Range Interpretation Comme nts HEMOGLOBIN ABG (test code = HGB/ABG) 9.5 G/DL 12.5-16.9 L [id number] 13:27:00* Test Item Value Reference Range Interpretation Comme nts HEMATOCRIT (test code = HCT/ABG) 28 % 37.5-50.7 L POC LACTIC [id number] 13:27:00* Test Item Value Reference Range Interpretation Comme nts POC LACTIC ACID (test code = POCLAC) 0.9 mmol/l 0.9-1.7 N [id number] 12:57:00* Test Item Value Reference Range Interpretation Comme nts ACT-ISTAT (test code = ACTI) 468 SEC 74-137 H Performed by cer tified phone circuit operator at [facility] POC ARTERIAL BLOOD [id number] 12:41:00* Test Item Value Reference Range Interpretation Comme nts POC ARTERIAL BLOOD GAS PH (t est code = POCPHA) 7.331 7.35-7.45 L POC ARTERIAL BLOOD GAS PCO2 (test code = DECNPT9T) 44.6 mmHg 35.0-45 N POC TCO2 ARTERIAL (test code = POCTCO2) 24.9 POC ARTERIAL BLOOD GAS PO2 ( test code = ZEGCC3J) 434.4 mmHg 80-100.0 HH POC HCO3 ARTERIAL (test code = CDDVCO0N) 23.6 MMOL/L 22.0-26.0 N POC BASE EXCESS (test code = POCBEA) -2.5 MMOL/L -4.0-4.0 N POC O2 SATURATION (test code = POCO2S) 100.0 % 90-100 N BASIC METABOLIC [id number] 12:41:00* Test Item Value Reference Range Interpretation Comme nts SODIUM (test code = NA/ABG) 145 MEQ/L 134-147 N POTASSIUM (test code = K/ABG) 3.7 MEQ/L 3.4-5.0 N CHLORIDE (test code = CL/ABG) 110 MEQ/L 100-108 H CREATININE ABG (test code = CREAABG) 1.0 mg/dL 0.8-1.3 N POC IONIZED CALCIUM (test co de = POCCA) 1.18 MMOL/L 1.12-1.32 N POC GLUCOSE (test code = POCGLU) 96 MG/DL 70-110 N HEMOGLOBIN [id number] 12:41:00* Test Item Value Reference Range Interpretation Comme nts HEMOGLOBIN ABG (test code = HGB/ABG) 13.0 G/DL 12.5-16.9 N [id number] 12:41:00* Test Item Value Reference Range Interpretation Comme nts HEMATOCRIT (test code = HCT/ABG) 38 % 37.5-50.7 N POC LACTIC [id number] 12:41:00* Test Item Value Reference Range Interpretation Comme nts POC LACTIC ACID (test code = POCLAC) 1.0 mmol/l 0.9-1.7 N [id number] 11:57:00* Test Item Value Reference Range Interpretation Comme nts ACT-ISTAT (test code = ACTI) 121 SEC 74-137 N Performed by cer tified phone circuit operator at [facility] POC ARTERIAL BLOOD [id number] 11:49:00* Test Item Value Reference Range Interpretation Comme nts POC ARTERIAL BLOOD GAS PH (t est code = POCPHA) 7.426 7.35-7.45 N POC ARTERIAL BLOOD GAS PCO2 (test code = JEPOLC9S) 34.9 mmHg 35.0-45 L POC TCO2 ARTERIAL (test code = POCTCO2) 24.0 POC ARTERIAL BLOOD GAS PO2 ( test code = MCZIG0S) 304.0 mmHg 80-100.0 HH POC HCO3 ARTERIAL (test code = TMHXLF1S) 22.9 MMOL/L 22.0-26.0 N POC BASE EXCESS (test code = POCBEA) -0.9 MMOL/L -4.0-4.0 N POC O2 SATURATION (test code = POCO2S) 99.9 % 90-100 N BASIC METABOLIC [id number] 11:49:00* Test Item Value Reference Range Interpretation Comme nts SODIUM (test code = NA/ABG) 147 MEQ/L 134-147 N POTASSIUM (test code = K/ABG) 3.6 MEQ/L 3.4-5.0 N CHLORIDE (test code = CL/ABG) 111 MEQ/L 100-108 H CREATININE ABG (test code = CREAABG) 0.9 mg/dL 0.8-1.3 N POC IONIZED CALCIUM (test co de = POCCA) 1.20 MMOL/L 1.12-1.32 N POC GLUCOSE (test code = POCGLU) 78 MG/DL 70-110 N HEMOGLOBIN [id number] 11:49:00* Test Item Value Reference Range Interpretation Comme nts HEMOGLOBIN ABG (test code = HGB/ABG) 14.6 G/DL 12.5-16.9 N [id number] 11:49:00* Test Item Value Reference Range Interpretation Comme nts HEMATOCRIT (test code = HCT/ABG) 43 % 37.5-50.7 N POC LACTIC [id number] 11:49:00* Test Item Value Reference Range Interpretation Comme [facility] POC LACTIC ACID (test code = POCLAC) 0.6 mmol/l 0.9-1.7 L B-TYPE NATRIURETIC [id number] 10:39:00* Test Item Value Reference Range Interpretation Comme nts B-TYPE NATRIURETIC PEPTIDE ( test code = BNP) 28.0 PG/ML 0-100 N COMPREHENSIVE METABOLIC [id number] 04:11:00* Test Item Value Reference Range Interpretation Comme nts SODIUM (test code = NA) 142 mEq/L 134-147 N POTASSIUM (test code = K) 3.8 mEq/L 3.4-5.0 N CHLORIDE (test code = CL) 108 mEq/L 100-108 N CARBON DIOXIDE (test code = CO2) 25 mEq/l 21-33 N ANION GAP (test code = GAP) 13 0-20 N GLUCOSE (test code = GLU) 92 mg/dL 70-110 N BLOOD UREA NITROGEN (test code = BUN) 13 mg/dL 7-18 N GLOMERULAR FILTRATION RATE (test code = GFR) 90.2 80-90 H Units of measure = ml/min/1.73 m2 CREATININE (test code = CREAT) 1.0 mg/dL 0.6-1.3 N TOTAL PROTEIN (test code = PROT) 7.0 g/dL 6.4-8.2 N ALBUMIN (test code = ALB) 3.90 g/dL 3.4-5.0 N CALCIUM (test code = CA) 9.1 mg/dL 8.0-10.5 N BILIRUBIN TOTAL (test code = BILT) 0.50 mg/dL 0.0-1.0 N SGOT/AST (test code = AST) 35 IUnit/L 15-37 N SGPT/ALT (test code = ALT) 66 IUnit/L 30-65 H ALKALINE PHOSPHATASE TOTAL (test code = ALKP) 108 IUnit/L 20-125 N LIPID PROFILE (CORONARY RISK)2022-08-30 04:11:00* Test Item Value Reference Range Interpretation Comme nts TRIGLYCERIDES (test code = TRIG) 133 mg/dL 40-150 N CHOLESTEROL (test code = CHOL) 164 mg/dL <200 CHOLESTEROL/HDL RATIO (test code = CHOLHDL) 5.34 RATIO 3.43-4.97 H RISK ASSOCIATED WITH CHOL/HDL RATIOS: RISK MALE FEMALE1/2 AVERAGE 3.43 3.27AVERAGE 4.97 4.442X AVERAGE 9.55 7.053X AVERAGE 23.39 11.04 NOTE THAT THE REFERENCE VALUE IS RELATEDTO RISK LEVELS RECOMMENDED BY THE NATL.HEART, LUNG, AND BLOOD INST. HDL CHOLESTEROL (test code = HDL) 30.7 mg/dL 32-72 L LIPOPROTEIN LDL (test code = LDL) 122.3 mg/dL 0-100 H <100 [id number] 0-129 NEAR OPTIMAL/ABOVE [id number] HIGH>SW=091 VERY HIGH*Guidelines provided by the National Cholesterol EducationProgram Adult Treatment Panel III HGBA1C%2022-08-30 04:11:00* Test Item Value Reference Range Interpretation Comme nts HGBA1C% (test code = HGBA1C%) 5.6 %A1C 4.8-6.0 N PROTHROMBIN [id number] 03:55:00* Test Item Value Reference Range Interpretation Comme nts PROTHROMBIN TIME PATIENT (test code = PTP) 12.6 SECONDS 9.3-12.9 N INTERNATIONAL NORMAL RATIO (test code = INR) 1.1 0.8-1.2 N TARGET INR BY INDICATION Indication INR1. Prophylaxis of venous thrombosis 2.0 - 3.0 (orthopedic surgery), Prophylaxis of venous thrombosis (other than high-risk surgery), Treatment of Deep Vein Thrombosis/Pulmonary Embolism, Prevention of systemic embolism - Tissue heart valves, Acute Myocardial Infarction (to prevent systemic embolism), Valvular heart disease, Atrial Fibrillation, Bileaflet mechanical valve in aortic position.2. Mechanical prosthetic valves (high risk), 2.5 - 3.5 Presence of Lupus Anticoagulant or Antiphospholipid Antibodies, Prevention of systemic embolism - Acute Myocardial Infarction (to prevent recurrent infarct). THROMBOPLASTIN TIME [id number] 03:55:00* Test Item Value Reference Range Interpretation Comme nts THROMBOPLASTIN TIME PARTIAL (test code = PTT) 23.7 Seconds 25.0-39.5 L Therapeutic Rang e: 50.4 - 88.3 Seconds Effective 02/23/2019 CBC W/AUTO [id number] 03:44:00* Test Item Value Reference Range Interpretation Comme nts WHITE BLOOD CELL (test code = WBC) 6.6 x10 3/uL 4.5-11.0 N RED BLOOD CELL (test code = RBC) 4.08 x10 6/uL 4.00-5.60 N HEMOGLOBIN (test code = HGB) 13.7 g/dL 12.5-16.9 N HEMATOCRIT (test code = HCT) 39.3 % 37.5-50.7 N MEAN CELL VOLUME (test code = MCV) 96.3 fL 81.0-99.0 N MEAN CELL HGB (test code = MCH) 33.6 pg 27.0-33.0 H MEAN CELL HGB CONCETRATION (test code = MCHC) 34.9 g/dL 33.0-37.0 N RED CELL DISTRIBUTION WIDTH CV (test code = RDW) 12.5 % 11.5-14.5 N RED CELL DISTRIBUTION WIDTH SD (test code = RDW-SD) 43.8 fL 37.0-54.0 N PLATELET COUNT (test code = PLT) 183 x10 3/uL 150-400 N MEAN PLATELET VOLUME (test c ode = MPV) 10.3 fL 7.0-9.0 H NEUTROPHIL % (test code = NT%) 54.0 % 56.0-77.0 L IMMATURE GRANULOCYTE % (test code = IG%) 0.3 % 0.0-2.0 N LYMPHOCYTE % (test code = LY%) 33.4 % 14.0-32.0 H MONOCYTE % (test code = MO%) 11.2 % 4.8-9.0 H EOSINOPHIL % (test code = EO%) 0.9 % 0.3-3.7 N BASOPHIL % (test code = BA%) 0.2 % 0.0-2.0 N NUCLEATED RBC % (test code = NRBC%) 0.0 % 0-0 N NEUTROPHIL # (test code = NT#) 3.55 x10 3/uL 2.0-7.6 N IMMATURE GRANULOCYTE # (test code = IG#) 0.02 x10 3/uL 0.00-0.03 N LYMPHOCYTE # (test code = LY#) 2.20 x10 3/uL 1.0-3.8 N MONOCYTE # (test code = MO#) 0.74 x10 3/uL 0.1-0.8 N EOSINOPHIL # (test code = EO#) 0.06 x10 3/uL 0.0-0.2 N BASOPHIL # (test code = BA#) 0.01 x10 3/uL 0.0-0.2 N NUCLEATED RBC # (test code = NRBC#) 0.00 x10 3/uL 0.0-0.1 N MANUAL DIFF REQUIRED (test c ode = MDIFF) NO - XR CHEST 1 [id number] 00:00:00 [facility] 1955 Sex: M FAX: [facility] [phone] [place]: St: ADM FAX: Lyssa Peterson [phone] ----- Name: JACKELIN VASQUEZ [facility] : 1955 Age/S: 66/M [address] [place] [address] Unit #: [id number] Loc: [place] [address] Phys: Lizbeth Peterson [employer] Acct: [id number] Dis Date: Status: ADM IN PHONE #: [phone] Exam Date: 08/30/2022 [facility] FAX #: [phone] Reason: Cardiac Surgery Post Op EXAMS: CPT C ODE: [id number] XR CHEST 1 V 55233 PROCEDURE INFORMATION: Exam: XR Chest Exam date and time: 08/30/2022 3:14 PM Age: 66 years old Clinical indication: Screening exam; Other screening; Additional info:Cardiac surgery post op TECHNIQUE: Imaging protocol: Radiologic exam of the chest. Views: 1 view. CO MPARISON: CR XR CHEST 1V 08/30/2022 5:23 AM [...] is unchanged. Bones/joints: Status post median sternotomy. IMPRESSION:1. The endotracheal tube terminates approximately 2.1 cm from the jose armando. 2. There is a possible small left pleural effusion. [id number] Reported and signed by: Heydi Coronado M.D. CC: Omega Frye MD; Lizbeth Peterson NP Technologist: RT Ventura(Gianluca) Trnscrd Date/Time/By: 08/30/2022 (1616) : By: GilbertoMR72 [facility] Print D/T: S: 08/30/2022 (1283) PAGE 1 Signed Report- XR CHEST 1 [id number] 00:00:00[facility] : 1955 Sex: M FAX: Omega Montoya [phone] [place]: St: ADM FAX: Kashif Denton MD [phone] -------- Name: JACKELIN VASQUEZ [facility] : 1955 Age/S: 66/M [address] [place] [address] Unit #: [id number] Loc: [address] [address] Phys: Kashif Denton MD Acct: [id number] Dis Date: Status: ADM IN PHONE #: [phone] Date: 08/30/2022529 FAX #: [phone] Reason: PRE-OP CABG EXAMS: CPT CODE: [id number] XR CHEST 1 V 65268 PROCEDURE INFORMATION: Exam: XR Chest Exam date and time: 08/30/2022 5:23 AM Age: 66years old Clinical indication: Pre-operative exam; Cardiovascular screening and respiratory screening exam; Additional info: Pre-op cabg TECHNIQUE: Imaging protocol: Radiologic exam of the chest. Views: 1 view. COMPARISON: CT CHEST W/O CONTRAST 08/29/2022 8:52 PM FINDINGS: Lungs: See "Pleural spaces" finding. Pleural spaces: No gross active pleural, parenchymal, or mediastinal abnormalities noted. Heart/Mediastinum: See "Pleural spaces" finding. Bones/joints: The visualized bones of the thoraxare grossly unremarkable. IMPRESSION: No acute abnormality in the chest. at 0815 Reported and signed by: Navarro Rasmussen M.D. CC: Omega Frye MD; Kashif Denton MD Technologist: Korin Almazan RT(R) Trnscrd Date/Time/By: 08/30/2022 (814) : By: [email or web address] Orig Print D/T: S: 08/30/2022 (814) PAGE 1 Signed R eportUA RFLX MICR CULT IF [id number] 21:31:00* Test Item Value Reference Range Interpretation Comme nts UA COLOR (test code = COLU) STRAW YEL/STRAW UA APPEARANCE (test code = APPU) CLEAR CLEAR UA GLUCOSE DIPSTICK (test code = DGLUU) NEGATIVE NEGATIVE UA BILIRUBIN DIPSTICK (test code = BILU) NEGATIVE NEGATIVE UA KETONE DIPSTICK (test code = KETU) NEGATIVE NEGATIVE UA SPECIFIC GRAVITY (test code = SGU) 1.009 1.005-1.030 N UA BLOOD DIPSTICK (test code = LIZZIE) NEGATIVE NEGATIVE UA PH DIPSTICK (test code = ANNE-MARIE) 7.0 5.0-7.0 N UA PROTEIN DIPSTICK (test code = PROU) NEGATIVE NEGATIVE UA UROBILINIOGEN DIPSTICK (test code = URO) 0.2 mg/dL 0.2-1.0 UA NITRITE DIPSTICK (test code = SHELBI) NEGATIVE NEGATIVE UA LEUKOCYTE ESTERASE DIPSTICK (test code = LEUU) NEGATIVE NEGATIVE UA WBC (test code = WBCU) 0-3 WBC/HPF 0-3 UA RBC (test code = RBCU) NONE SEEN RBC/HPF 0-3 UA WBC NO REFLEX (test code = WBCUCL) 0-3 WBC/HPF 0-3 UA BACTERIA (test code = BACU) NONE SEEN /HPF NONE SEEN UA SQUAMOUS CELLS (test code = SQU) NONE SEEN /HPF NONE SEEN Indication for culture: RiskForSepsis-no oth srcSpecimen Description: CLEAN CATCH- DUP EXTRACRANIAL [id number] 00:00:00 [facility] : 1955 Sex: M Name: JACKELIN VASQUEZ [facility] : 1955 Age/S: 66 / M [address] [place] [address] Blvd Unit #: [id number] Loc: [place] [address] Phys: Lizbeth Peterson [employer] Acct: [id number] Dis Date: Status: ADMIN PHONE #: [phone] Exam Date: 08/29/20222042 FAX #: [phone] Reason: PRE CABG EXAMS: CPT CODE: [id number] DUP EXTRACRANIAL STEPHENIE 56570 PROCEDURE INFORMATION: Exam: US Duplex Bilateral Extrac ranial Arteries, Carotid Arteries Exam date and time: 08/29/2022 7:59 PM Age: 66 years old Clinicalindication: Screening exam; Additional info: Pre cabg TECHNIQUE: Imaging protocol: Real-time Duplexultrasound scan of the bilateral carotid and vertebral arteries combining quevedo scale, color Dopplerand spectral waveform analysis. Bilateral exam. Exam focused on the carotid arteries. COMPARISON: No relevant prior studies available. FINDINGS: Right common carotid artery: Unremarkable. No occlusion or stenosis. Waveforms are normal. Peak systolic flow velocity 103.4 cm/s Right internal carotid artery: Unremarkable. No occlusion or stenosis. Waveforms are normal. Peak systolic flow velocity 88.6 cm/s Right ICA/CCA ratio: Within normal limits. 0.9 Right external carotid artery: No stenosis inthe origin. Right vertebral artery: Unremarkable. Antegrade flow. Peak systolic flow velocity 61.3 cm/s Left common carotid artery: Unremarkable. No occlusion or stenosis. Waveforms are normal. Peak s ystolic flow velocity 94.1 cm/s Left internal carotid artery: Unremarkable. No occlusion or stenosis. Waveforms are normal. Peak systolic flow velocity 79.5 cm/s Left ICA/CCA ratio: Within normal limits. 0.8 Left external carotid artery: No stenosis in the origin. Left vertebral artery: Unremarkable. Antegrade flow. Peak systolic flow velocity 32.1 cm/s Grayscale images demonstrate minimal plaquein the dixon of the carotid bulbs bilaterally. IMPRESSION: No carotid arterial stenosis. REFERENCES: SRU CRITERIA. The degree of internal carotid artery stenosis is based on criteria defined by the Society of Radiologists in Ultrasound (SRU). Normal is no stenosis. Mild is less than 50% stenosis. Mo derate is 50-69% stenosis. Severe is greater than 69% stenosis to near occlusion. Near occlusion cely markedly narrowed lumen. Total occlusion is no detectable patent lumen. PAGE 1 Signed Report (CONTINUED) Name: JACKELIN VASQUEZ [facility] [place] : 1955 Age/S: 66 / M [address] [place] [address] Blvd Unit #: [id number] Loc: [place] [address] Phys: Lizbeth Peterson [employer] Acct: [id number] Dis Date: Status: ADM IN PHONE #: [phone] Exam Date: 08/29/20222042 FAX #: [phone] Reason: PRE CABGEXAMS: CPT CODE: [id number] DUP EXTRACRANIAL STEPHENIE 85737 (Continued) at 2130 Reported and signed by: Nancy Mejia M.D. CC: Gurvinder Alonso MD; Lizbeth Peterson NP Technologist: Renetta Zimmerman RDMS(BR)(AB) Trnrib Date/Time: 08/29/2022 (2129) CaioR.JYA Orig Print D/T: S: 08/29/2022 (2129) Probe: PAGE 2 Signed Report- DUP VEIN STEPHENIE 2022-08-29 00:00:00 [facility] : 1955 Sex: M Name: JACKELIN VASQUEZ [facility] : 1955 Age/S: 66 / M [address] [place] [address] Unit #: [id number] Loc: [place] [address] Phys: Lizbeth Peterson NP Acct: [id number] Dis Date: Status: ADMIN PHONE #: [phone] Exam Date: 08/29/20222043 FAX #: [phone] Reason: PRE CABG, VEIN MAPPING EXAMS: CPT CODE: [id number] DUP VEIN STEPHENIE 52969 PROCEDURE INFORMATION: Exam: US Duplex Lower Extrem ity Veins; Vein mapping Exam date and time: 08/29/2022 8:21 PM Age: 66 years old Clinical indication: Screening exam; Pre-op; Additional info: Pre cabg, vein mapping TECHNIQUE: Imaging protocol: Real-time duplex ultrasound of the Lower Extremities with 2-D quevedo scale, color Doppler flow and spectral waveform analysis with image documentation. Complete exam focused on the bilateral lower extremityveins for vein mapping. COMPARISON: No relevant prior studies available. FINDINGS: No evidence for thrombus seen. Right GSV: THIGH: Prox: 45 mm Mid: 26 mm Distal: 32 mm CALF: Prox: 21 mm Mid: 19 mm Distal: 23 mm Left GSV: THIGH: Prox: 52 mm Mid: 25 mm Distal: 29 mm CALF: Prox: 24 mm Mid: 19 mm Dis shira: 20 mm IMPRESSION: Lower extremity venous mapping as above. at 2144 Reported and signed by: Robinson Jacobsen M.D. CC: Gurvinder Alonso MD; Nella CANADA Technologist: Renetta Zimmerman RDMS(BR)(AB) Trnscb Date/Time: 08/29/2022 (2144) fior YOUSSEF.JS38 Orig Print D/T: S: 08/29/2022 (2145) Probe: PAGE 1 Signed Report- CT CHEST W/O [id number] 00:00:00 [facility] ZHANNA TUOLUMNEName: JACKELIN VASQUEZ : 1955 Sex: M Name: JACKELIN VASQUEZ [facility] [place] : 1955 Age/S: 66 / M [address] [place] [address] Blvd Unit #: [id number] Loc: [place] [address] Phys: Lizbeth Peterson [employer] Acct: [id number] Dis Date: Status: ADM IN PHONE #: [phone] Exam Date: 08/29/20222058 FAX #: [phone] Reason: PRE CABG EXAMS: CPT CODE: [id number] CT CHEST W/O CONTRAST 11929 PROCEDURE INFORMATION: Exam: CT Chest Without Contrast; Diagnostic Exam date and time: 08/29/2022 8:52 PM Age: 66 years old Clinical indication: Screening exam; Pre-operative exam; Cardiovascular screening; Additional info: Pre cabg TECHNIQUE: Imaging protocol: Diagnostic computed tomography of the chest without contrast. Radiation optimization: All C T scans at this facility use at least one of these dose optimization techniques: automated exposurecontrol; mA and/or kV adjustment per patient size (includes targeted exams where dose is matched toclinical indication); or iterative reconstruction. COMPARISON: US DUP EXTRACRANIAL STEPHENIE 08/29/2022 7:59 PM FINDINGS: Lungs: Respiratory motion artifact limits lung parenchymal evaluation. No consolidation. No masses. Right middle lobe medial segment shows nonspecific thin wall cysts. Pleural spaces:Unremarkable. No pneumothorax. No pleural effusion. Heart: Coronary arteries contain atherosclerotic calcifications. No cardiomegaly. No pericardial effusion. Lymph nodes: Unremarkable. No enlarged ly mph nodes. Vasculature: Ascending thoracic aorta shows dilation up to 3.7 cm anterior-posterior diameter as measured on sagittal image 70. Bones/joints: Unremarkable. No acute fracture. Soft tissues:Coarse right thyroid calcification may be located within thyroid nodule. If clinically desired, ultrasound may better assess thyroid. Stomach shows small hiatal hernia. A few diverticula arise from the colon. Pericolonic fat planes remain preserved. IMPRESSION: No acute findings. Ascending thoracicaorta dilation. Follow-up exam is recommended. at 2225 Reported and signed by: Robert Gonzalez M.D. PAGE 1 Signed Report (CONTINUED) Name: JACKELIN MCKEON [facility] : 1955 Age/S: 66 / M [address] [place] [address] Blvd Unit #: [id number] Loc: [place] [address] Phys: Lizbeth Peterson [employer] Acct: [id number] Dis Date: Status: ADM INPHONE #: [phone] Exam Date: 08/29/20222058 FAX #: [phone] Reason: PRE CABG EXAMS: CPT CODE: [id number] CT CHEST W/O CONTRAST 05390 (Continued) CC: Gurvinder Alonso MD; Lizbeth Orozco NP Technologist:Erica Gabriel, RT(R)(CT) CTDI: DLP: Trnscb Date/Time: 08/29/2022 (2224) GilbertoWH3 Orig Print D/T: S: 08/29/2022 (2224) PAGE 2 Signed Report- CTA HEART W CN ART/[id number] 00:00:00 [facility] : 1955 Sex: M Name: JACKELIN VASQUEZ [facility] : 1955 Age/S: 66 / M [address] [place] [address] Blvd Unit #: [id number] Loc: [place] [address] Phys: Tawanda Connor MD Acct: [id number] Dis Date: Status: DEP CLI PHONE #: [phone] Exam Date: 07/01/2022 1510 FAX #: [phone] Reason: EXAMS: CPT CODE: [id number] CTA HEART W CN ART/GRAFTS 88207 PROCEDURE INFORMATION: Exam: CTA Heart and Coronary Arteries Without and With Contrast Exam date and time: 07/01/2022 2:54 PM Age: 66 years old Clinical indication: Other: Chest pain TECHNIQUE: Imaging protocol: Computed tomographic angiography of the heart, coronary arteries and bypass grafts (when present) without and with contrast including 3D image postprocessing (including evaluation of cardiac structure and morphology, assessment of cardiac function, and evaluation of venous structures, if performed). 3D rendering (Not supervised by radiologist): MIP and/or 3D reconstructed images were created by the technologist. Radiation optimization: All CT scans at this facility use at least one of these dose optimization techniques: automated exposure control; mA and/or kV adjustment per patient size (includes targeted exams where dose is matched to clinicalindication); or iterative reconstruction. Contrast material: ISOVUE 370; Contrast volume: 100 ml; Contrast route: INTRAVENOUS (IV); Other technique: 3D renderinD reconstructed images were created, reviewed and saved. COMPARISON: No relevant prior studies available. FINDINGS: CALCIUM SCORE: Total calcium score (Agatston method): Total calcium score is 427. Total calcium score range: Severe burden of calcified plaques in the coronary tree. CARDIAC: Left main coronary artery (LMCA): There ismixed plaque in the left main coronary artery, [...] evidence of plaque or stenosis. Right coronary artery(RCA): The right coronary artery is patent with no evidence of plaque or stenosis. Cardiac valves: There is no evidence of calcifications noted in the aortic or mitral valve leaflets. Pericardium: The pericardial contour is preserved with no effusion, thickening or calcifications. PAGE 1 Signed Report (CONTINUED) Name: JACKELIN VASQUEZ [facility] : 1955 Age/S: 66 / M [address] [place] [address] B lvd Unit #: [id number] Loc: [place] [address] Phys: Tawanda Connor MD Acct: [id number] Dis Date: Status: DEP CLI PHONE #: [phone] Exam Date: 07/01/2022 1510 FAX #: [phone] Reason: EXAMS: CPT CODE: [id number] CTA HEART W CN ART/GRAFTS 87169 (Continued) Lungs: Limited views of the lungs are unremarkable. Mediastinal space: Limited views of the mediastinal space is unremarkable. IMPRESSION: 1. Severe burden of calcified plaque throughout the coronary tree, with total calcium score 427. 2. Heavy mixed plaque is present throughout the left main coronary artery and the proximal LAD, withlimited evaluation of stenosis severity due to technical factors. Further cardiac testing is recommended. at 0519 Reported and signed by: Rangel Yepze M.D. CC: Tawanda Connor MD Technologist:Michael Grace RT(R)(CT) CTDI: DLP: Trnscb Date/Time: 07/02/2022 (518) t.SDR.CM29 Orig Print D/T: S: 07/02/2022 (518) SHAHRAM LANDEROS 2 Signed Report Notes Date/Time Note Provider Source 2023-10-28 10:53:00 [id number] u6vUPE7ACrtO+ 2D5MT59LGuIIIccbonro4sj5755-11-08T25:53:111233-[address] [address] PATIENT NAME: JACKELIN VASQUEZ ADMIT DATE: 10/28/23ACCOUNT NO: [id number] ROOM NO: AGE: 68 REPORT TYPE: ENDOSCOPY REPORT SEX: M ADMITTING PHYSICIAN: ATTENDING PHYSICIAN: Jessenia Mina MD Patient Name: Jackelin Vasquez Procedure Date: 10/28/2023 10:53 AMMRN: [id number] of : 1955 Gender: MaleAttending MD: Jessenia Mina MD Procedure: Upper GI endoscopyIndications: Epigastric abdominal painProviders: Jessenia Mina MD (Doctor), Ila Rivera RN (Nurse), Sara Swartz (Nurse)Referring MD: Jessenia Mina MDRequesting Provider: Medicines: See the Anesthesia note for documentation of the administered medications, Monitored Anesthesia CareComplications: No immediate complications. Procedure: Pre-Anesthesia Assessment: - Prior to the procedure, a History and Physical was performed, and patient medications and allergies were reviewed. The patient is competent. The risks and benefits of the procedure and the sedation options and risks were discussed with the patient. All questions were answered and informed consent was obtained. Patient identification and proposed procedure were verified by the physician, the nurse and the tire bagger. Mental Status Examination: alert and oriented. Airway Examination: normal oropharyngeal airway and neck mobility. Respiratory Examination: clear to auscultation. CV Examination: normal. Prophylactic Antibiotics: The patient does not require prophylactic antibiotics. Prior Anticoagulants: The patient has taken no previous anticoagulant or antiplatelet agents. ASA Grade Assessment: II - A patient with mild systemic disease. After reviewing the risks and benefits, the patient was deemed in satisfactory condition to undergo the procedure. The anesthesia plan was to use monitored anesthesia care (MAC). Immediately prior to administration of medications, the patient was re-assessed for adequacy to receive sedatives. The heart rate, respiratory rate, oxygen saturations, blood pressure, adequacy of PATIENT NAME: JACKELIN VASQUEZ pulmonary ventilation, and response to care were monitored throughout the procedure. The physical status of the patient was re-assessed after the procedure. After obtaining informed consent, the endoscope was passed under direct vision. Throughout the procedure, the patient's blood pressure, pulse, and oxygen saturations were monitored continuously. The Endoscope was introduced through the mouth, and advanced to the second part of duodenum. The upper GI endoscopy was accomplished without difficulty. The patient tolerated the procedure well. Findings: A medium-sized hiatal hernia was present. A medium-sized hiatal hernia was present. Biopsies were taken with a cold forceps for histology. Diffuse mild inflammation characterized by congestion (edema) was found in the entire examined stomach. Biopsies were taken with a cold forceps for histology. The examined duodenum was normal. Impression: - Medium-sized hiatal hernia. - Medium-sized hiatal hernia. Biopsied. - Chronic gastritis. Biopsied. - Normal examined duodenum.Recommendation: - Patient has a contact number available for emergencies. The signs and symptoms of potential delayed complications were discussed with the patient. Return to normal activities tomorrow. Written discharge instructions were provided to the patient. - Discharge patient to home. - Await pathology results. - Return to my office in 4 weeks. - Return to primary care physician PRN. - Use Protonix (pantoprazole) 40 mg PO BID. Jessenia Mina MD Jessenia Mina MD10/28/2023 11:10:04 AMThis report has been signed electronically.Number of Addenda: 0 Note Initiated On: 10/28/2023 10:53 AMEstimated Blood Loss: Estimated blood loss: none.Scope In: 11:02:51 AMScope Out: 11:05:43 AM [address] PATIENT NAME: JACKELIN VASQUEZ [place], [place] [address]Vpzmkkugp {[id number]}.pdf ProVation FT PDF at 1110 PATIENT NAME: JACKELIN VASQUEZ lqyvhda2960-06-93L32:10:00L.[id number] le for patient cusqTUCPJRHEVPOFEI8328-06-35F41:10:38 [facility] 2023-10-23 12:11:00 [id number]Jzg/ sVS9t3A1fnl1r HcoifyQdu4X6g7FCh6ucMll2117-90-16Q28:11:137706-2772 [facility] [address] [place] [address] PATIENT NAME: JACKELIN VASQUEZ ADMIT DATE: 10/28/23ACCOUNT NO: [id number] ROOM NO: AGE: 68 REPORT TYPE: eELECTROCARDIOGRAM SEX: M ADMITTING PHYSICIAN: ATTENDING PHYSICIAN: Jessenia Mina MD Order:[id number] Reason : PRESURGERY Test Date/Time Stamp:FriOct 23 2023 12:11:49Blood Pressure : / mmHGVent. Rate : 080 BPM Atrial Rate : 080 BPM P-R Int : 252 ms QRS Dur : 068 ms QT Int : 372 ms P-R-T Axes : 060 041 068 degrees QTc Int : 429 ms Sinus rhythm with 1st degree AV blockPossible Left atrial enlargementBorderline ECGWhen compared with ECG of 01-SEP-2022 04:12,premature ventricular complexes are no longer presentPR interval has increasedST no longer elevated in Lateral leadsT wave inversion no longer evident in Inferior leadsConfirmed by RITO AMANDA ([id number]) on 11/05/2023 3:00:09 PM Referred By: Jessenia Mina Confirmed by:RITO AMANDA at 1500 PATIENT NAME: JACKELIN VASQUEZ .[id number] ailable for patient avibGAUTSFLSYPNYTK5607-58-48Z35:00:33 [facility] 2022-09-03 12:52:00 [id number]Mroc Bl3UREEATAHTp pV1fv8I6l9mKMbxGNXsYW1J9830-44-42P76:52:121714-0394 [place] [address] PATIENT NAME: JACKELIN VASQUEZ ADMIT DATE: 08/29/22ACCOUNT NO: [id number] ROOM NO: 335 AGE: 66 REPORT TYPE: eECHOCARDIOGRAM REPORT SEX: M ADMITTING PHYSICIAN:Omega Frye MD ATTENDING PHYSICIAN:Omega Frye MD *[place], [place] [address]Phone: Hki: [phone] Limited Transthoracic Echocardiogram Patient: Jackelin VasquezStudy Date: 09/02/2022 BP: 119 / 79 [id number] 1955 Age: 66 Height: 71 in / 180.3 cmAccession#: [id number] Gender: M Weight: 249.5 lb / 113.4 kgBMI/BSA: 34.9 kg/m 2 / 2.32 m 2 *Ordering Physician: * Lizbeth Peterson *Interpreting Physician: * Bhavya Fish MD*Rotary Driller Helper: * Miranda Herring Indications: POST CABG. Study data: Transthoracic echocardiogram, limited study. Procedure:Transthoracic echocardiography was performed. Image quality wasadequate. Limited 2D and limited spectral Doppler. Location: Bedside. Patient status: Inpatient. Patient room number: 2201. Study status:Routine. Findings Left ventricle: The cavity size is normal. Wall thickness is normal.Systolic function is normal. The estimated ejection fraction is 55-60%.Wall motion is normal; there are no regional wall motion abnormalities.Left atrium: The atrium is normal in size.Pericardium: There is no pericardial effusion. PATIENT NAME: JACKELIN VASQUEZ Measurements Left ventricle Value Ref ANATOLY, LAX [...] Summary: Left ventricle: The cavity size is normal. Wall thickness isnormal. Systolic function is normal. The estimated ejection fraction is55-60%. Wall motion is normal; there are no regional wall motionabnormalities. Prepared and electronically signed by PATIENT NAME: JACKELIN VASQUEZ Bhavya Fish MD09/03/2022 12:52 at 1252 PATIENT NAME: JACKELIN VASQUEZ :52:00G.C [id number] for patient qubhLQRRJQYFQFWBQE6506-60-71R37:53:20 [facility] 2022-09-03 08:27:00 [id number]Dp WKr8elPLiUXyq qUZ00EEo9umVF9jkC3l7tdZ7632-73-64U97:27:00 [facility] ([facility]KWOODDischarge SummaryREPORT#:[id number] REPORT STATUS: SignedDATE:09/03/22 TIME: 826 PATIENT: JACKELIN VASQUEZ UNIT #: [id number]#: [id number] [address] [birth year] AGE: 66 SEX: M ATTEND: Omega Frye [facility] AUTHOR: Lizbeth Peterson [employer] * ALL edits or amendments must be made on the electronic/computer document * General InformationDischarge date: 09/03/22Discharge diagnosis:CAD s/p CABG Hospital course:Very pleasant 66-year-old -[place] male with past medical history of hypertension hyperlipidemia, obstructive sleep apnea who has been experiencing exertional chest discomfort. CTA of the coronaries demonstrated severe coronary artery disease and patient was taken to the Coding Machine Operator for further evaluation. Coronary angiogram showed severe coronary artery disease involving the left main(90%) and patient transferred to our facility for surgical revascularization. 08/30 1. Coronary artery bypass graft surgery x3 (left internal mammary artery to left anterior descending, saphenous vein to diagonal, saphenous vein to marginal).2. Amputation of left atrial appendage.3. Endoscopic vein harvesting (right greater saphenous vein). Patient did well postoperatively with no complications. Respiratory status stable on room air, hemodynamically stable, normal sinus rhythm. He will continue aspirin, Plavix, statin and metoprolol. I explained to the patient that he may discontinue Plavix in 6 monthsHe will taper amiodarone offContinue sternal precautions including no driving for 6 weeksI removed sternal dressing, incision with edges well approximated, no erythemaBLE venous Doppler showed below the knee DVT. Continue dual antiplatelet therapyPatient will be discharged home in stable condition. I have arranged for follow-up appointment in the clinic next weekConsultants: anesthesiology, cardiology, cardiovascular surgery, critical/electronic system engineer Med Rec PCPPCP:PCP: No Primary or Family Physician Med RecDischarge meds:Continue taking these medications:ASPIRIN (ASPIRIN) 81 MG TAB.CHEW 81 MILLIGRAM ORAL DAILY. LEVOCETIRIZINE (XYZAL) 5 MG TAB 5 MILLIGRAM ORAL DAILY. SIMVASTATIN (ZOCOR) 20 MG TAB 20 MILLIGRAM ORAL BEDTIME. TADALAFIL (CIALIS) 5 MG TAB 5 MILLIGRAM ORAL DAILY. FLUTICASONE PROPIONATE (FLONASE 50 MCG/ACT NASAL) 50 MCG/ACTUATION SPRAY 1 SPRAY NASAL DAILY. Start taking the following new medications:CLOPIDOGREL (PLAVIX) 75 MG TAB 75 MILLIGRAM ORAL [...] MILLIGRAM ORAL EVERY 6 HOURS NEEDED. as needed for ACUTE PAIN Qty = 15 No Refills ObjectiveVS/I OLast Documented: Result Date Time Pulse Ox 95 09/03 1232 FiO2 21 09/03 1232 O2 Delivery Room air 09/03 1232 B/P 132/80 09/03 0803 B/P Mean 0.0 09/03 08 Temp 98.4 09/03 803 Pulse 89 09/03 803 Resp 15 09/03 803 O2 Flow Rate 1 08/31 08 24 hour I O ending at 0700: 09/03 0700 09/02 1900 Intake Total 550 640 Output Total 300 1585 Balance 250 -945 Intake, Oral 550 640 Number Voids 1 Output, Urine 300 1585 Patient 250 lb Weight Weight Standing scale Measurement Method PATIENT WEIGHT: Weight (lb): 250Weight (oz): 7.12Weight (kg): 113.600 General appearance: alert, orientedHead/Eyes: atraumatic, normocephalicNeck: non-tenderCardiovascular: regular rate rhythm, normal heart soundsRespiratory: clear to auscultation, aerating well, symmetric expansionGI: soft, non-tenderExtremities: moves allNeuro/MACHINE STONECUTTER: alert, oriented X 3, normal speech, no motor deficitsPsychiatry: normal affect, normal mood ResultsFindings/Data:Laboratory Tests: 09/03 0420 Chemistry Sodium (134 - [...] % (Auto) (14.0 - 32.0 %) 23.3 [place] % (Auto) (4.8 - 9.0 %) 14.6 H Eos % (Auto) (0.3 - 3.7 %) 0.8 Baso % (Auto) (0.0 - 2.0 %) 0.1 Neut # (Auto) (2.0 - 7.6 x10 3/uL) 5.20 Lymph # (Auto) (1.0 - 3.8 x10 3/uL) 2.01 [place] # (Auto) (0.1 - 0.8 x10 3/uL) 1.26 H Eos # (Auto) (0.0 - 0.2 x10 3/uL) 0.07 Baso # (Auto) (0.0 - 0.2 x10 3/uL) 0.01 Abs Immat Gran (auto) (0.00 - 0.03 x10 3/uL) 0.06 H Add Manual Diff NO Immature Gran % (0.0 - 2.0 %) 0.7 Nucleated RBC % (0 - 0 %) 0.0 Nucleated RBCs # (Man) (0.0 - 0.1 x10 3/uL) 0.00 Radiology data:Recent Impressions:RADIOLOGY - XR CHEST 1 V 09/03 624 Report Impression - Status: SIGNED Entered: 09/03/2022823 IMPRESSION: 1. Stable left basilar airspace disease may be due to atelectasis or infiltrate.2. Small left pleural effusion.Impression By: [id number] - Emily Hernandez M.D. Discharge Instructions PCPPCP:PCP: No Primary or Family Physician )( Discharge to: Home/Self Care Discharge InstructionsAdditional Discharge Routines: Attending Follow-Up, [place] Follow-Up)( Diet: Cardiac)( Weight monitoring: Daily Follow-up AppointmentsAttending Physician: Attending Physician: Omega Frye MD Attending physician follow up timeframe: In 1-2 weeks Appt. date: 09/11/22 Appt. time: 1430Consulting provider 1: Provider 1: Tawanda Connor MD Specialty: CardiologyInterventional Consult follow up timeframe: In 1-2 weeks at 1958 RPT #:[id number] OF REPORTDSDischarge hlhnmzs0719-89-71U68:27:00G.[id number] ble for patient lyrtQXPGOFBLFZZINQ4670-19-54O65:58:23 [facility] 2022-09-02 10:58:00 [id number] X50hRoBCd6Vmk X2xxH9OT/eS4ev+emfMktjD0336-47-05S59:58:00 [facility]Card[facility] Progress NoteREPORT#:[id number] REPORT STATUS: SignedDATE:09/02/22 TIME: 1058 PATIENT: JACKELIN VASQUEZ UNIT #: [id number]#: [id number] [address] [birth year] AGE: 66 SEX: M ATTEND: Omega Frye [facility] AUTHOR: Elizabeth Reyna AGACNP * ALL edits or amendments must be made on the electronic/computer document * SubjectivePatient reports:No: complaints. Objective GeneralVS/I O:24 hour I O ending at 0700: 09/02 0700 09/01 1900 Intake Total Output Total 1900 1150 Balance -1900 -1150 Number 1 Bowel Movements Number Voids 5 Output, Urine 1900 1150 Patient 113.5 kg Weight Weight Standing scale Measurement Method Vital Signs: Date Time Temp Pulse Resp B/P B/P Pulse O2 O2 Flow FiO2 Mean Ox Delivery Rate 09/02 0800 [...] 33 126/76 96 PATIENT WEIGHT: Weight (lb): 250Weight (oz): 3.59Weight (kg): 113.500 Medications:Active Meds + DC'd Last 24 HrsIpratropium Pheba (ATROVENT) 500 MCG Q2H PRN PRN INH Cyanocobalamin (Vitamin B-12 500 mcg tab) 500 MCG DAILY PO Ferrous Sulfate (FERROUS SULFATE) 325 MG DAILY PO Potassium Chloride (POTASSIUM CHLORIDE 20MEQ TAB.ER) 20 MEQ ONCE PO (CKD) Metoprolol Tartrate (LOPRESSOR) 25 MG Q12HR PO Bisacodyl (DULCOLAX) 10 MG ONCE PRN RECTAL Magnesium Hydroxide (MILK OF MAGNESIA) 30 ML ONCE PRN PO Atorvastatin Calcium (LIPITOR) 40 MG 2100 PO Clopidogrel Bisulfate (Plavix) 75 MG DAILY PO Polyethylene Glycol (MIRALAX) 17 GM DAILY PO Pantoprazole (PROTONIX) 40 MG DAILY@0600 PO Docusate Sodium (COLACE) 100 MG BID PO Gabapentin (NEURONTIN) 200 MG BID PO Metoprolol Tartrate (LOPRESSOR) 12.5 MG Q12HR PO (DC) Sennosides (Senna Lax 8.6 MG TABLET) 17.2 MG BEDTIME PO Aspirin (ASPIRIN) 81 MG DAILY PO Ipratropium Pheba (ATROVENT) 500 MCG RTQ4H INH Amiodarone HCl (CORDARONE) 200 MG TID PO Acetaminophen (TYLENOL) 650 MG Q4H PRN PRN PO Acetaminophen (TYLENOL) 650 MG Q4H PRN PRN RECTAL Calcium Chloride (CALCIUM CHLORIDE) 1 GM ASDIR PRN IV Dextrose/Water (DEXTROSE 10% IN WATER) 125 ML ASDIR PRN IV (CKD) Dextrose/Water (DEXTROSE 10% IN WATER) 250 ML ASDIR PRN IV (CKD) Epinephrine (ADRENALIN CHLORIDE) 4 MG ASDIR IV Dextrose/Water (DEXTROSE 5% WATER) 246 MLGlucagon (GLUCAGON) 1 MG ASDIR PRN IM Insulin Human Regular (HumuLIN R) 100 UNIT ASDIR IV (CKD) Sodium Chloride (SODIUM CHLORIDE 0.9%) 99 MLMagnesium Sulfate (MAGNESIUM SULFATE 4GM/SWFI 100ML) 100 ML ASDIR PRN IV Magnesium Sulfate (MAGNESIUM SULFATE 2GM/SWFI 50ML) 50 ML ASDIR PRN IV Magnesium Sulfate/Dextrose (MAGNESIUM SULFATE 1GM/D5W 100ML) 100 ML ASDIR PRN IV Morphine Sulfate (morphine SULFATE) 4 MG Q2H PRN PRN IV (DC) Nitroglycerin/Dextrose (NITROGLYCERIN 50,000MCG/D5W 250ML) 250 ML ASDIR IV Norepinephrine Bitartrate (NOREPINEPHRINE 8 MG/NS 250 ML) 250 ML TITRATE IV Ondansetron HCl (ZOFRAN) 4 MG Q6H PRN PRN IV Oxycodone HCl (ROXICODONE) 5 MG Q4H PRN PRN PO Oxycodone HCl (ROXICODONE) 10 MG Q4H PRN PRN PO Potassium Chloride (KCL 20MEQ/SWFI 100ML) 100 ML ASDIR PRN IV Sodium Bicarbonate (SODIUM BICARBONATE) 50 MEQ ASDIR PRN IV Sodium Chloride (SODIUM CHLORIDE 0.9%) 1,000 ML .Q20H IV Sodium Chloride (SODIUM CHLORIDE 0.9%) 250 ML Q24H IV Mupirocin (BACTROBAN 2% 22 GM OINTMENT) 1 APPLIC BID NASAL Physical ExamGeneral appearance: alert, awakeHead/Eyes: atraumatic, clear cornea, EOMI, normal conjunctiva/sclera, normocephalic, PERRL, PERRLANeck: full range of motion, non-tender, normal thyroid, supple/no meningismus, no bruit/NL carotids, no JVD, no lymphadenopathy, no masses or swellingCardiovascular: CV assessment: regular rate and rhythm, BP pulses = bilaterally, normal heart sounds, pedal pulses presentRespiratory: clear to auscultationAbdomen: soft, non-tender, normal bowel sounds, no distention, no guardingGenitourinary: no flank pain, no urinary catheterLower extremity: LE assessment: no calf tenderness, no edemaMusculoskeletal: normal inspectionNeuro/MACHINE STONECUTTER: alert, oriented X 3, normal speech, no motor deficitsSkin: dry, intact, normal color, normal temperaturePsychiatry: normal affect, normal judgment/insight, normal mood ResultsFindings/Data:Laboratory Tests 09/02 209 Chemistry Sodium (134 - [...] (3.4 - 5.0 g/dL) 3.50 Laboratory Tests 10/24 0209 Hematology WBC (4.5 - 11.0 x10 [...] % (Auto) (14.0 - 32.0 %) 18.4 [place] % (Auto) (4.8 - 9.0 %) 15.0 H Eos % (Auto) (0.3 - 3.7 %) 0.2 L Baso % (Auto) (0.0 - 2.0 %) 0.2 Neut # (Auto) (2.0 - 7.6 x10 3/uL) 8.56 H Lymph # (Auto) (1.0 - 3.8 x10 3/uL) 2.40 [place] # (Auto) (0.1 - 0.8 x10 3/uL) 1.96 H Eos # (Auto) (0.0 - 0.2 x10 3/uL) 0.02 Baso # (Auto) (0.0 - 0.2 x10 3/uL) 0.02 Abs Immat Gran (auto) (0.00 - 0.03 x10 3/uL) 0.10 H Add Manual Diff NO Immature Gran % (0.0 - 2.0 %) 0.8 Nucleated RBC % (0 - 0 %) 0.0 Nucleated RBCs # (Man) (0.0 - 0.1 x10 3/uL) 0.00 Laboratory Tests 09/02 0209 Chemistry Magnesium (1.80 - 2.40 mg/dL) 1.95 Radiology data:Recent Impressions:RADIOLOGY - XR CHEST 1 V 09/02 0600 Report Impression - Status: SIGNED Entered: 09/02/2022 0910 IMPRESSION: Improved aeration left lower lung may reflect resolving subsegmental atelectasis. Impression By: Anthony Bartholomew M.D. 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 He has been doing fine but noticed exertional dyspnea. He had outpatient left heart catheterization and found to have multivessel CAD and is referred here for surgical revascularization. 1. Coronary artery disease: S/p CABG x3, and left atrial appendage amputation. Doing well post-op. For transfer to floor. Continue DAPT, BB, statin. On amiodaron PO for afib prophylaxis. 2. HyperlipidemiaContinue statin Discharge planning per CTS. at 1358 at 1459 RPT #:[id number] OF REPORTPRProgress [id number]:58:00G.[id number] for patient itdzFRGHLIEDHLVVYR6491-62-79S92:59:07 [facility] 2022-09-02 10:49:00 [id number] Krpn5cEMUnHAB ctjdewLpHcLZPHWUIBKmeTr6964-74-33T50:49:00 [facility] ProgREPORT#:[id number] REPORT STATUS: SignedDATE:09/02/22 TIME: 1048 PATIENT: JACKELIN VASQUEZ UNIT #: [id number]#: [id number] [address] [birth year] AGE: 66 SEX: M ATTEND: Omega Frye [facility] AUTHOR: Lizbeth Peterson NP * ALL edits or amendments must be made on the electronic/computer document * GeneralPost-op: day 3Status post:1. Coronary artery bypass graft surgery x3 (left internal mammary artery to left anterior descending, saphenous vein to diagonal, saphenous vein tomarginal).2. Amputation of left atrial appendage.3. Endoscopic vein harvesting (right greater saphenous vein). SubjectiveChief complaint:Follow up CABG Review of SystemsConstitutional:Denies: chills, fatigue, fever, malaise. Allergy/Immun:Denies: allergic reaction, anaphylaxis, hives. Respiratory:Denies: pneumonia. GI:Denies: abdominal pain. Heme:Denies: bleeding. All systems rev neg: except as marked Objective GeneralVS/I OVital Signs Date Temp Pulse Resp B/P B/P Mean Pulse Ox FiO2 09/01-09/02 99.0 80-103 23-39 108-155/72-93 87-117 90-96 21 Last Documented: Result Date Time [...] scale Measurement Method PATIENT WEIGHT: Weight (lb): 250Weight (oz): 3.59Weight (kg): 113.500 Physical ExamGeneral appearance: alert, oriented, pleasant, mental status normal, no respiratory distressWound/incision: Location:sternal Site condition: dressing clean dry, dressing intactHEENT: mucosal membranes moist, pupils reactive to light, sclera clearNeck: full range of motion, non-tenderCardiovascular: normal heart sounds, regular rate rhythmRespiratory: aerating well, symmetric expansion, no distressAbdomen: soft, non-tender, no distentionExtremities: dry, moves all, normal capillary refillMusculoskeletal: full range of motionNeuro/MACHINE STONECUTTER: alert, oriented X 3, normal speech, no motor deficitsSkin: dry, intactPsychiatry: normal affect, normal mood Current MedicationsMedications:Active Meds + DC'd Last 24 HrsIpratropium Pheba (ATROVENT) 500 MCG Q2H PRN PRN INH Cyanocobalamin (Vitamin B-12 500 mcg tab) 500 MCG DAILY PO Ferrous Sulfate (FERROUS SULFATE) 325 MG DAILY PO Potassium Chloride (POTASSIUM CHLORIDE 20MEQ TAB.ER) 20 MEQ ONCE PO (CKD) Metoprolol Tartrate (LOPRESSOR) 25 MG Q12HR PO Bisacodyl (DULCOLAX) 10 MG ONCE PRN RECTAL Magnesium Hydroxide (MILK OF MAGNESIA) 30 ML ONCE PRN PO Atorvastatin Calcium (LIPITOR) 40 MG 2100 PO Clopidogrel Bisulfate (Plavix) 75 MG DAILY PO Polyethylene Glycol (MIRALAX) 17 GM DAILY PO Pantoprazole (PROTONIX) 40 MG DAILY@0600 PO Docusate Sodium (COLACE) 100 MG BID PO Gabapentin (NEURONTIN) 200 MG BID PO Metoprolol Tartrate (LOPRESSOR) 12.5 MG Q12HR PO (DC) Sennosides (Senna Lax 8.6 MG TABLET) 17.2 MG BEDTIME PO Aspirin (ASPIRIN) 81 MG DAILY PO Ipratropium Pheba (ATROVENT) 500 MCG RTQ4H INH Amiodarone HCl (CORDARONE) 200 MG TID PO Acetaminophen (TYLENOL) 650 MG Q4H PRN PRN PO Acetaminophen (TYLENOL) 650 MG Q4H PRN PRN RECTAL Calcium Chloride (CALCIUM CHLORIDE) 1 GM ASDIR PRN IV Dextrose/Water (DEXTROSE 10% IN WATER) 125 ML ASDIR PRN IV (CKD) Dextrose/Water (DEXTROSE 10% IN WATER) 250 ML ASDIR PRN IV (CKD) Epinephrine (ADRENALIN CHLORIDE) 4 MG ASDIR IV Dextrose/Water (DEXTROSE 5% WATER) 246 MLGlucagon (GLUCAGON) 1 MG ASDIR PRN IM Insulin Human Regular (HumuLIN R) 100 UNIT ASDIR IV (CKD) Sodium Chloride (SODIUM CHLORIDE 0.9%) 99 MLMagnesium Sulfate (MAGNESIUM SULFATE 4GM/SWFI 100ML) 100 ML ASDIR PRN IV Magnesium Sulfate (MAGNESIUM SULFATE 2GM/SWFI 50ML) 50 ML ASDIR PRN IV Magnesium Sulfate/Dextrose (MAGNESIUM SULFATE 1GM/D5W 100ML) 100 ML ASDIR PRN IV Morphine Sulfate (morphine SULFATE) 4 MG Q2H PRN PRN IV (DC) Nitroglycerin/Dextrose (NITROGLYCERIN 50,000MCG/D5W 250ML) 250 ML ASDIR IV Norepinephrine Bitartrate (NOREPINEPHRINE 8 MG/NS 250 ML) 250 ML TITRATE IV Ondansetron HCl (ZOFRAN) 4 MG Q6H PRN PRN IV Oxycodone HCl (ROXICODONE) 5 MG Q4H PRN PRN PO Oxycodone HCl (ROXICODONE) 10 MG Q4H PRN PRN PO Potassium Chloride (KCL 20MEQ/SWFI 100ML) 100 ML ASDIR PRN IV Sodium Bicarbonate (SODIUM BICARBONATE) 50 MEQ ASDIR PRN IV Sodium Chloride (SODIUM CHLORIDE 0.9%) 1,000 ML .Q20H IV Sodium Chloride (SODIUM CHLORIDE 0.9%) 250 ML Q24H IV Mupirocin (BACTROBAN 2% 22 GM OINTMENT) 1 APPLIC BID NASAL ResultsFindings/Data:Laboratory Tests 09/02 0209 Chemistry Sodium (134 - [...] % (Auto) (14.0 - 32.0 %) 18.4 [place] % (Auto) (4.8 - 9.0 %) 15.0 H Eos % (Auto) (0.3 - 3.7 %) 0.2 L Baso % (Auto) (0.0 - 2.0 %) 0.2 Neut # (Auto) (2.0 - 7.6 x10 3/uL) 8.56 H Lymph # (Auto) (1.0 - 3.8 x10 3/uL) 2.40 [place] # (Auto) (0.1 - 0.8 x10 3/uL) 1.96 H Eos # (Auto) (0.0 - 0.2 x10 3/uL) 0.02 Baso # (Auto) (0.0 - 0.2 x10 3/uL) 0.02 Abs Immat Gran (auto) (0.00 - 0.03 x10 3/uL) 0.10 H Add Manual Diff NO Immature Gran % (0.0 - 2.0 %) 0.8 Nucleated RBC % (0 - 0 %) 0.0 Nucleated RBCs # (Man) (0.0 - 0.1 x10 3/uL) 0.00 Radiology data:Recent Impressions:RADIOLOGY - XR CHEST 1 V 09/02 0600 Report Impression - Status: SIGNED Entered: 09/02/2022 0910 IMPRESSION: Improved aeration left lower lung may reflect resolving subsegmental atelectasis. Impression By: Anthony Bartholomew M.D. Treatment Prophylaxis Treatment ProphylaxisOxygen: room air, nasal cannulaDrain(s)/tube(s): Drain(s)/tube(s): chest, urinary catheter Diagnosis, Assessment PlanHospital course to date: Free Text A P:09/02 Remains in stable condition, alert and oriented Chest x-ray reviewed. Respiratory status stable on room air.HD stable, normal sinus rhythm. Pacing wires discontinuedLimited echo to rule out pericardial effusionBLE venous Doppler to rule out DVTEncourage I-S and mobilizationTransfer to intermediate careAnticipate discharge home tomorrowPatient seen and plan reviewed with Dr. Kingonsultants: anesthesiology, cardiology, cardiovascular surgery, critical/electronic system engineer at 1115 at 1154 RPT #:[id number] OF REPORTPRProgress [id number]:49:00G.[id number] for patient ngxoLCJBUXDUBEMKCR2145-34-70S37:15:15 [facility] 2022-09-01 17:11:00 [id number]+[id number] o7ntjn6ThHDqj 7o8Z7PZ2F6QwpRLY+EWZ24P1896-84-09V53:11:00 [facility] ProgREPORT#:[id number] REPORT STATUS: SignedDATE:09/01/22 TIME: 1711 PATIENT: JACKELIN VASQUEZ UNIT #: [id number]#: [id number] [facility]OM[facility]BED[facility]DOB: [birth year] AGE: 66 SEX: M ATTEND: Omega Frye [facility] AUTHOR: Omega Frye MD * ALL edits or amendments must be made on the electronic/computer document * GeneralPost-op: day 2Status post:1. Coronary artery bypass graft surgery x3 (left internal mammary arterytoleft anterior descending, saphenous vein to diagonal, saphenous vein tomarginal).2. Amputation of left atrial appendage.3. Endoscopic vein harvesting (right greater saphenous vein). SubjectiveChief complaint:Chest painSevere CADHPI:Doing well, hemodynamically stable, good pain control, on room air. Review of SystemsConstitutional:Denies: chills, fatigue, fever. Allergy/Immun:Denies: allergic reaction, anaphylaxis, hives. Eyes:Denies: discharge. Respiratory:Denies: pneumonia. GI:Denies: abdominal pain. Heme:Denies: bleeding. All systems rev neg: except as marked Objective GeneralVS/I OLast Documented: Result Date Time Pulse Ox 94 [...] scale Measurement Method PATIENT WEIGHT: Weight (lb): 252Weight (oz): 6.87Weight (kg): 114.500 Physical ExamGeneral appearance: alert, awake, orientedWound/incision: Location:sternal Site condition: dressing clean dry, dressing intactHEENT: mucosal membranes moist, pupils reactive to light, sclera clearNeck: full range of motion, non-tenderCardiovascular: regular rate rhythmRespiratory: aerating well, symmetric expansionAbdomen: soft, non-tender, no distentionExtremities: dry, moves all, normal capillary refillMusculoskeletal: full range of motionNeuro/MACHINE STONECUTTER: alert, oriented X 3Skin: dry, intactPsychiatry: normal affect, normal mood ResultsFindings/Data:Laboratory Tests 09/01 Chemistry Sodium (134 - 147 [...] % (Auto) (14.0 - 32.0 %) 17.0 [place] % (Auto) (4.8 - 9.0 %) 16.3 H Eos % (Auto) (0.3 - 3.7 %) 0.0 L Baso % (Auto) (0.0 - 2.0 %) 0.2 Neut # (Auto) (2.0 - 7.6 x10 3/uL) 8.43 H Lymph # (Auto) (1.0 - 3.8 x10 3/uL) 2.17 [place] # (Auto) (0.1 - 0.8 x10 3/uL) 2.08 H Eos # (Auto) (0.0 - 0.2 x10 3/uL) 0.00 Baso # (Auto) (0.0 - 0.2 x10 3/uL) 0.02 Abs Immat Gran (auto) (0.00 - 0.03 x10 3/uL) 0.06 H Add Manual Diff NO Immature Gran % (0.0 - 2.0 %) 0.5 Nucleated RBC % (0 - 0 %) 0.0 Nucleated RBCs # (Man) (0.0 - 0.1 x10 3/uL) 0.00 Diagnosis, Assessment PlanFree Text A P:Ambulate, encourage incentive spirometry, transfer to cardiac unit, discharge planning, probably home next 24 to 48 hours. at 1716 RPT #:[id number] OF REPORTPRProgress [id number]:11:00G.[id number] for patient ijylLNFFPCXONUNJSA2480-17-47L04:16:16 [facility] 2022-09-01 12:44:00 [id number] BEbzgMdAP+4Zw lgd9ey7Sc6aa4qo3oP735KI7577-37-72T68:44:00 [facility] ([facility])Critical Care Progress NoteREPORT#:[id number] REPORT STATUS: SignedDATE:09/01/22 TIME: 1244 PATIENT: JACKELIN VASQUEZ UNIT #: [id number]#: [id number] [address] [birth year] AGE: 66 SEX: M ATTEND: Ektale,Martin Luis E MDADM AUTHOR: Darius Silva MD * ALL edits or amendments must be made on the electronic/computer document * SubjectiveChief complaint: Coronary artery disease Status post CABG x3 Elective ventilator dependence for acute pulmonary insufficiency following major cardiothoracic surgery Dyspnea Chest pain Dyslipidemia Acute blood loss anemia LeukocytosisHPI: Patient seen and examined in CVICU room #2201 and discussed during rounds with CT surgery. One of the chest tubes was discontinued yesterday. Second chest tube had minimal output of 20 mL overnight and will be discontinued. Vital signs are stable with a heart rate of 92, blood pressure 137/88 mmHg and pulse ox 90% on room air. Patient has been able to tolerate oral diet and ambulating with physical therapy. Urine output was adequate at 900 mL overnight. No acuteevents reported overnight. He is postop day 2 after CABG x3 with HOFFMAN to LAD, vein graft to OM and vein graft to diagonal. Intra-Op course was uneventful. Patient received 1 L of crystalloid and 600 mL of Cell Saver. Intra-Op urine output was 30 and 50 mL. EBL was 100 mL. Patient was not on any vasopressor support. Insulin drip at 3 units/h and the latest blood glucose is 143 mg/dL. He was on Amicar drip. Chest tube output is minimal with left pleural showing no output at all and mediastinal tubes showing 10 mL. Patient was on assist-control at 18 tidal volume 500 PEEP of 5 and 50% FiO2. Latest blood gas shows a pH of 7.32, pCO2 of43 mmHg, pO2 of 83 mmHg and bicarbonate of 23 mmol with base excess at -3.4 and oxygen saturation at 95%. Lactic acid is elevated at 2.3 and patient received 250 mL of albumin infusion as well as 250 mL of normal saline. He is stable from hemodynamic standpoint with a heart rate of 75 in sinus rhythm, blood pressures 111/61 mmHg with a respiratory rate of 18 and temperature of 96.8 F. 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 He has been doing fine but noticed exertional dyspnea. He had outpatient left heart catheterization and found to have multivessel CAD and is referred here for surgical revascularization. The patient is currently chest pain-free. He underwent elective CABG x3 on pump. Patient is not on any vasopressor support with stable blood pressure, recoveringfrom the anesthesia, on elective ventilator support after major cardiothoracic surgery. Patient reports:No: diarrhea, fever, shortness of breath, vomiting. Nursing reports:No: abdominal pain, agitated, confusion, diarrhea, fever, vomiting. Review of SystemsConstitutional:Denies: fatigue, fever, generalized weakness. Skin:Denies: diaphoresis, ecchymosis. Allergy/Immun:Denies: anaphylaxis, hives. Eyes:Denies: redness, discharge. ENT:Denies: nose bleeding, throat swelling, tongue swelling. Respiratory:Denies: LOW (dyspnea on exertion), hemoptysis, SOB, wheezing. Cardiovascular:Denies: chest pain, LOW (dyspnea on exertion). GI:Denies: dysphagia, GERD, hematemesis, hematochezia. :Denies: hematuria, nocturia. Heme:Denies: bleeding, bruising. Endocrine:Denies: polydipsia, polyphagia. Neuro:Denies: confusion, dizziness, seizure, weakness. Psych:Denies: confusion, delusional, insomnia. Objective GeneralVS/I OLast Documented: Result Date Time Pulse Ox 96 09/01 745 FiO2 21 09/01 745 O2 Delivery Room air 09/01 0745 B/P 131/84 09/01 730 B/P Mean 101 [...] scale Measurement Method PATIENT WEIGHT: Weight (lb): 252Weight (oz): 6.87Weight (kg): 114.500 Medications:Active Meds + DC'd Last 24 HrsIpratropium Pheba (ATROVENT) 500 MCG Q2H PRN PRN INH Cyanocobalamin (Vitamin B-12 500 mcg tab) 500 MCG DAILY PO Ferrous Sulfate (FERROUS SULFATE) 325 MG DAILY PO Bisacodyl (DULCOLAX) 10 MG ONCE PRN RECTAL Magnesium Hydroxide (MILK OF MAGNESIA) 30 ML ONCE PRN PO Atorvastatin Calcium (LIPITOR) 40 MG 2100 PO Clopidogrel Bisulfate (Plavix) 75 MG DAILY PO Polyethylene Glycol (MIRALAX) 17 GM DAILY PO Pantoprazole (PROTONIX) 40 MG DAILY@0600 PO Docusate Sodium (COLACE) 100 MG BID PO Gabapentin (NEURONTIN) 200 MG BID PO Metoprolol Tartrate (LOPRESSOR) 12.5 MG Q12HR PO Sennosides (Senna Lax 8.6 MG TABLET) 17.2 MG BEDTIME PO Aspirin (ASPIRIN) 81 MG DAILY PO Ipratropium Pheba (ATROVENT) 500 MCG RTQ4H INH Amiodarone HCl (CORDARONE) 200 MG TID PO Acetaminophen (TYLENOL) 650 MG Q4H PRN PRN PO Acetaminophen (TYLENOL) 650 MG Q4H PRN PRN RECTAL Albumin Human (ALBUMINAR 25%) 25 GM ASDIR PRN IV (DC) Calcium Chloride (CALCIUM CHLORIDE) 1 GM ASDIR PRN IV Dextrose/Water (DEXTROSE 10% IN WATER) 125 ML ASDIR PRN IV (CKD) Dextrose/Water (DEXTROSE 10% IN WATER) 250 ML ASDIR PRN IV (CKD) Epinephrine (ADRENALIN CHLORIDE) 4 MG ASDIR IV Dextrose/Water (DEXTROSE 5% WATER) 246 MLGlucagon (GLUCAGON) 1 MG ASDIR PRN IM Insulin Human Regular (HumuLIN R) 100 UNIT ASDIR IV (CKD) Sodium Chloride (SODIUM CHLORIDE 0.9%) 99 MLMagnesium Sulfate (MAGNESIUM SULFATE 4GM/SWFI 100ML) 100 ML ASDIR PRN IV Magnesium Sulfate (MAGNESIUM SULFATE 2GM/SWFI 50ML) 50 ML ASDIR PRN IV Magnesium Sulfate/Dextrose (MAGNESIUM SULFATE 1GM/D5W 100ML) 100 ML ASDIR PRN IV Morphine Sulfate (morphine SULFATE) 4 MG Q2H PRN PRN IV Nitroglycerin/Dextrose (NITROGLYCERIN 50,000MCG/D5W 250ML) 250 ML ASDIR IV Norepinephrine Bitartrate (NOREPINEPHRINE 8 MG/NS 250 ML) 250 ML TITRATE IV Ondansetron HCl (ZOFRAN) 4 MG Q6H PRN PRN IV Oxycodone HCl (ROXICODONE) 5 MG Q4H PRN PRN PO Oxycodone HCl (ROXICODONE) 10 MG Q4H PRN PRN PO Potassium Chloride (KCL 20MEQ/SWFI 100ML) 100 ML ASDIR PRN IV Sodium Bicarbonate (SODIUM BICARBONATE) 50 MEQ ASDIR PRN IV Sodium Chloride (SODIUM CHLORIDE 0.9%) 1,000 ML .Q20H IV Sodium Chloride (SODIUM CHLORIDE 0.9%) 250 ML Q24H IV Mupirocin (BACTROBAN 2% 22 GM OINTMENT) 1 APPLIC BID NASAL Post-op: day 2Status post: CABG times 3 Physical ExamGeneral appearance: alert, awake, oriented, no acute distress, pleasant, conversational, mental status normal, no respiratory distressHead/eyes: atraumatic, clear cornea, normocephalic, PERRLENT: moist mucosal membranes, normal nose, normal sinusNeck: non-tender, normal thyroid, no JVD, no masses or swellingCardiovascular: normal capillary refill, normal heart sounds, regular rate and rhythm, normal S1/X0Aheyysiaxsm: aerating well, clear to auscultation, symmetric expansion, no distressAbdomen: soft, non-tender, normal bowel sounds, no distention, no guarding, no mass/organomegaly, no reboundGenitourinary: urinary catheter, no bladder distention, no flank painExtremities: no clubbing, no cyanosis, no edemaNeuro/MACHINE STONECUTTER: alert, oriented X 3, CNII-XII intact, normal speech, reflexes equal bilat, no motor deficits, no sensory deficitsSkin: dry, normal color, normal temperature, no rashPsychiatry: normal affect, normal judgment/insight, normal mood, not homicidal, not suicidal, no hallucinations ResultsFindings/data:Laboratory Tests 09/01 08/31 0102 2139 Chemistry Sodium [...] % (Auto) (14.0 - 32.0 %) 17.0 [place] % (Auto) (4.8 - 9.0 %) 16.3 H Eos % (Auto) (0.3 - 3.7 %) 0.0 L Baso % (Auto) (0.0 - 2.0 %) 0.2 Neut # (Auto) (2.0 - 7.6 x10 3/uL) 8.43 H Lymph # (Auto) (1.0 - 3.8 x10 3/uL) 2.17 [place] # (Auto) (0.1 - 0.8 x10 3/uL) 2.08 H Eos # (Auto) (0.0 - 0.2 x10 3/uL) 0.00 Baso # (Auto) (0.0 - 0.2 x10 3/uL) 0.02 Abs Immat Gran (auto) (0.00 - 0.03 x10 3/uL) 0.06 H Add Manual Diff NO Immature Gran % (0.0 - 2.0 %) 0.5 Nucleated RBC % (0 - 0 %) 0.0 Nucleated RBCs # (Man) (0.0 - 0.1 x10 3/uL) 0.00 Laboratory Tests 09/01/22 0102:[Embedded Image Not Available]Microbiology:08/29 2123 NASAL: MSSA Surveillance Screen - ORD08/29 2123 NASAL: MRSA DNA Surveillance Screen - ORD08/29 2040 NASAL: MSSA Surveillance Screen - COMP08/29 2040 NASAL: MRSA DNA Surveillance Screen - COMP Radiology dataRecent Impressions:RADIOLOGY - XR CHEST 1 V 09/01 0604 Report Impression - Status: SIGNED Entered: 09/01/2022 0816 IMPRESSION: 1. Worsening opacities in the lung bases. 2. Removal of the right IJ central line. Impression By: GilbertoSW20 - Sandro Landis M.D. Results: labs reviewed, vital signs reviewed, rhythm personally rev'd, x-ray personally reviewed, current med profile rev'd Treatment Prophylaxis Treatment ProphylaxisDrain(s)/tube(s): Drain(s)/tube(s): chest, urinary catheter Diagnosis, Assessment PlanFree text A P: Problem List: Coronary artery diseaseStatus post CABG x3 on 5Acute pulmonary insufficiency following major cardiothoracic surgeryElective ventilator dependenceLactic acidosisHyperglycemiaHypomagnesemiaLeukocytosis Assessment and Plan: Patient seen and examined in CVICU room #2201. He is status post CABG x3 with HOFFMAN to LAD, vein graft to OM and vein graft to diagonal. Intra-Op course was uneventful. Patient received 1 L of crystalloid and 600 mL of Cell Saver. Intra-Op urine output was 30 and 50 mL. EBL was 100 mL. Patient is not on any vasopressor support. Insulin drip at 3 units/h and the latest blood glucose is 143 mg/dL. He is on Amicar drip. Chest tube output is minimal with left pleural showing no output at all and mediastinal tubes showing 10 mL. Patient is on assist-control at 18 tidal volume 500 PEEP of 5 and 50% FiO2. Latest blood gas shows a pH of 7.32, pCO2 of 43 mmHg, pO2 of 83 mmHg and bicarbonate of23 mmol with base excess at -3.4 and oxygen saturation at 95%. Lactic acid is elevated at 2.3 and patient received 250 mL of albumin infusion as well as 250 mL of normal saline. He is stable from hemodynamic standpoint with a heart rateof 75 in sinus rhythm, blood pressures 111/61 mmHg with a respiratory rate of 18and temperature of 96.8 F. 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 He has been doing fine but noticed exertional dyspnea. He had outpatient left heart catheterization and found to have multivessel CAD and is referred here for surgical revascularization. The patient is currently chest pain-free. He underwent elective CABG x3 on pump. Patient is not on any vasopressor support with stable blood pressure, recoveringfrom the anesthesia, on elective ventilator support after major cardiothoracic surgery. Patient will be fast-track for extubation. Patient is postop day 0 after CABG d5Qfusnimli 3 grafts with HOFFMAN to LAD, vein graft to OM and diagonalUncomplicated intraoperative courseReceived 1 L of crystalloid and 600 mL of Cell SaverUrine output 1350 mL EBL was 100 mLNot on vasopressor supportOn Amicar and insulin drips onlyBlood glucose 143 mg/dL and insulin drip at 3 units/hMinimal chest tube output with mediastinal at 10 mL and left pleural noneOn elective ventilator support currently on assist-control at 18 tidal volume 500 PEEP of 5 and 50% RcK2Vecruv blood gas shows a pH of 7.32, PCO2 of 43 mmHg, PO2 of 83 mmHg and bicarbonate of 23 mmol with base excess of -3.4 and 95% oxygen saturationLactic acid is mildly elevated 2.5Give 250 mL of normal saline and 250 mL of 5% albumin infusionFollow urine output and lactic acid levelPatient is waking up from anesthesiaPatient will be fast-track for extubationUpon spontaneous eye opening patient will undergo weaning parameters assessment includingNegative inspiratory force, Vital capacity and RSBICheck ABGs and plan extubationLeukocytosis most probably reactiveTrend CBCHas low magnesiumReplete with 2 g of magnesium sulfate and follow magnesium level SCDs for DVT prophylaxis Darius Silva MD [place] [address] PM 08/31/2022 Patient seen and examined in CVICU room #2201 and discussed during rounds with CT surgery. No acute events reported overnight however, patient became dizzy and had drop in blood pressure while getting out of the bed to chair. Chest tube output has been 35 mL and 20 mL in the left pleural and mediastinal respectively. Overnight he had about 30 mL in the left pleural and about 270 mLin the mediastinal chest tubes. No bowel movement yet. Glycemic control is adequate at 112 mg/dL while patient is on insulin drip at 2 units/h. Blood pressure soft at 74/48 mmHg and responded well to IV fluids and albumin. Blood gas this morning showed a pH of 7.37, PCO2 of 38 mmHg, PO2 of 89 mmHg and bicarbonate of 22 mmol. Urine output was adequate at around 855 mL over the past 12-hour shift. Latest vital signs are stable with a heart rate of 83, blood pressure of 119/61 mmHg and pulse ox 97% on room air. Plan is to discontinue the left pleural chest tube, as well as Medrano catheter. Neck line lalo discontinued in the evening. Insulin drip will be discontinued and patient will be started on insulin sliding scale low intensity coverage every 6 hours. Mediastinal chest tube is going to be retained. Patient was extubated in a timely fashion postoperatively. He is postop day 1 after CABG x3 with HOFFMAN to LAD, vein graft to OM and vein graft to diagonal. Intra-Op course was uneventful. Patient received 1 L of crystalloid and 600 mL of Cell Saver. Intra-Op urine output was 30 and 50 mL. EBL was 100 mL. Patient was not on any vasopressor support. Insulin drip at 3 units/h and the latest blood glucose is 143 mg/dL. He was on Amicar drip. Chest tube output is minimal with left pleural showing no output at all and mediastinal tubes showing 10 mL. Patient was on assist-control at 18 tidal volume 500 PEEP of 5 and 50% FiO2. Latest blood gas shows a pH of 7.32, pCO2 of43 mmHg, pO2 of 83 mmHg and bicarbonate of 23 mmol with base excess at -3.4 and oxygen saturation at 95%. Lactic acid is elevated at 2.3 and patient received 250 mL of albumin infusion as well as 250 mL of normal saline. He is stable from hemodynamic standpoint with a heart rate of 75 in sinus rhythm, blood pressures 111/61 mmHg with a respiratory rate of 18 and temperature of 96.8 F. 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 He has been doing fine but noticed exertional dyspnea. He had outpatient left heart catheterization and found to have multivessel CAD and is referred here for surgical revascularization. The patient is currently chest pain-free. He underwent elective CABG x3 on pump. Patient is not on any vasopressor support with stable blood pressure, recoveringfrom the anesthesia, on elective ventilator support after major cardiothoracic surgery. Patient is postop day # 1 after CABG q6Sjxcoo course was uncomplicatedPatient was extubated in a timely fashion within the 4-hour windowDid not require any vasopressor support postoperativelyMinimal chest tube output with left pleural showing 30 mL in the past 12 hours and mediastinal tube showing 270ml collectionLeft pleural chest tube to be discontinuedFoley catheter to be discontinuedNeck line to be discontinued later in the eveningAnd had brief episode of hypotension upon ambulation that responded to IV fluidsand albuminBlood pressures improvedFollow urine outputPlacement control is adequate with blood glucose at 112 mg/dLCurrently on insulin drip at 2 units/hDC insulin drip and start on insulin sliding scale low intensity coverage every 6 hoursPatient is performing incentive spirometryCreatinine is normal at 1.1 mg/dLPatient had minimal blood loss intraoperatively and hemoglobin stable at 11.7 g/dLLFTs are within normal limitsPatient had reversal of lactate anemiaLeukocytosis is improvingAmbulating with physical therapyTolerating oral diet without any nausea vomitingNo focal neurological deficitPatient is on electrolyte replacement protocol SCDs for DVT prophylaxis Darius Silva MD [place] [address] AM 09/01/2022 Patient seen and examined in CVICU room #2201 and discussed during rounds with CT surgery. One of the chest tubes was discontinued yesterday. Second chest tube had minimal output of 20 mL overnight and will be discontinued. Vital signs are stable with a heart rate of 92, blood pressure 137/88 mmHg and pulse ox 90% on room air. Patient has been able to tolerate oral diet and ambulating with physical therapy. Urine output was adequate at 900 mL overnight. No acuteevents reported overnight. He is postop day 2 after CABG x3 with HOFFMAN to LAD, vein graft to OM and vein graft to diagonal. Intra-Op course was uneventful. Patient received 1 L of crystalloid and 600 mL of Cell Saver. Intra-Op urine output was 30 and 50 mL. EBL was 100 mL. Patient was not on any vasopressor support. Insulin drip at 3 units/h and the latest blood glucose is 143 mg/dL. He was on Amicar drip. Chest tube output is minimal with left pleural showing no output at all and mediastinal tubes showing 10 mL. Patient was on assist-control at 18 tidal volume 500 PEEP of 5 and 50% FiO2. Latest blood gas shows a pH of 7.32, pCO2 of43 mmHg, pO2 of 83 mmHg and bicarbonate of 23 mmol with base excess at -3.4 and oxygen saturation at 95%. Lactic acid is elevated at 2.3 and patient received 250 mL of albumin infusion as well as 250 mL of normal saline. He is stable from hemodynamic standpoint with a heart rate of 75 in sinus rhythm, blood pressures 111/61 mmHg with a respiratory rate of 18 and temperature of 96.8 F. 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 He has been doing fine but noticed exertional dyspnea. He had outpatient left heart catheterization and found to have multivessel CAD and is referred here for surgical revascularization. The patient is currently chest pain-free. He underwent elective CABG x3 on pump. Patient is not on any vasopressor support with stable blood pressure, recoveringfrom the anesthesia, on elective ventilator support after major cardiothoracic surgery. Patient is postop day after CABG x3No acute events reported overnightPatient had brief episode of hypotension that responded to fluid challenge yesterday morningBlood pressures improved at 137/88 mmHg this morning patient is perfectly asymptomatic and ambulating with physical therapy and tolerating oral dietNeck line was removed yesterday long with left pleural chest tubeMediastinal chest tube is going to be removed today as there was minimal output of 20 mL overnightUrine output adequate at 900 mL overnightPatient is awake, interactive, following commands and moving all 4 extremitiesWe will transfer out of CVICU in a.m.Acute blood loss anemia but not meeting threshold at this time for transfusionPerforming incentive spirometry SCDs for DVT prophylaxis Darius Silva MD [facility] PMConsultants: anesthesiology, cardiology, cardiovascular surgery, critical/intensivistCode status: full codePlan discussed with: patient, consultants, nurse, interdisc care teamCritical care time: Minutes: 40 at 1253 RPT #:[id number] OF REPORTPRProgress [id number]:44:00G.[id number] for patient yyudTLIXVPENDSZQYI9672-56-51H31:53:25 [facility] 2022-09-01 10:37:00 [id number] Q700LhoGg8k1a ceLudCSCoYbxpNXH+7HBw2S3180-56-25U73:37:00 [facility] ([facility])Cardiology Progress NoteREPORT#:[id number] REPORT STATUS: SignedDATE:09/01/22 TIME: 1037 PATIENT: JACKELIN VASQUEZ UNIT #: [id number]#: [id number] [address] AGE: 66 SEX: M ATTEND: Omega Frye [facility] AUTHOR: Bhavya Fish MD * ALL edits or amendments must be made on the electronic/computer document * Subjective Free Text Subj NotesFree Text Subj Notes: Doing okay, at the bedside, no complaint, no major issues overnight. Objective GeneralVS/I O:24 hour I O ending at 0700: 09/01 0700 08/31 1900 Intake Total Output Total 470 320 Balance -470 -320 Number Voids 3 Output, Chest 50 Tube Drainage Output, Urine 420 320 Patient 114.5 kg 112.037 kg Weight Weight Standing scale Measurement Method Vital Signs: Date Time Temp Pulse Resp B/P B/P Pulse O2 O2 Flow FiO2 Mean Ox Delivery Rate 09/01 0745 [...] 111/74 85 99 PATIENT WEIGHT: Weight (lb): 252Weight (oz): 6.87Weight (kg): 114.500 Medications:Active Meds + DC'd Last 24 HrsIpratropium Pheba (ATROVENT) 500 MCG Q2H PRN PRN INH Cyanocobalamin (Vitamin B-12 500 mcg tab) 500 MCG DAILY PO Ferrous Sulfate (FERROUS SULFATE) 325 MG DAILY PO Bisacodyl (DULCOLAX) 10 MG ONCE PRN RECTAL Magnesium Hydroxide (MILK OF MAGNESIA) 30 ML ONCE PRN PO Atorvastatin Calcium (LIPITOR) 40 MG 2100 PO Clopidogrel Bisulfate (Plavix) 75 MG DAILY PO Polyethylene Glycol (MIRALAX) 17 GM DAILY PO Pantoprazole (PROTONIX) 40 MG DAILY@0600 PO Docusate Sodium (COLACE) 100 MG BID PO Gabapentin (NEURONTIN) 200 MG BID PO Metoprolol Tartrate (LOPRESSOR) 12.5 MG Q12HR PO Sennosides (Senna Lax 8.6 MG TABLET) 17.2 MG BEDTIME PO Aspirin (ASPIRIN) 81 MG DAILY PO Ipratropium Pheba (ATROVENT) 500 MCG RTQ4H INH Amiodarone HCl (CORDARONE) 200 MG TID PO Acetaminophen (TYLENOL) 650 MG Q4H PRN PRN PO Acetaminophen (TYLENOL) 650 MG Q4H PRN PRN RECTAL Albumin Human (ALBUMINAR 25%) 25 GM ASDIR PRN IV (DC) Calcium Chloride (CALCIUM CHLORIDE) 1 GM ASDIR PRN IV Dextrose/Water (DEXTROSE 10% IN WATER) 125 ML ASDIR PRN IV (CKD) Dextrose/Water (DEXTROSE 10% IN WATER) 250 ML ASDIR PRN IV (CKD) Epinephrine (ADRENALIN CHLORIDE) 4 MG ASDIR IV Dextrose/Water (DEXTROSE 5% WATER) 246 MLGlucagon (GLUCAGON) 1 MG ASDIR PRN IM Insulin Human Regular (HumuLIN R) 100 UNIT ASDIR IV (CKD) Sodium Chloride (SODIUM CHLORIDE 0.9%) 99 MLMagnesium Sulfate (MAGNESIUM SULFATE 4GM/SWFI 100ML) 100 ML ASDIR PRN IV Magnesium Sulfate (MAGNESIUM SULFATE 2GM/SWFI 50ML) 50 ML ASDIR PRN IV Magnesium Sulfate/Dextrose (MAGNESIUM SULFATE 1GM/D5W 100ML) 100 ML ASDIR PRN IV Morphine Sulfate (morphine SULFATE) 4 MG Q2H PRN PRN IV Nitroglycerin/Dextrose (NITROGLYCERIN 50,000MCG/D5W 250ML) 250 ML ASDIR IV Norepinephrine Bitartrate (NOREPINEPHRINE 8 MG/NS 250 ML) 250 ML TITRATE IV Ondansetron HCl (ZOFRAN) 4 MG Q6H PRN PRN IV Oxycodone HCl (ROXICODONE) 5 MG Q4H PRN PRN PO Oxycodone HCl (ROXICODONE) 10 MG Q4H PRN PRN PO Potassium Chloride (KCL 20MEQ/SWFI 100ML) 100 ML ASDIR PRN IV Sodium Bicarbonate (SODIUM BICARBONATE) 50 MEQ ASDIR PRN IV Sodium Chloride (SODIUM CHLORIDE 0.9%) 1,000 ML .Q20H IV Sodium Chloride (SODIUM CHLORIDE 0.9%) 250 ML Q24H IV Mupirocin (BACTROBAN 2% 22 GM OINTMENT) 1 APPLIC BID NASAL Physical ExamGeneral appearance: alert, awake, orientedHead/Eyes: atraumatic, clear cornea, EOMI, normal conjunctiva/sclera, normocephalic, PERRL, PERRLANeck: full range of motion, non-tender, normal thyroid, supple/no meningismus, no bruit/NL carotids, no JVD, no lymphadenopathy, no masses or swellingCardiovascular: CV assessment: regular rate and rhythm, BP pulses = bilaterally, normal heart sounds, pedal pulses presentRespiratory: clear to auscultationAbdomen: soft, non-tender, normal bowel sounds, no distention, no guardingGenitourinary: no flank pain, no urinary catheterLower extremity: LE assessment: no calf tenderness, no edemaMusculoskeletal: normal inspectionNeuro/MACHINE STONECUTTER: alert, oriented X 3, normal speech, no motor deficitsSkin: dry, intact, normal color, normal temperaturePsychiatry: normal affect, normal judgment/insight, normal mood ResultsFindings/Data:Laboratory Tests 09/012 2139 Chemistry Sodium (134 - 147 mEq/L) [...] % (Auto) (14.0 - 32.0 %) 17.0 [place] % (Auto) (4.8 - 9.0 %) 16.3 H Eos % (Auto) (0.3 - 3.7 %) 0.0 L Baso % (Auto) (0.0 - 2.0 %) 0.2 Neut # (Auto) (2.0 - 7.6 x10 3/uL) 8.43 H Lymph # (Auto) (1.0 - 3.8 x10 3/uL) 2.17 [place] # (Auto) (0.1 - 0.8 x10 3/uL) 2.08 H Eos # (Auto) (0.0 - 0.2 x10 3/uL) 0.00 Baso # (Auto) (0.0 - 0.2 x10 3/uL) 0.02 Abs Immat Gran (auto) (0.00 - 0.03 x10 3/uL) 0.06 H Add Manual Diff NO Immature Gran % (0.0 - 2.0 %) 0.5 Nucleated RBC % (0 - 0 %) 0.0 Nucleated RBCs # (Man) (0.0 - 0.1 x10 3/uL) 0.00 Laboratory Tests 09/01 0102 Chemistry Magnesium (1.80 - 2.40 mg/dL) 1.78 L Diagnosis, Assessment Plan Free Text DxA P NotesFree Text DxA P Notes:66-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 He has been doing fine but noticed exertional dyspnea. He had outpatient left heart catheterization and found to have multivessel CAD and is referred here for surgical revascularization. The patient is currently chest pain-free. 1. Coronary artery disease: S/p CABG x3, and left atrial appendage amputation. Postop management per CT surgery 2. HyperlipidemiaContinue statin at 1300 RPT #:[id number] OF REPORTPRProgress [id number]:37:00G.[id number] for patient pkivKJIKDKOGEJCRUV8882-16-31P88:01:05 [facility] 2022-09-01 04:12:00 [id number]/ncmZjXmZ95HzB rvxaTGaEodEzN A5oHC5OxxfIkzyDsw64D3Gl0320-76-69S92:12:[id number] [place] [address] PATIENT NAME: JACKELIN VASQUEZ ADMIT DATE: 08/29/22ACCOUNT NO: [id number] ROOM NO: [id number] AGE: 66 REPORT TYPE: eELECTROCARDIOGRAM REPORT SEX: M ADMITTING PHYSICIAN:Omega Frye MD ATTENDING PHYSICIAN:Omega Frye MD Order:[id number] Reason : POD 2 Test Date/Time Stamp:FriSep 01 2022 04:12:07Blood Pressure : / mmHGVent. Rate : 094 BPM Atrial Rate : 094 BPM P-R Int : 200 ms QRS Dur : 068 ms QT Int : 308 ms P-R-T Axes : 044 016 017 degrees QTc Int : 385 ms Sinus rhythm with occasional premature ventricular complexesPossible Left atrial enlargementST elevation, consider early repolarization, pericarditis, or injuryAbnormal ECGWhen compared with ECG of 31-AUG-2022 03:51,Significant changes have occurredConfirmed by MD PIERCE, ROSALINDA ([id number]) on 09/02/2022 8:57:07 PM Referred By: Self Referred Confirmed by:ROSALINDA PELAYO MD at 205 PATIENT NAME: JACKELIN VASQUEZ .[id number] ailable for patient eilpWJISQRSLJZKYCU2187-30-82P88:57:34 [facility] 2022-08-31 13:41:00 [id number]/[id number] Jsi8ZgRD6MosT iOyVKnEKuL3tuqLjr3m48eh3169-13-83S49:41:00 [facility] ProgREPORT#:[id number] REPORT STATUS: SignedDATE:08/31/22 TIME: 134 PATIENT: JACKELIN VASQUEZ UNIT #: [id number]#: [id number] [address] [birth year] AGE: 66 SEX: M ATTEND: Omega Frye MDA AUTHOR: Omega Frye MD * ALL edits or amendments must be made on the electronic/computer document * GeneralPost-op: day 1Status post:1. Coronary artery bypass graft surgery x3 (left internal mammary artery toleft anterior descending, saphenous vein to diagonal, saphenous vein tomarginal).2. Amputation of left atrial appendage.3. Endoscopic vein harvesting (right greater saphenous vein). SubjectiveChief complaint:Chest pain Severe CAD Review of SystemsConstitutional:Denies: chills, fatigue, fever. Allergy/Immun:Denies: allergic reaction, anaphylaxis, hives. Eyes:Denies: discharge. Respiratory:Denies: pneumonia. GI:Denies: abdominal pain. Heme:Denies: bleeding. All systems rev neg: except as marked Objective GeneralVS/I OLast Documented: Result Date Time Pulse Ox 98 08/31 08 O2 Delivery Nasal cannula 08/31 808 O2 Flow Rate 1 08/31 08 FiO2 40 08/30 1715 Pulse 80 08/30 171 B/P 143/84 08/30 171 Resp 15 08/30 [...] scale Measurement Method PATIENT WEIGHT: Weight (lb): 247Weight (oz): 2.21Weight (kg): 112.100 Dietitian Nutrition assessmentThe data set between the solid lines has been imported from the dietitian's assessment. BMI Calculated: 34.6Nutrition related diagnosis: Nutrition diagnosis details: Nutrition problem: Nutrition etiology: Nutrition signs and symptoms: Nutrition prescription: Dietitian name: Assessment completed: Physical ExamGeneral appearance: alert, awake, orientedWound/incision: Location:sternal Site condition: dressing clean dry, dressing intactHEENT: mucosal membranes moist, pupils reactive to light, sclera clearNeck: full range of motion, non-tenderCardiovascular: regular rate rhythmRespiratory: aerating well, symmetric expansionAbdomen: soft, non-tender, no distentionExtremities: dry, moves all, normal capillary refillMusculoskeletal: full range of motionNeuro/MACHINE STONECUTTER: alert, oriented X 3Skin: dry, intactPsychiatry: normal affect, normal mood Current MedicationsMedications:Active Meds + DC'd Last 24 HrsIpratropium Pheba (ATROVENT) 500 MCG Q2H PRN PRN INH Cyanocobalamin (Vitamin B-12 500 mcg tab) 500 MCG DAILY PO Ferrous Sulfate (FERROUS SULFATE) 325 MG DAILY PO Bisacodyl (DULCOLAX) 10 MG ONCE PRN RECTAL Magnesium Hydroxide (MILK OF MAGNESIA) 30 ML ONCE PRN PO Atorvastatin Calcium (LIPITOR) 40 MG 2100 PO Clopidogrel Bisulfate (Plavix) 75 MG DAILY PO Polyethylene Glycol (MIRALAX) 17 GM DAILY PO Pantoprazole (PROTONIX) 40 MG DAILY@0600 PO Docusate Sodium (COLACE) 100 MG BID PO Gabapentin (NEURONTIN) 200 MG BID PO Metoprolol Tartrate (LOPRESSOR) 12.5 MG Q12HR PO Sennosides (Senna Lax 8.6 MG TABLET) 17.2 MG BEDTIME PO Aspirin (ASPIRIN) 81 MG DAILY PO Albumin Human (ALBUMINAR 5% 12.5GM/250ML) 250 ML ONCE ONE IV (DC) Ipratropium Pheba (ATROVENT) 500 MCG RTQ4H INH Amiodarone HCl (CORDARONE) 200 MG TID PO Hydromorphone HCl (DILAUDID) 0 .STK-MED ONE .ROUTE (DC) Acetaminophen (TYLENOL) 650 MG Q4H PRN PRN PO Acetaminophen (TYLENOL) 650 MG Q4H PRN PRN RECTAL Albumin Human (ALBUMINAR 25%) 25 GM ASDIR PRN IV Calcium Chloride (CALCIUM CHLORIDE) 1 GM ASDIR PRN IV Cefazolin Sodium (KEFZOL OR ANCEF) 6 GM ONCE ONE IV (DC) Sodium Chloride (SODIUM CHLORIDE 0.9%) 500 MLChlorhexidine Gluconate (PERIDEX) 15 ML Q2H MM (DC) Dextrose/Water (DEXTROSE 10% IN WATER) 125 ML ASDIR PRN IV (CKD) Dextrose/Water (DEXTROSE 10% IN WATER) 250 ML ASDIR PRN IV (CKD) Epinephrine (ADRENALIN CHLORIDE) 4 MG ASDIR IV Dextrose/Water (DEXTROSE 5% WATER) 246 MLGlucagon (GLUCAGON) 1 MG ASDIR PRN IM Insulin Human Regular (HumuLIN R) 100 UNIT ASDIR IV (CKD) Sodium Chloride (SODIUM CHLORIDE 0.9%) 99 MLMagnesium Sulfate (MAGNESIUM SULFATE 4GM/SWFI 100ML) 100 ML ASDIR PRN IV Magnesium Sulfate (MAGNESIUM SULFATE 2GM/SWFI 50ML) 50 ML ASDIR PRN IV Magnesium Sulfate/Dextrose (MAGNESIUM SULFATE 1GM/D5W 100ML) 100 ML ASDIR PRN IV Morphine Sulfate (morphine SULFATE) 4 MG Q2H PRN PRN IV Nitroglycerin/Dextrose (NITROGLYCERIN 50,000MCG/D5W 250ML) 250 ML ASDIR IV Norepinephrine Bitartrate (NOREPINEPHRINE 8 MG/NS 250 ML) 250 ML TITRATE IV Ondansetron HCl (ZOFRAN) 4 MG Q6H PRN PRN IV Oxycodone HCl (ROXICODONE) 5 MG Q4H PRN PRN PO Oxycodone HCl (ROXICODONE) 10 MG Q4H PRN PRN PO Potassium Chloride (KCL 20MEQ/SWFI 100ML) 100 ML ASDIR PRN IV Sodium Bicarbonate (SODIUM BICARBONATE) 50 MEQ ASDIR PRN IV Sodium Chloride (SODIUM CHLORIDE 0.9%) 1,000 ML .Q20H IV Sodium Chloride (SODIUM CHLORIDE 0.9%) 250 ML Q24H IV Vancomycin HCl (VANCOMYCIN HCL) 1,750 MG PREOP ONCALL IV (DC) Sodium Chloride (NS 0.9%) 500 MLVerapamil HCl (ISOPTIN) 16.6 MG .Q24H ONE IV (DC) Heparin Sodium (Porcine) (HEPARIN SODIUM) 1,660 UNIT Sodium Bicarbonate (SODIUM BICARBONATE) 0.7 ML Nitroglycerin/Dextrose (NITROGLYCERIN 50MG/D5W 250ML) 8.3 MG Lactated Ringer's (LACTATED RINGERS) 949.5 MLMupirocin (BACTROBAN 2% 22 GM OINTMENT) 1 APPLIC BID NASAL ResultsFindings/Data:Laboratory Tests 08/31 08/30 08/30 08/30 0342 1819 [...] (22.0 - 26.0 MMOL/L) 22.3 22.2 22.6 22.6 ABG Total CO2 23.4 23.6 23.8 23.9 ABG Base Excess (-4.0 - 4.0 MMOL/L) -2.7 -4.0 -2.7 -3.4 ABG Hematocrit (37.5 - 50.7 %) 36 L 39 34 L 33 L ABG Hemoglobin (12.5 - 16.9 G/DL) 12.1 L 13.1 11.6 L 11.3 L Mike Test N/A Sodium (134 - 147 MEQ/L) 142 144 143 143 Potassium (3.4 - 5.0 MEQ/L) 4.2 3.9 4.0 4.1 Chloride (100 - 108 MEQ/L) 109 H 113 H 110 H 111 H Ionized Calcium (1.12 - 1.32 MMOL/L) 1.28 1.26 1.25 1.34 H Lactic Acid (0.9 - 1.7 mmol/l) 1.1 1.7 2.0 H 2.3 H Temperature (F) 100.2 98 O2 Delivery [...] Calcium (1.12 - 1.32 MMOL/L) 1.38 H 1.08 L Lactic Acid (0.9 - 1.7 mmol/l) [...] (14.0 - 32.0 %) 9.4 L 18.5 [place] % (Auto) (4.8 - 9.0 %) 13.6 H 5.8 Eos % (Auto) (0.3 - 3.7 %) 0.0 L 0.3 Baso % (Auto) (0.0 - 2.0 %) 0.1 0.1 Neut # (Auto) (2.0 - 7.6 x10 3/uL) 9.02 H 10.85 H Lymph # (Auto) (1.0 - 3.8 x10 3/uL) 1.11 2.69 [place] # (Auto) (0.1 - 0.8 x10 3/uL) 1.61 H 0.84 H Eos # (Auto) (0.0 - 0.2 x10 3/uL) 0.00 0.04 Baso # (Auto) (0.0 - 0.2 x10 3/uL) 0.01 0.01 Abs Immat Gran (auto) (0.00 - 0.03 x10 3/uL) 0.06 H 0.12 H Add Manual Diff NO NO Immature Gran % (0.0 - 2.0 %) 0.5 0.8 Nucleated RBC % (0 - 0 %) 0.0 0.0 Nucleated RBCs # (Man) (0.0 - 0.1 x10 3/uL) 0.00 0.00 Radiology data:Recent Impressions:RADIOLOGY - XR CHEST 1 V 08/30 1555 Report Impression - Status: SIGNED Entered: 08/30/2022 1617 IMPRESSION: 1. The endotracheal tube terminates approximately 2.1 cm from the jose armando. 2. There is a possible small left pleural effusion. Impression By: [email or web address] - Heydi Coronado M.D.RADIOLOGY - XR CHEST 1 V 08/31 0550 Report Impression - Status: SIGNED Entered: 08/31/2022 0847 IMPRESSION: 1. Unchanged left basilar airspace disease. 2. Unchanged possible small left pleural effusion. Impression By: [email or web address] - Roddy Villaseñor M.D. Results: labs reviewed, vital signs stable Treatment Prophylaxis Treatment ProphylaxisOxygen: room air, nasal cannulaLines: arterial, CVC, peripheralCVC/PICC documentation:The data below has been imported from nursing documentation. Any exceptions have been noted below under Provider comments. CVC/PICC insertion date/time: CVC multi lumen triple Internal jugular Right Inserted 08/30/22 1136 Provider comments on imported nursing data: [] Drain(s)/tube(s): Drain(s)/tube(s): chest, urinary catheter Diagnosis, Assessment PlanHospital course to date:Very pleasant 66-year-old -[place] male with past medical history of hypertension hyperlipidemia, obstructive sleep apnea who has been experiencing exertional chest discomfort. CTA of the coronaries demonstrated severe coronaryartery disease and patient was taken to the [facility] for further evaluation. Coronary angiogram showed severe coronary artery disease involving the left main(90%) and patient transferred to our facility for surgical revascularization. Dr Frye explained to the patient the angiogram findings and recommended urgent surgical revascularization. He discussed the surgery, risks involved, STS score, benefits, complications and alternatives. Patient acknowledged understanding and is willing to proceed. Preop work-up completed and patient will be taken to the OR today for CABG x3.Plan discussed with the family 08/31 Patient doing well post operatively, no acute distresslabs and cxr reviewedDecreased oxygen requirements from 2l n/c, now on room airEncourage incentive spirometer use- able to pull 1500Glycemic control- change to sliding scale insulinIncrease PO intakeDiscontinue LP chest tube, IJ, a-line, and foleyAmbulate with PT/OTOk to transfer patient to [id number] planning home with family Consultants: cardiology, cardiovascular surgery, critical/electronic system engineer at 1749 RPT #:[id number] OF REPORTPRProgress [id number]:00G.[id number] for patient [id number]:50:20 [facility] L 2022-08-31 11:44:00 [id number] [id number]:44:00 [facility] ([facility])Critical Care Progress NoteREPORT#:[id number] REPORT STATUS: SignedDATE:08/31/22 TIME: 1144 PATIENT: JACKELIN VASQUEZ UNIT #: [id number]#: [id number] [address] AGE: 66 SEX: M ATTEND: Omega Frye MDADM AUTHOR: Darius Silva MD * ALL edits or amendments must be made on the electronic/computer document * SubjectiveChief complaint: Coronary artery diseaseStatus post CABG [id number] ventilator dependence for acute pulmonary insufficiency following majorcardiothoracic surgeryDyspneaChest painDyslipidemiaAcute blood loss anemiaLeukocytosis HPI: Patient seen and examined in CVICU room #2201 and discussed during rounds with CT surgery. No acute events reported overnight however, patient became dizzy and had drop in blood pressure while getting out of the bed to chair. Chest tube output has been 35 mL and 20 mL in the left pleural and mediastinal respectively. Overnight he had about 30 mL in the left pleural and about 270 mLin the mediastinal chest tubes. No bowel movement yet. Glycemic control is adequate at 112 mg/dL while patient is on insulin drip at 2 units/h. Blood pressure soft at 74/48 mmHg and responded well to IV fluids and albumin. Blood gas this morning showed a pH of 7.37, PCO2 of 38 mmHg, PO2 of 89 mmHg and bicarbonate of 22 mmol. Urine output was adequate at around 855 mL over the past 12-hour shift. Latest vital signs are stable with a heart rate of 83, blood pressure of 119/61 mmHg and pulse ox 97% on room air. Plan is to discontinue the left pleural chest tube, as well as Medrano catheter. Neck line lalo discontinued in the evening. Insulin drip will be discontinued and patient will be started on insulin sliding scale low intensity coverage every 6 hours. Mediastinal chest tube is going to be retained. Patient was extubated in a timely fashion postoperatively. He is postop day 1 after CABG x3 with HOFFMAN to LAD, vein graft to OM and vein graft to diagonal. Intra-Op course was uneventful. Patient received 1 L of crystalloid and 600 mL of Cell Saver. Intra-Op urine output was 30 and 50 mL. EBL was 100 mL. Patient was not on any vasopressor support. Insulin drip at 3 units/h and the latest blood glucose is 143 mg/dL. He was on Amicar drip. Chest tube output is minimal with left pleural showing no output at all and mediastinal tubes showing 10 mL. Patient was on assist-control at 18 tidal volume 500 PEEP of 5 and 50% FiO2. Latest blood gas shows a pH of 7.32, pCO2 of43 mmHg, pO2 of 83 mmHg and bicarbonate of 23 mmol with base excess at -3.4 and oxygen saturation at 95%. Lactic acid is elevated at 2.3 and patient received 250 mL of albumin infusion as well as 250 mL of normal saline. He is stable from hemodynamic standpoint with a heart rate of 75 in sinus rhythm, blood pressures 111/61 mmHg with a respiratory rate of 18 and temperature of 96.8 F. 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 He has been doing fine but noticed exertional dyspnea. He had outpatient left heart catheterization and found to have multivessel CAD and is referred here for surgical revascularization. The patient is currently chest pain-free. He underwent elective CABG x3 on pump. Patient is not on any vasopressor support with stable blood pressure, recoveringfrom the anesthesia, on elective ventilator support after major cardiothoracic surgery. Patient reports:No: abdominal pain, diarrhea, fever, shortness of breath, vomiting. Nursing reports:No: agitated, confusion, diarrhea, fever, shortness of breath, vomiting. Review of SystemsConstitutional:Denies: fatigue, fever, generalized weakness. Skin:Denies: diaphoresis, ecchymosis, rash. Allergy/Immun:Denies: allergic reaction, anaphylaxis. Eyes:Denies: redness, discharge, itching. ENT:Denies: nose bleeding, throat swelling, tongue swelling. Respiratory:Denies: LOW (dyspnea on exertion), hemoptysis, SOB, wheezing. Cardiovascular:Denies: LOW (dyspnea on exertion), edema. GI:Denies: hematemesis, hematochezia, melena, nausea, vomiting. :Denies: hematuria, nocturia. Heme:Denies: bleeding, bruising. Endocrine:Denies: polydipsia, polyphagia. Neuro:Denies: confusion, dizziness. Psych:Denies: confusion, delusional, insomnia. Objective GeneralVS/I OLast Documented: Result Date Time Pulse Ox 98 08/31 808 O2 Delivery Nasal cannula 08/31 808 O2 Flow Rate 1 08/31 08 FiO2 40 08/30 1715 Pulse 80 08/30 1715 B/P 143/84 08/30 1715 Resp 15 08/30 171 Temp 36.5 08/30 [...] scale Measurement Method PATIENT WEIGHT: Weight (lb): 247Weight (oz): 2.21Weight (kg): 112.100 Medications:Active Meds + DC'd Last 24 HrsIpratropium Pheba (ATROVENT) 500 MCG Q2H PRN PRN INH Cyanocobalamin (Vitamin B-12 500 mcg tab) 500 MCG DAILY PO Ferrous Sulfate (FERROUS SULFATE) 325 MG DAILY PO Bisacodyl (DULCOLAX) 10 MG ONCE PRN RECTAL Magnesium Hydroxide (MILK OF MAGNESIA) 30 ML ONCE PRN PO Atorvastatin Calcium (LIPITOR) 40 MG 2100 PO Clopidogrel Bisulfate (Plavix) 75 MG DAILY PO Polyethylene Glycol (MIRALAX) 17 GM DAILY PO Pantoprazole (PROTONIX) 40 MG DAILY@0600 PO Docusate Sodium (COLACE) 100 MG BID PO Gabapentin (NEURONTIN) 200 MG BID PO Metoprolol Tartrate (LOPRESSOR) 12.5 MG Q12HR PO Sennosides (Senna Lax 8.6 MG TABLET) 17.2 MG BEDTIME PO Aspirin (ASPIRIN) 81 MG DAILY PO Albumin Human (ALBUMINAR 5% 12.5GM/250ML) 250 ML ONCE ONE IV (DC) Ipratropium Pheba (ATROVENT) 500 MCG RTQ4H INH Amiodarone HCl (CORDARONE) 200 MG TID PO Hydromorphone HCl (DILAUDID) 0 .STK-MED ONE .ROUTE (DC) Acetaminophen (TYLENOL) 650 MG Q4H PRN PRN PO Acetaminophen (TYLENOL) 650 MG Q4H PRN PRN RECTAL Albumin Human (ALBUMINAR 25%) 25 GM ASDIR PRN IV Calcium Chloride (CALCIUM CHLORIDE) 1 GM ASDIR PRN IV Cefazolin Sodium (KEFZOL OR ANCEF) 6 GM ONCE ONE IV (DC) Sodium Chloride (SODIUM CHLORIDE 0.9%) 500 MLChlorhexidine Gluconate (PERIDEX) 15 ML Q2H MM (DC) Dextrose/Water (DEXTROSE 10% IN WATER) 125 ML ASDIR PRN IV (CKD) Dextrose/Water (DEXTROSE 10% IN WATER) 250 ML ASDIR PRN IV (CKD) Epinephrine (ADRENALIN CHLORIDE) 4 MG ASDIR IV Dextrose/Water (DEXTROSE 5% WATER) 246 MLGlucagon (GLUCAGON) 1 MG ASDIR PRN IM Insulin Human Regular (HumuLIN R) 100 UNIT ASDIR IV (CKD) Sodium Chloride (SODIUM CHLORIDE 0.9%) 99 MLMagnesium Sulfate (MAGNESIUM SULFATE 4GM/SWFI 100ML) 100 ML ASDIR PRN IV Magnesium Sulfate (MAGNESIUM SULFATE 2GM/SWFI 50ML) 50 ML ASDIR PRN IV Magnesium Sulfate/Dextrose (MAGNESIUM SULFATE 1GM/D5W 100ML) 100 ML ASDIR PRN IV Morphine Sulfate (morphine SULFATE) 4 MG Q2H PRN PRN IV Nitroglycerin/Dextrose (NITROGLYCERIN 50,000MCG/D5W 250ML) 250 ML ASDIR IV Norepinephrine Bitartrate (NOREPINEPHRINE 8 MG/NS 250 ML) 250 ML TITRATE IV Ondansetron HCl (ZOFRAN) 4 MG Q6H PRN PRN IV Oxycodone HCl (ROXICODONE) 5 MG Q4H PRN PRN PO Oxycodone HCl (ROXICODONE) 10 MG Q4H PRN PRN PO Potassium Chloride (KCL 20MEQ/SWFI 100ML) 100 ML ASDIR PRN IV Sodium Bicarbonate (SODIUM BICARBONATE) 50 MEQ ASDIR PRN IV Sodium Chloride (SODIUM CHLORIDE 0.9%) 1,000 ML .Q20H IV Sodium Chloride (SODIUM CHLORIDE 0.9%) 250 ML Q24H IV Rocuronium Pheba (ZEMURON) 0 .STK-MED ONE IV (DC) Heparin Sodium (HEPARIN SODIUM) 0 .STK-MED ONE .ROUTE (DC) Mineral Oil/White Petrolatum (SYSTANE OPTH OINTMENT) 0 .STK-MED ONE .ROUTE (DC) Cefazolin Sodium (KEFZOL OR ANCEF) 2 GM PREOP ONCALL IV (DC) Vancomycin HCl (VANCOMYCIN HCL) 1,750 MG PREOP ONCALL IV (DC) Sodium Chloride (NS 0.9%) 500 MLVerapamil HCl (ISOPTIN) 16.6 MG .Q24H ONE IV (DC) Heparin Sodium (Porcine) (HEPARIN SODIUM) 1,660 UNIT Sodium Bicarbonate (SODIUM BICARBONATE) 0.7 ML Nitroglycerin/Dextrose (NITROGLYCERIN 50MG/D5W 250ML) 8.3 MG Lactated Ringer's (LACTATED RINGERS) 949.5 MLAcetaminophen (TYLENOL EXTRA STRENGTH) 1,000 MG PREOP ONCALL PO (DC) Gabapentin (NEURONTIN) 200 MG PREOP ONCALL PO (DC) Sodium Chloride (SODIUM CHLORIDE) 20 ML ASDIR IV (DC) Mupirocin (BACTROBAN 2% 22 GM OINTMENT) 1 APPLIC BID NASAL Post-op: day 1Status post: CABG times 3 Physical ExamGeneral appearance: alert, awake, oriented, no acute distress, pleasant, conversational, mental status normal, no respiratory distressHead/eyes: atraumatic, clear cornea, normocephalic, PERRLENT: moist mucosal membranes, normal nose, normal sinusNeck: non-tender, normal thyroid, no JVD, no masses or swellingCardiovascular: normal capillary refill, normal heart sounds, regular rate and rhythm, normal S1/X2Fyntskemthd: aerating well, clear to auscultation, symmetric expansion, no distressAbdomen: soft, non-tender, normal bowel sounds, no distention, no guarding, no mass/organomegaly, no reboundGenitourinary: urinary catheter, no bladder distention, no flank painExtremities: no clubbing, no cyanosis, no edemaNeuro/MACHINE STONECUTTER: alert, oriented X 3, CNII-XII intact, normal speech, reflexes equal bilat, no motor deficits, no sensory deficitsSkin: dry, normal color, normal temperature, no rashPsychiatry: normal affect, normal judgment/insight, normal mood, not homicidal, not suicidal, no hallucinations ResultsFindings/data:Laboratory Tests 08/31 08/30 08/30 08/30 0342 1819 [...] (22.0 - 26.0 MMOL/L) 22.3 22.2 22.6 22.6 ABG Total CO2 23.4 23.6 23.8 23.9 ABG Base Excess (-4.0 - 4.0 MMOL/L) -2.7 -4.0 -2.7 -3.4 ABG Hematocrit (37.5 - 50.7 %) 36 L 39 34 L 33 L ABG Hemoglobin (12.5 - 16.9 G/DL) 12.1 L 13.1 11.6 L 11.3 L Mike Test N/A Sodium (134 - 147 MEQ/L) 142 144 143 143 Potassium (3.4 - 5.0 MEQ/L) 4.2 3.9 4.0 4.1 Chloride (100 - 108 MEQ/L) 109 H 113 H 110 H 111 H Ionized Calcium (1.12 - 1.32 MMOL/L) 1.28 1.26 1.25 1.34 H Lactic Acid (0.9 - 1.7 mmol/l) 1.1 1.7 2.0 H 2.3 H Temperature (F) 100.2 98 O2 Delivery Device Cannula Adult Vent Vent Mode AC Vent Rate (/MIN) 18 FiO2 (%) 50 Tidal Volume (ml) 500 PEEP (cmH2O) 5 08/30 08/30 08/30 08/30 1447 1349 1325 1237 Blood Gas O2 Saturation (90 - 100 %) 98.4 100.0 99.9 100.0 ABG pH (7.35 - 7.45) 7.308 L 7.429 7.339 L 7.331 L ABG pCO2 (35.0 - 45 mmHg) 49.3 H 37.0 51.5 *H 44.6 ABG pO2 (80 - 100.0 mmHg) 125.6 H 363.2 *H 384.2 *H 434.4 *H ABG HCO3 (22.0 - 26.0 MMOL/L) 24.7 24.5 27.8 H 23.6 ABG Total CO2 26.2 25.6 29.3 24.9 ABG Base Excess (-4.0 - 4.0 MMOL/L) -1.8 0.2 1.4 -2.5 ABG Hematocrit (37.5 - 50.7 %) 28 L 29 L 28 L 38 ABG Hemoglobin (12.5 - 16.9 G/DL) 9.7 L 9.8 L 9.5 L 13.0 Sodium (134 - 147 MEQ/L) 145 144 144 145 Potassium (3.4 - 5.0 MEQ/L) 3.8 5.0 5.2 H 3.7 Chloride (100 - 108 MEQ/L) 109 H 109 H 108 110 H Ionized Calcium (1.12 - 1.32 MMOL/L) 1.38 H 1.08 L 1.09 L 1.18 Lactic Acid (0.9 - 1.7 mmol/l) 2.2 H 0.9 0.9 1.0 Laboratory Tests 08/31 08/31 08/31 08/31 08/31 [...] (74 - 137 SEC) 103 595 H 642 H 468 H Laboratory Tests 08/31 08/30 [...] (14.0 - 32.0 %) 9.4 L 18.5 [place] % (Auto) (4.8 - 9.0 %) 13.6 H 5.8 Eos % (Auto) (0.3 - 3.7 %) 0.0 L 0.3 Baso % (Auto) (0.0 - 2.0 %) 0.1 0.1 Neut # (Auto) (2.0 - 7.6 x10 3/uL) 9.02 H 10.85 H Lymph # (Auto) (1.0 - 3.8 x10 3/uL) 1.11 2.69 [place] # (Auto) (0.1 - 0.8 x10 3/uL) 1.61 H 0.84 H Eos # (Auto) (0.0 - 0.2 x10 3/uL) 0.00 0.04 Baso # (Auto) (0.0 - 0.2 x10 3/uL) 0.01 0.01 Abs Immat Gran (auto) (0.00 - 0.03 x10 3/uL) 0.06 H 0.12 H Add Manual Diff NO NO Immature Gran % (0.0 - 2.0 %) 0.5 0.8 Nucleated RBC % (0 - 0 %) 0.0 0.0 Nucleated RBCs # (Man) (0.0 - 0.1 x10 3/uL) 0.00 0.00 Laboratory Tests 08/31/22 0340:[Embedded Image Not Available] 08/30/22 1529:[Embedded Image Not Available]Microbiology:08/29 2123 NASAL: MSSA Surveillance Screen - ORD08/29 2123 NASAL: MRSA DNA Surveillance Screen - ORD08/29 2040 NASAL: MSSA Surveillance Screen - COMP08/29 2040 NASAL: MRSA DNA Surveillance Screen - COMP Radiology dataRecent Impressions:RADIOLOGY - XR CHEST 1 V 08/30 1555 Report Impression - Status: SIGNED Entered: 08/30/2022 4187 IMPRESSION: 1. The endotracheal tube terminates approximately 2.1 cm from the jose armando. 2. There is a possible small left pleural effusion. Impression By: [email or web address] - Heydi Coronado M.D.RADIOLOGY - XR CHEST 1 V 08/31 0622 Report Impression - Status: SIGNED Entered: 08/31/2022 2191 IMPRESSION: 1. Unchanged left basilar airspace disease. 2. Unchanged possible small left pleural effusion. Impression By: [email or web address] - Roddy Villaseñor M.D. Results: labs reviewed, vital signs reviewed, rhythm personally rev'd, x-ray personally reviewed, current med profile rev'd Diagnosis, Assessment PlanFree text A P: Problem List: Coronary artery diseaseStatus post CABG x3 on 5Acute pulmonary insufficiency following major cardiothoracic surgeryElective ventilator dependenceLactic acidosisHyperglycemiaHypomagnesemiaLeukocytosis Assessment and Plan: Patient seen and examined in CVICU room #2201. He is status post CABG x3 with HOFFMAN to LAD, vein graft to OM and vein graft to diagonal. Intra-Op course was uneventful. Patient received 1 L of crystalloid and 600 mL of Cell Saver. Intra-Op urine output was 30 and 50 mL. EBL was 100 mL. Patient is not on any vasopressor support. Insulin drip at 3 units/h and the latest blood glucose is 143 mg/dL. He is on Amicar drip. Chest tube output is minimal with left pleural showing no output at all and mediastinal tubes showing 10 mL. Patient is on assist-control at 18 tidal volume 500 PEEP of 5 and 50% FiO2. Latest blood gas shows a pH of 7.32, pCO2 of 43 mmHg, pO2 of 83 mmHg and bicarbonate of23 mmol with base excess at -3.4 and oxygen saturation at 95%. Lactic acid is elevated at 2.3 and patient received 250 mL of albumin infusion as well as 250 mL of normal saline. He is stable from hemodynamic standpoint with a heart rateof 75 in sinus rhythm, blood pressures 111/61 mmHg with a respiratory rate of 18and temperature of 96.8 F. 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 He has been doing fine but noticed exertional dyspnea. He had outpatient left heart catheterization and found to have multivessel CAD and is referred here for surgical revascularization. The patient is currently chest pain-free. He underwent elective CABG x3 on pump. Patient is not on any vasopressor support with stable blood pressure, recoveringfrom the anesthesia, on elective ventilator support after major cardiothoracic surgery. Patient will be fast-track for extubation. Patient is postop day 0 after CABG [id number] 3 grafts with HOFFMAN to LAD, vein graft to OM and diagonalUncomplicated intraoperative courseReceived 1 L of crystalloid and 600 mL of Cell SaverUrine output 1350 mL EBL was 100 mLNot on vasopressor supportOn Amicar and insulin drips onlyBlood glucose 143 mg/dL and insulin drip at 3 units/hMinimal chest tube output with mediastinal at 10 mL and left pleural noneOn elective ventilator support currently on assist-control at 18 tidal volume 500 PEEP of 5 and 50% [id number] blood gas shows a pH of 7.32, PCO2 of 43 mmHg, PO2 of 83 mmHg and bicarbonate of 23 mmol with base excess of -3.4 and 95% oxygen saturationLactic acid is mildly elevated 2.5Give 250 mL of normal saline and 250 mL of 5% albumin infusionFollow urine output and lactic acid levelPatient is waking up from anesthesiaPatient will be fast-track for extubationUpon spontaneous eye opening patient will undergo weaning parameters assessment includingNegative inspiratory force, Vital capacity and RSBICheck ABGs and plan extubationLeukocytosis most probably reactiveTrend CBCHas low magnesiumReplete with 2 g of magnesium sulfate and follow magnesium level SCDs for DVT prophylaxis Dariusjose Silva MD [place] [address].19 PM 08/31/2022 Patient seen and examined in CVICU room #2201 and discussed during rounds with CT surgery. No acute events reported overnight however, patient became dizzy and had drop in blood pressure while getting out of the bed to chair. Chest tube output has been 35 mL and 20 mL in the left pleural and mediastinal respectively. Overnight he had about 30 mL in the left pleural and about 270 mLin the mediastinal chest tubes. No bowel movement yet. Glycemic control is adequate at 112 mg/dL while patient is on insulin drip at 2 units/h. Blood pressure soft at 74/48 mmHg and responded well to IV fluids and albumin. Blood gas this morning showed a pH of 7.37, PCO2 of 38 mmHg, PO2 of 89 mmHg and bicarbonate of 22 mmol. Urine output was adequate at around 855 mL over the past 12-hour shift. Latest vital signs are stable with a heart rate of 83, blood pressure of 119/61 mmHg and pulse ox 97% on room air. Plan is to discontinue the left pleural chest tube, as well as Medrano catheter. Neck line lalo discontinued in the evening. Insulin drip will be discontinued and patient will be started on insulin sliding scale low intensity coverage every 6 hours. Mediastinal chest tube is going to be retained. Patient was extubated in a timely fashion postoperatively. He is postop day 1 after CABG x3 with HOFFMAN to LAD, vein graft to OM and vein graft to diagonal. Intra-Op course was uneventful. Patient received 1 L of crystalloid and 600 mL of Cell Saver. Intra-Op urine output was 30 and 50 mL. EBL was 100 mL. Patient was not on any vasopressor support. Insulin drip at 3 units/h and the latest blood glucose is 143 mg/dL. He was on Amicar drip. Chest tube output is minimal with left pleural showing no output at all and mediastinal tubes showing 10 mL. Patient was on assist-control at 18 tidal volume 500 PEEP of 5 and 50% FiO2. Latest blood gas shows a pH of 7.32, pCO2 of43 mmHg, pO2 of 83 mmHg and bicarbonate of 23 mmol with base excess at -3.4 and oxygen saturation at 95%. Lactic acid is elevated at 2.3 and patient received 250 mL of albumin infusion as well as 250 mL of normal saline. He is stable from hemodynamic standpoint with a heart rate of 75 in sinus rhythm, blood pressures 111/61 mmHg with a respiratory rate of 18 and temperature of 96.8 F. 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 He has been doing fine but noticed exertional dyspnea. He had outpatient left heart catheterization and found to have multivessel CAD and is referred here for surgical revascularization. The patient is currently chest pain-free. He underwent elective CABG x3 on pump. Patient is not on any vasopressor support with stable blood pressure, recoveringfrom the anesthesia, on elective ventilator support after major cardiothoracic surgery. Patient is postop day # 1 after CABG h5Efzbfh course was uncomplicatedPatient was extubated in a timely fashion within the 4-hour windowDid not require any vasopressor support postoperativelyMinimal chest tube output with left pleural showing 30 mL in the past 12 hours and mediastinal tube showing 270ml collectionLeft pleural chest tube to be discontinuedFoley catheter to be discontinuedNeck line to be discontinued later in the eveningAnd had brief episode of hypotension upon ambulation that responded to IV fluidsand albuminBlood pressures improvedFollow urine outputPlacement control is adequate with blood glucose at 112 mg/dLCurrently on insulin drip at 2 units/hDC insulin drip and start on insulin sliding scale low intensity coverage every 6 hoursPatient is performing incentive spirometryCreatinine is normal at 1.1 mg/dLPatient had minimal blood loss intraoperatively and hemoglobin stable at 11.7 g/dLLFTs are within normal limitsPatient had reversal of lactate anemiaLeukocytosis is improvingAmbulating with physical therapyTolerating oral diet without any nausea vomitingNo focal neurological deficitPatient is on electrolyte replacement protocol SCDs for DVT prophylaxis Darius Silva [facility] Consultants: cardiology, cardiovascular surgery, critical/intensivistCode status: full codePlan discussed with: patient, consultants, nurseCritical care time: Minutes: 40 at 1158 RPT #:[id number] OF REPORTPRProgress vrus5737-14-86C80:44:00G.[id number] for patient bnhzPLKDCBJSQCZBNS6876-23-27R80:06:05 [facility] 2022-08-31 08:28:00 [id number]whXz +G+B7HV8p3Bxr TTV1+WkazAdHDPhzd8GH+Hf3990-52-51B69:28:00 [facility]Card[facility] Progress NoteREPORT#:[id number] REPORT STATUS: SignedDATE:08/31/22 TIME: 827 PATIENT: JACKELIN VASQUEZ UNIT #: [id number]#: [id number] [address] [birth year] AGE: 66 SEX: M ATTEND: Omega Frye [facility] AUTHOR: Bhavya Fish MD * ALL edits or amendments must be made on the electronic/computer document * Subjective Free Text Subj NotesFree Text Subj Notes:Doing okay, s/p CABG x 3 (HOFFMAN-LAD, SVG-Alice, SVG-OM), and left atrial appendage amputation Objective GeneralVS/I O:24 hour I O ending at 0700: 08/31 [...] Pulse Resp B/P B/P Pulse O2 O2 Flow FiO2 Mean Ox Delivery Rate 08/30 2000 Nasal 3 cannula 08/30 195 100 Nasal 2 cannula 08/30 1840 100 Nasal 3 cannula 08/30 1715 80 100 40 08/30 1715 80 15 143/84 100 08/30 1603 97.7 50 08/30 1559 Ventilator 40 08/30 1520 98 Ventilator 50 08/30 1520 80 98 50 08/30 1119 98 Room air 08/30 0912 62 26 100 08/30 0900 61 19 130/82 98 99 PATIENT WEIGHT: Weight (lb): 247Weight (oz): 2.21Weight (kg): 112.100 Medications:Active Meds + DC'd Last 24 HrsIpratropium Pheba (ATROVENT) 500 MCG Q2H PRN PRN INH Cyanocobalamin (Vitamin B-12 500 mcg tab) 500 MCG DAILY PO Ferrous Sulfate (FERROUS SULFATE) 325 MG DAILY PO Bisacodyl (DULCOLAX) 10 MG ONCE PRN RECTAL Magnesium Hydroxide (MILK OF MAGNESIA) 30 ML ONCE PRN PO Atorvastatin Calcium (LIPITOR) 40 MG 2100 PO Clopidogrel Bisulfate (Plavix) 75 MG DAILY PO Polyethylene Glycol (MIRALAX) 17 GM DAILY PO Pantoprazole (PROTONIX) 40 MG DAILY@0600 PO Docusate Sodium (COLACE) 100 MG BID PO Gabapentin (NEURONTIN) 200 MG BID PO Metoprolol Tartrate (LOPRESSOR) 12.5 MG Q12HR PO Sennosides (Senna Lax 8.6 MG TABLET) 17.2 MG BEDTIME PO Aspirin (ASPIRIN) 81 MG DAILY PO Albumin Human (ALBUMINAR 5% 12.5GM/250ML) 250 ML ONCE ONE IV (DC) Ipratropium Pheba (ATROVENT) 500 MCG RTQ4H INH Amiodarone HCl (CORDARONE) 200 MG TID PO Hydromorphone HCl (DILAUDID) 0 .STK-MED ONE .ROUTE (DC) Acetaminophen (TYLENOL) 650 MG Q4H PRN PRN PO Acetaminophen (TYLENOL) 650 MG Q4H PRN PRN RECTAL Albumin Human (ALBUMINAR 25%) 25 GM ASDIR PRN IV Calcium Chloride (CALCIUM CHLORIDE) 1 GM ASDIR PRN IV Cefazolin Sodium (KEFZOL OR ANCEF) 6 GM ONCE ONE IV (CKD) Sodium Chloride (SODIUM CHLORIDE 0.9%) 500 MLChlorhexidine Gluconate (PERIDEX) 15 ML Q2H MM (DC) Dextrose/Water (DEXTROSE 10% IN WATER) 125 ML ASDIR PRN IV (CKD) Dextrose/Water (DEXTROSE 10% IN WATER) 250 ML ASDIR PRN IV (CKD) Epinephrine (ADRENALIN CHLORIDE) 4 MG ASDIR IV Dextrose/Water (DEXTROSE 5% WATER) 246 MLGlucagon (GLUCAGON) 1 MG ASDIR PRN IM Insulin Human Regular (HumuLIN R) 100 UNIT ASDIR IV (CKD) Sodium Chloride (SODIUM CHLORIDE 0.9%) 99 MLMagnesium Sulfate (MAGNESIUM SULFATE 4GM/SWFI 100ML) 100 ML ASDIR PRN IV Magnesium Sulfate (MAGNESIUM SULFATE 2GM/SWFI 50ML) 50 ML ASDIR PRN IV Magnesium Sulfate/Dextrose (MAGNESIUM SULFATE 1GM/D5W 100ML) 100 ML ASDIR PRN IV Morphine Sulfate (morphine SULFATE) 4 MG Q2H PRN PRN IV Nitroglycerin/Dextrose (NITROGLYCERIN 50,000MCG/D5W 250ML) 250 ML ASDIR IV Norepinephrine Bitartrate (NOREPINEPHRINE 8 MG/NS 250 ML) 250 ML TITRATE IV Ondansetron HCl (ZOFRAN) 4 MG Q6H PRN PRN IV Oxycodone HCl (ROXICODONE) 5 MG Q4H PRN PRN PO Oxycodone HCl (ROXICODONE) 10 MG Q4H PRN PRN PO Potassium Chloride (KCL 20MEQ/SWFI 100ML) 100 ML ASDIR PRN IV Sodium Bicarbonate (SODIUM BICARBONATE) 50 MEQ ASDIR PRN IV Sodium Chloride (SODIUM CHLORIDE 0.9%) 1,000 ML .Q20H IV Sodium Chloride (SODIUM CHLORIDE 0.9%) 250 ML Q24H IV Rocuronium Pheba (ZEMURON) 0 .STK-MED ONE IV (DC) Heparin Sodium (HEPARIN SODIUM) 0 .STK-MED ONE .ROUTE (DC) Mineral Oil/White Petrolatum (SYSTANE OPTH OINTMENT) 0 .STK-MED ONE .ROUTE (DC) Fentanyl Citrate (SUBLIMAZE) 0 .STK-MED ONE IV (DC) Sodium Chloride (SODIUM CHLORIDE 0.9%) 50 ML .STK-MED ONE IV (DC) Dexamethasone Sodium Phosphate (DECADRON) 0 .STK-MED ONE .ROUTE (DC) Fentanyl Citrate (SUBLIMAZE) 0 .STK-MED ONE IV (DC) Fentanyl Citrate (SUBLIMAZE) 0 .STK-MED ONE IV (DC) Lidocaine HCl (XYLOCAINE) 0 .STK-MED ONE .ROUTE (DC) Ondansetron HCl (ZOFRAN) 0 .STK-MED ONE .ROUTE (DC) Propofol (DIPRIVAN 200MG/20ML INJECTION) 20 ML .STK-MED ONE IV (DC) Rocuronium Pheba (ZEMURON) 0 .STK-MED ONE IV (DC) Papaverine HCl (PAPAVERINE HCL) 0 .STK-MED ONE IV (DC) Epinephrine (ADRENALIN CHLORIDE) 0 .STK-MED ONE .ROUTE (DC) Sodium Chloride (SODIUM CHLORIDE 0.9%) 250 ML .STK-MED ONE IV (DC) Insulin Human Regular (HumuLIN R 100 UNITS/NS 100ML) 100 ML .STK-MED ONE IV (DC) Norepinephrine Bitartrate (NOREPINEPHRINE 8 MG/NS 250 ML) 250 ML .STK-MED ONE IV (DC) Aminocaproic Acid (AMICAR) 0 .STK-MED ONE IV (DC) Calcium Chloride (CALCIUM CHLORIDE) 0 .STK-MED ONE IV (DC) Cefazolin Sodium (KEFZOL OR ANCEF) 0 .STK-MED ONE .ROUTE (DC) Famotidine (PEPCID) 0 .STK-MED ONE IV (DC) Heparin Sodium (HEPARIN SODIUM) 0 .STK-MED ONE .ROUTE (DC) Nitroglycerin/Dextrose (NITROGLYCERIN 50,000MCG/D5W 250ML) 250 ML .STK-MED ONE IV (DC) Protamine Sulfate (PROTAMINE SULFATE) 0 .STK-MED ONE IV (DC) Magnesium Sulfate (MAGNESIUM SULFATE) 0 .STK-MED ONE .ROUTE (DC) Ropivacaine (NAROPIN 0.5% 150 MG/30mL) 0 .STK-MED ONE .ROUTE (DC) Cefazolin Sodium (KEFZOL OR ANCEF) 0 .STK-MED ONE .ROUTE (DC) Cefazolin Sodium (KEFZOL OR ANCEF) 2 GM PREOP ONCALL IV (DC) Vancomycin HCl (VANCOMYCIN HCL) 1,750 MG PREOP ONCALL IV (DC) Sodium Chloride (NS 0.9%) 500 MLVerapamil HCl (ISOPTIN) 16.6 MG .Q24H ONE IV (DC) Heparin Sodium (Porcine) (HEPARIN SODIUM) 1,660 UNIT Sodium Bicarbonate (SODIUM BICARBONATE) 0.7 ML Nitroglycerin/Dextrose (NITROGLYCERIN 50MG/D5W 250ML) 8.3 MG Lactated Ringer's (LACTATED RINGERS) 949.5 MLAcetaminophen (TYLENOL EXTRA STRENGTH) 1,000 MG PREOP ONCALL PO (DC) Gabapentin (NEURONTIN) 200 MG PREOP ONCALL PO (DC) Sodium Chloride (SODIUM CHLORIDE) 20 ML ASDIR IV (DC) Mupirocin (BACTROBAN 2% 22 GM OINTMENT) 1 APPLIC BID NASAL Physical ExamGeneral appearance: alert, awakeHead/Eyes: atraumatic, clear cornea, EOMI, normal conjunctiva/sclera, normocephalic, PERRL, PERRLANeck: full range of motion, non-tender, normal thyroid, supple/no meningismus, no bruit/NL carotids, no JVD, no lymphadenopathy, no masses or swellingCardiovascular: CV assessment: regular rate and rhythm, BP pulses = bilaterally, normal heart sounds, pedal pulses presentRespiratory: clear to auscultationAbdomen: soft, non-tender, normal bowel sounds, no distention, no guardingGenitourinary: no flank pain, no urinary catheterLower extremity: LE assessment: no calf tenderness, no edemaMusculoskeletal: normal inspectionNeuro/MACHINE STONECUTTER: alert, oriented X 3, normal speech, no motor deficitsSkin: dry, intact, normal color, normal temperaturePsychiatry: normal affect, normal judgment/insight, normal mood ResultsFindings/Data:Laboratory Tests 08/31 08/30 08/30 08/30 0342 1819 1650 1528Blood Gas Puncture Site Art Line Art Line [...] (22.0 - 26.0 MMOL/L) 22.3 22.2 22.6 22.6 ABG Total CO2 23.4 23.6 23.8 23.9 ABG Base Excess (-4.0 - 4.0 MMOL/L) -2.7 -4.0 -2.7 -3.4 ABG Hematocrit (37.5 - 50.7 %) 36 L 39 34 L 33 L ABG Hemoglobin (12.5 - 16.9 G/DL) 12.1 L 13.1 11.6 L 11.3 L Mike Test N/A Sodium (134 - 147 MEQ/L) 142 144 143 143 Potassium (3.4 - 5.0 MEQ/L) 4.2 3.9 4.0 4.1 Chloride (100 - 108 MEQ/L) 109 H 113 H 110 H 111 H Ionized Calcium (1.12 - 1.32 MMOL/L) 1.28 1.26 1.25 1.34 H Lactic Acid (0.9 - 1.7 mmol/l) 1.1 1.7 2.0 H 2.3 H Temperature (F) 100.2 98 O2 Delivery Device Cannula Adult Vent Vent Mode AC Vent Rate (/MIN) 18 FiO2 (%) 50 Tidal Volume (ml) 500 PEEP (cmH2O) 5 08/30 08/30 08/30 08/30 1447 1349 1325 1237 Blood Gas O2 Saturation (90 - 100 %) 98.4 100.0 99.9 100.0 ABG pH (7.35 - 7.45) 7.308 L 7.429 7.339 L 7.331 L ABG pCO2 (35.0 - 45 mmHg) 49.3 H 37.0 51.5 *H 44.6 ABG pO2 (80 - 100.0 mmHg) 125.6 H 363.2 *H 384.2 *H 434.4 *H ABG HCO3 (22.0 - 26.0 MMOL/L) 24.7 24.5 27.8 H 23.6 ABG Total CO2 26.2 25.6 29.3 24.9 ABG Base Excess (-4.0 - 4.0 MMOL/L) -1.8 0.2 1.4 -2.5 ABG Hematocrit (37.5 - 50.7 %) 28 L 29 L 28 L 38 ABG Hemoglobin (12.5 - 16.9 G/DL) 9.7 L 9.8 L 9.5 L 13.0 Sodium (134 - 147 MEQ/L) 145 144 144 145 Potassium (3.4 - 5.0 MEQ/L) 3.8 5.0 5.2 H 3.7 Chloride (100 - 108 MEQ/L) 109 H 109 H 108 110 H Ionized Calcium (1.12 - 1.32 MMOL/L) 1.38 H 1.08 L 1.09 L 1.18 Lactic Acid (0.9 - 1.7 mmol/l) 2.2 H 0.9 0.9 1.0 08/30 1145 Blood Gas O2 Saturation (90 [...] 08/31 08/31 08/31 0647 0342 0340 0340 0210Chemistry Sodium (134 - 147 mEq/L) 142 Potassium [...] 42 Total Alk Phosphatase (20 - 125 73IUnit/L) Total Protein (6.4 - 8.2 g/dL) 5.7 [...] (0.8 - 1.3 mg/dL) 0.9 0.8 1.0 0.9 POC Glucose (mg/dL) (70 - 110 MG/DL) 93 92 96 78 Laboratory Tests 08/30 08/30 08/30 08/30 08/30 1529 1446 1352 1327 1239 Coagulation PTT (Charley) (25.0 - 39.5 Seconds) 25.4 Activated Coag Time (74 - 137 SEC) 103 595 H 642 H 468 H 08/30 1147 Coagulation Activated [...] (14.0 - 32.0 %) 9.4 L 18.5 [place] % (Auto) (4.8 - 9.0 %) 13.6 H 5.8 Eos % (Auto) (0.3 - 3.7 %) 0.0 L 0.3 Baso % (Auto) (0.0 - 2.0 %) 0.1 0.1 Neut # (Auto) (2.0 - 7.6 x10 3/uL) 9.02 H 10.85 H Lymph # (Auto) (1.0 - 3.8 x10 3/uL) 1.11 2.69 [place] # (Auto) (0.1 - 0.8 x10 3/uL) 1.61 H 0.84 H Eos # (Auto) (0.0 - 0.2 x10 3/uL) 0.00 0.04 Baso # (Auto) (0.0 - 0.2 x10 3/uL) 0.01 0.01 Abs Immat Gran (auto) (0.00 - 0.03 x10 3/uL) 0.06 H 0.12 H Add Manual Diff NO NO Immature Gran % (0.0 - 2.0 %) 0.5 0.8 Nucleated RBC % (0 - 0 %) 0.0 0.0 Nucleated RBCs # (Man) (0.0 - 0.1 x10 3/uL) 0.00 0.00 Laboratory Tests 08/31 08/30 0340 1529 Chemistry Magnesium (1.80 - 2.40 mg/dL) 2.01 1.80 Radiology data:Recent Impressions:RADIOLOGY - XR CHEST 1 V 08/30 1555 Report Impression - Status: SIGNED Entered: 08/30/2022 1617 IMPRESSION: 1. The endotracheal tube terminates approximately 2.1 cm from the jose armando. 2. There is a possible small left pleural effusion. Impression By: [email or web address] - Heydi Coronado M.D. 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 He has been doing fine but noticed exertional dyspnea. He had outpatient left heart catheterization and found to have multivessel CAD and is referred here for surgical revascularization. The patient is currently chest pain-free. 1. Coronary artery disease: S/p CABG x3, and left atrial appendage amputation. Postop management per CT surgery 2. HyperlipidemiaContinue statin at 0943 RPT #:[id number] OF REPORTPRProgress pbhc0686-96-65L34:28:00G.[id number] for patient hqurPWDVWTOTSBQQLW1351-82-39G37:44:11 [facility] 2022-08-31 03:51:00 [id number]/LuQnJApSnSRF2Jwodhl0fbR 0L9JsosEaFipe MGD0k4CW9dWDgUdUMZ2/+lu2775-87-87U06:51:917730-[address] [address] PATIENT NAME: JACKELIN VASQUEZ ADMIT DATE: 08/29/22ACCOUNT NO: [id number] ROOM NO: G.3355 AGE: 66 REPORT TYPE: eELECTROCARDIOGRAM REPORT SEX: M ADMITTING PHYSICIAN:Omega Frye MD ATTENDING PHYSICIAN:Omega Frye MD Order:[id number] Reason : P/S CABG Test Date/Time Stamp:FriAug 31 2022 03:51:33Blood Pressure : / mmHGVent. Rate : 081 BPM Atrial Rate : 081 BPM P-R Int : 212 ms QRS Dur : 066 ms QT Int : 340 ms P-R-T Axes : 036 007 010 degrees QTc Int : 394 ms Sinus rhythm with 1st degree AV blockPossible Left atrial enlargementInferior infarct , age undeterminedAbnormal ECGWhen compared with ECG of 30-AUG-2022 15:53,Significant changes have occurredConfirmed by MD PELAYO GERARD ([id number]) on 09/02/2022 8:56:43 PM Referred By: Self Referred Confirmed by:ROSALINDA PELAYO MD at 6 PATIENT NAME: JACKELIN VASQUEZ .[id number] ailable for patient xhzqRLLWDMJGGMQAGT6006-87-94N02:57:14 [facility] 2022-08-30 18:29:00 [id number]XTkL 16Viua1LOoBqS /WAoLGy74uCUUKiyS0DNn3B5296-05-14C93:29:498027-2104 [place] [address] PATIENT NAME: JACKELIN VASQUEZ ADMIT DATE: 08/29/22ACCOUNT NO: [id number] ROOM NO: G.2201 AGE: 66 REPORT TYPE: OPERATIVE REPORT SEX: M ADMITTING PHYSICIAN:Omega Frye MD ATTENDING PHYSICIAN:Omega Frye MD OPERATION DATE: 08/30/2022 PREOPERATIVE DIAGNOSIS: Coronary artery disease. POSTOPERATIVE DIAGNOSIS: Coronary artery disease. PROCEDURES PERFORMED:1. Coronary artery bypass graft surgery x3 (left internal mammary artery toleft anterior descending, saphenous vein to diagonal, saphenous vein tomarginal).2. Amputation of left atrial appendage.3. Endoscopic vein harvesting (right greater saphenous vein). SURGEON: Omega Frye MD. ANESTHESIOLOGY TECH: Samaria Dang MD. ANESTHESIOLOGIST: Dr. Mcfarland. ANESTHESIA: General endotracheal anesthesia. ESTIMATED BLOOD LOSS: 100 mL. INDICATIONS: Mr. Vasquez is a 66-year-old gentleman with tight distal left mainand proximal LAD disease. After due preop counseling, he was brought to theoperating room for surgical revascularization. FINDINGS:1. Vein was harvested from the right leg using endoscopic vein harvesttechnique and from right leg using open surgical technique. The endoscopic veinwas of poor quality, aneurysmal and thick walled, and hence we harvested thelower leg using open surgical technique. This was satisfactory quality veinmeasuring about 4 mm in size.2. Normal sternum.3. Good quality HOFFMAN measuring 2 mm in size with excellent flow.4. Normal pericardium without any intrapericardial adhesions and minimalintrapericardial fluid.5. LAD 2 mm, good quality artery.6. Diagonal 1.75 mm, good quality artery.7. Marginal 2 mm, good quality artery.8. Amputation of left appendage was performed half a centimeter from the base.This was then repaired with 2 layers of running pledgeted 4-0 Prolene suture. PATIENT NAME: JACKELIN VASQUEZ DESCRIPTION OF PROCEDURE: Mr. Vasquez was identified in the preoperative holdingarea and brought to the operating room and placed supine on the operating table. After induction of general endotracheal anesthesia, Medrano catheter, radialarterial line, and antibiotics were placed. The patient's lower extremitieswere prepped and draped in standard surgical fashion. The vein was harvestedfrom the right leg using endoscopic vein harvest technique and form right lowerleg using open surgical technique. Following harvesting of the vein,subcutaneous tissue was closed with 2-0 Vicryl and skin with 4-0 Vicryl.Simultaneously, median sternotomy was performed. The left internal mammaryartery was harvested. The pericardium was opened and pericardial well wascreated. The patient was heparinized. Cardiopulmonary bypass was institutedusing ascending aorta and 3-stage cannula in the right atrium. The patient wascooled 34 degrees centigrade. Cross-clamp was applied and the heart wasarrested with 1.5 liters of antegrade cold blood cardioplegia. Cardioplegia wasrepeated at an interval of 10 minutes all throughout the duration ofcross-clamp. We began by exploring the marginal. This was good quality artery,measuring about 2 mm in size. An arteriotomy was performed with a Bingen bladeand extended with Barton scissors. A segment of previously harvested reversesaphenous vein was anastomosed in end-to-side manner using 7-0 Prolene suture.The vein graft to the marginal was brought along the left side of the heart andsized. Aortotomy was performed on left aspect of the aorta using 4-mm punch.Proximal anastomosis of the marginal graft was then performed using running 6-0Prolene suture. Amputation of the left atrial appendage was performed half acentimeter from the base. This was then repaired using 2 layers of runningpledgeted 4-0 Prolene suture. Rewarming was commenced at this stage. Next, thediagonal was explored. This was a good quality artery measuring about 1.75 mmin size. Arteriotomy was performed with a Bingen blade and extended with Pottsscissors. A segment of previously harvested reverse saphenous vein wasanastomosed in end-to-side manner using 7-0 Prolene suture. The vein graft tothe diagonal was brought along the left side of the heart and sized. Aortotomywas performed on left aspect of the aorta using 4-mm punch. Proximalanastomosis of the diagonal graft was then performed using running 6-0 Prolenesuture. Finally, LAD was explored. There was good quality, measuring 2 mm insize. Arteriotomy was performed with a Bingen blade and extended with Pottsscissors. HOFFMAN was anastomosed in end-to-side manner using running 8-0 Prolenesuture. HOFFMAN pedicle was tacked to epicardium using 2 interrupted 6-0 Prolenesuture. A slit was made in the pericardium on the left aspect, so as toaccommodate the HOFFMAN. Careful de-aeration was performed. The cross-clamp wasreleased. One ventricular wire was placed. A 28-Mosotho chest tube was placedin the mediastinum and a 28-angled chest tube was placed in the left pleuralspace. Once the patient was at temperature, he was weaned off cardiopulmonary bypass with minimal inotropic support. Heparin was reversed with protamine.Decannulation was uneventful. After confirming hemostasis, the chest was closed in layers using stainless steel wires for the sternum, #1 Vicryl for the fascia, 2-0 Vicryl for the subcutaneous tissue, 4-0 Vicryl for the skin. The patient was transferred to the intensive care unit, intubated in stable condition. Dictated By: Omega Frye MD Date Dictated: 08/30/2022 18:29:15Date Transcribed: 08/31/2022 00:40:31AC/HUIZAR PATIENT NAME: JACKELIN VASQUEZ Keuddzz ID: [id number] and Edited by Luis E Frye MD On 08/31/22 11:44:54 AM at 1147 PATIENT NAME: JACKELIN VASQUEZ scitxt8394-88-47L45:40:00G.[id number] e for patient jqimMSWWGCEUVHDJMB7682-57-93Y90:47:44 [facility] 2022-08-30 18:21:00 [id number]+IOIT7sbkh29ftk+ZK9+ Bvw/RdRSG5hgC BRvrmh8bjd7OHuDMsqSoqYj0731-93-26I87:21:00 [facility] ([facility])Brief Op NoteREPORT#:[id number] REPORT STATUS: SignedDATE:08/30/22 TIME: 1820 PATIENT: JACKELIN VASQUEZ UNIT #: [id number]#: [id number] [address] [birth year] AGE: 66 SEX: M ATTEND: Omega Frye [facility] AUTHOR: Omega Frye MD * ALL edits or amendments must be made on the electronic/computer document * Op/Inv Proc Note - BriefPre-procedure diagnosis:CADPost-procedure diagnosis: same as pre procedure dxProcedures performed:CABG x 3 (HOFFMAN-LAD, SVG-Alice, SVG-OM)ALAAEVH (RGSV)Primary Surgeon:Samit(s): Esdras DominguezFindings:LAD-2mmComplications: noneEstimated blood loss in ml's: 100 ccSpecimens removed/altered: MARY at 1823 RPT #:[id number] OF REPORTOPOperative kmtbjo1774-61-24B44:21:00G.BIDF95257480-1057ZSOlhjamv le for patient rnaxKWBRXLORGSVCON0612-97-81R77:23:30 [facility] 16:41:00 [id number]bV2U 1MgyHfyrJBCZP 6AxOZ5AVpOlr8nUqlCtFMVM3133-44-20F56:41:00 [facility] ([facility])Clinical NoteREPORT#:[id number] REPORT STATUS: SignedDATE:08/30/22 TIME: 1640 PATIENT: JACKELIN VASQUEZ UNIT #: [id number]#: [id number] [address] [birth year] AGE: 66 SEX: M ATTEND: Omega Frye MDADM AUTHOR: Matt Barton MD * ALL edits or amendments must be made on the electronic/computer document * Clinical NoteNote: STS RISK SCORESProcedure: Isolated CAB MORTALITY RISK 0.706% CALCULATE Risk of Mortality: 0.706% Renal Failure: 1.052% Permanent Stroke: 0.913% Prolonged Ventilation: 4.849% DSW Infection: 0.152% Reoperation: 1.372% Morbidity or Mortality: 7.447% Short Length of Stay: 53.918% Long Length of Stay: 2.220% at 1642 RPT #:[id number] OF REPORTCLClinical poes2229-57-62A72:41:00G.[id number] for patient prjkSTKJJKZMBBYWZO0554-13-85Z37:43:11 [facility] 2022-08-30 16:29:00 [id number]+9NB /8PcBXik7cOO6 ZgM4aEnxHymMT2rsK5Vlq6Q0708-02-54T13:29:592652-3526 [place] [address] PATIENT NAME: JACKELIN VASQUEZ ADMIT DATE: 08/29/22ACCOUNT NO: [id number] ROOM NO: G.2201 AGE: 66 REPORT TYPE: OPERATIVE REPORT SEX: M ADMITTING PHYSICIAN:Omega Frye MD ATTENDING PHYSICIAN:Omega Frye MD OPERATION DATE: 08/30/2022 PREOPERATIVE DIAGNOSIS: Coronary artery disease. POSTOPERATIVE DIAGNOSIS: Coronary artery disease. PROCEDURE: Coronary artery bypass grafting. SURGEON: Omega Frye MD ANESTHESIOLOGY TECH: Samaria Dang MD ANESTHESIA: PROCEDURE IN DETAIL: Please refer to the detailed operative note by Dr. Frye. I assisted Dr. Frye during all the critical portions of surgery including conduits, cardiopulmonary bypass, coronary anastomosis. Dictated By: Samaria Dang MD for Omega Frye MD Date Dictated: 08/30/2022 16:29:27Date Transcribed: 08/30/2022 17:18:06KM/NAMRATA/Kristen #: [id number] ID: [id number] by Luis E Frye MD On 08/31/2022 11:44:26 AM Authenticated by Samaria Dang MD, FACS On 09/01/2022 10:30:38 AM at 1144 at 1030 PATIENT NAME: JACKELIN VASQUEZ jqowks2279-13-23F36:18:00G.[id number] e for patient etplMHIJDUXZLTTUOI8745-60-14N26:31:09 [facility] 2022-08-30 16:05:00 [id number]s/N/ l9t2T0jPBzv9Z 88+b3WhRLksSjAtvAm5iyB32137-15-34A95:05:00 [facility] ([facility])Critical Care Consult NoteREPORT#:[id number] REPORT STATUS: SignedDATE:08/30/22 TIME: 1605 PATIENT: JACKELIN VASQUEZ UNIT #: [id number]#: [id number] [address] [birth year] AGE: 66 SEX: M ATTEND: Omega Frye MDA AUTHOR: Darius Silva MD * ALL edits or amendments must be made on the electronic/computer document * History of Present Illness HPIRequesting clinician: Dr Wyatt for consult: Coronary artery diseaseStatus post CABG x3 on 5Acute pulmonary insufficiency following major cardiothoracic surgeryElective ventilator dependenceLactic acidosisHyperglycemiaLeukocytosis Chief complaint: DyspneaChest painDyslipidemia HPI: Patient seen and examined in CVICU room #2201. He is status post CABG x3 with HOFFMAN to LAD, vein graft to OM and vein graft to diagonal. Intra-Op course was uneventful. Patient received 1 L of crystalloid and 600 mL of Cell Saver. Intra-Op urine output was 30 and 50 mL. EBL was 100 mL. Patient is not on any vasopressor support. Insulin drip at 3 units/h and the latest blood glucose is 143 mg/dL. He is on Amicar drip. Chest tube output is minimal with left pleural showing no output at all and mediastinal tubes showing 10 mL. Patient is on assist-control at 18 tidal volume 500 PEEP of 5 and 50% FiO2. Latest blood gas shows a pH of 7.32, pCO2 of 43 mmHg, pO2 of 83 mmHg and bicarbonate of23 mmol with base excess at -3.4 and oxygen saturation at 95%. Lactic acid is elevated at 2.3 and patient received 250 mL of albumin infusion as well as 250 mL of normal saline. He is stable from hemodynamic standpoint with a heart rateof 75 in sinus rhythm, blood pressures 111/61 mmHg with a respiratory rate of 18and temperature of 96.8 F. 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 He has been doing fine but noticed exertional dyspnea. He had outpatient left heart catheterization and found to have multivessel CAD and is referred here for surgical revascularization. The patient is currently chest pain-free. He underwent elective CABG x3 on pump. Patient is not on any vasopressor support with stable blood pressure, recoveringfrom the anesthesia, on elective ventilator support after major cardiothoracic surgery. Patient will be fast-track for extubation. History - Adult longitudinalPast medical history:Reports: Gallbladder dis/stones. Denies: Congestive heart failure, Diabetes mellitus, Hypertension. Additional medical history:Hypertension Hyperlipidemia Obstructive sleep apneaAdditional surgical history:Tonsillectomy Appendectomy Right knee surgeryFamily history:Denies: CAD < 40 yrs old. Alcohol use: Denies EtOH useDrug use: Denies recreational drugsSmoking status for patients 13 years old or older: Never SmokerAllergies:Coded Allergies:No Known Allergies (08/29/22) Occupation:TeacherAmbulatory status: Independent Review of Systems ROSUnable to obtain due to:Patient is oral intubated on the ventilator. His status post CABG x3 on pump. Patient was brought to the CVICU room #2201 on elective mechanical ventilation for acute pulmonary insufficiency following major cardiothoracic surgery. Objective Physical ExamVS/I O:Last Documented: Result Date Time FiO2 40 08/30 1559 O2 Delivery Ventilator 08/30 1559 Pulse Ox 98 08/30 1119 Pulse 62 08/30 0912 Resp 26 08/30 0912 B/P 130/82 08/30 0900 B/P Mean 98 08/30 0900 Temp 36.4 08/30 0800 24 hour I O ending at 0700: 08/30 0700 08/29 1900 Intake Total 400 Output Total Balance 400 Intake, Oral 400 Patient 108.5 kg Weight Weight Standing scale Measurement Method Patient Weight and BMI Weight (kg): 108.500 BMI: 33.5 Medications:Active Meds + DC'd Last 24 HrsIpratropium Pheba (ATROVENT) 500 MCG Q2H PRN PRN INH Cyanocobalamin (Vitamin B-12 500 mcg tab) 500 MCG DAILY PO Ferrous Sulfate (FERROUS SULFATE) 325 MG DAILY PO Bisacodyl (DULCOLAX) 10 MG ONCE PRN RECTAL Magnesium Hydroxide (MILK OF MAGNESIA) 30 ML ONCE PRN PO Atorvastatin Calcium (LIPITOR) 40 MG 2100 PO Clopidogrel Bisulfate (Plavix) 75 MG DAILY PO Polyethylene Glycol (MIRALAX) 17 GM DAILY PO Pantoprazole (PROTONIX) 40 MG DAILY@0600 PO Docusate Sodium (COLACE) 100 MG BID PO Gabapentin (NEURONTIN) 200 MG BID PO Metoprolol Tartrate (LOPRESSOR) 12.5 MG Q12HR PO Sennosides (Senna Lax 8.6 MG TABLET) 17.2 MG BEDTIME PO Aspirin (ASPIRIN) 81 MG DAILY PO Albumin Human (ALBUMINAR 5% 12.5GM/250ML) 250 ML ONCE ONE IV (UNV) Ipratropium Pheba (ATROVENT) 500 MCG RTQ4H INH Amiodarone HCl (CORDARONE) 200 MG TID PO Hydromorphone HCl (DILAUDID) 0 .STK-MED ONE .ROUTE (DC) Acetaminophen (TYLENOL) 650 MG Q4H PRN PRN PO Acetaminophen (TYLENOL) 650 MG Q4H PRN PRN RECTAL Albumin Human (ALBUMINAR 25%) 25 GM ASDIR PRN IV Calcium Chloride (CALCIUM CHLORIDE) 1 GM ASDIR PRN IV Cefazolin Sodium (KEFZOL OR ANCEF) 6 GM ONCE ONE IV (CKD) Sodium Chloride (SODIUM CHLORIDE 0.9%) 500 MLChlorhexidine Gluconate (PERIDEX) 15 ML Q2H MM (CKD) Dextrose/Water (DEXTROSE 10% IN WATER) 125 ML ASDIR PRN IV (CKD) Dextrose/Water (DEXTROSE 10% IN WATER) 250 ML ASDIR PRN IV (CKD) Epinephrine (ADRENALIN CHLORIDE) 4 MG ASDIR IV Dextrose/Water (DEXTROSE 5% WATER) 246 MLGlucagon (GLUCAGON) 1 MG ASDIR PRN IM Insulin Human Regular (HumuLIN R) 100 UNIT ASDIR IV (CKD) Sodium Chloride (SODIUM CHLORIDE 0.9%) 99 MLMagnesium Sulfate (MAGNESIUM SULFATE 4GM/SWFI 100ML) 100 ML ASDIR PRN IV Magnesium Sulfate (MAGNESIUM SULFATE 2GM/SWFI 50ML) 50 ML ASDIR PRN IV Magnesium Sulfate/Dextrose (MAGNESIUM SULFATE 1GM/D5W 100ML) 100 ML ASDIR PRN IV Morphine Sulfate (morphine SULFATE) 4 MG Q2H PRN PRN IV Nitroglycerin/Dextrose (NITROGLYCERIN 50,000MCG/D5W 250ML) 250 ML ASDIR IV Norepinephrine Bitartrate (NOREPINEPHRINE 8 MG/NS 250 ML) 250 ML TITRATE IV Ondansetron HCl (ZOFRAN) 4 MG Q6H PRN PRN IV Oxycodone HCl (ROXICODONE) 5 MG Q4H PRN PRN PO Oxycodone HCl (ROXICODONE) 10 MG Q4H PRN PRN PO Potassium Chloride (KCL 20MEQ/SWFI 100ML) 100 ML ASDIR PRN IV Sodium Bicarbonate (SODIUM BICARBONATE) 50 MEQ ASDIR PRN IV Sodium Chloride (SODIUM CHLORIDE 0.9%) 1,000 ML .Q20H IV Sodium Chloride (SODIUM CHLORIDE 0.9%) 250 ML Q24H IV Rocuronium Pheba (ZEMURON) 0 .STK-MED ONE IV (DC) Heparin Sodium (HEPARIN SODIUM) 0 .STK-MED ONE .ROUTE (DC) Mineral Oil/White Petrolatum (SYSTANE OPTH OINTMENT) 0 .STK-MED ONE .ROUTE (DC) Fentanyl Citrate (SUBLIMAZE) 0 .STK-MED ONE IV (DC) Sodium Chloride (SODIUM CHLORIDE 0.9%) 50 ML .STK-MED ONE IV (DC) Dexamethasone Sodium Phosphate (DECADRON) 0 .STK-MED ONE .ROUTE (DC) Fentanyl Citrate (SUBLIMAZE) 0 .STK-MED ONE IV (DC) Fentanyl Citrate (SUBLIMAZE) 0 .STK-MED ONE IV (DC) Lidocaine HCl (XYLOCAINE) 0 .STK-MED ONE .ROUTE (DC) Ondansetron HCl (ZOFRAN) 0 .STK-MED ONE .ROUTE (DC) Propofol (DIPRIVAN 200MG/20ML INJECTION) 20 ML .STK-MED ONE IV (DC) Rocuronium Pheba (ZEMURON) 0 .STK-MED ONE IV (DC) Papaverine HCl (PAPAVERINE HCL) 0 .STK-MED ONE IV (DC) Epinephrine (ADRENALIN CHLORIDE) 0 .STK-MED ONE .ROUTE (DC) Sodium Chloride (SODIUM CHLORIDE 0.9%) 250 ML .STK-MED ONE IV (DC) Insulin Human Regular (HumuLIN R 100 UNITS/NS 100ML) 100 ML .STK-MED ONE IV (DC) Norepinephrine Bitartrate (NOREPINEPHRINE 8 MG/NS 250 ML) 250 ML .STK-MED ONE IV (DC) Aminocaproic Acid (AMICAR) 0 .STK-MED ONE IV (DC) Calcium Chloride (CALCIUM CHLORIDE) 0 .STK-MED ONE IV (DC) Cefazolin Sodium (KEFZOL OR ANCEF) 0 .STK-MED ONE .ROUTE (DC) Famotidine (PEPCID) 0 .STK-MED ONE IV (DC) Heparin Sodium (HEPARIN SODIUM) 0 .STK-MED ONE .ROUTE (DC) Nitroglycerin/Dextrose (NITROGLYCERIN 50,000MCG/D5W 250ML) 250 ML .STK-MED ONE IV (DC) Protamine Sulfate (PROTAMINE SULFATE) 0 .STK-MED ONE IV (DC) Magnesium Sulfate (MAGNESIUM SULFATE) 0 .STK-MED ONE .ROUTE (DC) Ropivacaine (NAROPIN 0.5% 150 MG/30mL) 0 .STK-MED ONE .ROUTE (DC) Cefazolin Sodium (KEFZOL OR ANCEF) 0 .STK-MED ONE .ROUTE (DC) Cefazolin Sodium (KEFZOL OR ANCEF) 2 GM PREOP ONCALL IV (DC) Metoprolol Tartrate (LOPRESSOR) 6.25 MG ONCE ONE PO (DC) Vancomycin HCl (VANCOMYCIN HCL) 1,750 MG PREOP ONCALL IV (CKD) Sodium Chloride (NS 0.9%) 500 MLVerapamil HCl (ISOPTIN) 16.6 MG .Q24H ONE IV (CKD) Heparin Sodium (Porcine) (HEPARIN SODIUM) 1,660 UNIT Sodium Bicarbonate (SODIUM BICARBONATE) 0.7 ML Nitroglycerin/Dextrose (NITROGLYCERIN 50MG/D5W 250ML) 8.3 MG Lactated Ringer's (LACTATED RINGERS) 949.5 MLAcetaminophen (TYLENOL EXTRA STRENGTH) 1,000 MG PREOP ONCALL PO (DC) Gabapentin (NEURONTIN) 200 MG PREOP ONCALL PO (DC) Sodium Chloride (SODIUM CHLORIDE) 20 ML ASDIR IV (DC) Mupirocin (BACTROBAN 2% 22 GM OINTMENT) 1 APPLIC BID NASAL General appearance: respiratory support, no acute distress, no respiratory distressHead/Eyes: atraumatic, clear cornea, normocephalic, PERRLENT: intubated, normal nose, normal sinusNeck: non-tender, normal thyroid, no JVD, no masses or swellingCardiovascular: normal capillary refill, normal heart sounds, regular rate and rhythm, normal S1/X5Bxmizkeuupc: aerating well, clear to auscultation, symmetric expansion, no distressAbdomen: soft, non-tender, normal bowel sounds, no distention, no guarding, no mass/organomegaly, no reboundGenitourinary: urinary catheter, no bladder distention, no flank painExtremities: no clubbing, no cyanosis, no edemaSkin: abnormal temperature, dry, normal color, no rashPsychiatry: unable to evaluate ResultsFindings/Data:Laboratory Tests 08/30/22 1529:[Embedded Image Not Available] 08/30/22 0330:[Embedded Image Not Available]Laboratory Tests 08/30 08/30 08/30 08/30 1528 1447 1349 1325Blood Gas Puncture Site Art Line O2 Saturation (90 - 100 %) 95.2 98.4 100.0 99.9 ABG pH (7.35 - 7.45) 7.329 L 7.308 L 7.429 7.339 L ABG pCO2 (35.0 - 45 mmHg) 42.8 49.3 H 37.0 51.5 *H ABG pO2 (80 - 100.0 mmHg) 81.1 125.6 H 363.2 *H 384.2 *H ABG PO2/FiO2 Ratio (mm/Hg) 162.20 ABG HCO3 (22.0 - 26.0 MMOL/L) 22.6 24.7 24.5 27.8 H ABG Total CO2 23.9 26.2 25.6 29.3 ABG Base Excess (-4.0 - 4.0 MMOL/L) -3.4 -1.8 0.2 1.4 ABG Hematocrit (37.5 - 50.7 %) 33 L 28 L 29 L 28 L ABG Hemoglobin (12.5 - 16.9 G/DL) 11.3 L 9.7 L 9.8 L 9.5 L Mike Test N/A Sodium (134 - 147 MEQ/L) 143 145 144 144 Potassium (3.4 - 5.0 MEQ/L) 4.1 3.8 5.0 5.2 H Chloride (100 - 108 MEQ/L) 111 H 109 H 109 H 108 Ionized Calcium (1.12 - 1.32 MMOL/L) 1.34 H 1.38 H 1.08 L 1.09 L Lactic Acid [...] (74 - 137 SEC) 103 595 H 642 H 468 H 121 08/30 0330 Coagulation INR (0.8 - 1.2) 1.1 PTT (Charley) (25.0 - 39.5 Seconds) 23.7 L PT Patient/Control Mix (9.3 - 12.9 SECONDS) 12.6 Laboratory Tests 08/30 08/30 1529 0330 Hematology [...] (14.0 - 32.0 %) 18.5 33.4 H [place] % (Auto) (4.8 - 9.0 %) 5.8 11.2 H Eos % (Auto) (0.3 - 3.7 %) 0.3 0.9 Baso % (Auto) (0.0 - 2.0 %) 0.1 0.2 Neut # (Auto) (2.0 - 7.6 x10 3/uL) 10.85 H 3.55 Lymph # (Auto) (1.0 - 3.8 x10 3/uL) 2.69 2.20 [place] # (Auto) (0.1 - 0.8 x10 3/uL) 0.84 H 0.74 Eos # (Auto) (0.0 - 0.2 x10 3/uL) 0.04 0.06 Baso # (Auto) (0.0 - 0.2 x10 3/uL) 0.01 0.01 Abs Immat Gran (auto) (0.00 - 0.03 x10 3/uL) 0.12 H 0.02 Add Manual Diff NO NO Immature Gran % (0.0 - 2.0 %) 0.8 0.3 Nucleated RBC % (0 - 0 %) 0.0 0.0 Nucleated RBCs # (Man) (0.0 - 0.1 x10 3/uL) 0.00 0.00 Laboratory Tests 08/29 2100 Urines Urine Color (YEL/STRAW) STRAW Urine Appearance (CLEAR) CLEAR Urine pH (5.0 - 7.0) 7.0 Ur Specific [place] (1.005 - 1.030) 1.009 Urine Protein (NEGATIVE) [...] Squamous Epith Cells (NONE SEEN /HPF) NONE SEEN Urine Bacteria (NONE SEEN /HPF) NONE SEEN Microbiology:08/29 2123 NASAL: MSSA Surveillance Screen - ORD08/29 2123 NASAL: MRSA DNA Surveillance Screen - ORD08/29 2040 NASAL: MSSA Surveillance Screen - COMP08/29 2040 NASAL: MRSA DNA Surveillance Screen - COMP Radiology data:Recent Impressions:ULTRASOUND - DUP EXTRACRANIAL STEPHENIE 08/29 2043 Report [...] Total occlusion is no detectable patent lumen. Impression By: Breonna Mejia M.D.ULTRASOUND - DUP VEIN STEPHENIE 08/29 2044 Report Impression - Status: SIGNED Entered: 08/29/20222145 IMPRESSION: Lower extremity venous mapping as above. Impression By: [email or web address] Diogo Jacobsen M.D.CAT SCAN - CT CHEST W/O CONTRAST 08/29 2059 Report Impression - Status: SIGNED Entered: 08/29/20222224 IMPRESSION: No acute findings. Ascending thoracic aorta dilation. Follow-up exam is recommended.Impression By: [email or web address] Diogo Gonzalez M.D.RADIOLOGY - XR CHEST 1 V 08/30 0530 Report Impression - Status: SIGNED Entered: 08/30/2022 0815 IMPRESSION: No acute abnormality in the chest. Impression By: [email or web address] - Navarro Rasmussen M.D. Results: labs reviewed, vital signs reviewed, rhythm personally rev'd, current med profile rev'd Diagnosis, Assessment Plan Diagnosis, Assessment PlanConsultants: cardiology, cardiovascular surgery, critical/intensivistPlan discussed with: consultants, nurseCritical care time: Minutes: 50 Code Status/Resusc. DiscussionResuscitation discussion: Discussed with: patient, familyCode status: full codeFree text DxA P: Problem List: Coronary artery diseaseStatus post CABG x3 on 5Acute pulmonary insufficiency following major cardiothoracic surgeryElective ventilator dependenceLactic acidosisHyperglycemiaHypomagnesemiaLeukocytosis Assessment and Plan: Patient seen and examined in CVICU room #2201. He is status post CABG x3 with HOFFMAN to LAD, vein graft to OM and vein graft to diagonal. Intra-Op course was uneventful. Patient received 1 L of crystalloid and 600 mL of Cell Saver. Intra-Op urine output was 30 and 50 mL. EBL was 100 mL. Patient is not on any vasopressor support. Insulin drip at 3 units/h and the latest blood glucose is 143 mg/dL. He is on Amicar drip. Chest tube output is minimal with left pleural showing no output at all and mediastinal tubes showing 10 mL. Patient is on assist-control at 18 tidal volume 500 PEEP of 5 and 50% FiO2. Latest blood gas shows a pH of 7.32, pCO2 of 43 mmHg, pO2 of 83 mmHg and bicarbonate of23 mmol with base excess at -3.4 and oxygen saturation at 95%. Lactic acid is elevated at 2.3 and patient received 250 mL of albumin infusion as well as 250 mL of normal saline. He is stable from hemodynamic standpoint with a heart rateof 75 in sinus rhythm, blood pressures 111/61 mmHg with a respiratory rate of 18and temperature of 96.8 F. 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 He has been doing fine but noticed exertional dyspnea. He had outpatient left heart catheterization and found to have multivessel CAD and is referred here for surgical revascularization. The patient is currently chest pain-free. He underwent elective CABG x3 on pump. Patient is not on any vasopressor support with stable blood pressure, recoveringfrom the anesthesia, on elective ventilator support after major cardiothoracic surgery. Patient will be fast-track for extubation. Patient is postop day 0 after CABG h7Jawctqsco 3 grafts with HOFFMAN to LAD, vein graft to OM and diagonalUncomplicated intraoperative courseReceived 1 L of crystalloid and 600 mL of Cell SaverUrine output 1350 mL EBL was 100 mLNot on vasopressor supportOn Amicar and insulin drips onlyBlood glucose 143 mg/dL and insulin drip at 3 units/hMinimal chest tube output with mediastinal at 10 mL and left pleural noneOn elective ventilator support currently on assist-control at 18 tidal volume 500 PEEP of 5 and 50% MdO2Batccl blood gas shows a pH of 7.32, PCO2 of 43 mmHg, PO2 of 83 mmHg and bicarbonate of 23 mmol with base excess of -3.4 and 95% oxygen saturationLactic acid is mildly elevated 2.5Give 250 mL of normal saline and 250 mL of 5% albumin infusionFollow urine output and lactic acid levelPatient is waking up from anesthesiaPatient will be fast-track for extubationUpon spontaneous eye opening patient will undergo weaning parameters assessment includingNegative inspiratory force, Vital capacity and RSBICheck ABGs and plan extubationLeukocytosis most probably reactiveTrend CBCHas low magnesiumReplete with 2 g of magnesium sulfate and follow magnesium level SCDs for DVT prophylaxis Darius Silva MD [place] [address].19 PM at 1625 RPT #:[id number] OF REPORTHZIrmaaqntxlby6966-29-84R56:05:00G.[id number] for patient qgzvTXSYLYZIBQILHQ4908-30-04D16:25:48 [facility] 2022-08-30 15:53:00 [id number] QxZapiiAWjqoy CbTeuIm64/esXh4L7CzxjBK9990-13-72G37:53:878341-4266 [place] [address] PATIENT NAME: JACKELIN VASQUEZ ADMIT DATE: 08/29/22ACCOUNT NO: [id number] ROOM NO: [facility] AGE: 66 REPORT TYPE: eELECTROCARDIOGRAM REPORT SEX: M ADMITTING PHYSICIAN:Omega Frye MD ATTENDING PHYSICIAN:Omega Frye MD Order:[id number] Reason : S/P CABG Test Date/Time Stamp:FriAug 30 2022 15:53:38Blood Pressure : / mmHGVent. Rate : 076 BPM Atrial Rate : 076 BPM P-R Int : 330 ms QRS Dur : 080 ms QT Int : 384 ms P-R-T Axes : 049 018 008 degrees QTc Int : 432 ms Sinus rhythm with 1st degree AV blockNonspecific T wave abnormalityAbnormal ECGNo previous ECGs availableConfirmed by MD PELAYO GERARD ([id number]) on 08/30/2022 5:58:46 PM Referred By: Martin Frye Confirmed by:ROSALINDA PELAYO MD at 1758 PATIENT NAME: JACKELIN VASQUEZ .[id number] ailable for patient wbrwNLXXRPEGMKZBOO7473-19-11D17:59:21 [facility] 2022-08-30 09:32:00 [id number] +a7hGU1Nh5xS9 jCOsKEVOdKsNbO1RjbeqeXV9301-32-39K81:32:00 [facility]anoCardiology ConsultationREPORT#:[id number] REPORT STATUS: SignedDATE:08/30/22 TIME: 931 PATIENT: JACKELIN VASQUEZ UNIT #: [id number]#: [id number] [address] [birth year] AGE: 66 SEX: M ATTEND: Omega Frye [facility] AUTHOR: Elizabeth ReynaCNSoraida * ALL edits or amendments must be made on the electronic/computer document * History of Present Illness HPIRequesting Clinician: Dr. 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 He has been doing fine but noticed exertional dyspnea. He had outpatient left heart catheterization and found to have multivessel CAD and is referred here for surgical revascularization. The patient is currently chest pain-free. History - Adult longitudinalPast medical history:Reports: Gallbladder dis/stones. Denies: Congestive heart failure, Diabetes mellitus, Hypertension. Family history:Denies: CAD < 40 yrs old. Alcohol use: Denies EtOH useDrug use: Denies recreational drugsSmoking status for patients 13 years old or older: Never SmokerHome medications:Home Medications:ASPIRIN 81 MG PO DAILY LEVOCETIRIZINE (XYZAL) 5 MG PO DAILY SIMVASTATIN (ZOCOR) 20 MG PO BEDTIME TADALAFIL (CIALIS) 5 MG PO DAILY FLUTICASONE PROPIONATE (FLONASE 50 MCG/ACT NASAL) 1 SPRAY NASAL DAILY Allergies:Coded Allergies:No Known Allergies (08/29/22) Occupation:TeacherAmbulatory status: Independent Review of SystemsAdditional notes:As stated in HPI Objective GeneralVS/I O:Vital Signs: Date Time Temp Pulse Resp B/P B/P Pulse O2 O2 Flow FiO2 Mean Ox Delivery Rate 08/30 0912 [...] scale Measurement Method PATIENT WEIGHT: Weight (lb): 239Weight (oz): 3.22Weight (kg): 108.500 Medications:Active Meds + DC'd Last 24 HrsCefazolin Sodium (KEFZOL OR ANCEF) 2 GM PREOP ONCALL IV (CKD) Metoprolol Tartrate (LOPRESSOR) 6.25 MG ONCE ONE PO (DC) Vancomycin HCl (VANCOMYCIN HCL) 1,750 MG PREOP ONCALL IV (CKD) Sodium Chloride (NS 0.9%) 500 MLVerapamil HCl (ISOPTIN) 16.6 MG .Q24H ONE IV (CKD) Heparin Sodium (Porcine) (HEPARIN SODIUM) 1,660 UNIT Sodium Bicarbonate (SODIUM BICARBONATE) 0.7 ML Nitroglycerin/Dextrose (NITROGLYCERIN 50MG/D5W 250ML) 8.3 MG Lactated Ringer's (LACTATED RINGERS) 949.5 MLAcetaminophen (TYLENOL EXTRA STRENGTH) 1,000 MG PREOP ONCALL PO (CKD) Gabapentin (NEURONTIN) 200 MG PREOP ONCALL PO (CKD) Sodium Chloride (SODIUM CHLORIDE) 20 ML ASDIR IV Mupirocin (BACTROBAN 2% 22 GM OINTMENT) 1 APPLIC BID NASAL Physical ExamGeneral appearance: alert, awakeHead/Eyes: atraumatic, clear cornea, EOMI, normal conjunctiva/sclera, normocephalic, PERRL, PERRLANeck: full range of motion, non-tender, normal thyroid, supple/no meningismus, no bruit/NL carotids, no JVD, no lymphadenopathy, no masses or swellingCardiovascular: CV assessment: regular rate and rhythm, BP pulses = bilaterally, normal heart sounds, pedal pulses presentRespiratory: clear to auscultationAbdomen: soft, non-tender, normal bowel sounds, no distention, no guardingGenitourinary: no flank pain, no urinary catheterLower extremity: LE assessment: no calf tenderness, no edemaMusculoskeletal: normal inspectionNeuro/MACHINE STONECUTTER: alert, oriented X 3, normal speech, no motor deficitsSkin: dry, intact, normal color, normal temperaturePsychiatry: normal affect, normal judgment/insight, normal mood ResultsFindings/Data:Laboratory Tests 08/30 08/30 0330 0330 Chemistry Sodium (134 [...] PT Patient/Control Mix (9.3 - 12.9 SECONDS) 12.6 Laboratory Tests 08/30 0330 Hematology WBC (4.5 [...] (Auto) (14.0 - 32.0 %) 33.4 H [place] % (Auto) (4.8 - 9.0 %) 11.2 H Eos % (Auto) (0.3 - 3.7 %) 0.9 Baso % (Auto) (0.0 - 2.0 %) 0.2 Neut # (Auto) (2.0 - 7.6 x10 3/uL) 3.55 Lymph # (Auto) (1.0 - 3.8 x10 3/uL) 2.20 [place] # (Auto) (0.1 - 0.8 x10 3/uL) 0.74 Eos # (Auto) (0.0 - 0.2 x10 3/uL) 0.06 Baso # (Auto) (0.0 - 0.2 x10 3/uL) 0.01 Abs Immat Gran (auto) (0.00 - 0.03 x10 3/uL) 0.02 Add Manual Diff NO Immature Gran % (0.0 - 2.0 %) 0.3 Nucleated RBC % (0 - 0 %) 0.0 Nucleated RBCs # (Man) (0.0 - 0.1 x10 3/uL) 0.00 Laboratory Tests 08/29 2100 Urines Urine Color (YEL/STRAW) STRAW Urine Appearance (CLEAR) CLEAR Urine pH (5.0 - 7.0) 7.0 Ur Specific [place] (1.005 - 1.030) 1.009 Urine Protein (NEGATIVE) [...] Squamous Epith Cells (NONE SEEN /HPF) NONE SEEN Urine Bacteria (NONE SEEN /HPF) NONE SEEN Microbiology Date/Time Procedure - Status Source Growth 08/29 2040 MSSA Surveillance Screen - COMP NASAL 08/29 2040 MRSA DNA Surveillance Screen - COMP NASAL Radiology Data:Recent Impressions:ULTRASOUND - DUP EXTRACRANIAL STEPHENIE 08/29 2043 Report [...] Total occlusion is no detectable patent lumen. Impression By: Breonna Mejia M.D.ULTRASOUND - DUP VEIN STEPHENIE 08/29 2044 Report Impression - Status: SIGNED Entered: 08/29/20222145 IMPRESSION: Lower extremity venous mapping as above. Impression By: [email or web address] Diogo Jacobsen M.D.CAT SCAN - CT CHEST W/O CONTRAST 08/29 2059 Report Impression - Status: SIGNED Entered: 08/29/20225 IMPRESSION: No acute findings. Ascending thoracic aorta dilation. Follow-up exam is recommended.Impression By: GilbertoWH3 Diogo Gonzalez M.D.RADIOLOGY - XR CHEST 1 V 08/30 0530 Report Impression - Status: SIGNED Entered: 08/30/2022 0815 IMPRESSION: No acute abnormality in the chest. Impression By: [email or web address] Diogo Rasmussen M.D. 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 He has been doing fine but noticed exertional dyspnea. He had outpatient left heart catheterization and found to have multivessel CAD and is referred here for surgical revascularization. The patient is currently chest pain-free. 1. Coronary artery diseaseWaiting for CABG 2. HyperlipidemiaContinue statin Appreciate the referral. at 1235 at 7288 RPT #:[id number] OF REPORTHKEqoarakybkrh6371-19-06C04:32:00G.[id number] for patient oqysSKUPMLKKNRFYCM3715-25-63K88:35:16 [facility] 2022-08-30 07:22:00 [id number] MyfvayW60D1ug PTcrGRLOt/zEabhmJEDVQbK3049-47-81C46:22:00 [facility] ([facility])Cardiothoracic Surgery ConsultREPORT#:[id number] REPORT STATUS: SignedDATE:08/30/22 TIME: 721 PATIENT: JACKELIN VASQUEZ UNIT #: [id number]#: [id number] [address] [birth year] AGE: 66 SEX: M ATTEND: Omega Frye [facility] AUTHOR: Lizbeth Peterson [employer] * ALL edits or amendments must be made on the electronic/computer document * Lyssa Shearer 08/30/22721:History of Present Illness HPIChief complaint:Chest pain Severe CADPCP:PCP: No Primary or Family Physician Requesting ClinicianDr Nikolas HPI:Very pleasant 66-year-old -[place] male with past medical history of hypertension hyperlipidemia, obstructive sleep apnea who has been experiencing exertional chest discomfort. CTA of the coronaries demonstrated severe coronaryartery disease and patient was taken to the Coding Machine Operator for further evaluation. Coronary angiogram showed severe coronary artery disease involving the left main(90%) and patient transferred to our facility for surgical revascularization. HistoryAdditional Medical History:HypertensionHyperlipidemiaObstructive sleep apneaAdditional Surgical History:TonsillectomyAppendectomyRight knee surgeryAlcohol Use Denies EtOH useDrug Use Denies recreational drugsSmoking status for patients 13 years old or older: Never SmokerMedications:Home Medications:Medication Dose/Rte/Freq Days Qty Entered Last Max Daily Dose Reviewed ASPIRIN 81 MG PO DAILY 08/29/22 08/29/22Strength: 81 MG TAB.CHEW 1928 1931 LEVOCETIRIZINE (XYZAL) 5 MG PO DAILY 08/29/22 08/29/22Strength: 5 MG TAB 1929 1931 SIMVASTATIN (ZOCOR) 20 MG PO BEDTIME 08/29/22 08/29/22Strength: 20 MG TAB 1929 1931 TADALAFIL (CIALIS) 5 MG PO DAILY 08/29/22 08/29/22Strength: 5 MG TAB 1930 1931 FLUTICASONE PROPIONATE 1 SPRAY NASAL DAILY 08/29/22 08/29/22 (FLONASE 50 MCG/ACT 1930 1931 NASAL)Strength: 50MCG/ACTUATION SPRAY Current Hospital Medications:Anti-Infective Agents Sig/Sherrill Start time Last Medication Dose [...] Sodium 2 GM PREOP ONCALL 08/30 0500 DC (KEFZOL OR ANCEF) IV 08/30 2359 Vancomycin HCl 1,750 MG PREOP ONCALL 08/30 0500 CKD (VANCOMYCIN HCL) IV 08/30 2359 Sodium Chloride 500 ML (NS 0.9%) Autonomic Drugs Sig/Sherrill Start time Last Medication Dose Route Stop Time Status Admin Ipratropium Pheba 500 MCG Q2H PRN PRN 09/02 1419 UNV (ATROVENT) INH 10/02 1418 Epinephrine 4 MG ASDIR 08/30 1430 AC (ADRENALIN CHLORIDE) IV 09/29 1429 Dextrose/Water 246 ML (DEXTROSE 5% WATER) Ipratropium Pheba 500 MCG Q4H 08/30 1430 UNV (ATROVENT) INH 09/02 1419 Norepinephrine 250 ML TITRATE 08/30 1430 AC Bitartrate IV 09/29 1429 (NOREPINEPHRINE 8 MG/ NS 250 ML) Rocuronium Pheba 0 .STK-MED ONE 08/30 1307 DC (ZEMURON) IV Rocuronium Pheba 0 .STK-MED ONE 08/30 1035 DC (ZEMURON) IV Epinephrine 0 .STK-MED ONE 08/30 1005 DC (ADRENALIN CHLORIDE) .ROUTE Norepinephrine 250 ML .STK-MED ONE 08/30 0959 DC Bitartrate IV (NOREPINEPHRINE 8 MG/ NS 250 ML) Blood Derivatives Sig/Sherrill Start time Last Medication Dose Route Stop Time Status Admin Albumin Human 25 GM ASDIR PRN 08/30 1430 AC (ALBUMINAR 25%) IV 08/31 1419 Blood Formation,Coagulation Sig/Sherrill Start time Last Medication Dose Route Stop Time Status Admin Ferrous Sulfate 325 MG DAILY 09/02 900 AC (FERROUS SULFATE) PO 10/02 859 Clopidogrel Bisulfate 75 MG DAILY 08/31 900 AC (Plavix) PO 09/30 859 Heparin Sodium 0 .STK-MED ONE 08/30 1232 DC (HEPARIN SODIUM) .ROUTE Aminocaproic Acid 0 .STK-MED ONE 08/30 958 DC (AMICAR) IV Heparin Sodium 0 .STK-MED ONE 08/30 958 DC (HEPARIN SODIUM) .ROUTE Protamine Sulfate 0 .STK-MED ONE 08/30 958 DC (PROTAMINE SULFATE) IV Cardiovascular Drugs Sig/Sherrill Start time Last Medication Dose Route Stop Time Status Admin Atorvastatin Calcium 40 MG 08/31 AC (LIPITOR) PO 09/30 2059 Metoprolol Tartrate [...] Nitroglycerin/ 250 ML .STK-MED ONE 08/30 0958 DC Dextrose IV (NITROGLYCERIN 50,000MCG/D5W 250ML) Metoprolol Tartrate 6.25 MG ONCE ONE 08/30 050 DC 08/30 (LOPRESSOR) PO 08/30 050 0517 Verapamil HCl 16.6 MG .Q24H ONE [...] BID 08/30 2100 AC (NEURONTIN) PO 09/04 901 Aspirin 81 MG DAILY 08/30 2019 AC (ASPIRIN) PO 09/29 2018 Acetaminophen 650 MG Q4H PRN PRN 08/30 1430 UNV (TYLENOL) PO 09/29 1429 Acetaminophen 650 MG Q4H PRN PRN 08/30 1430 UNV (TYLENOL) RECTAL 09/29 1429 Magnesium Sulfate 100 ML ASDIR PRN 08/30 1430 AC (MAGNESIUM SULFATE IV 09/29 1429 4GM/SWFI 100ML) [...] SULFATE) .ROUTE Acetaminophen 1,000 MG PREOP ONCALL 08/29 2130 DC 08/30 (TYLENOL EXTRA PO 09/28 2129 0518 STRENGTH) Gabapentin 200 MG PREOP ONCALL 08/29 2130 DC 08/30 (NEURONTIN) PO 09/28 4899 0517 Electrolytic, Caloric, And Aniceto Sig/Sherrill Start time Last Medication Dose Route Stop Time Status Admin Calcium Chloride 1 GM ASDIR PRN 08/30 1430 AC (CALCIUM CHLORIDE) IV 09/29 1429 Dextrose/Water 125 ML ASDIR PRN 08/30 1430 CKD (DEXTROSE 10% IN IV 09/29 1429 WATER) Dextrose/Water 250 ML ASDIR PRN 08/30 1430 CKD (DEXTROSE 10% IN IV 09/29 1429 WATER) Potassium Chloride 100 ML ASDIR PRN [...] Chloride 50 ML .STK-MED ONE 08/30 1036 DC (SODIUM CHLORIDE IV 0.9%) Sodium Chloride 250 [...] Hydroxide 30 ML ONCE PRN 09/01 1200 AC (MILK OF MAGNESIA) PO Polyethylene Glycol 17 GM DAILY 08/31 0900 AC (MIRALAX) PO 09/30 0859 Pantoprazole 40 MG DAILY@0600 08/31 0600 AC (PROTONIX) PO 09/30 0559 Docusate Sodium 100 MG BID 08/30 2100 AC (COLACE) PO 09/29 2059 Sennosides 17.2 MG BEDTIME 08/30 2100 UNV (Senna Lax 8.6 MG PO 09/29 2059 TABLET) Ondansetron HCl 4 MG Q6H PRN PRN 08/30 1430 UNV (ZOFRAN) IV 09/29 1429 Ondansetron HCl 0 [...] Status Admin Cyanocobalamin 500 MCG DAILY 09/02 0900 UNV (Vitamin B-12 500 PO 10/02 0859 mcg tab) Allergies:Coded Allergies:No Known Allergies (08/29/22) Ambulatory Status Independent Review of Systems Review of SystemsConstitutional:Denies: fever, malaise. Allergy/Immun:Denies: allergic reaction. Respiratory:Denies: SOB. Cardiovascular:Denies: chest pain, palpitations. Heme:Denies: bleeding. Neuro:Denies: dizziness, headache. Objective Physical ExamVS/I O:Last Documented: Result Date Time Pulse Ox 98 08/30 1119 O2 Delivery Room air 08/30 1119 Pulse 62 08/30 0912 Resp 26 08/30 0912 B/P 130/82 08/30 09 B/P Mean 98 08/30 09 Temp 97.5 08/30 0800 FiO2 30 08/29 2359 24 hour I O ending at 0700: 08/30 0700 08/29 1900 Intake Total 400 Output Total Balance 400 Intake, Oral 400 Patient 239 lb Weight Weight Standing scale Measurement Method PATIENT WEIGHT: Weight (lb): 239Weight (oz): 3.22Weight (kg): 108.500 General appearance: alert, oriented, mental status normal, no respiratory distressHEENT: anictericCardiovascular: normal heart sounds, regular rate rhythmRespiratory: aerating well, clear to auscultation, symmetric expansion, no distressAbdomen: soft, non-tender, no distentionExtremities: moves allNeuro/MACHINE STONECUTTER: alert, oriented X 3, normal speech, no motor deficitsPsychiatry: normal affect, normal mood ResultsFindings/Data:Laboratory Tests 08/30 08/30 08/30 08/30 1349 1325 1237 1145 Blood Gas O2 Saturation (90 - 100 %) 100.0 99.9 100.0 99.9 ABG pH (7.35 - 7.45) 7.429 7.339 L 7.331 L 7.426 ABG pCO2 (35.0 - 45 mmHg) 37.0 51.5 *H 44.6 34.9 L ABG pO2 (80 - 100.0 mmHg) 363.2 *H 384.2 *H 434.4 *H 304.0 *H ABG HCO3 (22.0 - 26.0 MMOL/L) 24.5 27.8 H 23.6 22.9 ABG Total CO2 25.6 29.3 24.9 24.0 ABG Base Excess (-4.0 - 4.0 MMOL/L) 0.2 1.4 -2.5 -0.9 ABG Hematocrit (37.5 - 50.7 %) 29 L 28 L 38 43 ABG Hemoglobin (12.5 - 16.9 G/DL) 9.8 L 9.5 L 13.0 14.6 Sodium (134 - 147 MEQ/L) 144 144 145 147 Potassium (3.4 - 5.0 MEQ/L) 5.0 5.2 H 3.7 3.6 Chloride (100 - 108 MEQ/L) 109 H 108 110 H 111 H Ionized Calcium (1.12 - 1.32 MMOL/L) 1.08 L 1.09 L 1.18 1.20 Lactic Acid (0.9 - 1.7 mmol/l) 0.9 0.9 1.0 0.6 L Laboratory Tests 08/30 08/30 08/30 08/30 08/30 1349 1325 1237 1145 0330 Chemistry POC Creatinine (0.8 - 1.3 mg/dL) 0.9 0.8 1.0 0.9 POC Glucose (mg/dL) (70 - 110 MG/DL) 93 92 96 78 Hemoglobin A1c (4.8 - [...] Coagulation INR (0.8 - 1.2) 1.1 PTT ([place]) (25.0 - 39.5 Seconds) 23.7 L PT Patient/Control Mix (9.3 - 12.9 SECONDS) 12.6 Laboratory Tests 08/30 0330 Hematology WBC (4.5 [...] (Auto) (14.0 - 32.0 %) 33.4 H [place] % (Auto) (4.8 - 9.0 %) 11.2 H Eos % (Auto) (0.3 - 3.7 %) 0.9 Baso % (Auto) (0.0 - 2.0 %) 0.2 Neut # (Auto) (2.0 - 7.6 x10 3/uL) 3.55 Lymph # (Auto) (1.0 - 3.8 x10 3/uL) 2.20 [place] # (Auto) (0.1 - 0.8 x10 3/uL) 0.74 Eos # (Auto) (0.0 - 0.2 x10 3/uL) 0.06 Baso # (Auto) (0.0 - 0.2 x10 3/uL) 0.01 Abs Immat Gran (auto) (0.00 - 0.03 x10 3/uL) 0.02 Add Manual Diff NO Immature Gran % (0.0 - 2.0 %) 0.3 Nucleated RBC % (0 - 0 %) 0.0 Nucleated RBCs # (Man) (0.0 - 0.1 x10 3/uL) 0.00 Laboratory Tests 08/29 2100 Urines Urine Color (YEL/STRAW) STRAW Urine Appearance (CLEAR) CLEAR Urine pH (5.0 - 7.0) 7.0 Ur Specific [place] (1.005 - 1.030) 1.009 Urine Protein (NEGATIVE) [...] Squamous Epith Cells (NONE SEEN /HPF) NONE SEEN Urine Bacteria (NONE SEEN /HPF) NONE SEEN Microbiology Date/Time Procedure - Status Source Growth 08/29 2040 MSSA Surveillance Screen - COMP NASAL 08/29 2040 MRSA DNA Surveillance Screen - COMP NASAL Radiology data:Recent Impressions:ULTRASOUND - DUP EXTRACRANIAL STEPHENIE 08/29 2043 Report [...] Total occlusion is no detectable patent lumen. Impression By: Breonna Mejia M.D.ULTRASOUND - DUP VEIN STEPHENIE 08/29 2044 Report Impression - Status: SIGNED Entered: 08/29/20222145 IMPRESSION: Lower extremity venous mapping as above. Impression By: [email or web address] - Robinson Jacobsen M.D.CAT SCAN - CT CHEST W/O CONTRAST 08/29 2059 Report Impression - Status: SIGNED Entered: 08/29/20225 IMPRESSION: No acute findings. Ascending thoracic aorta dilation. Follow-up exam is recommended.Impression By: [email or web address] - Robert Gonzalez M.D.RADIOLOGY - XR CHEST 1 V 08/30 0530 Report Impression - Status: SIGNED Entered: 08/30/2022 0815 IMPRESSION: No acute abnormality in the chest. Impression By: [email or web address] - Navarro Rasmusesn M.D. Diagnosis, Assessment PlanFree Text A P:Very pleasant 66-year-old -[place] male with past medical history of hypertension hyperlipidemia, obstructive sleep apnea who has been experiencing exertional chest discomfort. CTA of the coronaries demonstrated severe coronaryartery disease and patient was taken to the [facility] for further evaluation. Coronary angiogram showed severe coronary artery disease involving the left main(90%) and patient transferred to our facility for surgical revascularization. Dr Frye explained to the patient the angiogram findings and recommended urgent surgical revascularization. He discussed the surgery, risks involved, STS score, benefits, complications and alternatives. Patient acknowledged understanding and is willing to proceed. Preop work-up completed and patient will be taken to the OR today for CABG x3.Plan discussed with the family Thank you for the consultation. The patient was seen and plan reviewed with Omega Vargas 09/25/22 1127:Attestations Physician AttestationAgree w/findings plan:I have seen and examined Mr. Fung. I agree with the findings and plan as documented by ESTEFANIA Macias. Briefly, 66-year-old gentleman transferred from outside facility with severe coronary artery disease involving left main. Patient been from surgical revascularization. Had a long discussion with patient, explained to him the angiogram findings and need for surgical revascularization. Discussed with him the procedure, risk involved, benefit, alternative, STS risk score, and complications. Patient has agreed for surgery. I am making arrangement for to have surgical revascularization in the near future. at 1441 at 1141 [facility] #:[id number] OF [id number] for patient [id number] [facility]
[2024-01-30 11:02] LABS: Absolute Eosinophils 0.1 K/uL (0-0.5); Absolute Monocytes 0.9 K/uL (0.1-1.3); Absolute Neutrophil 3.7 K/uL (1.8-8.0); Basophils % 0.2 % (0-1.3); Eosinophils % 1.1 % (0-4.4); Hematocrit 41.5 % (39.6-49.0); Hemoglobin 14.1 g/dL (13.6-17.9); Lymphocytes % 29.9 % (15.3-44.8); MCH 32.8 pg (27.0-35.0); MCV 96.4 fL (80-100); MPV 9.5 fL (7.6-11.3); Monocytes % 13.7 % (3.3-12.3); Neutrophils % 55.1 % (41.7-73.7); Nucleated Red Blood Cells % 0.1 % (0-0); Platelets 184 thou/uL (152-406); RBC Red Blood Cell Count 4.31 M/uL (4.33-5.43); Red Cell Distribution Width 13.6 % (12.1-15.2)
[2024-01-30 11:06] LABS: PT Prothrombin Time 12.8 SECONDS (9.5-12.5); Protime INR 1.17
--- NOTE | 2024-01-30 11:17 | ER ---
Nurse's Notes [facility] Name: Devan Poole Age: 68 yrs Sex: Male : 1955 Arrival Date: 01/30/2024 Time: 10:18 Bed 17 Private MD: Diagnosis: Other pulmonary embolism with acute cor pulmonale-bilateral , extensive Presentation: 01/29 10:30 Chief complaint: Patient states: SOB X [address] POSITIVE BILAT PE TODAY. DENIES db CHEST PAIN. RECENT [place] FROM [place]. Coronavirus screen: Client indicates they have traveled out of the [place] in the last 14 days. Client traveled to: [place] At this time, the client does not indicate any symptoms associated with coronavirus-19. Ebola Screen: Patient negative for fever greater than or equal to 101.5 degrees Fahrenheit, and additional compatible Ebola Virus Disease symptoms Patient denies exposure to infectious person. Patient denies travel to an Ebola-affected area in the 21 days before illness onset. No symptoms or risks identified at this time. Initial Sepsis Screen: Does the patient meet any 2 criteria? No. Patient's initial sepsis screen is negative. Does the patient have a suspected source of infection? No. Patient's initial sepsis screen is negative. Risk Assessment: Do you want to hurt yourself or someone else? Patient reports no desire to harm self or others. Onset of symptoms was January 23, 2024. 10:30 Method Of Arrival: Ambulatory db 10:30 Acuity: MARIA DEL CARMEN 2 db Triage Assessment: 10:43 General: Appears in no apparent distress. comfortable, Behavior is calm, cooperative. db Pain: Denies pain. EENT: No deficits noted. No signs and/or symptoms were reported regarding the EENT system. Neuro: Level of Consciousness is awake, alert, obeys commands, Oriented to person, place, time, situation, Speech is normal. Cardiovascular: Reports shortness of breath, Denies chest pain. Respiratory: Reports shortness of breath at rest on exertion Airway is patent Respiratory effort is even, unlabored, Respiratory pattern is regular, symmetrical. GI: No deficits noted. No signs and/or symptoms were reported involving the gastrointestinal system. : No deficits noted. No signs and/or symptoms were reported regarding the genitourinary system. Derm: No deficits noted. No signs and/or symptoms reported regarding the dermatologic system. Musculoskeletal: No deficits noted. No signs and/or symptoms reported regarding the musculoskeletal system. Historical: - Allergies: : No Known Allergies; db - Home Meds: : Plavix Oral [Active]; db - PMHx: : Hyperlipidemia; Hypertensive disorder; db - PSHx: :43 Coronary artery bypass graft; 2021; Appendectomy; db - Immunization history:: Adult Immunizations unknown. - Social history:: Smoking status: Patient denies any tobacco usage or history of. Screenin:47 [facility] ED Fall Risk Assessment (Adult) History of falling in the last 3 months, db including since admission No falls in past 3 months (0 pts) Confusion or Disorientation No (0 pts) Intoxicated or Sedated No (0 pts) Impaired Gait No (0 pts) Mobility Assist Device Used No (0 pt) Altered Elimination No (0 pt) Score/Fall Risk Level 0 - 2 = Low Risk Oriented to surroundings, Maintained a safe environment. Abuse screen: Denies threats or abuse. Denies injuries from another. Nutritional screening: No deficits noted. Tuberculosis screening: No symptoms or risk factors identified. Assessment: 11:00 Reassessment: Patient appears in no apparent distress at this time. Patient and/or db family updated on plan of care and expected duration. Pain level reassessed. Patient is alert, oriented x 3, equal unlabored respirations, skin warm/dry/pink. General: Appears in no apparent distress. comfortable, Behavior is calm, cooperative. Pain: Denies pain. Neuro: Level of Consciousness is awake, alert, obeys commands, Oriented to person, place, time, situation, Moves all extremities. Speech is normal, Facial symmetry appears normal. Cardiovascular: Reports shortness of breath. Respiratory: Airway is patent Respiratory effort is even, unlabored, Respiratory pattern is regular, symmetrical. GI: No deficits noted. No signs and/or symptoms were reported involving the gastrointestinal system. : No deficits noted. No signs and/or symptoms were reported regarding the genitourinary system. EENT: No deficits noted. No signs and/or symptoms were reported regarding the EENT system. Derm: No deficits noted. No signs and/or symptoms reported regarding the dermatologic system. Musculoskeletal: No deficits noted. No signs and/or symptoms reported regarding the musculoskeletal system. 11:05 Reassessment: PT IN ULTRASOUND. db 11:45 Reassessment: REPORT CALLED TO ANN AT [facility] [place] GO[place] [address] [address] BED 2. STATES BED IS db NOT READY AND TO CALL BACK IN 30 MINUTES. REFUSED TO TAKE REPORT. 11:50 Reassessment: NOTIFIED MARIA GUADALUPE WORLEY RN RECEIVING FACILITY REFUSED REPORT DUE TO BED db NOT READY. 11:55 Reassessment: PATIENT SIGNED TRANSFER FORM. db 12:47 Reassessment: REPORT GIVEN TO PHILLIP SCHAEFFER AT [facility] [address] [facility] 10. db 12:53 Reassessment: Patient appears in no apparent distress at this time. Patient and/or db family updated on plan of care and expected duration. Pain level reassessed. Patient is alert, oriented x 3, equal unlabored respirations, skin warm/dry/pink. General: Appears in no apparent distress. comfortable, Behavior is calm, cooperative. Vital Signs: 10:30 BP 152 / 106; Pulse 93; Resp 20; Temp 97.8(TE); Pulse Ox 100% on R/A; Weight 111.13 kg; db Height 5 ft. 11 in. ; Pain 0/10; 11:27 BP 162 / 116; Pulse 85; Resp 18; Pulse Ox 96% on R/A; db 11:33 BP 158 / 114; Pulse 85; Resp 18; Pulse Ox 97% on R/A; db 12:00 BP 151 / 107; Pulse 91; Resp 20; Pulse Ox 99% on R/A; db 12:30 BP 156 / 96; Pulse 82; Resp 18; Pulse Ox 97% on R/A; db 10:30 Body Mass Index 34.17 (111.13 kg, 180.34 cm) db 10:30 Pain Scale: Adult db Vitals: 11:49 Cardiac Rhythm Assessment Regular. db [place] Coma Score: 11:49 Eye Response: spontaneous(4). Motor Response: obeys commands(6). Verbal Response: db oriented(5). Total: 15. 11:50 Eye Response: spontaneous(4). Motor Response: obeys commands(6). Verbal Response: ravin oriented(5). Total: 15. ED Course: 10:33 Patient arrived in ED. aa5 10:34 Lamin Dempsey MD is Attending Physician. ravin 10:41 Radha Snyder, RN is Primary Nurse. db 10:43 Triage completed. db 10:43 Arm band placed on Patient placed in an exam room. db 11:00 Initial lab(s) drawn, by me, sent to lab. EKG done, reviewed by Lamin Dempsey MD. db 11:08 initiated a transfer Arnold Browning Rn from the [facility]. eb 11:18 US Extremity Venous W Compression Zackary In Process Unspecified. EDMS 11:19 connected the clinical appeals reviewer environmental emergencies assistant for [facility] with Dr. Dempsey for patient eb transfer consultation. 11:20 administrative approval given by Arnold Browning Rn/ patient has been accepted to [facility] [address] [address] bed 2/ Dr. Katie Velasco has accepted the patient in transfer/ report to be called to [phone]. 11:36 Inserted saline lock: 22 gauge in right antecubital area, using aseptic technique. db Blood collected. 11:48 transfer transportation to receiving facility. db 11:51 XRAY Chest (1 view) In Process Unspecified. EDMS 12:58 Patient has correct armband on for positive identification. Placed in gown. Bed in low db position. Call light in reach. Side rails up X 1. Provided Education on: TRANSFER, IV, MEDICATION. Client placed on continuous cardiac and pulse oximetry monitoring. NIBP monitoring applied. product management manager on. Pulse ox on. NIBP on. Warm blanket given. 12:58 No provider procedures requiring assistance completed. Patient transferred, IV remains db in place. Administered Medications: 11:07 CANCELLED (Duplicate Order): [id number] mg Sub-Q once ravin 11:24 Drug: [place] [address] units IV at bolus once {Co-Signature: ko1 (Felecia Sebastian RN).} db Route: IV; Rate: bolus; Site: right antecubital; 11:42 Follow up: Response: No adverse reaction; IV Status: Completed infusion db 11:24 Drug: Enoxaparin Sub-Q 115 mg Sub-Q once Route: Sub-Q; Site: right lower abdomen; db 13:00 Follow up: Response: No adverse reaction db 11:30 Drug: NS 0.9% IV 1000 ml IV at 1 bolus Per protocol; 1000 mL bolus Route: IV; Rate: 1 db bolus; Site: right antecubital; 12:59 Follow up: Response: No adverse reaction; IV Status: Completed infusion; IV Intake: db 1000ml 11:30 Drug: Clopidogrel PO 75 mg PO once Route: PO; db 13:00 Follow up: Response: No adverse reaction db 11:35 Drug: Famotidine IVP 20 mg IVP once; dilute with 10 mL 0.9% NaCl; give over 2 minutes db Route: IVP; Site: right antecubital; 13:00 Follow up: Response: No adverse reaction db 11:43 Drug: Aspirin PO Chewable Tablet 81 mg PO once Route: PO; db 13:00 Follow up: Response: No adverse reaction db Medication: 12:58 VIS not applicable for this client. db Intake: 12:59 IV: 1000ml; Total: 1000ml. db Outcome: 11:16 ER care complete, transfer ordered by MD. alicia 12:58 Transferred by ground EMS to [facility], Transfer form completed. db 12:58 Condition: stable 12:58 Instructed on the need for transfer, 13:00 Patient left the ED. db Signatures: Dispatcher [employer] Lamin Thomson MD MD cha Calderon, Audri, RN RN aa5 Yessi Lord Danielle RN RN Felecia Leon RN ko1 Corrections: (The following items were deleted from the chart) 11:50 11:45 Reassessment: REPORT CALLED TO ANN AT [facility] [place] GO[place] TO [address] BED 2. db db
--- NOTE | 2024-01-30 11:17 | EDPHYS ---
Physician Documentation [facility] Name: Devan Poole Age: 68 yrs Sex: Male : 1955 Arrival Date: 01/30/2024 Time: 10:18 Bed 17 Private MD: ED Physician Lamin Dempsey HPI: 01/29 11:08 This 68 yrs old Black Male presents to ER via Ambulatory with complaints of Abnormal CT ravin result. 11:08 The patient has shortness of breath at rest, with light activity. Onset: The ravin symptoms/episode began/occurred 7 day(s) ago. Duration: The symptoms are continuous, and are steadily getting worse. The patient's shortness of breath is aggravated by light activity, talking, walking. Associated signs and symptoms: Pertinent positives: chest pain, non-productive cough. Severity of symptoms: At their worst the symptoms were moderate in the emergency department the symptoms have improved mildly. The patient has not experienced similar symptoms in the past. Historical: - Allergies: 10:43 No Known Allergies; db - Home Meds: 10:43 Plavix Oral [Active]; db - PMHx: 10:43 Hyperlipidemia; Hypertensive disorder; db - PSHx: 10:43 Coronary artery bypass graft; 2021; Appendectomy; db - Immunization history:: Adult Immunizations unknown. - Social history:: Smoking status: Patient denies any tobacco usage or history of. ROS: 11:12 Constitutional: Negative for fever, chills, and weight loss, Eyes: Negative for injury, ravin pain, redness, and discharge, ENT: Negative for injury, pain, and discharge, Neck: Negative for injury, pain, and swelling, Abdomen/GI: Negative for abdominal pain, nausea, vomiting, diarrhea, and constipation, Back: Negative for injury and pain, : Negative for injury, bleeding, discharge, and swelling, MS/Extremity: Negative for injury and deformity, Skin: Negative for injury, rash, and discoloration, Neuro: Negative for headache, weakness, numbness, tingling, and seizure, Psych: Negative for depression, anxiety, suicide ideation, homicidal ideation, and hallucinations, Allergy/Immunology: Negative for hives, rash, and allergies, Endocrine: Negative for neck swelling, polydipsia, polyuria, polyphagia, and marked weight changes, Hematologic/Lymphatic: Negative for swollen nodes, abnormal bleeding, and unusual bruising, 11:12 Cardiovascular: Positive for chest pain, orthopnea, 11:12 Respiratory: Positive for dyspnea on exertion, shortness of breath, on exertion. Exam: 11:12 Constitutional: This is a well developed, well nourished patient who is awake, alert, ravin and in no acute distress. Head/Face: Normocephalic, atraumatic. Eyes: Pupils equal round and reactive to light, extra-ocular motions intact. Lids and lashes normal. Conjunctiva and sclera are non-icteric and not injected. Cornea within normal limits. Periorbital areas with no swelling, redness, or edema. ENT: Nares patent. No nasal discharge, no septal abnormalities noted. Tympanic membranes are normal and external auditory canals are clear. Oropharynx with no redness, swelling, or masses, exudates, or evidence of obstruction, uvula midline. Mucous membranes moist. Neck: Trachea midline, no thyromegaly or masses palpated, and no cervical lymphadenopathy. Supple, full range of motion without nuchal rigidity, or vertebral point tenderness. No Meningismus. Chest/axilla: Normal chest wall appearance and motion. Nontender with no deformity. No lesions are appreciated. Cardiovascular: Regular rate and rhythm with a normal S1 and S2. No gallops, murmurs, or rubs. Normal PMI, no JVD. No pulse deficits. Respiratory: Lungs have equal breath sounds bilaterally, clear to auscultation and percussion. No rales, rhonchi or wheezes noted. No increased work of breathing, no retractions or nasal flaring. Abdomen/GI: Soft, non-tender, with normal bowel sounds. No distension or tympany. No guarding or rebound. No evidence of tenderness throughout. Back: No spinal tenderness. No costovertebral tenderness. Full range of motion. Male : Normal genitalia with no discharge or lesions. Skin: Warm, dry with normal turgor. Normal color with no rashes, no lesions, and no evidence of cellulitis. MS/ Extremity: Pulses equal, no cyanosis. Neurovascular intact. Full, normal range of motion. Neuro: Awake and alert, GCS 15, oriented to person, place, time, and situation. Cranial nerves II-XII grossly intact. Motor strength 5/5 in all extremities. Sensory grossly intact. Cerebellar exam normal. Normal gait. Psych: Awake, alert, with orientation to person, place and time. Behavior, mood, and affect are within normal limits. 11:12 Musculoskeletal/extremity: DVT Exam: No signs of deep vein thrombosis. no pain, no swelling, no tenderness, negative Homans' sign noted on exam, no appreciated bluish discoloration, no erythema, no increased warmth, 11:50 ECG was reviewed by the Attending Physician. [facility] Vital Signs: 10:30 BP 152 / 106; Pulse 93; Resp 20; Temp 97.8(TE); Pulse Ox 100% on R/A; Weight 111.13 kg; db Height 5 ft. 11 in. ; Pain 0/10; 11:27 BP 162 / 116; Pulse 85; Resp 18; Pulse Ox 96% on R/A; db 11:33 BP 158 / 114; Pulse 85; Resp 18; Pulse Ox 97% on R/A; db 12:00 BP 151 / 107; Pulse 91; Resp 20; Pulse Ox 99% on R/A; db 12:30 BP 156 / 96; Pulse 82; Resp 18; Pulse Ox 97% on R/A; db 10:30 Body Mass Index 34.17 (111.13 kg, 180.34 cm) db 10:30 Pain Scale: Adult db Madison Coma Score: 11:49 Eye Response: spontaneous(4). Motor Response: obeys commands(6). Verbal Response: db oriented(5). Total: 15. 11:50 Eye Response: spontaneous(4). Motor Response: obeys commands(6). Verbal Response: ravin oriented(5). Total: 15. MDM: 10:34 Patient medically screened. ravin 11:13 Differential diagnosis: CHF exacerbation, acute myocardial infarction, acute ravin pericarditis, anxiety, esophagitis, pneumonia, pulmonary embolus, stable angina, thoracic aortic disection, unstable angina, Myocardial Infarction pneumonia, Pneumothorax pulmonary edema, Pulmonary Embolism reactive airway disease, Unstable Angina. Antibiotic administration: Not indicated. HEART Score: History: Slightly Suspicious (0), ECG: Non specific repolarization disturbance / LBTB / PM (1), Age: > or = 65 years (2), Risk Factors: > or = 3 Risk factors for atherosclerotic disease (2), [Hypercholesterolemia] [Hypertension] [+ Family HX] [Obesity] Troponin: < or = 1 x Normal Limit (0). The patient was given aspirin in the Emergency Department. JOHNNY Risk Score: 1 - patient's age is greater or equal to 65 years, 1 - Three or more CAD risk factors, 1- Known CAD, 1 - ASA use in past 7 days, 1 - Recent [<24hrs] Severe Angina, 1 - Elevated Cardiac Markers, TOTAL SCORE = 6. Immunization status: Pneumococcal vaccine: within last 5 years. Influenza vaccine: within last 5 years. Data reviewed: vital signs, nurses notes, lab test result(s), EKG, radiologic studies, CT scan, plain films. Consideration of Admission/Observation Escalation of care including admission/observation considered. I considered the following discharge prescriptions or medication management in the emergency department Medications were administered in the Emergency Department. See MAR. Independent interpretation of the following test(s) in the Emergency Department EKG: See my EKG interpretation above. 01/29 10:36 Order name: Basic Metabolic Panel; Complete Time: 11:50 01/29 10:36 Order name: CBC with Diff; Complete Time: 11:01/29 10:36 Order name: LFT's; Complete Time: 11:01/29 10:36 Order name: Magnesium; Complete Time: 11:01/29 10:36 Order name: NT PRO-BNP; Complete Time: 11:50 01/29 10:36 Order name: PT-INR; Complete Time: 11:50 01/29 10:36 Order name: Troponin HS; Complete Time: 11:50 01/29 10:36 Order name: XRAY Chest (1 view) 01/29 10:36 Order name: US Extremity Venous W Compression Zackary; Complete Time: 11:50 01/29 10:36 Order name: EKG; Complete Time: 10:37 01/29 10:36 Order name: Cardiac monitoring; Complete Time: 11:43 01/29 10:36 Order name: EKG - Nurse/Tech; Complete Time: 11:36 01/29 10:36 Order name: IV Saline Lock; Complete Time: :43 01/29 10:36 Order name: Labs collected and sent; Complete Time: 11:43 01/29 10:36 Order name: O2 Per Protocol; Complete Time: :01/29 10:36 Order name: O2 Sat Monitoring; Complete Time: 11:43 ravin 01/29 10:36 Order name: IV Saline Lock - Large Bore; Complete Time: ravni 01/29 10:36 Order name: Charyc. Order: strict bed rest; Complete Time: 10:45 ravin EC:50 Rate is 83 beats/min. Rhythm is regular. QRS Pierce is Normal. MA interval is prolonged. ravin QRS interval is normal. QT interval is normal. No Q waves. T waves are Normal. No ST changes noted. Clinical impression: NSR w/ Non-specific ST/T Changes, 1st degree heart block, and No evidence of ischemia. Interpreted by me. Reviewed by me. Administered Medications: 11:07 CANCELLED (Duplicate Order): [id number] mg Sub-Q once ravin 11:24 Drug: [place] [address] units IV at bolus once {Co-Signature: ko1 (Felecia Sebastian RN).} db Route: IV; Rate: bolus; Site: right antecubital; 11:42 Follow up: Response: No adverse reaction; IV Status: Completed infusion db 11:24 Drug: Enoxaparin Sub-Q 115 mg Sub-Q once Route: Sub-Q; Site: right lower abdomen; db 13:00 Follow up: Response: No adverse reaction db 11:30 Drug: NS 0.9% IV 1000 ml IV at 1 bolus Per protocol; 1000 mL bolus Route: IV; Rate: 1 db bolus; Site: right antecubital; 12:59 Follow up: Response: No adverse reaction; IV Status: Completed infusion; IV Intake: db 1000ml 11:30 Drug: Clopidogrel PO 75 mg PO once Route: PO; db 13:00 Follow up: Response: No adverse reaction db 11:35 Drug: Famotidine IVP 20 mg IVP once; dilute with 10 mL 0.9% NaCl; give over 2 minutes db Route: IVP; Site: right antecubital; 13:00 Follow up: Response: No adverse reaction db 11:43 Drug: Aspirin PO Chewable Tablet 81 mg PO once Route: PO; db 13:00 Follow up: Response: No adverse reaction db Disposition Summary: 01/30/24 11:16 Transfer Ordered Notes: Transfer Location: [facility] ravin Reason: Higher level of care ravin Condition: Stable ravin Problem: new ravin Symptoms: have improved ravin Accepting Physician: to [facility] per [facility] dewitt(01/30/24 13:00) belen Diagnosis - Other pulmonary embolism with acute cor pulmonale - bilateral , extensive ravin Forms: - Medication Reconciliation Form ravin - SBAR form ravin Signatures: Dispatcher [employer] EDMS Lamin Dempsey MD MD cha Benton, Danielle RN RN db Felecia Sebastian RN ko1 Corrections: (The following items were deleted from the chart) 11:07 10:43 Enoxaparin Sub-Q 110 mg Sub-Q once ordered. ravin alicia 12:50 11:06 EC Echo Doppler W/Color Flow+ECHO.RAD.BRZ ordered. EDKY EDKY 13:00 11:16 to [facility] per dr renate glover
[2024-01-30 11:26] LABS: Albumin 3.7 g/dL (3.4-5.0); Albumin/Globulin Ratio 0.9 (1.1-1.8); Anion Gap 7.9 mEq/L (5.0-15.0); Bilirubin Direct 0.1 mg/dL (0-0.2); Bilirubin Indirect, Calculated 0.7 mg/dL (0.2-0.8); Bilirubin Total 0.8 mg/dL (0.2-1.0); Globulin 4.3 g/dL (2.3-3.5); Troponin High Sensitivity 31.4 pg/mL (<58.9)
[2024-01-30 11:27] LABS: Magnesium 2.6 mg/dL (1.6-2.4); Potassium 3.9 mEq/L (3.5-5.1)
--- NOTE | 2024-01-30 11:35 | RAD REPORT ---
EXAM DESCRIPTION: USExtrem Venous W Compress Bil01/30/2024 11:24 am CLINICAL HISTORY: Leg pain COMPARISON: none FINDINGS: The common femoral, superficial femoral, greater saphenous, popliteal and posterior tibial veins bilaterally are compressible and demonstrate augmentation. Doppler demonstrates good flow. Grayscale, color and spectral analysis performed on all vessels IMPRESSION: No evidence of deep venous thrombosis involving either lower extremity.
--- NOTE | 2024-01-30 12:06 | RAD REPORT ---
EXAM DESCRIPTION: [place] Single View01/30/2024 11:50 am CLINICAL HISTORY: Shortness of breath COMPARISON: December 2023 FINDINGS: The lungs appear clear of acute infiltrate. The heart is borderline enlarged Postsurgical changes involve the chest. IMPRESSION: No acute abnormalities displayed
[2024-01-30 13:29] VITALS: BP 156/96; TEMP 97.8; O2SAT 97
--- NOTE | 2024-02-02 14:27 | EKG ---
Test Date: 2024-01-30 Test Time: 11:19:45 [place]er: NATALIA MEASUREMENT RESULTS: Intervals: Rate: 83 MI: 256 QRSD: 70 QT: 394 QTc: 462 Lane: P: 57 MI: 256 QRS: 57 T: 56 INTERPRETIVE STATEMENTS: Sinus rhythm with 1st degree AV block Cannot rule out Anterior infarct, age undetermined Abnormal ECG Compared to ECG 05/23/2023 09:25:47 Myocardial infarct finding now present Electronically Signed On 02-02-24 14:16:54 CDT by Tawanda Connor
== END ==
LOC: ER 10:18
DX: I26.09 Other pulmonary embolism with acute cor pulmonale (principal); I10 Essential (primary) hypertension; E78.5 Hyperlipidemia, unspecified; Z95.1 Presence of aortocoronary bypass graft; Z79.01 Long term (current) use of anticoagulants
CPT/HCPCS: 96365; 96361; 93005; 85025; 80048; 36415; 83735; 85610; 80076; 84484; 83880; 71045; 93970; 96375; 96372; 99285; J1644; J1650 ×2; J7030

== ENCOUNTER 2024-12-06 13:38 | Emergency (ER) | payer OTHER ==
[2024-12-06 14:21] LABS: Absolute Basophils 0.1 K/uL (0-0.5); Absolute Lymphocytes (CBC) 2.2 K/uL (0.7-4.9); Absolute Monocytes 1.8 K/uL (0.1-1.3); Absolute Neutrophil 11.2 K/uL (1.8-8.0); Basophils % 0.5 % (0-1.3); Eosinophils % 0.1 % (0-4.4); Hematocrit 40.1 % (39.6-49.0); Hemoglobin 14.2 g/dL (13.6-17.9); Lymphocytes % 14.1 % (15.3-44.8); MCH 33.5 pg (27.0-35.0); MCHC 35.4 g/dL (32.0-36.0); MCV 94.8 fL (80-100); MPV 9.7 fL (7.6-11.3); Monocytes % 11.9 % (3.3-12.3); Neutrophils % 73.4 % (41.7-73.7); Nucleated Red Blood Cells % 0.1 % (0-0); Platelets 186 thou/uL (152-406); RBC Red Blood Cell Count 4.23 M/uL (4.33-5.43); Red Cell Distribution Width 13.5 % (12.1-15.2)
[2024-12-06 14:25] LABS: Sqamous Epithelial None Seen /HPF (None Seen); Urine Bacteria <20 /HPF (<20); Urine Bilirubin NEGATIVE (Negative); Urine Blood Negative (Negative); Urine Clarity Clear (Clear); Urine Color Colorless (Yellow); Urine Culture Reflex Order NOT NEEDED; Urine Glucose NEGATIVE (Negative); Urine Ketones NEGATIVE (Negative); Urine Microscopic Reflex YN ORDER UMIC; Urine Nitrite NEGATIVE (Negative); Urine Protein NEGATIVE (Negative); Urine RBC <5 /HPF (None Seen); Urine Urobilinogen Normal (Normal); Urine WBC Clump Rare /HPF (None Seen); Urine pH 5.5 (5.0-7.0)
[2024-12-06 14:38] LABS: Albumin 3.9 g/dL (3.4-5.0); Albumin/Globulin Ratio 0.9 (1.1-1.8); Anion Gap 8.6 mEq/L (5.0-15.0); Bilirubin Total 0.9 mg/dL (0.2-1.0); Globulin 4.4 g/dL (2.3-3.5); Potassium 3.6 mEq/L (3.5-5.1); Protein, Total 8.3 g/dL (6.4-8.2)
--- NOTE | 2024-12-06 14:51 | RAD REPORT ---
EXAM: Testicular/scrotal ultrasound HISTORY: SWELLING COMPARISON: None TECHNIQUE: Multiplanar grayscale and color Doppler images were obtained in a testicular/scrotal ultra sound. Spectral analysis of the Doppler waveforms of the testicles were performed. FINDINGS: Right testicle: Normal in echogenicity. No focal mass. Normal internal flow. Left testicle: Normal in echogenicity. No focal mass. Normal internal flow. Right epididymis. No epididymal cyst. Normal internal flow. Left epididymis. Enlarged epididymis with increased vascularity. No fluid collection. Small bilateral hydrocele is present. No varicocele is present. IMPRESSION: Left-sided epididymitis. No abscess. Bilateral testicular blood flow.
[2024-12-06] MEDS ORDERED: CEFTRIAXONE 500 MG/VIAL ONE (15:59)
[2024-12-06] MEDS ORDERED: LIDOCAINE 1% MPF 2 ML AMPULE ONE (16:00)
--- NOTE | 2024-12-06 16:05 | EDPHYS ---
Physician Documentation [facility] Name: Devan Poole Age: 69 yrs Sex: Male : 1955 Arrival Date: 12/06/2024 Time: 13:38 Bed Treatment Private MD: Lamin Contreras HPI: 12/06 14:13 This 69 yrs old Black Male presents to ER via Ambulatory with complaints of left dr5 Testicular Swelling. 14:13 The patient presents with scrotal pain, of the left side, with swelling, tenderness, dr5 that is moderate. Patient is a 69-year-old male with history of hypertension hyperlipidemia coming in with left-sided testicular swelling and pain that started at 11:00 this morning. Patient reports his pain has been constant and unchanged. Patient denies fever. Patient denies any new sexual partners, penile discharge, or radiating pain.. Historical: - Allergies: 13:46 No Known Allergies; ap3 - PMHx: 13:46 Hyperlipidemia; Hypertensive disorder; ap3 - PSHx: 13:46 Appendectomy; Coronary artery bypass graft; 2021; ap3 - Immunization history:: Client reports receiving the 2nd dose of the Covid vaccine, Flu vaccine is not up to date. - Infectious Disease History:: Denies. - Social history:: Smoking status: Patient denies any tobacco usage or history of. ROS: 14:13 Constitutional: as per hpi dr5 Exam: 14:15 Constitutional: This is a well developed, well nourished patient who is awake, alert, dr5 and in no acute distress. Head/Face: Normocephalic, atraumatic. Eyes: Pupils equal round and reactive to light, extra-ocular motions intact. Lids and lashes normal. Conjunctiva and sclera are non-icteric and not injected. Cornea within normal limits. Periorbital areas with no swelling, redness, or edema. Neck: Trachea midline, no thyromegaly or masses palpated, and no cervical lymphadenopathy. Supple, full range of motion without nuchal rigidity, or vertebral point tenderness. No Meningismus. Chest/axilla: Normal chest wall appearance and motion. Nontender with no deformity. No lesions are appreciated. Cardiovascular: Regular rate and rhythm with a normal S1 and S2. Normal PMI, no JVD. No pulse deficits. Respiratory: Lungs have equal breath sounds bilaterally, clear to auscultation. No rales, rhonchi or wheezes noted. No increased work of breathing, no retractions or nasal flaring. Back: No spinal tenderness. No costovertebral tenderness. Full range of motion. Skin: Warm, dry with normal turgor. Normal color with no rashes, no lesions, and no evidence of cellulitis. Neuro: Awake and alert, GCS 15, oriented to person, place, time, and situation. Cranial nerves II-XII grossly intact. Motor strength 5/5 in all extremities. Sensory grossly intact. Cerebellar exam normal. Normal gait. 14:15 : Male external genitalia: swelling, of the left testicle is noted, scrotal, tenderness, of the left testicle is noted, that is moderate, 14:16 : Carmen RN at bedside during examination., dr5 Vital Signs: 13:45 BP 141 / 80; Pulse 91; Resp 17; Temp 98.1(O); Pulse Ox 100% on R/A; Weight 115.67 kg; ap3 Height 5 ft. 11 in. ; Pain 7/10; 13:45 Body Mass Index 35.56 (115.67 kg, 180.34 cm) ap3 13:45 Pain Scale: Adult ap3 MDM: 13:44 Medical Screening Exam initiated dr5 16:05 Differential diagnosis: Epididymitis, testicular torsion, UTI, hydrocele, spermatocele. dr5 Data reviewed: vital signs, nurses notes. I considered the following discharge prescriptions or medication management in the emergency department Medications were administered in the Emergency Department. See MAR. Care significantly affected by the following chronic conditions: Hypertension, Hyperlipidemia. Care significantly affected by the following Social Determinants of Health: Poor access to healthcare and/or lack of insurance, Poor access to transportation, Problems related to employment. Counseling: I had a detailed discussion with the patient and/or guardian regarding the historical points, exam findings, and any diagnostic results supporting the discharge/admit diagnosis, the presence of at least one elevated blood pressure reading (>120/80) during this emergency department visit, lab results, radiology results, the need for outpatient follow up, for definitive care, a family practitioner, a urologist, to return to the emergency department if symptoms worsen or persist or if there are any questions or concerns that arise at home. ED course: Patient was given ceftriaxone 500 mg IM. Patient denies any new sexual partners, anal intercourse, recent urological procedures. Patient does report a history of BPH and is on Flomax twice a day likely causing epididymitis. Will treat patient with doxycycline and cefpodoxime. Patient reports that he will call his urologist today and get an appointment for further management. All questions answered. Recommended anti-inflammatories as well as good supporting underwear.. 12/06 13:52 Order name: CBC with Diff; Complete Time: 14:33 [facility] 12/06 13:52 Order name: CMP; Complete Time: 14:40 dr5 12/06 13:52 Order name: Urinalysis w/ reflexes; Complete Time: 14:33 dr5 12/06 13:52 Order name: US Scrotum Testicles; Complete Time: 14:52 dr5 Administered Medications: 16:09 Drug: Rocephin (cefTRIAXone) IM 500 mg IM once Route: IM; Site: right deltoid; jl7 16:44 Follow up: Response: No adverse reaction [facility] Disposition: 12/07 14:20 Co-signature as Attending Physician, Lamin eDmpsey MD I agree with the assessment and ravin plan of care. Disposition Summary: 12/06/24 16:04 Discharge Ordered Notes: Location: Home dr5 Condition: Stable dr5 Diagnosis - Epididymitis dr5 Followup: dr5 - With: Emergency Department - When: As needed - Reason: Worsening of condition Followup: dr5 - With: Private Physician - When: 1 - 2 days - Reason: Recheck today's complaints, Continuance of care, Re-evaluation by your physician Discharge Instructions: - Discharge Summary Sheet dr5 - Epididymitis dr5 Forms: - Medication Reconciliation Form dr5 - Antibiotic Education dr5 - Patient Portal Instructions dr5 - Leadership Thank You Letter dr5 Prescriptions: - Ibuprofen 800 mg Oral Tablet - take 1 tablet ORAL route every 12 hours As needed take with food; 20 tablet; dr5 Refills: 0, Product Selection Permitted - Doxycycline Hyclate 100 mg Oral tablet - take 1 tablet ORAL route every 12 hours for 10 days; 20 tablet; Refills: 0, dr5 Product Selection Permitted - cefpodoxime 200 mg Oral tablet - take 1 tablet ORAL route every 12 hours for 10 days with food; 20 tablet; dr5 Refills: 0, Product Selection Permitted Signatures: Dispatcher [employer] Lamin Thomson MD MD cha Leal, Jahala, RN RN jl7 Carmen Rai RN RN ap3 Luis Morris, ANESTHESIOLOGY PHYSICIAN ASSISTANT-C ANESTHESIOLOGY PHYSICIAN ASSISTANT-Cdr5 Corrections: (The following items were deleted from the chart) 12/06 14:15 14:13 Patient is a 69-year-old male with history of hypertension hyperlipidemia coming dr5 in with left-sided testicular swelling and pain that started at 11:00 this morning. Patient reports his pain has been constant and unchanged. Patient denies fever.. dr5
--- NOTE | 2024-12-06 16:05 | ER ---
Nurse's Notes [facility] Name: Devan Poole Age: 69 yrs Sex: Male : 1955 Arrival Date: 12/06/2024 Time: 13:38 Bed Treatment Private MD: Diagnosis: Epididymitis Presentation: 12/06 13:45 Chief complaint: Patient states: he woke up this morning to left testicular swelling ap3 and pain. patient reports it was normal last night when he went to bed. patient states it is getting worse as the day goes on. patient currently rates his pain as a 7/10 on the pain scale. Coronavirus screen: At this time, the client does not indicate any symptoms associated with coronavirus-19. Ebola Screen: No symptoms or risks identified at this time. Initial Sepsis Screen: Does the patient meet any 2 criteria? HR > 90 bpm. Does the patient have a suspected source of infection? No. Patient's initial sepsis screen is negative. Risk Assessment: Do you want to hurt yourself or someone else? Patient reports no desire to harm self or others. Onset of symptoms was December 06, 2024. 13:45 Method Of Arrival: Ambulatory ap3 13:45 Acuity: [facility] 2 ap3 Triage Assessment: 13:47 General: Appears uncomfortable, Behavior is calm, cooperative, appropriate for age. ap3 Pain: Complains of pain in left testicle Pain currently is 7 out of 10 on a pain scale. Pain began gradually. Neuro: Level of Consciousness is awake, alert, obeys commands, Oriented to person, place, time, situation, Appropriate for age. Cardiovascular: Patient's skin is warm and dry. Respiratory: Airway is patent Respiratory effort is even, unlabored, Respiratory pattern is regular, symmetrical. : Reports pain in left testicle. Historical: - Allergies: 13:46 No Known Allergies; ap3 - PMHx: 13:46 Hyperlipidemia; Hypertensive disorder; ap3 - PSHx: 13:46 Appendectomy; Coronary artery bypass graft; 2021; ap3 - Immunization history:: Client reports receiving the 2nd dose of the Covid vaccine, Flu vaccine is not up to date. - Infectious Disease History:: Denies. - Social history:: Smoking status: Patient denies any tobacco usage or history of. Screenin:47 [facility] Fall Risk Assessment (Adult) History of falling in the last 3 months, ap3 including since admission No falls in past 3 months (0 pts) Confusion or Disorientation No (0 pts) Intoxicated or Sedated No (0 pts) Impaired Gait No (0 pts) Mobility Assist Device Used No (0 pt) Altered Elimination No (0 pt) Score/Fall Risk Level 0 - 2 = Low Risk Oriented to surroundings, Maintained a safe environment, Educated pt \T\ family on fall prevention, incl call for assistance when getting out of bed, Assessed \T\ reinforced patient's understanding of fall precautions, Hourly rounding (assess needs \T\ fall precautionary measures) done, Used ambulatory aids as needed (educated on \T\ assisted with), Used gait belt as appropriate. Abuse screen: Denies threats or abuse. Nutritional screening: No deficits noted. Tuberculosis screening: No symptoms or risk factors identified. Vital Signs: 13:45 BP 141 / 80; Pulse 91; Resp 17; Temp 98.1(O); Pulse Ox 100% on R/A; Weight 115.67 kg; ap3 Height 5 ft. 11 in. ; Pain 7/10; 13:45 Body Mass Index 35.56 (115.67 kg, 180.34 cm) ap3 13:45 Pain Scale: Adult ap3 ED Course: 13:41 Patient arrived in ED. ra3 13:44 Luis Morris FNP-C [facility]. dr5 13:44 Lamin Dempsey MD is Attending Physician. dr5 13:46 Triage completed. ap3 13:48 Arm band placed on right wrist. ap3 14:11 Inserted saline lock: 20 gauge in right antecubital area, using aseptic technique. ld1 Blood collected. Flushed with 10 mL NS. 14:40 Scrotum Testicles In Process Unspecified. EDMS 15:19 Johnny Zimmerman, PHILLIP is Primary Nurse. jl7 16:44 No provider procedures requiring assistance completed. IV discontinued, intact, jl7 bleeding controlled, No redness/swelling at site. Pressure dressing applied. Administered Medications: 16:09 Drug: Rocephin (cefTRIAXone) IM 500 mg IM once Route: IM; Site: right deltoid; jl7 16:44 Follow up: Response: No adverse reaction jl7 Outcome: 16:04 Discharge ordered by . dr5 16:44 Discharged to home ambulatory, jl7 16:44 Condition: stable 16:44 Discharge instructions given to patient, Instructed on discharge instructions, follow up and referral plans. medication usage, Demonstrated understanding of instructions, follow-up care, medications, Prescriptions given X 3, 16:45 Patient left the ED. jl7 Signatures: Dispatcher [employer] EDMS Johnny Zimmerman RN RN jl7 Carmen Rai RN RN ap3 Gloria Jackson RN RN ld1 Fauzia De La Cruz ra3 Luis Morris, SOFT WORK CIGAR MACHINE OPERATOR-C SOFT WORK CIGAR MACHINE OPERATOR-[facility]
[2024-12-06 19:27] VITALS: BP 141/80; TEMP 98.1; O2SAT 100
== END 2024-12-06 16:45 | disposition home or self-care (01) ==
LOC: ER 13:38
DX: N45.1 Epididymitis (principal); Z95.1 Presence of aortocoronary bypass graft
CPT/HCPCS: 36415; 76870; 80053; 81001; 85025; 96372; 99284